=== PATIENT | female | born 1940 | race Caucasian/White ===

== ENCOUNTER → 2016-08-13 | Outpatient (CLI) | payer MEDICARE, OTHER ==
[~2016-08-13] MED LIST: ALBU1AER INH; ALDA2525 PO; ARMO60TA PO; ASPI81CH3 CHEW; ASPI81TA82 PO; ATEN1TAB73 PO; ATEN25TA PO; AZIT500T2 PO; BACTOIN EACH NARE; BENZ1CAP34 PO; GABA600T PO; GLUCTAB PO; LOVA10TA PO; MECL25CH PO; METF500T PO; NEXI40CA PO; PRED10PA PO; PRED20 PO; PRED5TAB PO; PROB500T10 PO; PROB500T8 PO; REST30CA PO; SPIR25TA3 PO; SYMB160A INH; TRAM-492 PO; TRAZ50TA4 PO; ULTR50TA PO; ZOFR4TAB3 SL
[2016-08-13 14:16] LABS: ANION GAP 9 MEQ/L (5-15); AST (GOT) 24 U/L (15-37); BLOOD UREA NITROGEN 22 MG/DL (7-18); CHLORIDE 98 MEQ/L (98-107); GLOMERULAR FILTRATION RATE 52 ML/MIN (>89); GLUCOSE,FASTING 151 MG/DL (74-99); POTASSIUM 3.5 MEQ/L (3.5-5.1); SODIUM (NA) 138 MEQ/L (136-145); URIC ACID 6.1 MG/DL (2.6-6.0)
[2016-08-13 14:44] LABS: ALKALINE PHOSPHATASE 70 U/L (45-117); ALT (GPT) 34 U/L (10-53); FREE T4 0.74 NG/DL (0.76-1.46); HDL CHOLESTEROL 64.1 MG/DL (40.0-60.0); LDL CHOLESTEROL 114 MG/DL (0-99); TOTAL BILIRUBIN ADULT 0.7 MG/DL (0.2-1.0)
== END ==
LOC: ELAB 12:17
PROVIDERS: ATTEND Family Medicine
DX: E78.2 Mixed hyperlipidemia (principal); M10.9 Gout, unspecified; E03.9 Hypothyroidism, unspecified; E53.8 Deficiency of other specified B group vitamins
CPT/HCPCS: 36415; 80053; 80061; 82607; 84439; 84443; 84550

== ENCOUNTER 2016-09-06 13:09 | Emergency (ER) | payer MEDICARE, OTHER ==
[~2016-09-06] VITALS: Ht 157.5 cm; Wt 70.0 kg
[~2016-09-06 13:09] MED LIST changes: -ASPI81CH3 CHEW; -ATEN25TA PO; -AZIT500T2 PO; -BACTOIN EACH NARE; -METF500T PO; -PRED10PA PO; -PRED5TAB PO; -PROB500T8 PO; -SPIR25TA3 PO; -TRAM-492 PO
[2016-09-06 13:12] VITALS: BP 127/66; PULSE 86; RESP 24; TEMP 97.7; O2SAT 95
[2016-09-06 13:18] VITALS: BP 133/75; PULSE 85; RESP 23; O2SAT 98
[2016-09-06 13:36] VITALS: O2SAT 99
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
[2016-09-06] MEDS ORDERED: methylPREDNISolone SOD SUCC 125 MG/2 ML VIAL IV PUSH ONE (13:45)
[2016-09-06] MEDS ORDERED: SODIUM CHLORIDE 0.9% FLUSH 5 ML FLUSH IVF PRN (13:45)
[2016-09-06 14:42] LABS: AUTOMATED NEUTROPHIL # 7.7 TH/MM3 (1.8-7.7); BASOPHIL % 0.2 % (0.0-2.0); EOSINOPHIL # 0.2 TH/MM3 (0-0.4); EOSINOPHIL % 1.9 % (0.0-4.0); HEMO FLAGS DIFF FINAL; LYMPH % 18.2 % (9.0-44.0); LYMPHOCYTE # 1.9 TH/MM3 (1.0-4.8); MEAN CELL VOLUME 88.6 FL (80.0-100.0); MEAN CORPUSCULAR HEMOGLOBIN 29.8 PG (27.0-34.0); MEAN CORPUSCULAR HGB CONC 33.6 % (32.0-36.0); MONO % 6.7 % (0.0-8.0); PLATELET COUNT 253 TH/MM3 (150-450); RED BLOOD COUNT 4.52 MIL/MM3 (4.00-5.30); RED CELL DISTRIBUTION WIDTH 14.3 % (11.6-17.2); WHITE BLOOD COUNT 10.6 TH/MM3 (4.0-11.0)
--- NOTE | 2016-09-06 14:44 | RADRPT ---
EXAM DATE/TIME: 09/06/2016 14:37 [facility] COMPARISON: CHEST SINGLE AP, March 05, 2016, 8:13. INDICATIONS : Shortness of breath. MEDICAL HISTORY : Chronic obstructive pulmonary disease. SURGICAL HISTORY : None. ENCOUNTER: Initial ACUITY: 2 weeks PAIN SCORE: 0/10 LOCATION: Bilateral chest FINDINGS: There is diffuse bilateral chronic interstitial lung disease characteristic of pulmonary fibrosis. Th e pulmonary fibrosis is at about the same or mildly increased compared to the prior study. No definit e focal acute pulmonary infiltrates are seen however this is limited due to the pulmonary fibrosis. N o evidence of pleural effusions. The heart size is stable. The bony structures are stable. CONCLUSION: Diffuse prominent bilateral pulmonary fibrosis. Anselmo Hidalgo MD on September 06, 2016 at 14:42 Board Certified Radiologist. This report was verified electronically.
--- NOTE | 2016-09-06 14:45 | RADRPT ---
EXAM DATE/TIME: 09/06/2016 14:28 [facility] COMPARISON: No previous studies available for comparison. INDICATIONS : Pain from fall onto tile floor. MEDICAL HISTORY : Prior fracture, right hip. SURGICAL HISTORY : Surgical repair, right hip. ENCOUNTER: Initial ACUITY: 1 day PAIN SCORE: 5/10 LOCATION: Left hip. FINDINGS: Examination of the left hip was performed with AP Pelvis. The primary and secondary trabecular patte rn of the femoral neck is intact. The left hip joint is of normal width without significant sclerosi s or bony hypertrophy. The acetabulum is grossly intact. There is evidence of previous internal fixa tion of the right femur. CONCLUSION: No acute fracture or joint dislocation. Anselmo Hidalgo MD on September 06, 2016 at 14:43 Board Certified Radiologist. This report was verified electronically.
[2016-09-06 14:53] LABS: APTT (PATIENT) 26.4 SEC (24.3-30.1); INTERNATIONAL NORMALIZED RATIO 1.1 RATIO; PROTHROMBIN TIME - PATIENT 11.7 SEC (9.8-11.6)
[2016-09-06] MEDS: RESP: ALBUTEROL 2.5 MG/IPRATROPIUM 0.5 MG NEB (SCH) INH (14:58)
--- NOTE | 2016-09-06 14:58 | RADRPT ---
EXAM DATE/TIME: 09/06/2016 14:37 [facility] COMPARISON: CT BRAIN W/O CONTRAST, December 21, 2015, 17:27. INDICATIONS : Fell a few days ago. RADIATION DOSE: 56.35 CTDIvol (mGy) MEDICAL HISTORY : Cerebrovascular disease. Hypertension. Diabetes. SURGICAL HISTORY : Cholecystectomy. Hysterectomy. ENCOUNTER: Initial ACUITY: 4 - 6 days PAIN SCALE: 2/10 LOCATION: cranial TECHNIQUE: Multiple contiguous axial images were obtained of the head. Using automated exposure control and adj ustment of the mA and/or kV according to patient size, radiation dose was kept as low as reasonably a chievable to obtain optimal diagnostic quality images. FINDINGS: CEREBRUM: The ventricles are normal for age. There is bilateral cortical atrophy which appears to be stable. T here is a tiny old left lacunar infarct in the basal ganglia. No evidence of midline shift, mass lesi on, hemorrhage or acute infarction. No extra-axial fluid collections are seen. POSTERIOR FOSSA: The cerebellum and brainstem are intact. The 4th ventricle is midline. The cerebellopontine angle i s unremarkable. EXTRACRANIAL: The visualized portion of the orbits is intact. SKULL: The calvaria is intact. No evidence of skull fracture. No significant change. CONCLUSION: 1. Tiny old left lacunar infarct. 2. Bilateral cortical atrophy. 3. No significant change. Anselmo Hidalgo MD on September 06, 2016 at 14:55 Board Certified Radiologist. This report was verified electronically.
[2016-09-06 15:28] LABS: ALKALINE PHOSPHATASE 56 U/L (45-117); ALT (GPT) 25 U/L (10-53); ANION GAP 8 MEQ/L (5-15); AST (GOT) 28 U/L (15-37); BICARBONATE 27.9 MEQ/L (21.0-32.0); BLOOD UREA NITROGEN 17 MG/DL (7-18); CHLORIDE 103 MEQ/L (98-107); GLOMERULAR FILTRATION RATE 45 ML/MIN (>89); POTASSIUM 4.1 MEQ/L (3.5-5.1); SODIUM (NA) 139 MEQ/L (136-145); TOTAL BILIRUBIN ADULT 0.6 MG/DL (0.2-1.0)
[2016-09-06 15:29] LABS: CREATINE KINASE 55 U/L (26-192)
[2016-09-06] MEDS ORDERED: LOVA10TA PO (15:42)
[2016-09-06] MEDS ORDERED: NEXI40CA PO (15:42)
[2016-09-06] MEDS ORDERED: PROB500T8 PO (15:42)
[2016-09-06] MEDS ORDERED: METF500T PO (15:42)
[2016-09-06] MEDS ORDERED: GABA600T PO (15:42)
[2016-09-06] MEDS ORDERED: BENZ1CAP34 PO (15:42)
[2016-09-06 16:30] VITALS: BP 105/56; PULSE 95; RESP 21; O2SAT 98
[2016-09-06 17:41] LABS: BLOOD, URINE NEG (NEG); COMMENT (UR) CULT NOT INDICATED; CULTURE IF INDICATED CULT NOT INDICATED; GLUCOSE,URINE NEG (NEG); HYALINE CAST, URINE 4 /lpf (RARE); KETONE, URINE TRACE mg/dL (NEG); MUCUS URINE FEW /lpf (OCC); NITRITE,URINE NEG (NEG); PH, URINE 5.5 (5.0-8.5); SQUAMOUS EPITHELIAL CELL URINE <1 /hpf (0-5); URINE COLOR YELLOW (YELLW/STRAW)
[2016-09-06] MEDS ORDERED: ATEN25TA PO (18:04)
[2016-09-06] MEDS ORDERED: ASPI81CH3 CHEW (18:04)
[2016-09-06] MEDS ORDERED: TRAM-492 PO (18:04)
[2016-09-06] MEDS ORDERED: ARMO60TA PO (18:04)
[2016-09-06] MEDS ORDERED: SPIR25TA3 PO (18:04)
[2016-09-06] MEDS ORDERED: PRED10PA PO (18:06)
--- NOTE | 2016-09-07 13:19 | EKG ---
Date Performed: 09/06/2016 Time Performed: 13:52:05 PTAGE: 76 years EKG: Sinus rhythm RIGHT BUNDLE BRANCH BLOCK ABNORMAL ECG Compared to prior tracing no significant change PREVIOUS TRACING : 03/05/2016 07.57 DOCTOR: Ariel Reardon Interpretating Date/Time 09/07/2016 13:14:51
== END 2016-09-06 18:55 | disposition home or self-care (01) ==
LOC: NEPA 13:09
DX: J84.10 Pulmonary fibrosis, unspecified (principal); H81.399 Other peripheral vertigo, unspecified ear; I10 Essential (primary) hypertension; E11.9 Type 2 diabetes mellitus without complications; R06.02 Shortness of breath; E03.9 Hypothyroidism, unspecified; Z79.84 Long term (current) use of oral hypoglycemic drugs; Z79.899 Other long term (current) drug therapy; Z87.891 Personal history of nicotine dependence
CPT/HCPCS: 70450; 71010; 73502; 80053; 81001; 82550; 83880; 84484; 85025; 85610; 85730; 93005; 94640; 94664; 96374; 99285; J2930; P9612

== ENCOUNTER 2016-11-03 22:43 | Inpatient (IN) | payer MEDICARE, OTHER ==
[~2016-11-03] VITALS: Ht 154.9 cm; Wt 72.8 kg
[~2016-11-03 22:43] MED LIST changes: -ALBU1AER INH; -ALDA2525 PO; +ASPI81CH3 CHEW; -ASPI81TA82 PO; -ATEN1TAB73 PO; +ATEN25TA PO; -GLUCTAB PO; -MECL25CH PO; +METF500T PO; +PRED10PA PO; -PRED20 PO; -PROB500T10 PO; +PROB500T8 PO; -REST30CA PO; +SPIR25TA3 PO; -SYMB160A INH; +TRAM-492 PO; -TRAZ50TA4 PO; -ULTR50TA PO; -ZOFR4TAB3 SL
[2016-11-03 22:51] VITALS: BP 179/90; PULSE 111; RESP 22; TEMP 98; O2SAT 96
[2016-11-03] MEDS ORDERED: SODIUM CHLORIDE 0.9% FLUSH 10 ML FLUSH IVF PRN (23:30)
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
[2016-11-04] VITALS (16 sets, daily range): BP systolic 122–235; BP diastolic 69–98; PULSE 80–107; RESP 16–26; TEMP 97.9–98; O2SAT 94–99
--- NOTE | 2016-11-04 00:05 | RADRPT ---
EXAM DATE/TIME: 11/03/2016 23:47 [place] COMPARISON: CHEST SINGLE AP, September 06, 2016, 14:37. INDICATIONS : Shortness of breath. MEDICAL HISTORY : Hypertension. SURGICAL HISTORY : None. ENCOUNTER: Initial ACUITY: 1 day PAIN SCORE: 0/10 LOCATION: Bilateral chest FINDINGS: A single view of the chest demonstrates lung fibrotic changes similar to August. There is some new c onsolidation at the left lung base since prior exam. No effusion. No pneumothorax. Heart size enlarge d. CONCLUSION: 1. New basilar airspace disease on the left since August. Differential diagnosis includes pneumonia and aspiration as well as atelectasis. Underlying lung fibrosis similar to prior study. Jordin Vaughn MD on November 04, 2016 at 0:01 Board Certified Radiologist. This report was verified electronically.
[2016-11-04 00:47] LABS: AUTOMATED NEUTROPHIL # 8.4 TH/MM3 (1.8-7.7); BASOPHIL # 0.1 TH/MM3 (0-0.2); BASOPHIL % 0.4 % (0.0-2.0); EOSINOPHIL # 0.1 TH/MM3 (0-0.4); EOSINOPHIL % 0.8 % (0.0-4.0); HEMATOCRIT 39.9 % (35.0-46.0); HEMO FLAGS DIFF FINAL; LYMPH % 26.8 % (9.0-44.0); LYMPHOCYTE # 3.4 TH/MM3 (1.0-4.8); MEAN CELL VOLUME 90.7 FL (80.0-100.0); MEAN CORPUSCULAR HEMOGLOBIN 30.4 PG (27.0-34.0); MEAN CORPUSCULAR HGB CONC 33.5 % (32.0-36.0); MONO % 6.6 % (0.0-8.0); NEUT % 65.4 % (16.0-70.0); PLATELET COUNT 270 TH/MM3 (150-450); RED CELL DISTRIBUTION WIDTH 16.2 % (11.6-17.2); WHITE BLOOD COUNT 12.8 TH/MM3 (4.0-11.0)
[2016-11-04 00:54] LABS: BLOOD, URINE NEG (NEG); GLUCOSE,URINE NEG (NEG); KETONE, URINE NEG (NEG); MUCUS URINE FEW /lpf (OCC); NITRITE,URINE NEG (NEG); PH, URINE 5.5 (5.0-8.5); URINE COLOR LIGHT-YELLOW (YELLW/STRAW)
[2016-11-04 00:55] LABS: COMMENT (UR) CULT NOT INDICATED; CULTURE IF INDICATED CULT NOT INDICATED
[2016-11-04] MEDS ORDERED: AZITHROMYCIN INJ 500 MG in SODIUM CHLOR 0.9% 250 ML INJ 250 ML IV ONE (01:00)
[2016-11-04] MEDS ORDERED: cefTRIAXone INJ 2,000 MG in SODIUM CHLORIDE 0.9% INJ 100 ML IV ONE (01:00)
[2016-11-04 01:08] LABS: ALKALINE PHOSPHATASE 60 U/L (45-117); ALT (GPT) 33 U/L (10-53); ANION GAP 7 MEQ/L (5-15); APTT (PATIENT) 23.8 SEC (24.3-30.1); AST (GOT) 59 U/L (15-37); BICARBONATE 27.9 MEQ/L (21.0-32.0); BLOOD UREA NITROGEN 24 MG/DL (7-18); CHLORIDE 104 MEQ/L (98-107); CREATINE KINASE 132 U/L (26-192); GLOMERULAR FILTRATION RATE 42 ML/MIN (>89); MAGNESIUM 1.6 MG/DL (1.5-2.5); PROTHROMBIN TIME - PATIENT 10.6 SEC (9.8-11.6); TOTAL BILIRUBIN ADULT 0.4 MG/DL (0.2-1.0)
[2016-11-04 01:11] LABS: SODIUM (NA) 139 MEQ/L (136-145)
[2016-11-04] MEDS ORDERED: SODIUM CHLOR 0.9% 1000 ML INJ 400 ML IV ONE (01:19)
[2016-11-04] MEDS ORDERED: SODIUM CHLOR 0.9% 1000 ML INJ 1,000 ML IV ONE ×2 (01:19)
[2016-11-04 01:23] LABS: CKMB 1.9 NG/ML (0.5-3.6)
[2016-11-04] MEDS ORDERED: SODIUM CHLORIDE 0.9% FLUSH 10 ML FLUSH IV FLUSH PRN (01:30)
[2016-11-04] MEDS ORDERED: MORPHINE SULFATE 4 MG/ML INJ IV PRN (01:30)
[2016-11-04] MEDS ORDERED: RESP: ALBUTEROL 2.5 MG/IPRATROPIUM 0.5 MG NEB (PRN) NEB (01:30)
[2016-11-04] MEDS ORDERED: ACETAMINOPHEN 325 MG TAB PO PRN (01:30)
[2016-11-04] MEDS ORDERED: BISACODYL 10 MG SUPP PR PRN (01:30)
[2016-11-04] MEDS ORDERED: ONDANSETRON HCL 4 MG/2 ML VIAL IVP PRN (01:30)
[2016-11-04] MEDS ORDERED: NITROGLYCERIN 2% OINT 1 GM PACKET TOPICAL ONE (01:30)
[2016-11-04] MEDS ORDERED: GLUCAGON 1 MG/ML VIAL OTHER PRN (01:45)
[2016-11-04] MEDS ORDERED: DEXTROSE 50% IN WATER 50 ML VIAL(D50) IV PUSH PRN (01:45)
[2016-11-04] MEDS ORDERED: CLOPIDOGREL 300 MG TAB PO ONE (01:45)
[2016-11-04 02:35] LABS: LACTIC ACID GHOST NOT REPORTABLE
--- NOTE | 2016-11-04 04:11 | HHI.HP ---
HPI Service [facility] Clive Johnson MD Admission Diagnosis Pneumonia, cp ro mi, intermediate trop, sepsis Diagnoses: (1) Sepsis Diagnosis: Principal (2) PNA (pneumonia) Diagnosis: Principal (3) Pulmonary fibrosis Diagnosis: Principal (4) DONATO (acute kidney injury) Diagnosis: Principal (5) Elevated troponin Diagnosis: Principal (6) DM (diabetes mellitus) Diagnosis: Principal Travel History International Travel<30 Days: No Contact w/Intl Traveler <30 Da: No Traveled to Known Affected Are: No History of Present Illness This is a 76-year-old female with a PMH of HTN, Pulmonary Fibrosis, O2 Dependent , GERD and DM who is brought to the ER by EMS secondary complaints of SOB and chest pain x3 days. Reports recent nasal congestion, productive coug w/ yellow- colored sputum and sick contacts-family member w/ URI. Denies fever or chills. On arrival, BP 179/90, HR 111, O2 sat 96% on 3L NC, Afebrile. WBC 12.8. K+ 6.0, Creatinine 1.25, previously 1.16 on 09/06/16. Lactic Acid 2.5, repeat 1.7. Troponin 0.32, no EKG changes. CXR with new basilar airspace disease and left and underlying lung fibrosis. S/p Blood Culture, Rocephin/Zithro in ER. Review of Systems Except as stated in HPI: all other systems reviewed are Neg ROS: 14 point review of systems otherwise negative. Past Family Social History Past Medical History PMH: HTN, Pulmonary Fibrosis, O2 Dependent, GERD and DM Past Surgical History PAST SURGICAL HISTORY: Hysterectomy, Right Femur ORIF, Bilateral Knee Replacement, Cholecystectomy Allergies: Coded Allergies: Celebrex (Verified Allergy, Severe, ELEVATED HEART RATE, 11/03/16) Codeine (Verified Allergy, Severe, ITCH, 11/03/16) Oxycontin (Verified Allergy, Severe, Rash, 11/03/16) Percocet (Verified Allergy, Severe, ITCHY, 11/03/16) Procaine (Verified Allergy, Severe, INCREASED HR, 11/03/16) *MDRO Multi-Drug Resistant Organism (Verified Adverse Reaction, Unknown, ) + MRSA PCR Screen 11/29/14. Family History PAST FAMILY HISTORY: Reviewed. No h/o DM or CAD Social History PAST SOCIAL HISTORY: Negative for alcohol, tobacco or drugs. Physical Exam Vital Signs Vital Signs Date Time Temp Pulse Resp B/P Pulse Ox O2 Delivery O2 Flow Rate FiO2 11/04/16 01:00 86 16 122/71 98 Nasal Cannula 3 11/03/16 22:51 98.0 111 22 179/90 96 Physical Exam PE: GENERAL: Elderly white female in no acute distress. HEENT: PERRLA, EOMI. No scleral icterus or conjunctival pallor. No lid lag or facial droop. CARDIOVASCULAR: Regular rate and rhythm. No obvious murmurs to auscultation. No chest tenderness to palpation. RESPIRATORY: No obvious rhonchi or wheezing. Clear to auscultation. Decreased breath sounds at bases bilaterally GASTROINTESTINAL: Abdomen soft, non-tender, nondistended. BS normal. MUSCULOSKELETAL: Extremities without clubbing, cyanosis, or edema. No obvious deformities. NEUROLOGICAL: Awake, alert and oriented x4. No focal neurologic deficits. Moving both upper and lower extremities spontaneously. Laboratory Laboratory Tests Test 11/04/16 11/04/16 11/04/16 00:10 00:23 02:45 White Blood Count 12.8 Red Blood Count 4.40 Hemoglobin 13.4 Hematocrit 39.9 Mean Corpuscular Volume 90.7 Mean Corpuscular Hemoglobin 30.4 Mean Corpuscular Hemoglobin 33.5 Concent Red Cell Distribution Width 16.2 Platelet Count 270 Mean Platelet Volume 8.9 Neutrophils (%) (Auto) 65.4 Lymphocytes (%) (Auto) 26.8 Monocytes (%) (Auto) 6.6 Eosinophils (%) (Auto) 0.8 Basophils (%) (Auto) 0.4 Neutrophils # (Auto) 8.4 Lymphocytes # (Auto) 3.4 Monocytes # (Auto) 0.8 Eosinophils # (Auto) 0.1 Basophils # (Auto) 0.1 CBC Comment DIFF FINAL Differential Comment Prothrombin Time 10.6 Prothromb Time International 1.0 Ratio Activated Partial 23.8 Thromboplast Time D-Dimer Quantitative (PE/DVT) 0.48 Urine Color LIGHT-YELLOW Urine Turbidity CLEAR Urine pH 5.5 Urine Specific [place] 1.012 Urine Protein NEG Urine Glucose (UA) NEG Urine Ketones NEG Urine Occult Blood NEG Urine Nitrite NEG Urine Bilirubin NEG Urine Urobilinogen LESS THAN 2.0 Urine Leukocyte Esterase NEG Urine RBC LESS THAN 1 Urine WBC LESS THAN 1 Urine Mucus FEW Microscopic Urinalysis Comment CULT NOT INDICATED Sodium Level 139 Potassium Level 6.0 Chloride Level 104 Carbon Dioxide Level 27.9 Anion Gap 7 Blood Urea Nitrogen 24 Creatinine 1.25 Estimat Glomerular Filtration 42 Rate Random Glucose 121 Calcium Level 9.2 Magnesium Level 1.6 Total Bilirubin 0.4 Aspartate Amino Transf 59 (AST/SGOT) Alanine Aminotransferase 33 (ALT/SGPT) Alkaline Phosphatase 60 Total Creatine Kinase 132 Creatine Kinase MB 1.9 Troponin I 0.32 B-Type Natriuretic Peptide 60 Total Protein 7.3 Albumin 3.3 Lactic Acid Level 2.5 1.7 Date/Time Procedure Status Source Growth 11/04/16 00:10 Aerobic Blood Culture Received Blood Peripheral Pending 11/04/16 00:10 Anaerobic Blood Culture Received Blood Peripheral Pending Result Diagram: 11/04/160 11/04/169 Assessment and Plan Problem List: (1) Sepsis ICD Code: A41.9 Status: Acute (2) PNA (pneumonia) ICD Code: J18.9 Status: Acute (3) Pulmonary fibrosis ICD Code: J84.10 Status: Chronic (4) Elevated troponin ICD Code: R74.8 Status: Acute (5) DONATO (acute kidney injury) ICD Code: N17.9 Status: Acute (6) HTN (hypertension) ICD Code: I10 Status: Acute (7) DM (diabetes mellitus) ICD Code: E11.9 Status: Chronic Assessment and Plan A/P: 1. Sepsis: HR 111, RR 22, Lactic Acid 2.5, Source-PNA, s/p Blood Cultures, Rocephin/Zithro in ER. Follow up cultures, continue IV Abx, repeat lactic normalized to 1.7. IVF for hydration. 2. PNA: CXR w/ new basilar airspace disease on left, likely pneumonia/ aspiration, underlying lung fibrosis, images reviewed by me. Continue with IV Abx as above, check Sputum Culture. 3. Pulmonary Fibrosis: Chronic. Follows w/ Dr. Franco as outpatient, Solu- Medrol, DuoNeb, Symbicort. 4. Elevated Trop: Trop 0.32, EKG w/ no acute ischemia, no h/o CAD. Check serial cardiac enzymes, ASA, Statin, B-camryn, consult Cardiology. 5. DONATO: Acute on Chronic. Creatinine 1.25, previously 1.16 on 09/06/16. UA negative. IVF for hydration, repeat labs in a.m. 6. HTN: BP on arrival 179/90, HR 111, currently BP 122/71, HR 86. Will monitor, resume home medications. 7. DM: Hold Metformin in light of renal insufficiency. Sliding scale with Accu-Cheks. 8. DVT Prophylaxis: SCD/teds. 9. Social work for DC planning as needed 10. Case discussed with ER physician at length. Physician Certification 2 Midnight Certification Type: Admission for Inpatient Services Order for Inpatient Services The services are ordered in accordance with Medicare regulations or non- Medicare payer requirements, as applicable. In the case of services not specified as inpatient-only, they are appropriately provided as inpatient services in accordance with the 2-midnight benchmark. Estimated LOS (days): 2 days is the estimated time the patient will need to remain in the hospital, assuming treatment plan goals are met and no additional complications. Post-Hospital Plan: Not yet determined Problem Qualifiers (1) Sepsis: Qualified Code: A41.9 - Sepsis, due to unspecified organism (2) PNA (pneumonia): Qualified Code: J18.9 - Pneumonia due to infectious organism, unspecified laterality, unspecified part of lung Anuja Linn MD Nov 04, 2016 04:11
[2016-11-04] MEDS: traMADol HCL 50 MG TAB PO PRN ×2 (05:04→20:38)
[2016-11-04] MEDS: SODIUM CHLOR 0.9% 1000 ML INJ 1,000 ML IV SCH ×2 (06:34→16:10)
[2016-11-04] MEDS: methylPREDNISolone SOD SUCC 40 MG/1 ML VIAL IV PUSH SCH ×2 (06:34→11:58)
[2016-11-04] MEDS: INSULIN ASPART SUPPLEMENTAL SCALE SQ SCH ×4 (06:42→21:00)
[2016-11-04] MEDS: RESP: ALBUTEROL 2.5 MG/IPRATROPIUM 0.5 MG NEB (SCH) NEB ×4 (07:53→19:37)
--- NOTE | 2016-11-04 08:30 | HHI.PR ---
Subjective Remarks This is a 76-year-old female with a PMH of HTN, Pulmonary Fibrosis, O2 Dependent , GERD and DM who is brought to the ER by EMS secondary complaints of SOB and chest pain x3 days. Reports recent nasal congestion, productive coug w/ yellow-colored sputum and sick contacts-family member w/ URI. Denies fever or chills. On arrival, BP 179/90, HR 111, O2 sat 96% on 3L NC, Afebrile. \ WBC 12.8. K+ 6.0, Creatinine 1.25, previously 1.16 on 09/06/16. Lactic Acid 2.5 , repeat 1.7. Troponin 0.32, no EKG changes. CXR with new basilar airspace disease and left and underlying lung fibrosis. S/ p Blood Culture, Rocephin/Zithro in ER. She was admitted today and was seen again by me in am, has Pneumonia with Acute kidney injury, bilateral inspiratory crackles, she follows her supplier quality specialist Doctor Justo and her excel specialist Doctor Joan as outpatient. at this time stable. No complaint no nausea, vomit or diarrhea. Objective Vital Signs Date Time Temp Pulse Resp B/P Pulse Ox O2 Delivery O2 Flow Rate FiO2 11/04/16 07:56 97 Nasal Cannula 2.00 11/04/16 07:35 97 152/77 128/69 11/04/16 07:04 96 18 235/95 99 Nasal Cannula 2 11/04/16 06:40 105 26 167/83 96 Nasal Cannula 3 11/04/16 04:53 94 24 152/76 98 Nasal Cannula 3 11/04/16 01:00 86 16 122/71 98 Nasal Cannula 3 11/03/16 22:51 98.0 111 22 179/90 96 Result Diagram: 11/04/16 0010 11/04/16 0010 Imaging Last Impressions Chest X-Ray 11/03/16 2330 Signed Impressions: Service Date/Time: Thursday, November 03, 2016 23:47 - CONCLUSION: 1. New basilar airspace disease on the left since August. Differential diagnosis includes pneumonia and aspiration as well as atelectasis. Underlying lung fibrosis similar to prior study. Jordin Vaughn MD Procedures No procedures performed Other Results Laboratory Tests Test 11/04/16 11/04/16 11/04/16 00:10 02:45 06:10 White Blood Count 12.8 TH/MM3 Red Blood Count 4.40 MIL/MM3 Hemoglobin 13.4 GM/DL Hematocrit 39.9 % Mean Corpuscular Volume 90.7 FL Mean Corpuscular Hemoglobin 30.4 PG Mean Corpuscular Hemoglobin 33.5 % Concent Red Cell Distribution Width 16.2 % Platelet Count 270 TH/MM3 Mean Platelet Volume 8.9 FL Neutrophils (%) (Auto) 65.4 % Lymphocytes (%) (Auto) 26.8 % Monocytes (%) (Auto) 6.6 % Eosinophils (%) (Auto) 0.8 % Basophils (%) (Auto) 0.4 % Neutrophils # (Auto) 8.4 TH/MM3 Lymphocytes # (Auto) 3.4 TH/MM3 Monocytes # (Auto) 0.8 TH/MM3 Eosinophils # (Auto) 0.1 TH/MM3 Basophils # (Auto) 0.1 TH/MM3 CBC Comment DIFF FINAL Differential Comment Prothrombin Time 10.6 SEC Prothromb Time International 1.0 RATIO Ratio Activated Partial 23.8 SEC Thromboplast Time D-Dimer Quantitative (PE/DVT) 0.48 MG/L FEU Urine Color LIGHT-YELLOW Urine Turbidity CLEAR Urine pH 5.5 Urine Specific [place] 1.012 Urine Protein NEG mg/dL Urine Glucose (UA) NEG mg/dL Urine Ketones NEG mg/dL Urine Occult Blood NEG Urine Nitrite NEG Urine Bilirubin NEG Urine Urobilinogen LESS THAN 2.0 MG/DL Urine Leukocyte Esterase NEG Urine RBC LESS THAN 1 /hpf Urine WBC LESS THAN 1 /hpf Urine Mucus FEW /lpf Microscopic Urinalysis Comment CULT NOT INDICATED Sodium Level 139 MEQ/L Potassium Level 6.0 MEQ/L Chloride Level 104 MEQ/L Carbon Dioxide Level 27.9 MEQ/L Anion Gap 7 MEQ/L Blood Urea Nitrogen 24 MG/DL Creatinine 1.25 MG/DL Estimat Glomerular Filtration 42 ML/MIN Rate Random Glucose 121 MG/DL Calcium Level 9.2 MG/DL Magnesium Level 1.6 MG/DL Total Bilirubin 0.4 MG/DL Aspartate Amino Transf 59 U/L (AST/SGOT) Alanine Aminotransferase 33 U/L (ALT/SGPT) Alkaline Phosphatase 60 U/L Total Creatine Kinase 132 U/L Creatine Kinase MB 1.9 NG/ML B-Type Natriuretic Peptide 60 PG/ML Total Protein 7.3 GM/DL Albumin 3.3 GM/DL Lactic Acid Level 1.7 mmol/L Troponin I 0.30 NG/ML Objective Remarks GENERAL: Elderly white female in no acute distress. HEENT: PERRLA, EOMI. No scleral icterus or conjunctival pallor. No lid lag or facial droop. CARDIOVASCULAR: Regular rate and rhythm. No obvious murmurs to auscultation. No chest tenderness to palpation. RESPIRATORY: No obvious rhonchi or wheezing. Clear to auscultation. Decreased breath sounds at bases bilaterally GASTROINTESTINAL: Abdomen soft, non-tender, nondistended. BS normal. MUSCULOSKELETAL: Extremities without clubbing, cyanosis, or edema. No obvious deformities. NEUROLOGICAL: Awake, alert and oriented x4. No focal neurologic deficits. Moving both upper and lower extremities spontaneously. Medications and IVs Current Medications Medications (Trade) Dose Ordered Sig/Han Route Start Time Stop Time Status Last Admin (NS Flush) 2 ml UNSCH PRN IVF 11/03/16 23:30 Aspirin 162 mg 162 mg DAILY CHEW 11/04/16 09:00 Ceftriaxone Sodium 1000 mg/ Sodium Chloride 100 ml @ 200 mls/hr Q24H IV 11/04/16 23:00 (Zithromax Inj/ NS 250 ml Inj) 250 ml @ 250 mls/hr Q24H IV 11/04/16 23:00 (SoluMEDROL INJ) 40 mg Q6HR IV PUSH 11/04/16 06:00 11/04/16 06:34 Budesonide/ Formoterol Fumarate 2 puff 2 puff Q12HR INH 11/04/16 09:00 (NS 1000 ml Inj) 1,000 ml @ 80 mls/hr [id number] IV 11/04/16 01:28 11/04/16 06:34 (NS Flush) 2 ml UNSCH PRN IV FLUSH 11/04/16 01:30 (NS Flush) 2 ml BID IV FLUSH 11/04/16 09:00 (Zofran Inj) 4 mg Q6H PRN IVP 11/04/16 01:30 (Dulcolax Supp) 10 mg DAILY PRN [place] 11/04/16 01:30 (Tylenol) 650 mg Q6H PRN PO 11/04/16 01:30 (Morphine Inj) 2 mg Q3H PRN IV 11/04/16 01:30 (Ultram) 50 mg Q4H PRN PO 11/04/16 01:30 11/04/16 05:04 (Aspirin Chew) 81 mg DAILY CHEW 11/04/16 09:00 (Tenormin) 25 mg DAILY PO 11/04/16 09:00 (Pravachol) 10 mg DAILY PO 11/04/16 09:00 (Protonix) 40 mg DAILY PO 11/04/16 09:00 (D50w (Vial) Inj) 25 ml UNSCH PRN IV PUSH 11/04/16 01:45 (Glucagon Inj) 1 mg UNSCH PRN OTHER 11/04/16 01:45 A/P Assessment and Plan 1. Sepsis: HR 111, RR 22, Lactic Acid 2.5, Source-PNA, s/p Blood Cultures, Rocephin Azithromycin in ER. Follow up cultures continue IV Abx, repeat lactic normalized to 1.7. IVF for hydration. 2. CAP: CXR w/ new basilar airspace disease on left, likely pneumonia/ aspiration, underlying lung fibrosis on Broad spectrum antibiotics. follow Sputum Culture. 3. Pulmonary Fibrosis: Chronic. Follows w/ Dr. Franco as outpatient, Solu- Medrol, DuoNeb, Symbicort. 4. Elevated Trop: Trop 0.32, EKG w/ no acute ischemia, no h/o CAD. Check serial cardiac enzymes, ASA, Statin, B-camryn, consult Cardiology. 5. DONATO: Acute on Chronic. Creatinine 1.25, previously 1.16 on 09/06/16. UA negative. IVF for hydration, repeat labs in a.m. 6. HTN: BP on arrival 179/90, HR 111, currently BP 122/71, HR 86. Will monitor, resume home medications. 7. DM: Hold Metformin in light of renal insufficiency. Sliding scale with Accu-Cheks. DVT Prophylaxis: SCD/teds. Social work for DC planning as needed No changes to anterior assessment following. Optimize respiratory medicines. Discharge Planning Expected in one to two days. Clarence Shetty MD Nov 04, 2016 08:29
[2016-11-04] MEDS ORDERED: ASPIRIN 81 MG CHEW TAB CHEW SCH (09:00)
[2016-11-04] MEDS: ASPIRIN 81 MG CHEW TAB CHEW SCH (09:00)
[2016-11-04] MEDS: PRAVASTATIN SOD 10 MG TAB PO SCH (09:26)
[2016-11-04] MEDS: PANTOPRAZOLE SOD 40 MG DELAYED RELEASE TAB PO SCH (09:26)
[2016-11-04] MEDS: ATENOLOL 25 MG TAB PO SCH (09:29)
[2016-11-04] MEDS: BUDESONIDE-FORMOTEROL 160/4.5 MCG INHALER INH SCH ×2 (09:32→21:51)
[2016-11-04] MEDS: SODIUM CHLORIDE 0.9% FLUSH 10 ML FLUSH IV FLUSH SCH ×2 (09:34→20:31)
--- NOTE | 2016-11-04 12:22 | PD.CONS ---
HPI Service Cardiology Consult Requested By Reason for Consult SOB/Chest pain Primary Care Physician Clive Johnson MD History of Present Illness 76-year-old female with PMH significant for Pulmonary Fibrosis O2 dependent, diabetes, ? leaky valve and GERD admitted with worsening shortness of breath on exertion, productive cough and atypical chest pain. She reports baseline SOB however during the last 3 days this has worsen. SOB is associated with nasal congestion, cough and yellow-colored sputum Denies fever or chills. In the ER she was found to have mild leukocytosis, elevated lactic acid, tachycardic, acute kidney injury and hyperkalemia. Troponin mildly elevated 0.32, EKG unchanged from previous. She has been started on broad spectrum antibiotics. Cardiology has been consulted due to chest pain. Of note patient relies she wants to be DNI. Review of Systems Consitutional: COMPLAINS OF: Fatigue, DENIES: Fever, Chills, Weight gain, Weight loss Eyes: DENIES: Amaurosis Fugax, Change in vision HEENT: DENIES: Lightheadedness, Change in hearing Respiratory: COMPLAINS OF: Cough, Sputum production, DENIES: See HPI, Snoring , Shortness of breath, Wheezing Cardiovascular: COMPLAINS OF: Chest pain, DENIES: See HPI, Palpitations, Syncope, Tachycardia Gastrointestinal: DENIES: Nausea, Vomiting, Change in bowel habits, Reflux, Bloody stools, Melena Genitourinary: DENIES: Urinary incontinence, Difficulty voiding Integumentary: DENIES: Rash Neurologic: DENIES: Tingling or numbness, Memory problems, Poor Balance, Stroke symptoms Musculoskeletal: DENIES: Joint pain, Muscle pain, Limited range of motion, Back pain Psychiatric: DENIES: Anxiety, Depression, Sleep disturbances Hematologic: DENIES: Bruising tendencies, Bleeding tendencies Endocrine: DENIES: Weight gain, Weight loss, Thyroid disease Past Family Social History Allergies: Coded Allergies: Celebrex (Verified Allergy, Severe, ELEVATED HEART RATE, 11/03/16) Codeine (Verified Allergy, Severe, ITCH, 11/03/16) Oxycontin (Verified Allergy, Severe, Rash, 11/03/16) Percocet (Verified Allergy, Severe, ITCHY, 11/03/16) Procaine (Verified Allergy, Severe, INCREASED HR, 11/03/16) *MDRO Multi-Drug Resistant Organism (Verified Adverse Reaction, Unknown, ) + MRSA PCR Screen 11/29/14. Past Medical History Pulmonary Fibrosis O2 dependent HTN HLD DM Leaky Valve Reported Medications Reported Meds & Active Scripts Active Prednisone (21) 10 mg tab Dose Pack (Prednisone) 10 Mg Pack 10 Mg PO DIRECTED Reported Aspirin 81 Low Dose (Aspirin) 81 Mg Chew 81 Mg CHEW DAILY Tramadol Hydrochloride (Tramadol HCl) 50 Mg Tab PO Q6HR Atenolol 25 Mg Tab 25 Mg PO DAILY [place] Thyroid (Thyroid) 60 Mg Tab 60 Mg PO DAILY Spironolactone-Hydrochlorothiazide 25-25 Mg Tab 1 Tab PO DAILY Lovastatin 10 Mg Tab 10 Mg PO DAILY Nexium (Esomeprazole DR) 40 Mg Capdr 40 Mg PO DAILY Benzonatate 200 Mg Cap 200 Mg PO TID PRN Probenecid 500 Mg Tab 500 Mg PO DAILY Gabapentin 600 Mg Tab 600 Mg PO TID Metformin (Metformin HCl) 500 Mg Tab 500 Mg PO BIDPC With meals Active Ordered Medications Current Medications Medications (Trade) Dose Ordered Sig/Han Route Start Time Stop Time Status Last Admin (NS Flush) 2 ml UNSCH PRN IVF 11/03/16 23:30 Aspirin 162 mg 162 mg DAILY CHEW 11/04/16 09:00 Ceftriaxone Sodium 1000 mg/ Sodium Chloride 100 ml @ 200 mls/hr Q24H IV 11/04/16 23:00 (Zithromax Inj/ NS 250 ml Inj) 250 ml @ 250 mls/hr Q24H IV 11/04/16 23:00 (SoluMEDROL INJ) 40 mg Q6HR IV PUSH 11/04/16 06:00 11/04/16 06:34 Budesonide/ Formoterol Fumarate 2 puff 2 puff Q12HR INH 11/04/16 09:00 11/04/16 09:32 (NS 1000 ml Inj) 1,000 ml @ 80 mls/hr [id number] IV 11/04/16 01:28 11/04/16 06:34 (NS Flush) 2 ml UNSCH PRN IV FLUSH 11/04/16 01:30 (NS Flush) 2 ml BID IV FLUSH 11/04/16 09:00 11/04/16 09:34 (Zofran Inj) 4 mg Q6H PRN IVP 11/04/16 01:30 (Dulcolax Supp) 10 mg DAILY PRN [place] 11/04/16 01:30 (Tylenol) 650 mg Q6H PRN PO 11/04/16 01:30 (Morphine Inj) 2 mg Q3H PRN IV 11/04/16 01:30 (Ultram) 50 mg Q4H PRN PO 11/04/16 01:30 11/04/16 05:04 (Aspirin Chew) 81 mg DAILY CHEW 11/04/16 09:00 11/04/16 09:26 (Tenormin) 25 mg DAILY PO 11/04/16 09:00 11/04/16 09:29 (Pravachol) 10 mg DAILY PO 11/04/16 09:00 11/04/16 09:26 (Protonix) 40 mg DAILY PO 11/04/16 09:00 11/04/16 09:26 (D50w (Vial) Inj) 25 ml UNSCH PRN IV PUSH 11/04/16 01:45 (Glucagon Inj) 1 mg UNSCH PRN OTHER 11/04/16 01:45 Physical Exam Vital Signs Vital Signs Date Time Temp Pulse Resp B/P Pulse Ox O2 Delivery O2 Flow Rate FiO2 11/04/16 07:56 97 Nasal Cannula 2.00 11/04/16 07:35 97 152/77 128/69 11/04/16 07:04 96 18 235/95 99 Nasal Cannula 2 11/04/16 06:40 105 26 167/83 96 Nasal Cannula 3 11/04/16 04:53 94 24 152/76 98 Nasal Cannula 3 11/04/16 01:00 86 16 122/71 98 Nasal Cannula 3 11/03/16 22:51 98.0 111 22 179/90 96 Physical Exam GENERAL: Well-nourished, well-developed patient. SKIN: Warm and dry. HEAD: Normocephalic. EYES: No scleral icterus. No injection or drainage. NECK: Supple, trachea midline. No JVD or lymphadenopathy. CARDIOVASCULAR: Regular rate and rhythm without murmurs, gallops, or rubs. RESPIRATORY: Rales bilaterally. No accessory muscle use. GASTROINTESTINAL: Abdomen soft, non-tender, nondistended. EXTREMITIES: No cyanosis, or edema. NEUROLOGICAL: Awake, alert, and oriented x 3. Non-focal. Laboratory Laboratory Tests Test 11/04/16 11/04/16 11/04/1628/17 00:10 00:23 02:45 06:10 White Blood Count 12.8 Red Blood Count 4.40 Hemoglobin 13.4 Hematocrit 39.9 Mean Corpuscular Volume 90.7 Mean Corpuscular Hemoglobin 30.4 Mean Corpuscular Hemoglobin 33.5 Concent Red Cell Distribution Width 16.2 Platelet Count 270 Mean Platelet Volume 8.9 Neutrophils (%) (Auto) 65.4 Lymphocytes (%) (Auto) 26.8 Monocytes (%) (Auto) 6.6 Eosinophils (%) (Auto) 0.8 Basophils (%) (Auto) 0.4 Neutrophils # (Auto) 8.4 Lymphocytes # (Auto) 3.4 Monocytes # (Auto) 0.8 Eosinophils # (Auto) 0.1 Basophils # (Auto) 0.1 CBC Comment DIFF FINAL Differential Comment Prothrombin Time 10.6 Prothromb Time International 1.0 Ratio Activated Partial 23.8 Thromboplast Time D-Dimer Quantitative (PE/DVT) 0.48 Urine Color LIGHT-YELLOW Urine Turbidity CLEAR Urine pH 5.5 Urine Specific [place] 1.012 Urine Protein NEG Urine Glucose (UA) NEG Urine Ketones NEG Urine Occult Blood NEG Urine Nitrite NEG Urine Bilirubin NEG Urine Urobilinogen LESS THAN 2.0 Urine Leukocyte Esterase NEG Urine RBC LESS THAN 1 Urine WBC LESS THAN 1 Urine Mucus FEW Microscopic Urinalysis Comment CULT NOT INDICATED Sodium Level 139 Potassium Level 6.0 Chloride Level 104 Carbon Dioxide Level 27.9 Anion Gap 7 Blood Urea Nitrogen 24 Creatinine 1.25 Estimat Glomerular Filtration 42 Rate Random Glucose 121 Calcium Level 9.2 Magnesium Level 1.6 Total Bilirubin 0.4 Aspartate Amino Transf 59 (AST/SGOT) Alanine Aminotransferase 33 (ALT/SGPT) Alkaline Phosphatase 60 Total Creatine Kinase 132 Creatine Kinase MB 1.9 Troponin I 0.32 0.30 B-Type Natriuretic Peptide 60 Total Protein 7.3 Albumin 3.3 Lactic Acid Level 2.5 1.7 Date/Time Procedure Status Source Growth 11/04/16 00:10 Aerobic Blood Culture Received Blood Peripheral Pending 11/04/16 00:10 Anaerobic Blood Culture Received Blood Peripheral Pending Result Diagram: 11/04/16 0010 11/04/16 0010 Imaging Last Impressions Chest X-Ray 11/03/16 2330 Signed Impressions: Service Date/Time: Dequan, November 03, 2016 23:47 - CONCLUSION: 1. New basilar airspace disease on the left since August. Differential diagnosis includes pneumonia and aspiration as well as atelectasis. Underlying lung fibrosis similar to prior study. Jordin Vaughn MD Assessment and Plan Problem List: (1) Elevated troponin Assessment and Plan: 76 y/o F admitted with early sepsis/PNA and DONATO with complaints of atypical chest pain and minimally elevated troponin. Cardiac risk factors include HTN, DM and HLD. Echo 2013 unremarkable with preserved LV systolic function. EKG unchanged from previous. Regarding minimally elevated troponin probably secondary to acute kidney injury. Continue conservative management for now. Of note patient states she would like to be DNI. Recommendations: 1. D/C Spironolactone given hyperkalemia 2. Get 2Decho 3. Continue ASA, BB and statins 4. Pulmonary to f/u 5. Avoid nephrotoxic drugs and electrolytes abnormalities. Thank you for the opportunity to take part in the care of this patient Will be available on a PRN basis for an questions or concerns (2) DM (diabetes mellitus) (3) HTN (hypertension) (4) Pulmonary fibrosis (5) DONATO (acute kidney injury) Ronal St MD Nov 04, 2016 12:22
--- NOTE | 2016-11-04 19:03 | EC ---
Study Study Date:11/04/2016 STUDY CONCLUSIONS SUMMARY - Left ventricle: The cavity size was normal. Wall thickness was normal. Systolic function was normal. The estimated ejection fraction was in the range of 60% to 65%. Wall motion was normal; there were no regional wall motion abnormalities. - Aortic valve: Mild regurgitation. - Left atrium: The atrium was mildly dilated. If LV function is below 40, please consider prescribing an ACEI or ARB or document rationale for non-use. PROCEDURE DATA STUDY STATUS: Elective. Procedure: Transthoracic echocardiography. Image quality was good. Scanning was performed from the parasternal, apical, and subcostal acoustic windows. Study completion: The patient tolerated the procedure well. Transthoracic echocardiography. M-mode, complete 2D, complete spectral Doppler, and color Doppler. Patient status: Inpatient. CARDIAC ANATOMY LEFT VENTRICLE: The cavity size was normal. Wall thickness was normal. Systolic function was normal. The estimated ejection fraction was in the range of 60% to 65%. Wall motion was normal; there were no regional wall motion abnormalities. AORTIC VALVE: Trileaflet; normal thickness leaflets. Doppler: Transvalvular velocity was within the normal range. There was no stenosis. Mild regurgitation. AORTA: Aortic root: The aortic root was normal in size. MITRAL VALVE: Structurally normal valve. Doppler: Transvalvular velocity was within the normal range. There was no evidence for stenosis. Trace to mild regurgitation. Valve area by pressure half-time: 2.89cm^2. LEFT ATRIUM: The atrium was mildly dilated. RIGHT VENTRICLE: The cavity size was normal. Wall thickness was normal. PULMONIC VALVE: Doppler: Transvalvular velocity was within the normal range. There was no evidence for stenosis. No regurgitation. TRICUSPID VALVE: Structurally normal valve. Doppler: Transvalvular velocity was within the normal range. No regurgitation. PULMONARY ARTERY: The main pulmonary artery was normal-sized. Systolic pressure was within the normal range. RIGHT ATRIUM: The atrium was normal in size. PERICARDIUM: There was no pericardial effusion. SYSTEMIC VEINS: Inferior vena cava: The vessel was normal in size. BASIC MEASUREMENTS ADULT NORMAL Left ventricle LV internal dimension, ED, chordal level, *42.4 mm 43-52 PLAX LV internal dimension, ES, chordal level, 26 mm 23-38 PLAX Fractional shortening, chordal level, PLAX 39 % >29 LV posterior wall thickness, ED 11.6 mm IVS/LVPW ratio, ED 1.14 <1.3 Ventricular septum Septal thickness, ED 13.2 mm Aortic valve Leaflet separation 15 mm 15-26 Right ventricle RV internal dimension, ED, PLAX 27.3 mm 19-38 BASIC MEASUREMENTS ADULT NORMAL Aortic valve Leaflet separation 15 mm 15-26 Aorta Root diameter, ED 31 mm 20-37 Left atrium Anterior-posterior dimension, ES *42 mm 19-40 LA/aortic root ratio 1.35 DOPPLER MEASUREMENTS ADULT NORMAL Mitral valve Pressure half-time 76 ms Valve area, pressure half-time 2.89 cm^2 LEGEND: Mean values are shown as u=mean value. Asterisk (*) quintana values outside specified normal range. Prepared and signed by Tomi Willett [id number]
[2016-11-04] MEDS: guaiFENesin E.R. 600 MG TAB PO SCH (20:38)
--- NOTE | 2016-11-04 21:48 | EKG ---
Date Performed: 11/04/2016 Time Performed: 06:17:35 PTAGE: 76 years EKG: Sinus rhythm RIGHT BUNDLE BRANCH BLOCK Since previous tracing, no significant change noted ABNORMAL ECG PREVIOUS TRACING : 09/06/2016 13.52 DOCTOR: Althea Woody Interpretating Date/Time 11/04/2016 21:47:35
--- NOTE | 2016-11-04 22:38 | EKG ---
Date Performed: 11/04/2016 Time Performed: 12:31:28 PTAGE: 76 years EKG: Sinus rhythm RIGHT BUNDLE BRANCH BLOCK ABNORMAL ECG PREVIOUS TRACING : 11/04/2016 06.17 Compared to prior tracing no significant change DOCTOR: Federico Boone Interpretating Date/Time 11/04/2016 22:37:18
--- NOTE | 2016-11-04 22:40 | EKG ---
Date Performed: 11/04/2016 Time Performed: 12:24:14 PTAGE: 76 years EKG: Sinus rhythm Reversed leads RBBB ABNORMAL ECG PREVIOUS TRACING : 11/04/2016 05.42 Compared to prior tracing no significant change DOCTOR: Federico Boone Interpretating Date/Time 11/04/2016 22:39:06
[2016-11-04] MEDS: cefTRIAXone INJ 1,000 MG in SODIUM CHLORIDE 0.9% INJ 100 ML IV SCH (23:46)
[2016-11-04] MEDS: AZITHROMYCIN INJ 500 MG in SODIUM CHLOR 0.9% 250 ML INJ 250 ML IV SCH (23:47)
[2016-11-05] VITALS (16 sets, daily range): BP systolic 151–170; BP diastolic 88–94; PULSE 80–104; RESP 16–20; TEMP 97.8–98.3; O2SAT 95–98
[2016-11-05] MEDS: INSULIN ASPART SUPPLEMENTAL SCALE SQ SCH ×4 (06:28→20:08)
[2016-11-05] MEDS: methylPREDNISolone SOD SUCC 40 MG/1 ML VIAL IV PUSH SCH ×3 (06:28→19:53)
[2016-11-05 06:46] LABS: AUTOMATED NEUTROPHIL # 8.2 TH/MM3 (1.8-7.7); EOSINOPHIL % 0.1 % (0.0-4.0); HEMATOCRIT 34.4 % (35.0-46.0); HEMO FLAGS DIFF FINAL; LYMPH % 16.4 % (9.0-44.0); LYMPHOCYTE # 1.8 TH/MM3 (1.0-4.8); MEAN CELL VOLUME 91.7 FL (80.0-100.0); MEAN CORPUSCULAR HEMOGLOBIN 30.9 PG (27.0-34.0); MEAN CORPUSCULAR HGB CONC 33.7 % (32.0-36.0); MONO % 7.8 % (0.0-8.0); NEUT % 75.7 % (16.0-70.0); PLATELET COUNT 212 TH/MM3 (150-450); RED BLOOD COUNT 3.75 MIL/MM3 (4.00-5.30); RED CELL DISTRIBUTION WIDTH 16.2 % (11.6-17.2); WHITE BLOOD COUNT 10.8 TH/MM3 (4.0-11.0)
[2016-11-05 07:00] LABS: ALKALINE PHOSPHATASE 41 U/L (45-117); ALT (GPT) 22 U/L (10-53); ANION GAP 7 MEQ/L (5-15); AST (GOT) 16 U/L (15-37); BICARBONATE 26.9 MEQ/L (21.0-32.0); BLOOD UREA NITROGEN 21 MG/DL (7-18); CHLORIDE 109 MEQ/L (98-107); GLOMERULAR FILTRATION RATE 65 ML/MIN (>89); POTASSIUM 3.8 MEQ/L (3.5-5.1); SODIUM (NA) 143 MEQ/L (136-145); TOTAL BILIRUBIN ADULT 0.4 MG/DL (0.2-1.0)
[2016-11-05] MEDS: RESP: ALBUTEROL 2.5 MG/IPRATROPIUM 0.5 MG NEB (SCH) NEB ×4 (07:40→19:47)
--- NOTE | 2016-11-05 08:10 | EKG ---
Date Performed: 11/03/2016 Time Performed: 22:52:56 PTAGE: 76 years EKG: Sinus rhythm RIGHT BUNDLE BRANCH BLOCK ABNORMAL ECG Compared to PREVIOUS TRACING , there has been no serial change. PREVIOUS TRACING 09/06/2016 13.5 2.05 DOCTOR: Althea Woody Interpretating Date/Time 11/05/2016 08:09:35
--- NOTE | 2016-11-05 08:49 | HHI.PR ---
Subjective Remarks This is a pleasant 76 y/o Female with Hypertension, Pulmonary Fibrosis, Oxygen dependent, GERD DM II, who was brought in to ER with SOB for 3 days, productive cough yellowish sputum, afebrile, initial Lactic Acid 2.5, repeat 1.7. Troponin 0.32, no EKG changes. CXR with new basilar airspace disease and left and underlying lung fibrosis. Blood culture negative, continue Rocephin and Azithromycin, was already seen by social work specialist Doctor Maciel, Echocardiogram from 2013 unremarkable, with preserved left Ventricular function, has minimal Troponin elevation, Discontinued Spironolactone given Hyperkalemia, asked for echocardiogram, continue Aspirin and BB, database marketing specialist to follow, asked for doctor Joan. 11/05 seen in the room in the presence of nurse Miss Cosmeleen she was MRSA positive in Nares started on Mupirocin no nausea, vomit or diarrhea, breathing better. Objective Vital Signs Date Time Temp Pulse Resp B/P Pulse Ox O2 Delivery O2 Flow Rate FiO2 11/05/16 08:01 97.8 86 16 151/90 96 11/05/16 04:00 98.0 85 18 158/94 98 11/05/16 04:00 98 Nasal Cannula 3.00 11/04/16 23:55 98.0 99 18 130/70 94 11/04/16 21:38 18 11/04/16 20:00 94 Nasal Cannula 2.00 11/04/16 20:00 98.0 107 20 136/73 97 11/04/16 18:00 97 11/04/16 17:00 92 11/04/16 16:00 98 11/04/16 15:39 96 Nasal Cannula 2.00 11/04/16 15:00 97.9 94 18 128/71 97 11/04/16 14:24 97.9 94 18 128/71 97 11/04/16 12:57 83 20 142/89 98 11/04/16 09:15 80 20 142/89 98 I/O 11/04/16 11/04/16 11/04/16 11/05/16 11/05/16 11/05/16 07:00 15:00 23:00 07:00 15:00 23:00 Intake Total 240 ml Output Total 400 ml 200 ml Balance -400 ml 40 ml Intake Oral 240 ml Output Urine Total 400 ml 200 ml # Voids 2 # Bowel Movements 0 Result Diagram: 11/05/1630 11/05/1630 Imaging Last Impressions Chest X-Ray 11/03/16 2330 Signed Impressions: Service Date/Time: Thursday, November 03, 2016 23:47 - CONCLUSION: 1. New basilar airspace disease on the left since August. Differential diagnosis includes pneumonia and aspiration as well as atelectasis. Underlying lung fibrosis similar to prior study. Jordin Vaughn MD Procedures No procedures performed Other Results Laboratory Tests Test 11/04/16 11/04/16 11/04/16 11/04/16 00:10 02:45 12:15 17:55 Prothrombin Time 10.6 SEC Prothromb Time International 1.0 RATIO Ratio Activated Partial 23.8 SEC Thromboplast Time D-Dimer Quantitative (PE/DVT) 0.48 MG/L FEU Urine Color LIGHT-YELLOW Urine Turbidity CLEAR Urine pH 5.5 Urine Specific [place] 1.012 Urine Protein NEG mg/dL Urine Glucose (UA) NEG mg/dL Urine Ketones NEG mg/dL Urine Occult Blood NEG Urine Nitrite NEG Urine Bilirubin NEG Urine Urobilinogen LESS THAN 2.0 MG/DL Urine Leukocyte Esterase NEG Urine RBC LESS THAN 1 /hpf Urine WBC LESS THAN 1 /hpf Urine Mucus FEW /lpf Microscopic Urinalysis Comment CULT NOT INDICATED Magnesium Level 1.6 MG/DL Total Creatine Kinase 132 U/L Creatine Kinase MB 1.9 NG/ML B-Type Natriuretic Peptide 60 PG/ML Lactic Acid Level 1.7 mmol/L Troponin I 0.17 NG/ML Nasal Screen MRSA (PCR) POSITIVE Test 11/05/16 05:30 White Blood Count 10.8 TH/MM3 Red Blood Count 3.75 MIL/MM3 Hemoglobin 11.6 GM/DL Hematocrit 34.4 % Mean Corpuscular Volume 91.7 FL Mean Corpuscular Hemoglobin 30.9 PG Mean Corpuscular Hemoglobin 33.7 % Concent Red Cell Distribution Width 16.2 % Platelet Count 212 TH/MM3 Mean Platelet Volume 8.3 FL Neutrophils (%) (Auto) 75.7 % Lymphocytes (%) (Auto) 16.4 % Monocytes (%) (Auto) 7.8 % Eosinophils (%) (Auto) 0.1 % Basophils (%) (Auto) 0.0 % Neutrophils # (Auto) 8.2 TH/MM3 Lymphocytes # (Auto) 1.8 TH/MM3 Monocytes # (Auto) 0.8 TH/MM3 Eosinophils # (Auto) 0.0 TH/MM3 Basophils # (Auto) 0.0 TH/MM3 CBC Comment DIFF FINAL Differential Comment Sodium Level 143 MEQ/L Potassium Level 3.8 MEQ/L Chloride Level 109 MEQ/L Carbon Dioxide Level 26.9 MEQ/L Anion Gap 7 MEQ/L Blood Urea Nitrogen 21 MG/DL Creatinine 0.85 MG/DL Estimat Glomerular Filtration 65 ML/MIN Rate Random Glucose 115 MG/DL Calcium Level 8.8 MG/DL Total Bilirubin 0.4 MG/DL Aspartate Amino Transf 16 U/L (AST/SGOT) Alanine Aminotransferase 22 U/L (ALT/SGPT) Alkaline Phosphatase 41 U/L Total Protein 6.4 GM/DL Albumin 3.1 GM/DL Objective Remarks GENERAL: Elderly white female in no acute distress. HEENT: PERRLA, EOMI. No scleral icterus or conjunctival pallor. No lid lag or facial droop. CARDIOVASCULAR: Regular rate and rhythm. No obvious murmurs to auscultation. No chest tenderness to palpation. RESPIRATORY: No obvious rhonchi or wheezing. Clear to auscultation. Decreased breath sounds at bases bilaterally GASTROINTESTINAL: Abdomen soft, non-tender, nondistended. BS normal. MUSCULOSKELETAL: Extremities without clubbing, cyanosis, or edema. No obvious deformities. NEUROLOGICAL: Awake, alert and oriented x4. No focal neurologic deficits. Moving both upper and lower extremities spontaneously. Medications and IVs Current Medications Medications (Trade) Dose Ordered Sig/Han Route Start Time Stop Time Status Last Admin (NS Flush) 2 ml UNSCH PRN IVF 11/03/16 23:30 Aspirin 162 mg 162 mg DAILY CHEW 11/04/16 09:00 Ceftriaxone Sodium 1000 mg/ Sodium Chloride 100 ml @ 200 mls/hr Q24H IV 11/04/16 23:00 11/04/16 23:46 (Zithromax Inj/ NS 250 ml Inj) 250 ml @ 250 mls/hr Q24H IV 11/04/16 23:00 11/04/16 23:47 Budesonide/ Formoterol Fumarate 2 puff 2 puff Q12HR INH 11/04/16 09:00 11/04/16 21:51 (NS 1000 ml Inj) 1,000 ml @ 80 mls/hr [id number] IV 11/04/16 01:28 11/04/16 16:10 (NS Flush) 2 ml UNSCH PRN IV FLUSH 11/04/16 01:30 (NS Flush) 2 ml BID IV FLUSH 11/04/16 09:00 11/04/16 09:34 (Zofran Inj) 4 mg Q6H PRN IVP 11/04/16 01:30 (Dulcolax Supp) 10 mg DAILY PRN [place] 11/04/16 01:30 (Tylenol) 650 mg Q6H PRN PO 11/04/16 01:30 (Morphine Inj) 2 mg Q3H PRN IV 11/04/16 01:30 (Ultram) 50 mg Q4H PRN PO 11/04/16 01:30 11/04/16 20:38 (Aspirin Chew) 81 mg DAILY CHEW 11/04/16 09:00 11/04/16 09:26 (Tenormin) 25 mg DAILY PO 11/04/16 09:00 11/04/16 09:29 (Pravachol) 10 mg DAILY PO 11/04/16 09:00 11/04/16 09:26 (Protonix) 40 mg DAILY PO 11/04/16 09:00 11/04/16 09:26 (D50w (Vial) Inj) 25 ml UNSCH PRN IV PUSH 11/04/16 01:45 (Glucagon Inj) 1 mg UNSCH PRN OTHER 11/04/16 01:45 (SoluMEDROL INJ) 40 mg Q8HR IV PUSH 11/05/16 06:00 11/05/16 06:28 (Mucinex Er) 600 mg BID PO 11/04/16 21:00 11/04/16 20:38 A/P Assessment and Plan 1. Sepsis: had tachycardia, tachypnea, initial Lactic acid was 2.5, known Source-PNA, Blood cultures are negative continue Ceftriaxone and Azithromycin. 2. CAP: CXR w/ new basilar airspace disease on left, likely pneumonia/ aspiration, underlying lung fibrosis on Broad spectrum antibiotics. asked for senior procurement specialist consult to Doctor Franco. 3. Pulmonary Fibrosis: Chronic. Follows w/ Dr. Franco as outpatient, Solu- Medrol, DuoNeb, Symbicort. titrate down Solu-Medrol 4. Elevated Trop: Trop 0.32, EKG w/ no acute ischemia, no h/o CAD. Check serial cardiac enzymes, ASA, Statin, B-camryn, as per Echocardiogram EF 60-65%. social work specialist following. 5. DONATO: Improved she is eating and drinking fine, will remove IV fluids. 6. HTN: better control. 7. DM II on hold Metformin, is uncontrolled, continue sliding scale, and added Levemir 10 units at bedtime, follow Hemoglobin A1C 8. Positive MRSA Screen started on Mupirocin ointment 2% on each nostril twice a day for seven days. 9. Hypothyroidism continue home medicines. DVT Prophylaxis: SCD/teds. Social work for DC planning as needed Discussed with patient and nurse Miss Willams in the room, Consult database marketing specialist. Discharge Planning Expected in one to two days. Clarence Shetty MD Nov 05, 2016 08:49
[2016-11-05] MEDS: ASPIRIN 81 MG CHEW TAB CHEW SCH (08:51)
[2016-11-05] MEDS: ATENOLOL 25 MG TAB PO SCH (08:56)
[2016-11-05] MEDS: guaiFENesin E.R. 600 MG TAB PO SCH ×2 (08:56→19:48)
[2016-11-05] MEDS: PRAVASTATIN SOD 10 MG TAB PO SCH (08:56)
[2016-11-05] MEDS: PANTOPRAZOLE SOD 40 MG DELAYED RELEASE TAB PO SCH (08:56)
[2016-11-05] MEDS: BUDESONIDE-FORMOTEROL 160/4.5 MCG INHALER INH SCH ×2 (08:57→19:55)
[2016-11-05] MEDS: SODIUM CHLORIDE 0.9% FLUSH 10 ML FLUSH IV FLUSH SCH ×2 (08:58→19:53)
[2016-11-05] MEDS: MUPIROCIN 2% OINT 1 APPLIC/GM SYR EACH NARE SCH ×2 (08:59→22:19)
[2016-11-05] MEDS: SODIUM CHLOR 0.9% 1000 ML INJ 1,000 ML IV SCH (13:53)
[2016-11-05] MEDS: traMADol HCL 50 MG TAB PO PRN (16:14)
[2016-11-05] MEDS ORDERED: BENZONATATE 100 MG CAP PO PRN (16:45)
[2016-11-05] MEDS: GABAPENTIN 300 MG CAP PO SCH (18:01)
[2016-11-05] MEDS: INSULIN DETEMIR 100 UNITS/ML VIAL SQ SCH (19:51)
[2016-11-05] MEDS: cefTRIAXone INJ 1,000 MG in SODIUM CHLORIDE 0.9% INJ 100 ML IV SCH (22:16)
[2016-11-05] MEDS: AZITHROMYCIN INJ 500 MG in SODIUM CHLOR 0.9% 250 ML INJ 250 ML IV SCH (22:19)
[2016-11-06] VITALS (21 sets, daily range): BP systolic 127–145; BP diastolic 83–98; PULSE 57–112; RESP 15–18; TEMP 97.6–98.9; O2SAT 95–99
[2016-11-06] MEDS: traMADol HCL 50 MG TAB PO PRN ×3 (00:05→21:54)
[2016-11-06] MEDS: INSULIN ASPART SUPPLEMENTAL SCALE SQ SCH ×4 (04:46→21:54)
[2016-11-06] MEDS: RESP: ALBUTEROL 2.5 MG/IPRATROPIUM 0.5 MG NEB (SCH) NEB ×4 (08:17→20:57)
[2016-11-06] MEDS: ASPIRIN 81 MG CHEW TAB CHEW SCH (09:04)
[2016-11-06] MEDS: PROBENECID 500 MG TAB PO SCH (09:05)
[2016-11-06] MEDS: THYROID 60 MG TAB PO SCH (09:05)
[2016-11-06] MEDS: guaiFENesin E.R. 600 MG TAB PO SCH ×2 (09:05→21:29)
[2016-11-06] MEDS: GABAPENTIN 300 MG CAP PO SCH ×3 (09:05→17:18)
[2016-11-06] MEDS: BUDESONIDE-FORMOTEROL 160/4.5 MCG INHALER INH SCH ×2 (09:06→21:30)
[2016-11-06] MEDS: MUPIROCIN 2% OINT 1 APPLIC/GM SYR EACH NARE SCH ×2 (09:06→21:28)
[2016-11-06] MEDS: methylPREDNISolone SOD SUCC 40 MG/1 ML VIAL IV PUSH SCH ×2 (09:06→21:29)
[2016-11-06] MEDS: SODIUM CHLORIDE 0.9% FLUSH 10 ML FLUSH IV FLUSH SCH ×2 (09:06→21:30)
[2016-11-06] MEDS: PRAVASTATIN SOD 10 MG TAB PO SCH (09:07)
[2016-11-06] MEDS: PANTOPRAZOLE SOD 40 MG DELAYED RELEASE TAB PO SCH (09:07)
[2016-11-06] MEDS: ATENOLOL 25 MG TAB PO SCH (09:07)
--- NOTE | 2016-11-06 09:30 | HHI.PR ---
Subjective Remarks This is a pleasant 76 y/o Female with Hypertension, Pulmonary Fibrosis, Oxygen dependent, GERD DM II, who was brought in to ER with SOB for 3 days, productive cough yellowish sputum, afebrile, initial Lactic Acid 2.5, repeat 1.7. Troponin 0.32, no EKG changes. CXR with new basilar airspace disease and left and underlying lung fibrosis. Blood culture negative, continue Rocephin and Azithromycin, was already seen by traffic monitor specialist Doctor Maciel, Echocardiogram from 2013 unremarkable, with preserved left Ventricular function, has minimal Troponin elevation, Discontinued Spironolactone given Hyperkalemia, asked for echocardiogram, continue Aspirin and BB, personnel specialist to follow, asked for doctor Joan. 11/05 seen in the room in the presence of nurse Miss Willams she was MRSA positive in Nares started on Mupirocin no nausea, vomit or diarrhea, breathing better. 11/06 Seen in her bedroom and discussed with nurse Miss Ziyad noonan, no new complaint, No chest pain improving respiratory status, awaiting final recommendations by personnel specialist for discharge. Objective Vital Signs Date Time Temp Pulse Resp B/P Pulse Ox O2 Delivery O2 Flow Rate FiO2 11/06/16 09:19 Nasal Cannula 3.00 11/06/16 09:12 98.2 100 16 127/83 95 11/06/16 08:19 98 Nasal Cannula 3.00 11/06/16 04:00 97.6 82 18 132/84 95 11/06/16 04:00 57 11/06/16 04:00 95 Nasal Cannula 3.00 11/06/16 00:00 112 11/06/16 00:00 97 Nasal Cannula 3.00 11/06/16 00:00 97.8 89 18 145/91 97 11/05/16 20:00 97 Nasal Cannula 3.00 11/05/16 20:00 98 11/05/16 20:00 98.1 85 20 165/94 97 11/05/16 18:00 96 11/05/16 17:00 84 11/05/16 16:00 86 11/05/16 15:38 97 Nasal Cannula 2.00 11/05/16 15:00 98 Nasal Cannula 3.00 11/05/16 15:00 83 11/05/16 15:00 98.3 80 20 170/88 95 11/05/16 13:00 88 11/05/16 12:00 82 11/05/16 11:30 98.2 92 16 151/93 96 11/05/16 11:00 88 11/05/16 11:00 98 Nasal Cannula 3.00 11/05/16 11:00 92 11/05/16 10:00 94 I/O 11/05/16 11/05/16 11/05/16 11/06/16 11/06/16 11/06/16 07:00 15:00 23:00 07:00 15:00 23:00 Intake Total 960 ml 480 ml Balance 960 ml 480 ml Intake Oral 480 ml 480 ml IV Total 480 ml # Voids 5 6 # Bowel Movements 2 0 Result Diagram: 11/05/16 0530 11/05/16 0530 Imaging Last Impressions Chest X-Ray 11/03/16 2330 Signed Impressions: Service Date/Time: Thursday, November 03, 2016 23:47 - CONCLUSION: 1. New basilar airspace disease on the left since August. Differential diagnosis includes pneumonia and aspiration as well as atelectasis. Underlying lung fibrosis similar to prior study. Jordin Vaughn MD Procedures No procedures performed Other Results Laboratory Tests Test 11/04/16 11/04/16 11/04/16 11/04/16 00:10 02:45 12:15 17:55 Prothrombin Time 10.6 SEC Prothromb Time International 1.0 RATIO Ratio Activated Partial 23.8 SEC Thromboplast Time D-Dimer Quantitative (PE/DVT) 0.48 MG/L FEU Urine Color LIGHT-YELLOW Urine Turbidity CLEAR Urine pH 5.5 Urine Specific [place] 1.012 Urine Protein NEG mg/dL Urine Glucose (UA) NEG mg/dL Urine Ketones NEG mg/dL Urine Occult Blood NEG Urine Nitrite NEG Urine Bilirubin NEG Urine Urobilinogen LESS THAN 2.0 MG/DL Urine Leukocyte Esterase NEG Urine RBC LESS THAN 1 /hpf Urine WBC LESS THAN 1 /hpf Urine Mucus FEW /lpf Microscopic Urinalysis Comment CULT NOT INDICATED Magnesium Level 1.6 MG/DL Total Creatine Kinase 132 U/L Creatine Kinase MB 1.9 NG/ML B-Type Natriuretic Peptide 60 PG/ML Lactic Acid Level 1.7 mmol/L Troponin I 0.17 NG/ML Nasal Screen MRSA (PCR) POSITIVE Test 11/05/16 05:30 White Blood Count 10.8 TH/MM3 Red Blood Count 3.75 MIL/MM3 Hemoglobin 11.6 GM/DL Hematocrit 34.4 % Mean Corpuscular Volume 91.7 FL Mean Corpuscular Hemoglobin 30.9 PG Mean Corpuscular Hemoglobin 33.7 % Concent Red Cell Distribution Width 16.2 % Platelet Count 212 TH/MM3 Mean Platelet Volume 8.3 FL Neutrophils (%) (Auto) 75.7 % Lymphocytes (%) (Auto) 16.4 % Monocytes (%) (Auto) 7.8 % Eosinophils (%) (Auto) 0.1 % Basophils (%) (Auto) 0.0 % Neutrophils # (Auto) 8.2 TH/MM3 Lymphocytes # (Auto) 1.8 TH/MM3 Monocytes # (Auto) 0.8 TH/MM3 Eosinophils # (Auto) 0.0 TH/MM3 Basophils # (Auto) 0.0 TH/MM3 CBC Comment DIFF FINAL Differential Comment Sodium Level 143 MEQ/L Potassium Level 3.8 MEQ/L Chloride Level 109 MEQ/L Carbon Dioxide Level 26.9 MEQ/L Anion Gap 7 MEQ/L Blood Urea Nitrogen 21 MG/DL Creatinine 0.85 MG/DL Estimat Glomerular Filtration 65 ML/MIN Rate Random Glucose 115 MG/DL Calcium Level 8.8 MG/DL Total Bilirubin 0.4 MG/DL Aspartate Amino Transf 16 U/L (AST/SGOT) Alanine Aminotransferase 22 U/L (ALT/SGPT) Alkaline Phosphatase 41 U/L Total Protein 6.4 GM/DL Albumin 3.1 GM/DL Objective Remarks GENERAL: Elderly white female in no acute distress. HEENT: PERRLA, EOMI. No scleral icterus or conjunctival pallor. No lid lag or facial droop. CARDIOVASCULAR: Regular rate and rhythm. No obvious murmurs to auscultation. No chest tenderness to palpation. RESPIRATORY: No obvious rhonchi or wheezing. Clear to auscultation. Decreased breath sounds at bases bilaterally GASTROINTESTINAL: Abdomen soft, non-tender, nondistended. BS normal. MUSCULOSKELETAL: Extremities without clubbing, cyanosis, or edema. No obvious deformities. NEUROLOGICAL: Awake, alert and oriented x4. No focal neurologic deficits. Moving both upper and lower extremities spontaneously. Medications and IVs Current Medications Medications (Trade) Dose Ordered Sig/Han Route Start Time Stop Time Status Last Admin (NS Flush) 2 ml UNSCH PRN IVF 11/03/16 23:30 Aspirin 162 mg 162 mg DAILY CHEW 11/04/16 09:00 11/06/16 09:04 Ceftriaxone Sodium 1000 mg/ Sodium Chloride 100 ml @ 200 mls/hr Q24H IV 11/04/16 23:00 11/05/16 22:16 (Zithromax Inj/ NS 250 ml Inj) 250 ml @ 250 mls/hr Q24H IV 11/04/16 23:00 11/05/16 22:19 (Symbicort 160-4.5 Inh) 2 puff Q12HR INH 11/04/16 09:00 11/06/16 09:06 (NS Flush) 2 ml UNSCH PRN IV FLUSH 11/04/16 01:30 (NS Flush) 2 ml BID IV FLUSH 11/04/16 09:00 11/06/16 09:06 (Zofran Inj) 4 mg Q6H PRN IVP 11/04/16 01:30 (Dulcolax Supp) 10 mg DAILY PRN [place] 11/04/16 01:30 (Tylenol) 650 mg Q6H PRN PO 11/04/16 01:30 (Morphine Inj) 2 mg Q3H PRN IV 11/04/16 01:30 (Ultram) 50 mg Q4H PRN PO 11/04/16 01:30 11/06/16 00:05 (Tenormin) 25 mg DAILY PO 11/04/16 09:00 11/06/16 09:07 (Pravachol) 10 mg DAILY PO 11/04/16 09:00 11/06/16 09:07 (Protonix) 40 mg DAILY PO 11/04/16 09:00 11/06/16 09:07 (D50w (Vial) Inj) 25 ml UNSCH PRN IV PUSH 11/04/16 01:45 (Glucagon Inj) 1 mg UNSCH PRN OTHER 11/04/16 01:45 (Mucinex Er) 600 mg BID PO 11/04/16 21:00 11/06/16 09:05 (Bactroban Nasal 2% Oint) 1 applic BID EACH NARE 11/05/16 09:00 11/06/16 09:06 (Tessalon) 200 mg TID PRN PO 11/05/16 16:45 (Neurontin) 600 mg TID PO 11/05/16 18:00 11/06/16 09:05 (Benemid) 500 mg DAILY PO 11/06/16 09:00 11/06/16 09:05 ([place] Thyroid) 60 mg DAILY PO 11/06/16 09:00 11/06/16 09:05 (SoluMEDROL INJ) 40 mg Q12HR IV PUSH 11/05/16 21:00 11/06/16 09:06 (Levemir Inj) 10 units HS SQ 11/05/16 21:00 11/05/16 19:51 A/P Assessment and Plan 1. Sepsis: had tachycardia, tachypnea, initial Lactic acid was 2.5, known Source-PNA, Blood cultures are negative continue Ceftriaxone and Azithromycin. 2. CAP: CXR w/ new basilar airspace disease on left, likely pneumonia/ aspiration, underlying lung fibrosis on Broad spectrum antibiotics. asked for note specialist consult to Doctor Franco. awaiting final recommendations for discharge. 3. Pulmonary Fibrosis: Chronic. Follows w/ Dr. Franco as outpatient, Solu- Medrol, DuoNeb, Symbicort. titrate down Solu-Medrol will continue 20 mg IV twice a day. may need to go home on Oral dosages of Prednisone if recommended so by her Primary personnel specialist. 4. Elevated Trop: Trop 0.32, EKG w/ no acute ischemia, no h/o CAD. Check serial cardiac enzymes, ASA, Statin, B-camryn, as per Echocardiogram EF 60-65%. medical management as per traffic monitor specialist. 5. DONATO: Improved 6. HTN: better control. 7. DM II on hold Metformin, is uncontrolled, continue sliding scale, and added Levemir 10 units at bedtime, follow Hemoglobin A1C 8. Positive MRSA Screen started on Mupirocin ointment 2% on each nostril twice a day for seven days. 9. Hypothyroidism continue home medicines. DVT Prophylaxis: SCD/teds. Social work for DC planning as needed Discussed with patient and nurse Miss Willams in the room, Discharge Planning Expected later today or in am tomorrow. Okay to discharge from medicine standpoint if okay with personnel specialist. Clarence Shetty MD Nov 06, 2016 09:30
[2016-11-06] MEDS ORDERED: SPIRONOLACTONE/HCTZ 25 MG/25 MG TAB PO SCH (10:30)
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
[2016-11-06 18:59] LABS: HEMOGLOBIN A1a 0.9 %; HEMOGLOBIN A1b 2.5 %; HEMOGLOBIN Ao 82.5 %; HEMOGLOBIN LA1C 1.9 %; HEMOGLOBIN P3 4.8 %
[2016-11-06] MEDS: INSULIN DETEMIR 100 UNITS/ML VIAL SQ SCH (21:29)
[2016-11-06] MEDS: AZITHROMYCIN INJ 500 MG in SODIUM CHLOR 0.9% 250 ML INJ 250 ML IV SCH (22:56)
[2016-11-06] MEDS: cefTRIAXone INJ 1,000 MG in SODIUM CHLORIDE 0.9% INJ 100 ML IV SCH (22:56)
[2016-11-07] VITALS (18 sets, daily range): BP systolic 124–130; BP diastolic 76–82; PULSE 56–94; RESP 18–20; TEMP 97.6–98; O2SAT 97–99
[2016-11-07] MEDS: INSULIN ASPART SUPPLEMENTAL SCALE SQ SCH ×3 (06:25→16:00)
--- NOTE | 2016-11-07 07:58 | HHI.PR ---
Subjective Remarks This is a pleasant 76 y/o Female with Hypertension, Pulmonary Fibrosis, Oxygen dependent, GERD DM II, who was brought in to ER with SOB for 3 days, productive cough yellowish sputum, afebrile, initial Lactic Acid 2.5, repeat 1.7. Troponin 0.32, no EKG changes. CXR with new basilar airspace disease and left and underlying lung fibrosis. Blood culture negative, continue Rocephin and Azithromycin, was already seen by grocery specialist Doctor Maciel, Echocardiogram from 2013 unremarkable, with preserved left Ventricular function, has minimal Troponin elevation, Discontinued Spironolactone given Hyperkalemia, asked for echocardiogram, continue Aspirin and BB, retail experience specialist to follow, asked for doctor Joan. 11/05 seen in the room in the presence of nurse Miss Willams she was MRSA positive in Nares started on Mupirocin no nausea, vomit or diarrhea, breathing better. 11/06 Seen in her bedroom and discussed with nurse Miss Ziyad noonan, no new complaint, No chest pain improving respiratory status, awaiting final recommendations by retail experience specialist for discharge. 11/07 Patient seen in her bedroom, even the new CXR states worsening Pulmonary infiltrates, she had better view due to that was performed a Chest X ray PA and lateral, now we can see better her pulmonary fibrosis, will optimize her respiratory medicine, discussed with retail experience specialist Doctor Emeterio he is okay for the patient to go home and follow with her Primary retail experience specialist doctor Joan.No nausea, vomit or diarrhea. Objective Vital Signs Date Time Temp Pulse Resp B/P Pulse Ox O2 Delivery O2 Flow Rate FiO2 11/07/16 06:00 62 11/07/16 05:00 56 11/07/16 04:00 58 11/07/16 03:00 56 11/07/16 03:00 Nasal Cannula 3.00 11/07/16 03:00 98.0 67 20 124/76 97 11/07/16 02:00 94 11/07/16 01:00 70 11/07/16 00:00 88 11/06/16 23:00 Nasal Cannula 3.00 11/06/16 23:00 98 11/06/16 23:00 97.7 91 16 137/95 99 11/06/16 23:00 16 11/06/16 22:00 100 11/06/16 21:00 78 11/06/16 21:00 97 Nasal Cannula 3.00 11/06/16 20:00 82 11/06/16 19:00 82 11/06/16 19:00 Nasal Cannula 3.00 11/06/16 19:00 97.9 72 16 142/89 96 11/06/16 17:09 Nasal Cannula 3.00 11/06/16 17:00 86 11/06/16 16:36 98.9 89 16 143/98 95 11/06/16 16:00 84 11/06/16 15:00 74 11/06/16 14:00 86 11/06/16 13:00 68 11/06/16 12:00 66 11/06/16 11:50 98.8 72 15 135/85 96 11/06/16 11:15 Nasal Cannula 3.00 11/06/16 11:00 74 11/06/16 09:19 Nasal Cannula 3.00 11/06/16 09:12 98.2 100 16 127/83 95 11/06/16 09:00 94 11/06/16 08:19 98 Nasal Cannula 3.00 11/06/16 08:00 58 I/O 11/06/16 11/06/16 11/06/16 11/07/16 11/07/16 11/07/16 07:00 15:00 23:00 07:00 15:00 23:00 Intake Total 480 ml 480 ml Output Total 1000 ml Balance 480 ml -520 ml Intake Oral 480 ml 480 ml Output Urine Total 1000 ml # Voids 6 # Bowel Movements 0 Result Diagram: 11/05/16 0530 11/06/16 1102 Imaging Last Impressions Chest X-Ray 11/03/16 2330 Signed Impressions: Service Date/Time: Thursday, November 03, 2016 23:47 - CONCLUSION: 1. New basilar airspace disease on the left since August. Differential diagnosis includes pneumonia and aspiration as well as atelectasis. Underlying lung fibrosis similar to prior study. Jordin Vaughn MD Procedures No procedures performed Other Results Laboratory Tests Test 11/04/16 11/04/16 11/04/16 11/04/16 00:10 02:45 12:15 17:55 Prothrombin Time 10.6 SEC Prothromb Time International 1.0 RATIO Ratio Activated Partial 23.8 SEC Thromboplast Time D-Dimer Quantitative (PE/DVT) 0.48 MG/L FEU Urine Color LIGHT-YELLOW Urine Turbidity CLEAR Urine pH 5.5 Urine Specific [place] 1.012 Urine Protein NEG mg/dL Urine Glucose (UA) NEG mg/dL Urine Ketones NEG mg/dL Urine Occult Blood NEG Urine Nitrite NEG Urine Bilirubin NEG Urine Urobilinogen LESS THAN 2.0 MG/DL Urine Leukocyte Esterase NEG Urine RBC LESS THAN 1 /hpf Urine WBC LESS THAN 1 /hpf Urine Mucus FEW /lpf Microscopic Urinalysis Comment CULT NOT INDICATED Magnesium Level 1.6 MG/DL Total Creatine Kinase 132 U/L Creatine Kinase MB 1.9 NG/ML B-Type Natriuretic Peptide 60 PG/ML Lactic Acid Level 1.7 mmol/L Troponin I 0.17 NG/ML Nasal Screen MRSA (PCR) POSITIVE Test 11/05/16 11/06/16 05:30 11:02 White Blood Count 10.8 TH/MM3 Red Blood Count 3.75 MIL/MM3 Hemoglobin 11.6 GM/DL Hematocrit 34.4 % Mean Corpuscular Volume 91.7 FL Mean Corpuscular Hemoglobin 30.9 PG Mean Corpuscular Hemoglobin 33.7 % Concent Red Cell Distribution Width 16.2 % Platelet Count 212 TH/MM3 Mean Platelet Volume 8.3 FL Neutrophils (%) (Auto) 75.7 % Lymphocytes (%) (Auto) 16.4 % Monocytes (%) (Auto) 7.8 % Eosinophils (%) (Auto) 0.1 % Basophils (%) (Auto) 0.0 % Neutrophils # (Auto) 8.2 TH/MM3 Lymphocytes # (Auto) 1.8 TH/MM3 Monocytes # (Auto) 0.8 TH/MM3 Eosinophils # (Auto) 0.0 TH/MM3 Basophils # (Auto) 0.0 TH/MM3 CBC Comment DIFF FINAL Differential Comment Sodium Level 143 MEQ/L Chloride Level 109 MEQ/L Carbon Dioxide Level 26.9 MEQ/L Anion Gap 7 MEQ/L Blood Urea Nitrogen 21 MG/DL Creatinine 0.85 MG/DL Estimat Glomerular Filtration 65 ML/MIN Rate Random Glucose 115 MG/DL Calcium Level 8.8 MG/DL Total Bilirubin 0.4 MG/DL Aspartate Amino Transf 16 U/L (AST/SGOT) Alanine Aminotransferase 22 U/L (ALT/SGPT) Alkaline Phosphatase 41 U/L Total Protein 6.4 GM/DL Albumin 3.1 GM/DL Hemoglobin A1c 7.0 % Potassium Level 4.2 MEQ/L Objective Remarks GENERAL: No acute distress. HEENT: PERRLA, EOMI. No scleral icterus or conjunctival pallor. No lid lag or facial droop. CARDIOVASCULAR: Regular rate and rhythm. No obvious murmurs to auscultation. No chest tenderness to palpation. RESPIRATORY: No obvious rhonchi or wheezing. Clear to auscultation. Decreased breath sounds at bases bilaterally GASTROINTESTINAL: Abdomen soft, non-tender, nondistended. BS normal. MUSCULOSKELETAL: Extremities without clubbing, cyanosis, or edema. No obvious deformities. NEUROLOGICAL: Awake, alert and oriented x4. No focal neurologic deficits. Moving both upper and lower extremities spontaneously. Medications and IVs Current Medications Medications (Trade) Dose Ordered Sig/Han Route Start Time Stop Time Status Last Admin Aspirin 162 mg 162 mg DAILY CHEW 11/04/16 09:00 11/06/16 09:04 Ceftriaxone Sodium 1000 mg/ Sodium Chloride 100 ml @ 200 mls/hr Q24H IV 11/04/16 23:00 11/06/16 22:56 (Zithromax Inj/ NS 250 ml Inj) 250 ml @ 250 mls/hr Q24H IV 11/04/16 23:00 11/06/16 22:56 (Symbicort 160-4.5 Inh) 2 puff Q12HR INH 11/04/16 09:00 11/06/16 21:30 (NS Flush) 2 ml UNSCH PRN IV FLUSH 11/04/16 01:30 (NS Flush) 2 ml BID IV FLUSH 11/04/16 09:00 11/06/16 21:30 (Zofran Inj) 4 mg Q6H PRN IVP 11/04/16 01:30 (Dulcolax Supp) 10 mg DAILY PRN TX 11/04/16 01:30 (Tylenol) 650 mg Q6H PRN PO 11/04/16 01:30 (Morphine Inj) 2 mg Q3H PRN IV 11/04/16 01:30 (Ultram) 50 mg Q4H PRN PO 11/04/16 01:30 11/06/16 21:54 (Tenormin) 25 mg DAILY PO 11/04/16 09:00 11/06/16 09:07 (Pravachol) 10 mg DAILY PO 11/04/16 09:00 11/06/16 09:07 (Protonix) 40 mg DAILY PO 11/04/16 09:00 11/06/16 09:07 (D50w (Vial) Inj) 25 ml UNSCH PRN IV PUSH 11/04/16 01:45 (Glucagon Inj) 1 mg UNSCH PRN OTHER 11/04/16 01:45 (Mucinex Er) 600 mg BID PO 11/04/16 21:00 11/06/16 21:29 (Bactroban Nasal 2% Oint) 1 applic BID EACH NARE 11/05/16 09:00 11/06/16 21:28 (Tessalon) 200 mg TID PRN PO 11/05/16 16:45 (Neurontin) 600 mg TID PO 11/05/16 18:00 11/06/16 17:18 (Benemid) 500 mg DAILY PO 11/06/16 09:00 11/06/16 09:05 ([place] Thyroid) 60 mg DAILY PO 11/06/16 09:00 11/06/16 09:05 (Levemir Inj) 10 units HS SQ 11/05/16 21:00 11/06/16 21:29 (SoluMEDROL INJ) 20 mg Q12HR IV PUSH 11/06/16 21:00 11/06/16 21:29 (Aldactone) 25 mg DAILY PO 11/07/16 09:00 (Hydrodiuril) 25 mg DAILY PO 11/07/16 09:00 A/P Assessment and Plan 1. Sepsis: had tachycardia, tachypnea, initial Lactic acid was 2.5, known Source-PNA, Blood cultures are negative continue Ceftriaxone and Azithromycin. will go today home on Azithromycin by mouth to complete seven days 2. CAP: CXR w/ new basilar airspace disease on left, likely pneumonia/ aspiration, underlying lung fibrosis on Broad spectrum antibiotics. retail experience specialist Doctor Emeterio saw the patient and Okay to discharge home and follow up with Doctor Franco 3. Pulmonary Fibrosis: Chronic. Follows w/ Dr. Franco as outpatient, Solu- Medrol, DuoNeb, Symbicort. titrate down Solu-Medrol will continue 20 mg IV twice a day. may need to go home on Oral dosages of Prednisone if recommended so by her Primary retail experience specialist. 4. Elevated Trop: Trop 0.32, EKG w/ no acute ischemia, no h/o CAD. Check serial cardiac enzymes, ASA, Statin, B-camryn, as per Echocardiogram EF 60-65%. medical management as per grocery specialist. 5. DONATO: Improved 6. HTN: better control. 7. DM II on hold Metformin, is uncontrolled, continue sliding scale, and added Levemir 10 units at bedtime, Hemoglobin A1C 7 8. Positive MRSA Screen started on Mupirocin ointment 2% on each nostril twice a day for seven days. 9. Hypothyroidism continue home medicines. DVT Prophylaxis: SCD/teds. Social work for DC planning as needed Discussed with patient and nurse Miss Vera also Respiratory therapy specialist in the room. Okay to discharge Home and follow with Doctor Ruben Franco in one week As Always a pleasure to talk about cases with retail experience specialist Doctor Jeronimo Storm his input and recommendations highly appreciated. Discharge Planning Discharge Home now and follow up with retail experience specialist doctor Ruben Franco in one week. Clarence Shetty MD Nov 07, 2016 07:58
[2016-11-07] MEDS: RESP: ALBUTEROL 2.5 MG/IPRATROPIUM 0.5 MG NEB (SCH) NEB ×3 (08:15→16:16)
[2016-11-07] MEDS ORDERED: HYDROCHLOROTHIAZIDE 25 MG TAB PO SCH (09:00)
[2016-11-07] MEDS ORDERED: SPIRONOLACTONE 25 MG TAB PO SCH (09:00)
[2016-11-07] MEDS: PRAVASTATIN SOD 10 MG TAB PO SCH (09:40)
[2016-11-07] MEDS: PROBENECID 500 MG TAB PO SCH (09:40)
[2016-11-07] MEDS: THYROID 60 MG TAB PO SCH (09:40)
[2016-11-07] MEDS: guaiFENesin E.R. 600 MG TAB PO SCH (09:40)
[2016-11-07] MEDS: ATENOLOL 25 MG TAB PO SCH (09:40)
[2016-11-07] MEDS: PANTOPRAZOLE SOD 40 MG DELAYED RELEASE TAB PO SCH (09:40)
[2016-11-07] MEDS: GABAPENTIN 300 MG CAP PO SCH ×2 (09:40→12:47)
[2016-11-07] MEDS: MUPIROCIN 2% OINT 1 APPLIC/GM SYR EACH NARE SCH (09:41)
[2016-11-07] MEDS: ASPIRIN 81 MG CHEW TAB CHEW SCH (09:41)
--- NOTE | 2016-11-07 09:44 | RADRPT ---
EXAM DATE/TIME: 11/07/2016 09:09 [facility] COMPARISON: CHEST SINGLE AP, November 03, 2016, 23:47. INDICATIONS : Pneumonia, short of breath. MEDICAL HISTORY : Pulmonary fibrosis, leaky valve SURGICAL HISTORY : None. ENCOUNTER: Initial ACUITY: 4 - 6 days PAIN SCORE: 0/10 LOCATION: Bilateral chest FINDINGS: Patchy air space disease is seen both lungs with background of coarse interstitial changes. Heart is normal size. There is no pneumothorax. Degenerative changes are seen about both shoulders. CONCLUSION: 1. Compared to the study of 11/03/16 there has been some progression with increasing air space diseas e in both lungs. Anirudh Solano MD FACR on November 07, 2016 at 9:28 Board Certified Radiologist. This report was verified electronically.
[2016-11-07] MEDS: BUDESONIDE-FORMOTEROL 160/4.5 MCG INHALER INH SCH (09:45)
[2016-11-07] MEDS: SODIUM CHLORIDE 0.9% FLUSH 10 ML FLUSH IV FLUSH SCH (10:04)
[2016-11-07] MEDS: methylPREDNISolone SOD SUCC 40 MG/1 ML VIAL IV PUSH SCH (10:04)
[2016-11-07] MEDS ORDERED: AZIT500T2 PO (16:31)
[2016-11-07] MEDS ORDERED: SYMB160A INH (16:31)
[2016-11-07] MEDS ORDERED: PRED5TAB PO (16:31)
--- NOTE | 2016-11-07 16:34 | HHI.DS ---
Discharge Summary Admission Date Nov 04, 2016 at 01:22 Discharge Date: Nov 07, 2016 Admitting Diagnosis Pneumonia, cp ro mi, intermediate trop, sepsis (1) Sepsis ICD Code: A41.9 Diagnosis: Principal (2) PNA (pneumonia) ICD Code: J18.9 Diagnosis: Principal (3) Pulmonary fibrosis ICD Code: J84.10 Diagnosis: Principal (4) Elevated troponin ICD Code: R74.8 Diagnosis: Principal (5) DONATO (acute kidney injury) ICD Code: N17.9 Diagnosis: Principal (6) HTN (hypertension) ICD Code: I10 Diagnosis: Secondary (7) DM (diabetes mellitus) ICD Code: E11.9 Diagnosis: Secondary Procedures No procedures performed to the patient Brief History - From Admission This is a 76-year-old female with a PMH of HTN, Pulmonary Fibrosis, O2 Dependent , GERD and DM who is brought to the ER by EMS secondary complaints of SOB and chest pain x3 days. Reports recent nasal congestion, productive coug w/ yellow- colored sputum and sick contacts-family member w/ URI. Denies fever or chills. On arrival, BP 179/90, HR 111, O2 sat 96% on 3L NC, Afebrile. WBC 12.8. K+ 6.0, Creatinine 1.25, previously 1.16 on 09/06/16. Lactic Acid 2.5, repeat 1.7. Troponin 0.32, no EKG changes. CXR with new basilar airspace disease and left and underlying lung fibrosis. S/p Blood Culture, Rocephin/Zithro in ER. CBC/BMP: 11/05/16 0530 11/06/16 1102 Significant Findings Laboratory Tests Test 11/05/16 05:30 Red Blood Count 3.75 MIL/MM3 (4.00-5.30) Hematocrit 34.4 % (35.0-46.0) Neutrophils (%) (Auto) 75.7 % (16.0-70.0) Neutrophils # (Auto) 8.2 TH/MM3 (1.8-7.7) Chloride Level 109 MEQ/L (98-107) Blood Urea Nitrogen 21 MG/DL (7-18) Estimat Glomerular Filtration 65 ML/MIN (>89) Rate Random Glucose 115 MG/DL (74-106) Alkaline Phosphatase 41 U/L (45-117) Albumin 3.1 GM/DL (3.4-5.0) Hemoglobin A1c 7.0 % (4.3-6.0) Imaging Last Impressions Chest X-Ray 11/07/16 0000 Signed Impressions: Service Date/Time: Monday, November 07, 2016 09:09 - CONCLUSION: 1. Compared to the study of 11/03/16 there has been some progression with increasing air space disease in both lungs. Anirudh Solano MD FACR PE at Discharge GENERAL: No acute distress. HEENT: PERRLA, EOMI. No scleral icterus or conjunctival pallor. No lid lag or facial droop. CARDIOVASCULAR: Regular rate and rhythm. No obvious murmurs to auscultation. No chest tenderness to palpation. RESPIRATORY: No obvious rhonchi or wheezing. Clear to auscultation. Decreased breath sounds at bases bilaterally GASTROINTESTINAL: Abdomen soft, non-tender, nondistended. BS normal. MUSCULOSKELETAL: Extremities without clubbing, cyanosis, or edema. No obvious deformities. NEUROLOGICAL: Awake, alert and oriented x4. No focal neurologic deficits. Moving both upper and lower extremities spontaneously. Hospital Course This is a pleasant 76 y/o Female with Hypertension, Pulmonary Fibrosis, Oxygen dependent, GERD DM II, who was brought in to ER with SOB for 3 days, productive cough yellowish sputum, afebrile, initial Lactic Acid 2.5, repeat 1.7. Troponin 0.32, no EKG changes. CXR with new basilar airspace disease and left and underlying lung fibrosis. Blood culture negative, continue Rocephin and Azithromycin, was already seen by employee development specialist Doctor Maciel, Echocardiogram from 2013 unremarkable, with preserved left Ventricular function, has minimal Troponin elevation, Discontinued Spironolactone given Hyperkalemia, asked for echocardiogram, continue Aspirin and BB, vaccines solutions specialist to follow, asked for doctor Joan. 11/05 seen in the room in the presence of nurse Miss Willams she was MRSA positive in Nares started on Mupirocin no nausea, vomit or diarrhea, breathing better. 11/06 Seen in her bedroom and discussed with nurse Miss Ziyad appreciated, no new complaint, No chest pain improving respiratory status, awaiting final recommendations by vaccines solutions specialist for discharge. 11/07 Patient seen in her bedroom, even the new CXR states worsening Pulmonary infiltrates, she had better view due to that was performed a Chest X ray PA and lateral, now we can see better her pulmonary fibrosis, will optimize her respiratory medicine, discussed with vaccines solutions specialist Doctor Emeterio he is okay for the patient to go home and follow with her Primary vaccines solutions specialist doctor Joan.No nausea, vomit or diarrhea. Assessment and Plan 1. Sepsis: had tachycardia, tachypnea, initial Lactic acid was 2.5, known Source-PNA, Blood cultures are negative continue Ceftriaxone and Azithromycin. will go today home on Azithromycin by mouth to complete seven days 2. CAP: CXR w/ new basilar airspace disease on left, likely pneumonia/ aspiration, underlying lung fibrosis on Broad spectrum antibiotics. vaccines solutions specialist Doctor Emeterio saw the patient and Okay to discharge home and follow up with Doctor Franco 3. Pulmonary Fibrosis: Chronic. Follows w/ Dr. Franco as outpatient, Solu- Medrol, DuoNeb, Symbicort. titrate down Solu-Medrol will continue 20 mg IV twice a day. may need to go home on Oral dosages of Prednisone if recommended so by her Primary vaccines solutions specialist. 4. Elevated Trop: Trop 0.32, EKG w/ no acute ischemia, no h/o CAD. Check serial cardiac enzymes, ASA, Statin, B-camryn, as per Echocardiogram EF 60-65%. medical management as per employee development specialist. 5. DONATO: Improved 6. HTN: better control. 7. DM II on hold Metformin, better control now, continue sliding scale, and added Levemir 10 units at bedtime, Hemoglobin A1C 7 will continue home medicines now. 8. Positive MRSA Screen started on Mupirocin ointment 2% on each nostril twice a day for seven days. 9. Hypothyroidism continue home medicines. DVT Prophylaxis: SCD/teds. Social work for DC planning as needed Discussed with patient and nurse Miss Vera also Respiratory therapy specialist in the room. Okay to discharge Home and follow with Doctor Ruben Franco in one week As Always a pleasure to talk about cases with vaccines solutions specialist Doctor Jeronimo Storm his input and recommendations highly appreciated. Discharge Planning Discharge Home now and follow up with vaccines solutions specialist doctor Ruben Franco in one week. Pt Condition on Discharge: Fair Discharge Disposition: Discharge Home Discharge Time: > 30 minutes Discharge Instructions DIET: Follow Instructions for: Heart Healthy Diet, Diabetic Diet Activities you can perform: Regular-No Restrictions Clarence Shetty MD Nov 07, 2016 16:34
[2016-11-07] MEDS ORDERED: BACTOIN EACH NARE (16:37)
--- NOTE | 2016-11-07 17:37 | HHI.PR ---
Subjective Remarks 76 YOWF with Pf, 02 dependent, Pn Feels better no Fever On 3LNC, her baseline Anxious to go home Objective Vital Signs Vital Signs Date Time Temp Pulse Resp B/P Pulse Ox O2 Delivery O2 Flow Rate FiO2 11/07/16 17:00 68 11/07/16 16:00 130/78 11/07/16 16:00 66 11/07/16 15:05 68 11/07/16 15:05 97.8 92 18 126/82 97 11/07/16 15:00 Nasal Cannula 3.00 11/07/16 14:00 66 11/07/16 13:00 88 11/07/16 12:00 90 11/07/16 11:00 Nasal Cannula 3.00 11/07/16 11:00 97.8 92 18 126/82 97 11/07/16 11:00 92 11/07/16 10:21 78 11/07/16 08:18 99 Nasal Cannula 3.00 11/07/16 08:00 82 11/07/16 07:00 85 11/07/16 07:00 97.6 85 18 126/80 97 11/07/16 07:00 Nasal Cannula 3.00 11/07/16 06:00 62 11/07/16 05:00 56 11/07/16 04:00 58 11/07/16 03:00 56 11/07/16 03:00 Nasal Cannula 3.00 11/07/16 03:00 98.0 67 20 124/76 97 11/07/16 02:00 94 11/07/16 01:00 70 11/07/16 00:00 88 11/06/16 23:00 Nasal Cannula 3.00 11/06/16 23:00 98 11/06/16 23:00 97.7 91 16 137/95 99 11/06/16 23:00 16 11/06/16 22:00 100 11/06/16 21:00 78 11/06/16 21:00 97 Nasal Cannula 3.00 11/06/16 20:00 82 11/06/16 19:00 82 11/06/16 19:00 Nasal Cannula 3.00 11/06/16 19:00 97.9 72 16 142/89 96 I/O 11/06/16 11/06/16 11/06/16 11/07/16 11/07/1617 07:00 15:00 23:00 07:00 15:00 23:00 Intake Total 480 ml 480 ml 425 ml Output Total 1000 ml 800 ml Balance 480 ml -520 ml -375 ml Intake Oral 480 ml 480 ml 425 ml Output Urine Total 1000 ml 800 ml # Voids 6 6 # Bowel Movements 0 Result Diagram: 11/05/16 0530 11/06/16 1102 Objective Remarks GENERAL: MBMN WF NAD SKIN: Warm and dry. HEAD: Normocephalic. EYES: No scleral icterus. No injection or drainage. NECK: Supple, trachea midline. No JVD or lymphadenopathy. CARDIOVASCULAR: Regular rate and rhythm without murmurs, gallops, or rubs. RESPIRATORY: Breath sounds equal bilaterally. No accessory muscle use. Insp rales GASTROINTESTINAL: Abdomen soft, non-tender, nondistended. MUSCULOSKELETAL: No cyanosis, or edema. BACK: Nontender without obvious deformity. No CVA tenderness. A/P Assessment and Plan Pulmonary Fibrosis Basilar Infilterates Bronchiectesis H/O PE PLAN: Cont Abx PO Steroids 02 3LNC DC plans for home She will FU with . Jeronimo Storm MD Nov 07, 2016 17:37
== END 2016-11-07 19:00 | disposition home or self-care (01) | DRG 871 ==
LOC: NEPC 22:43 → NEDA 11-04 01:22 → NEDH 11-04 05:22 → HCIS 11-04 14:13
PROVIDERS: ADMIT Internal Medicine; ATTEND Internal Medicine
DX: A41.9 Sepsis, unspecified organism (principal); J69.0 Pneumonitis due to inhalation of food and vomit; N17.9 Acute kidney failure, unspecified; J84.10 Pulmonary fibrosis, unspecified; Z99.81 Dependence on supplemental oxygen; E87.5 Hyperkalemia; J47.9 Bronchiectasis, uncomplicated; K21.9 Gastro-esophageal reflux disease without esophagitis; E03.9 Hypothyroidism, unspecified; E78.5 Hyperlipidemia, unspecified; I10 Essential (primary) hypertension; E11.40 Type 2 diabetes mellitus with diabetic neuropathy, unspecified; Z86.73 Personal history of transient ischemic attack (TIA), and cerebral infarction without residual deficits; Z86.711 Personal history of pulmonary embolism; Z79.84 Long term (current) use of oral hypoglycemic drugs; Z22.322 Carrier or suspected carrier of Methicillin resistant Staphylococcus aureus; Z88.4 Allergy status to anesthetic agent; Z88.5 Allergy status to narcotic agent; Z88.8 Allergy status to other drugs, medicaments and biological substances
CPT/HCPCS: 71010; 71020; 80053; 81001; 82550; 82552; 82948; 83036; 83605; 83735; 83880; 84132; 84484; 85025; 85379; 85610; 85730; 87040; 87641; 93005; 93306; 94640; 94664; J0456; J0696; J1815; J2920; J7030; J7050

== ENCOUNTER 2017-06-20 16:50 | Emergency (ER) | payer MEDICARE, OTHER ==
[~2017-06-20] VITALS: Ht 157.5 cm; Wt 75.0 kg
[~2017-06-20 16:50] MED LIST changes: +ASPI1CHW4 CHEW; -ASPI81CH3 CHEW; +AZIT500T2 PO; +BACTOIN EACH NARE; -BENZ1CAP34 PO; +BENZ1CAP51 PO; -PRED10PA PO; +PRED5TAB PO; +SYMB160A INH
[2017-06-20 16:54] VITALS: BP 105/63; PULSE 83; RESP 18; O2SAT 93
--- NOTE | 2017-06-20 17:48 | RADRPT ---
EXAM DATE/TIME: 06/20/2017 17:25 [facility] COMPARISON: CHEST PA & LAT, November 07, 2016, 9:09. CHEST SINGLE AP, November 03, 2016, 23:47. INDICATIONS : Pneumonia, Shortness of breath, cough. MEDICAL HISTORY : Pulmonary fibrosis, leaky valve SURGICAL HISTORY : None. ENCOUNTER: Initial ACUITY: >1 year PAIN SCORE: 0/10 LOCATION: Bilateral chest FINDINGS: Portable AP view of the chest demonstrates a normal-sized cardiac silhouette with calcification of th e aorta. There are chronic abnormal interstitial opacities with lower lung zone predominance. No pleu ral effusion or pneumothorax is identified. Bones and soft tissues demonstrate no acute finding. CONCLUSION: Stable chest x-ray with chronic lower lung zone predominant interstitial lung disease consistent with the history of pulmonary fibrosis. No acute finding is identified. Jone Marshall MD on June 20, 2017 at 17:46 Board Certified Radiologist. This report was verified electronically.
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
[2017-06-20 17:59] LABS: AUTOMATED NEUTROPHIL # 9.3 TH/MM3 (1.8-7.7); BASOPHIL % 0.3 % (0.0-2.0); EOSINOPHIL # 0.1 TH/MM3 (0-0.4); EOSINOPHIL % 0.6 % (0.0-4.0); HEMATOCRIT 41.6 % (35.0-46.0); HEMO FLAGS DIFF FINAL; LYMPH % 20.3 % (9.0-44.0); LYMPHOCYTE # 2.6 TH/MM3 (1.0-4.8); MEAN CELL VOLUME 91.5 FL (80.0-100.0); MEAN CORPUSCULAR HGB CONC 31.7 % (32.0-36.0); MONO % 6.4 % (0.0-8.0); NEUT % 72.4 % (16.0-70.0); PLATELET COUNT 342 TH/MM3 (150-450); RED BLOOD COUNT 4.55 MIL/MM3 (4.00-5.30); RED CELL DISTRIBUTION WIDTH 14.6 % (11.6-17.2); WHITE BLOOD COUNT 12.8 TH/MM3 (4.0-11.0)
[2017-06-20 18:22] LABS: APTT (PATIENT) 25.5 SEC (24.3-30.1); PROTHROMBIN TIME - PATIENT 10.7 SEC (9.8-11.6)
[2017-06-20 18:24] LABS: ALKALINE PHOSPHATASE 66 U/L (45-117); TOTAL BILIRUBIN ADULT 0.4 MG/DL (0.2-1.0)
[2017-06-20 18:53] LABS: ALT (GPT) 31 U/L (10-53); ANION GAP 9 MEQ/L (5-15); AST (GOT) 31 U/L (15-37); BICARBONATE 27.2 MEQ/L (21.0-32.0); BLOOD UREA NITROGEN 29 MG/DL (7-18); CHLORIDE 102 MEQ/L (98-107); GLOMERULAR FILTRATION RATE 33 ML/MIN (>89); POTASSIUM 4.3 MEQ/L (3.5-5.1); SODIUM (NA) 138 MEQ/L (136-145)
--- NOTE | 2017-06-20 19:21 | RADRPT ---
EXAM DATE/TIME: 06/20/2017 18:57 [facility] COMPARISON: No previous studies available for comparison. INDICATIONS : Trauma, fall x3 weeks ago. ORAL CONTRAST: No oral contrast ingested. RADIATION DOSE: 20.05 CTDIvol (mGy) MEDICAL HISTORY : Cardiovascular disease. Deep venous thrombosis. Hypertension.CVA. SURGICAL HISTORY : Cholecystectomy. Hysterectomy. ENCOUNTER: Initial ACUITY: 3 weeks PAIN SCALE: 3/10 LOCATION: Bilateral pelvis TECHNIQUE: Volumetric scanning of the pelvis was performed. Using automated exposure control and adjustment of the mA and/or kV according to patient size, radiation dose was kept as low as reasonably achievable t o obtain optimal diagnostic quality images. DICOM format image data is available electronically for review and comparison. FINDINGS: BOWEL/MESENTERY: The visualized small and large bowel demonstrate no acute abnormality. There is no free fluid. BLADDER: Decompressed and not well evaluated. RETROPERITONEUM: There is no aneurysm or lymphadenopathy. There is moderate to severe atherosclerotic disease. REPRODUCTIVE: Uterus is absent. INGUINAL: There is no lymphadenopathy or significant hernia. MUSCULOSKELETAL: There is partially visualized antegrade intramedullary mayco within the right proximal femur. Bone mayte t donor site is visualized at the posterior right iliac bone. There is degenerative disc disease at L 3-L4 and L4-L5 grade 1 anterolisthesis of L4 on L5. No fracture is identified. CONCLUSION: 1. No fracture or acute abnormality is identified. 2. 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 Jone Marshall MD on June 20, 2017 at 19:16 Board Certified Radiologist. This report was verified electronically.
--- NOTE | 2017-06-20 19:26 | RADRPT ---
EXAM DATE/TIME: 06/20/2017 18:57 [facility] COMPARISON: No previous studies available for comparison. INDICATIONS : Trauma, fall x3 weeks ago. RADIATION DOSE: 35.86 CTDIvol (mGy) MEDICAL HISTORY : Cardiovascular disease. Hypertension. Deep venous thrombosis.CVA. SURGICAL HISTORY : Hysterectomy. Cholecystectomy. ENCOUNTER: Initial ACUITY: 3 weeks PAIN SCALE: 3/10 LOCATION: lumbar TECHNIQUE: Volumetric scanning of the lumbar spine was performed. Multiplanar reconstructions in the sagittal, coronal and oblique axial planes were performed. Using automated exposure control and adjustment of the mA and/or kV according to patient size, radiation dose was kept as low as reasonably achievable t o obtain optimal diagnostic quality images. DICOM format image data is available electronically for review and comparison. FINDINGS: VERTEBRAE: Vertebral body height is maintained. No fracture or compression deformity is visualized. There is lev oscoliosis. ALIGNMENT: There is 3 mm of retrolisthesis of L1 on L2 and 6 mm of antral listhesis of L4 on L5. T12-L1: No disc herniation, canal stenosis, or neural foraminal stenosis. L1-L2: Decreased disc height with vacuum disc and endplate sclerosis and osteophytes. There is diffuse poste rior disc osteophyte complex and osteophytic ridging and mild facet and ligamentum flavum hypertrophy . Canal is mildly narrowed. There is mild to moderate right neural foraminal narrowing. L2-L3: Decreased disc height with vacuum disc and diffuse posterior disc osteophyte complex along with facet and ligamentum flavum hypertrophy cause at least mild spinal canal stenosis. No significant neural f oraminal narrowing. L3-L4: Decreased disc height with diffuse posterior osteophytic ridging and moderate facet and ligamentum fl avum hypertrophy. Canal is mildly narrowed and there is mild neural foraminal stenosis bilaterally. L4-L5: Decreased disc height was 6 mm of anterolisthesis. There is vacuum disc. Severe facet hypertrophy is present and there is a diffuse disc bulge. Canal is moderately narrowed. There is moderate right and severe left neural foraminal narrowing. L5-S1: There is mild facet hypertrophy. No disc herniation, canal stenosis, or neural foraminal stenosis. CONCLUSION: 1. No acute lumbar spine abnormality is identified. 2. Levoscoliosis with severe degenerative disc disease at L1-L2 through L4-L5. There is retrolisthesi s of L1 on L2 and anterolisthesis of L4 on L5. Please see above for detailed description of each leve l. Jone Marshall MD on June 20, 2017 at 19:20 Board Certified Radiologist. This report was verified electronically.
--- NOTE | 2017-06-20 19:38 | PD ---
Data Data Last Documented VS Vital Signs Date Time Temp Pulse Resp B/P (MAP) Pulse Ox O2 Delivery O2 Flow Rate FiO2 06/20/17 19:45 66 20 107/74 (85) 99 Nasal Cannula 3.50 Orders Orders Electrocardiogram (06/20/17 17:15) Complete Blood Count With Diff (06/20/17 17:15) Comprehensive Metabolic Panel (06/20/17 17:15) Prothrombin Time / Inr (Pt) (06/20/17 17:15) Act Partial Throm Time (Ptt) (06/20/17 17:15) Thyroid Stimulating Hormone (06/20/17 17:15) Chest, Single Ap (06/20/17 17:15) Iv Access Insert/Monitor (06/20/17 17:15) Ecg Monitoring (06/20/17 17:15) Oximetry (06/20/17 17:15) Blood Culture (06/20/17 17:15) Influenzae A/B Antigen (06/20/17 17:15) Lactic Acid (06/20/17 17:15) Ct Lumb Spine W/O Contrast (06/20/17 17:21) Ct Pelvis W/O Iv Contrast (06/20/17 ) Ct Thorax/ Chest Wo Iv Contras (06/20/17 19:07) Urinalysis - C+S If Indicated (06/20/17 20:06) Diet Regular Basic (06/21/17 Breakfast) Azithromycin (Zithromax) (06/20/17 21:00) Labs Laboratory Tests Test 06/20/17 17:22 06/20/17 17:32 06/20/17 20:25 Lactic Acid Level 2.8 mmol/L White Blood Count 12.8 TH/MM3 Red Blood Count 4.55 MIL/MM3 Hemoglobin 13.2 GM/DL Hematocrit 41.6 % Mean Corpuscular Volume 91.5 FL Mean Corpuscular Hemoglobin 29.0 PG Mean Corpuscular Hemoglobin Concent 31.7 % Red Cell Distribution Width 14.6 % Platelet Count 342 TH/MM3 Mean Platelet Volume 8.5 FL Neutrophils (%) (Auto) 72.4 % Lymphocytes (%) (Auto) 20.3 % Monocytes (%) (Auto) 6.4 % Eosinophils (%) (Auto) 0.6 % Basophils (%) (Auto) 0.3 % Neutrophils # (Auto) 9.3 TH/MM3 Lymphocytes # (Auto) 2.6 TH/MM3 Monocytes # (Auto) 0.8 TH/MM3 Eosinophils # (Auto) 0.1 TH/MM3 Basophils # (Auto) 0.0 TH/MM3 CBC Comment DIFF FINAL Differential Comment Prothrombin Time 10.7 SEC Prothromb Time International Ratio 1.0 RATIO Activated Partial Thromboplast Time 25.5 SEC Blood Urea Nitrogen 29 MG/DL Creatinine 1.54 MG/DL Random Glucose 139 MG/DL Total Protein 7.7 GM/DL Albumin 3.4 GM/DL Calcium Level 9.0 MG/DL Alkaline Phosphatase 66 U/L Aspartate Amino Transf (AST/SGOT) 31 U/L Alanine Aminotransferase (ALT/SGPT) 31 U/L Total Bilirubin 0.4 MG/DL Sodium Level 138 MEQ/L Potassium Level 4.3 MEQ/L Chloride Level 102 MEQ/L Carbon Dioxide Level 27.2 MEQ/L Anion Gap 9 MEQ/L Estimat Glomerular Filtration Rate 33 ML/MIN Thyroid Stimulating Hormone 3rd Gen 0.629 uIU/ML MDM Supervised Visit with PRASANTH: Yes Interpretation(s) LABS: CBC remarkable for mild leukocytosis. CMP remarkable for mildly elevated BUN and creatinine, increased from baseline Lactate 2.8 TSH normal Coags unremarkable Influenza negative. Chest x-ray: Chronic interstitial lower lung opacities, unchanged. CT chest: CT pelvis: Negative. 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 CT L-spine: No acute lumbar spine abnormality. Level scoliosis with severe degenerative disc disease L1-L2 through L4-L5, retrolisthesis of L1 on L2 and anterolisthesis of L4 on L5. Narrative Course This 76-year-old woman with shortness of breath and lower back and buttock pain. She'll history of pulmonary fibrosis with recent falls. Increasing shortness of breath. Patient was initially seen by Dr. Hughes, and signed out to to follow-up on the results of diagnostic testing. And repeat assessment patient still with increased dyspnea on exertion compared to baseline. This is likely worsening of her underlying lung disease. He does come and flares for her. She does have some infectious symptoms or could suggest an infectious bronchitis. There is no evidence of pneumonia. Discussed with family. Recommend watching her overnight to make sure she is not worsening, continue steroids, breathing treatments, and reassess. If she continues to deny it isn't worsened by morning, think she can follow up with her oncologist as an outpatient. Diagnosis Primary Impression: Bronchitis Admitting Information Admitting Physician Requests: Observation Corey Yousif MD Jun 20, 2017 19:38
--- NOTE | 2017-06-20 19:42 | RADRPT ---
EXAM DATE/TIME: 06/20/2017 19:14 [facility] COMPARISON: CHEST SINGLE AP, March 05, 2016, 8:13. CHEST SINGLE AP, November 03, 2016, 23:47. CHEST SINGLE AP, Marsha mber 2016, 17:25. INDICATIONS : Short of breath with chest pain. RADIATION DOSE: 3.34 CTDIvol (mGy) MEDICAL HISTORY : Cardiovascular disease. Hypertension. Deep venous thrombosis. CVA. SURGICAL HISTORY : Hysterectomy. Cholecystectomy. ENCOUNTER: Initial ACUITY: 1 day PAIN SCALE: 6/10 LOCATION: chest TECHNIQUE: Volumetric scanning of the chest was performed. Using automated exposure control and adjustment of t he mA and/or kV according to patient size, radiation dose was kept as low as reasonably achievable to obtain optimal diagnostic quality images. DICOM format image data is available electronically for r eview and comparison. Follow-up recommendations for detected pulmonary nodules are based at a minimum on nodule size and pa tient risk factors according to Fleischner Society Guidelines. FINDINGS: LUNGS: There are is a diffuse abnormal interstitial opacity with lower lung zone predominance. Changes consi st of a septal thickening, geographic areas of groundglass opacity, and mild bronchiolectasis. No hon eycombing is identified. No pneumothorax or airspace consolidation is seen. PLEURAE: There is no pleural thickening or pleural effusion. MEDIASTINUM: The heart and great vessels demonstrate no acute abnormality. Coronary artery calcification is prese nt. There is no mediastinal or hilar lymphadenopathy. AXILLAE: Within normal limits. No lymphadenopathy. MUSCULOSKELETAL: There are degenerative changes of the thoracic spine. No acute osseous abnormality is visualized. MISCELLANEOUS: Patient is post cholecystectomy clips in the gallbladder fossa. Central atrophy is present within the liver. There is a small hiatal hernia. CONCLUSION: 1. Chronic abnormal interstitial lung disease bilaterally, as detailed above. The findings are very s imilar to the prior chest x-rays from last year. The interstitial lung changes are not characteristic of a specific process. 2. Nonacute findings include coronary artery calcification and small hiatal hernia. Jone Marshall MD on June 20, 2017 at 19:37 Board Certified Radiologist. This report was verified electronically.
[2017-06-20 19:45] VITALS: BP 107/74; PULSE 66; RESP 20; O2SAT 99
[2017-06-20] MEDS ORDERED: AZITHROMYCIN 250 MG TAB PO ONE (21:00)
[2017-06-20 21:30] VITALS: BP 119/58; PULSE 76; RESP 20; O2SAT 98
[2017-06-20 22:15] LABS: BACTERIA, URINE RARE /hpf; BLOOD, URINE TRACE (NEG); COMMENT (UR) CULTURE INDICATED; CULTURE IF INDICATED CULTURE INDICATED; GLUCOSE,URINE NEG (NEG); KETONE, URINE NEG (NEG); NITRITE,URINE NEG (NEG); SQUAMOUS EPITHELIAL CELL URINE 2 /hpf (0-5); TRANSITIONAL EPI CELLS, URINE <1 /hpf; URINE COLOR YELLOW (YELLW/STRAW)
[2017-06-20] MEDS ORDERED: LEVOFLOXACIN 500 MG TAB PO ONE (22:30)
[2017-06-20] MEDS ORDERED: LEVO750T3 PO (22:34)
--- NOTE | 2017-06-20 22:34 | PD ---
Data Data Last Documented VS Vital Signs Date Time Temp Pulse Resp B/P (MAP) Pulse Ox O2 Delivery O2 Flow Rate FiO2 06/20/17 19:45 66 20 107/74 (85) 99 Nasal Cannula 3.50 Orders Orders Electrocardiogram (06/20/17 17:15) Complete Blood Count With Diff (06/20/17 17:15) Comprehensive Metabolic Panel (06/20/17 17:15) Prothrombin Time / Inr (Pt) (06/20/17 17:15) Act Partial Throm Time (Ptt) (06/20/17 17:15) Thyroid Stimulating Hormone (06/20/17 17:15) Chest, Single Ap (06/20/17 17:15) Iv Access Insert/Monitor (06/20/17 17:15) Ecg Monitoring (06/20/17 17:15) Oximetry (06/20/17 17:15) Blood Culture (06/20/17 17:15) Influenzae A/B Antigen (06/20/17 17:15) Lactic Acid (06/20/17 17:15) Ct Lumb Spine W/O Contrast (06/20/17 17:21) Ct Pelvis W/O Iv Contrast (06/20/17 ) Ct Thorax/ Chest Wo Iv Contras (06/20/17 19:07) Urinalysis - C+S If Indicated (06/20/17 20:06) Diet Regular Basic (06/21/17 Breakfast) Azithromycin (Zithromax) (06/20/17 21:00) Admit Order (Ed Use Only) (06/20/17 ) Labs Laboratory Tests Test 06/20/17 17:22 06/20/17 17:32 06/20/17 20:25 Lactic Acid Level 2.8 mmol/L White Blood Count 12.8 TH/MM3 Red Blood Count 4.55 MIL/MM3 Hemoglobin 13.2 GM/DL Hematocrit 41.6 % Mean Corpuscular Volume 91.5 FL Mean Corpuscular Hemoglobin 29.0 PG Mean Corpuscular Hemoglobin Concent 31.7 % Red Cell Distribution Width 14.6 % Platelet Count 342 TH/MM3 Mean Platelet Volume 8.5 FL Neutrophils (%) (Auto) 72.4 % Lymphocytes (%) (Auto) 20.3 % Monocytes (%) (Auto) 6.4 % Eosinophils (%) (Auto) 0.6 % Basophils (%) (Auto) 0.3 % Neutrophils # (Auto) 9.3 TH/MM3 Lymphocytes # (Auto) 2.6 TH/MM3 Monocytes # (Auto) 0.8 TH/MM3 Eosinophils # (Auto) 0.1 TH/MM3 Basophils # (Auto) 0.0 TH/MM3 CBC Comment DIFF FINAL Differential Comment Prothrombin Time 10.7 SEC Prothromb Time International Ratio 1.0 RATIO Activated Partial Thromboplast Time 25.5 SEC Blood Urea Nitrogen 29 MG/DL Creatinine 1.54 MG/DL Random Glucose 139 MG/DL Total Protein 7.7 GM/DL Albumin 3.4 GM/DL Calcium Level 9.0 MG/DL Alkaline Phosphatase 66 U/L Aspartate Amino Transf (AST/SGOT) 31 U/L Alanine Aminotransferase (ALT/SGPT) 31 U/L Total Bilirubin 0.4 MG/DL Sodium Level 138 MEQ/L Potassium Level 4.3 MEQ/L Chloride Level 102 MEQ/L Carbon Dioxide Level 27.2 MEQ/L Anion Gap 9 MEQ/L Estimat Glomerular Filtration Rate 33 ML/MIN Thyroid Stimulating Hormone 3rd Gen 0.629 uIU/ML Urine Color YELLOW Urine Turbidity CLEAR Urine pH 6.0 Urine Specific [place] 1.020 Urine Protein NEG mg/dL Urine Glucose (UA) NEG mg/dL Urine Ketones NEG mg/dL Urine Occult Blood TRACE Urine Nitrite NEG Urine Bilirubin NEG Urine Urobilinogen LESS THAN 2.0 MG/DL Urine Leukocyte Esterase SMALL Urine RBC 1 /hpf Urine WBC 9 /hpf Urine Squamous Epithelial Cells 2 /hpf Urine Transitional Epithelial Cells <1 /hpf Urine Bacteria RARE /hpf Microscopic Urinalysis Comment CULTURE INDICATED MDM Supervised Visit with PRASANTH: Yes Narrative Course Discussed with Dr. trujillo. She can the bedside to evaluate the patient as well. Discussed with family. Patient has some minimal pyuria, what seems to be subacute worsening in her underlying lung disease. At this point, patient and family are comfortable with discharge home. We'll treat her with Levaquin for possible probable UTI. Close outpatient follow-up with her pharmaceutical operator on Thursday. Diagnosis Primary Impression: Bronchitis Additional Impression: UTI (urinary tract infection) Additional Instruction: Take Levaquin as prescribed. Follow-up with your pharmaceutical operator on Thursday. Return to the emergency department for any new or worsening symptoms. Med/Other Pt SpecificInfo: Prescription(s) given Scripts Levofloxacin (Levofloxacin) 750 Mg Tablet 750 MG PO DAILY for Infection for 5 Days, #5 TAB 0 Refills Prov: Corey Yousif MD 06/20/17 Disposition: 01 DISCHARGE HOME Condition: Stable Corey Yousif MD Jun 20, 2017 22:34
[2017-06-20 23:35] VITALS: BP 141/83
--- NOTE | 2017-06-21 13:11 | EKG ---
Date Performed: 06/20/2017 Time Performed: 17:22:10 PTAGE: 76 years EKG: Sinus rhythm RIGHT BUNDLE BRANCH BLOCK ABNORMAL ECG Since PREVIOUS TRACING , no significant change noted PREVIOUS TRACIN11/04/2016 12.31 DOCTOR: Ranjit Michael Interpretating Date/Time 06/21/2017 13:09:59
== END 2017-06-20 23:59 | disposition home or self-care (01) ==
LOC: NEPE 16:50 → UNDOADMOB 21:18 → NEDA 21:18 → UNDODISOB 23:59 → NEPE 23:59
DX: J40 Bronchitis, not specified as acute or chronic (principal); N39.0 Urinary tract infection, site not specified; B96.89 Other specified bacterial agents as the cause of diseases classified elsewhere; R94.31 Abnormal electrocardiogram [ECG] [EKG]; J84.10 Pulmonary fibrosis, unspecified; E11.9 Type 2 diabetes mellitus without complications; Z79.84 Long term (current) use of oral hypoglycemic drugs
CPT/HCPCS: 71010; 71250; 72131; 72192; 80053; 81001; 83605; 84443; 85025; 85610; 85730; 87040; 87086; 87804; 93005; 99284

== ENCOUNTER 2017-12-19 21:12 | Emergency (ER) | payer MEDICARE, OTHER ==
[~2017-12-19 21:12] MED LIST changes: +LEVO750T3 PO
[2017-12-19 21:16] VITALS: BP 139/69; PULSE 79; RESP 20; TEMP 97.7; TEMP 99.1; O2SAT 89
[2017-12-19] MEDS ORDERED: methylPREDNISolone SOD SUCC 125 MG/2 ML VIAL IV PUSH ONE (21:30)
[2017-12-19] MEDS ORDERED: SODIUM CHLORIDE 0.9% FLUSH 10 ML FLUSH IVF PRN (21:30)
[2017-12-19 21:32] VITALS: PULSE 75; RESP 16; O2SAT 95
[2017-12-19 22:01] LABS: AUTOMATED NEUTROPHIL # 6.2 TH/MM3 (1.8-7.7); BASOPHIL % 0.2 % (0.0-2.0); EOSINOPHIL # 0.2 TH/MM3 (0-0.4); HEMATOCRIT 37.4 % (35.0-46.0); LYMPH % 36.1 % (9.0-44.0); LYMPHOCYTE # 4.2 TH/MM3 (1.0-4.8); MEAN CELL VOLUME 87.7 FL (80.0-100.0); MEAN CORPUSCULAR HEMOGLOBIN 28.1 PG (27.0-34.0); MEAN PLATELET VOLUME 8.3 FL (7.0-11.0); MONO % 8.1 % (0.0-8.0); MONOCYTE # 0.9 TH/MM3 (0-0.9); NEUT % 53.6 % (16.0-70.0); PLATELET COUNT 310 TH/MM3 (150-450); RED BLOOD COUNT 4.26 MIL/MM3 (4.00-5.30); RED CELL DISTRIBUTION WIDTH 16.1 % (11.6-17.2); WHITE BLOOD COUNT 11.6 TH/MM3 (4.0-11.0)
[2017-12-19] MEDS: RESP: ALBUTEROL 2.5 MG/IPRATROPIUM 0.5 MG NEB (SCH) INH (22:03)
--- NOTE | 2017-12-19 22:06 | RADRPT ---
EXAM DATE/TIME: 12/19/2017 21:40 [facility] COMPARISON: CHEST SINGLE AP, June 20, 2017, 17:25. INDICATIONS : Shortness of breath. MEDICAL HISTORY : Pulmonary fibrosis. SURGICAL HISTORY : None. ENCOUNTER: Initial ACUITY: 1 day PAIN SCORE: 0/10 LOCATION: chest FINDINGS: There is diffuse bilateral chronic interstitial lung disease which is stable compared to the prior ex amination. No new areas of parenchymal consolidation are demonstrated. The heart size is enlarged but stable. There no pleural effusions or pulmonary edema. There is no pneumothorax. The bony structures are stable. CONCLUSION: Stable bilateral chronic interstitial lung disease. Anselmo Hidalgo MD on December 19, 2017 at 22:03 Board Certified Radiologist. This report was verified electronically.
[2017-12-19 22:12] LABS: PROTHROMBIN TIME - PATIENT 10.6 SEC (9.8-11.6)
[2017-12-19 22:28] LABS: ALT (GPT) 20 U/L (10-53)
[2017-12-19 22:29] LABS: ALBUMIN 3.2 GM/DL (3.4-5.0); AST (GOT) 31 U/L (15-37); BICARBONATE 29.2 MEQ/L (21.0-32.0); BLOOD UREA NITROGEN 29 MG/DL (7-18); CALCIUM 9.3 MG/DL (8.5-10.1); CHLORIDE 106 MEQ/L (98-107); CREATININE 1.52 MG/DL (0.50-1.00); GLOMERULAR FILTRATION RATE 33 ML/MIN (>89); GLUCOSE,RANDOM 102 MG/DL (74-106); MAGNESIUM 1.7 MG/DL (1.5-2.5); SODIUM (NA) 143 MEQ/L (136-145)
[2017-12-19 22:30] LABS: ALKALINE PHOSPHATASE 72 U/L (45-117); TOTAL BILIRUBIN ADULT 0.4 MG/DL (0.2-1.0); TOTAL PROTEIN 7.3 GM/DL (6.4-8.2)
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
[2017-12-19] MEDS: RESP: ALBUTEROL 2.5 MG/3 ML NEB (SCH) INH (23:08)
[2017-12-19 23:51] LABS: BACTERIA, URINE FEW /hpf; BILIRUBIN, URINE NEG (NEG); BLOOD, URINE NEG (NEG); GLUCOSE,URINE NEG (NEG); KETONE, URINE NEG (NEG); NITRITE,URINE NEG (NEG); SQUAMOUS EPITHELIAL CELL URINE 1 /hpf (0-5); TRANSITIONAL EPI CELLS, URINE <1 /hpf; URINE COLOR YELLOW (YELLW/STRAW); URINE LEUKOCYTE ESTERASE MOD (NEG)
[2017-12-20] MEDS ORDERED: CEPH-459 PO (00:11)
[2017-12-20] MEDS ORDERED: CEPHALEXIN MONOHYDRATE 500 MG CAP PO ONE (00:15)
--- NOTE | 2017-12-20 17:17 | EKG ---
Date Performed: 12/19/2017 Time Performed: 21:19:58 PTAGE: 77 years EKG: Sinus rhythm RIGHT BUNDLE BRANCH BLOCK ABNORMAL ECG PREVIOUS TRACING : 06/20/2017 17.22 Since the previous tracing, no significant change noted DOCTOR: Federico Boone Interpretating Date/Time 12/20/2017 17:16:42
== END 2017-12-20 01:18 | disposition home or self-care (01) ==
LOC: NEPE 21:12
DX: N30.00 Acute cystitis without hematuria (principal); R06.00 Dyspnea, unspecified; B96.20 Unspecified Escherichia coli [E. coli] as the cause of diseases classified elsewhere; I45.10 Unspecified right bundle-branch block; I10 Essential (primary) hypertension; E78.00 Pure hypercholesterolemia, unspecified; E11.9 Type 2 diabetes mellitus without complications; E03.9 Hypothyroidism, unspecified; J84.10 Pulmonary fibrosis, unspecified; F32.9 Major depressive disorder, single episode, unspecified; Z86.711 Personal history of pulmonary embolism; Z88.5 Allergy status to narcotic agent; Z88.8 Allergy status to other drugs, medicaments and biological substances; Z79.82 Long term (current) use of aspirin; Z79.84 Long term (current) use of oral hypoglycemic drugs; Z79.899 Other long term (current) drug therapy
CPT/HCPCS: 71045; 80053; 81001; 83735; 83880; 85025; 85610; 85730; 87077; 87086; 87186; 93005; 94618; 94640; 94664; 96374; 99285; J2930; J7613

== ENCOUNTER 2017-12-31 07:05 | Inpatient (IN) | payer MEDICARE, OTHER ==
[2017-12-31] VITALS (8 sets, daily range): BP systolic 118–158; BP diastolic 62–84; PULSE 89–111; RESP 16–20; TEMP 98–99.7; O2SAT 94–98
[~2017-12-31] VITALS: Ht 160 cm; Wt 76.9 kg
[~2017-12-31 07:05] MED LIST changes: -AZIT500T2 PO; +CEPH-459 PO; -LEVO750T3 PO
[2017-12-31] MEDS ORDERED: LISI2.5T3 PO (07:19)
--- NOTE | 2017-12-31 07:21 | PD ---
HPI Chief Complaint: Fall Time Seen by Provider: 07:13 Travel History International Travel<30 days: No Contact w/Intl Traveler<30days: No Traveled to known affect area: No History of Present Illness HPI 77-year-old female patient with history of multiple medical issues, presents to the ER today because she states that she tripped and fell this morning hitting her knees, and also try to catch herself with her hands, is currently complaining mostly of left ankle pain, ankle appeared deformed, had been splinted by EMS. She denies hitting her head, denies any loss of consciousness or any other issues. She does complain of left wrist pain, bilateral knee pains. She states that she had taken a tramadol prior to EMS arrival and currently pain is controlled. Modifying Factors: None Associated Signs & Symptoms: Trip and fall, left ankle pain and deformity, knee pains, left wrist pain Risk Factors: Elderly PFSH Past Medical History Hx Anticoagulant Therapy: Yes (81 MG ASPIRIN DAILY ) Arthritis: Yes Asthma: No Autoimmune Disease: No Blood Disorders: No Anxiety: No Depression: Yes Heart Rhythm Problems: No Cancer: No Cardiovascular Problems: Yes (LEAKY VALVE) High Cholesterol: Yes Chemotherapy: No Chest Pain: No Congestive Heart Failure: No Diabetes: Yes Patient Takes Glucophage: Yes Diminished Hearing: No Deep Vein Thrombosis: Yes (PULMONARY EMBOLUS) Endocrine: No Gastrointestinal Disorders: No GERD: Yes Glaucoma: No Gout: Yes Genitourinary: Yes Headaches: Yes Hepatitis: No Hiatal Hernia: Yes Heparin Induced Thrombocytopen: No Hypertension: Yes Immune Disorder: No Implanted Vascular Access Dvce: Yes Kidney Stones: No Musculoskeletal: Yes Neurologic: Yes Psychiatric: No Reproductive: No Respiratory: Yes Immunizations Current: Yes Migraines: Yes Myocardial Infarction: No Pneumonia: Yes Radiation Therapy: No Renal Failure: No Seizures: No Shingles: Yes Sickle Cell Disease: No Sleep Apnea: No Thyroid Disease: Yes (HYPOTHYROID) Ulcer: No Menopausal: Yes Past Surgical History Abdominal Surgery: No AICD: No Body Medical Devices: BRINDA IN R FEMUR Cardiac Surgery: No Cholecystectomy: Yes Ear Surgery: No Endocrine Surgery: No Eye Surgery: No Genitourinary Surgery: No Gynecologic Surgery: Yes (COMPLETE HYSTERECTOMY) Hysterectomy: Yes (TOTAL) Insulin Pump: No Joint Replacement: Yes (BILATERAL ) Neurologic Surgery: No Oral Surgery: Yes (FOR DENTURES) Pacemaker: No Thoracic Surgery: No Other Surgery: Yes (14 DEDBRIDEMENTS) Social History Alcohol Use: No Tobacco Use: No (quit long ago) Substance Use: No Allergies-Medications (Allergen,Severity, Reaction): Coded Allergies: acetaminophen (Unverified Allergy, Severe, ITCHY, 12/31/17) celecoxib (Verified Allergy, Severe, Tachycardia; HTN "stroke like symptoms" , 12/31/17) codeine (Unverified Allergy, Severe, ITCH, 12/31/17) oxycodone (Unverified Allergy, Severe, ITCHY, 12/31/17) procaine (Unverified Allergy, Severe, INCREASED HR, 12/31/17) morphine (Verified Allergy, Intermediate, hives and itching, 12/31/17) *MDRO Multi-Drug Resistant Organism (Verified Adverse Reaction, Unknown, ) MRSA PCR Screen POSITIVE - 11/29/14, 11/04/16 Reported Meds & Prescriptions Reported Meds & Active Scripts Active Prednisone 5 Mg Tab 5 Mg PO DAILY take four tablets daily by mouth for 3 days then take three tablets daily by mouth for 3 days then take two tablets daily by mouth for 3 days then take one tablet daily by mouth for 3 days Symbicort Inh (Budesonide/Formoterol Fumarate) 160-4.5 Mcg/Act Aero 2 Puff INH Q12HR . Reported Lisinopril 2.5 Mg Tab 2.5 Mg PO DAILY Aspirin 81 Low Dose (Aspirin) 81 Mg Chew 81 Mg CHEW DAILY Tramadol Hydrochloride (Tramadol HCl) 50 Mg Tab PO Q6HR Atenolol 25 Mg Tab 25 Mg PO DAILY [place] Thyroid (Thyroid) 60 Mg Tab 60 Mg PO DAILY Spironolactone-Hydrochlorothiazide 25-25 Mg Tab 1 Tab PO DAILY Lovastatin 10 Mg Tab 10 Mg PO DAILY Nexium (Esomeprazole DR) 40 Mg Capdr 40 Mg PO DAILY Benzonatate 200 Mg Cap 200 Mg PO TID PRN Probenecid 500 Mg Tab 500 Mg PO DAILY Gabapentin 600 Mg Tab 600 Mg PO TID Metformin (Metformin HCl) 500 Mg Tab 500 Mg PO BIDPC With meals Review of Systems Except as stated in HPI: all other systems reviewed are Neg Physical Exam Narrative GENERAL: Well-developed elderly white female patient currently in mild distress. Awake and oriented 3. SKIN: Focused skin assessment warm/dry. HEAD: Atraumatic. Normocephalic. EYES: Pupils equal and round. No scleral icterus. No injection or drainage. ENT: No nasal bleeding or discharge. Mucous membranes pink and moist. NECK: Trachea midline. No JVD. Supple. CARDIOVASCULAR: Regular rate and rhythm. No murmur appreciated. RESPIRATORY: No accessory muscle use. Clear to auscultation. Breath sounds equal bilaterally. GASTROINTESTINAL: Abdomen soft, non-tender, nondistended. Hepatic and splenic margins not palpable. MUSCULOSKELETAL: No obvious deformities. No clubbing. No cyanosis. No edema. EXTREMITIES: No clubbing, cyanosis, or edema. No joint tenderness, effusion, or edema noted. There is notable pain and deformity with valgus rotation of the left ankle. Pulses palpable. Mild tenderness over the knees although there is no obvious deformities. Pelvis and hips nontender to palpation. Upper extremities nontender to palpation without deformities. NEUROLOGICAL: Awake and alert. No obvious cranial nerve deficits. Motor grossly within normal limits. Normal speech. PSYCHIATRIC: Appropriate mood and affect; insight and judgment normal. Data Data Last Documented VS Vital Signs Date Time Temp Pulse Resp B/P (MAP) Pulse Ox O2 Delivery O2 Flow Rate FiO2 12/31/17 09:05 20 96 Nasal Cannula 3.00 12/31/17 07:11 98.1 99 Orders Orders Electrocardiogram (12/31/17 07:13) Complete Blood Count With Diff (12/31/17 07:13) Basic Metabolic Panel (Bmp) (12/31/17 07:13) Prothrombin Time / Inr (Pt) (12/31/17 07:13) Act Partial Throm Time (Ptt) (12/31/17 07:13) Ankle, Complete ([id number]) (12/31/17 07:13) Femur (Ap & Lat/2vws) (12/31/17 07:13) Knee, Complete (4vws) (12/31/17 07:13) Tibia/Fibula (Ap/Lat) (12/31/17 07:13) Wrist, Complete ([id number]) (12/31/17 07:13) Ecg Monitoring (12/31/17 08:20) Oximetry (12/31/17 08:20) Lorazepam Inj (Ativan Inj) (12/31/17 08:30) Splint Or Brace Apply/Monitor (12/31/17 08:27) Ankle, Limited (Ap&Lat) (12/31/17 08:51) Splint Or Brace Apply/Monitor (12/31/17 09:38) Admit Order (Ed Use Only) (12/31/17 10:06) Aspirin Chew (Aspirin Chew) (01/01/18 09:00) Atenolol (Tenormin) (01/01/18 09:00) Benzonatate (Tessalon) (12/31/17 10:15) Budeson-Formot 160-4.5 Mcg Inh (Symbicor (12/31/17 21:00) Gabapentin (Neurontin) (12/31/17 13:00) Pravastatin (Pravachol) (01/01/18 09:00) Metformin (Glucophage) (12/31/17 18:00) Prednisone (Deltasone) (01/01/18 09:00) Probenecid (Benemid) (01/01/18 09:00) Hctz-Spironolactone 25-25 Mg (Aldactazid (01/01/18 09:00) Thyroid ([place] Thyroid) (01/01/18 09:00) (Nf) Esomeprazole Dr (Nexium) (01/01/18 09:00) (Nf) Lisinopril (01/01/18 09:00) Labs Laboratory Tests Test 12/31/17 07:20 White Blood Count 12.8 TH/MM3 Red Blood Count 4.23 MIL/MM3 Hemoglobin 11.8 GM/DL Hematocrit 37.2 % Mean Corpuscular Volume 87.9 FL Mean Corpuscular Hemoglobin 28.0 PG Mean Corpuscular Hemoglobin Concent 31.8 % Red Cell Distribution Width 16.2 % Platelet Count 285 TH/MM3 Mean Platelet Volume 8.3 FL Neutrophils (%) (Auto) 75.2 % Lymphocytes (%) (Auto) 16.5 % Monocytes (%) (Auto) 7.4 % Eosinophils (%) (Auto) 0.5 % Basophils (%) (Auto) 0.4 % Neutrophils # (Auto) 9.6 TH/MM3 Lymphocytes # (Auto) 2.1 TH/MM3 Monocytes # (Auto) 0.9 TH/MM3 Eosinophils # (Auto) 0.1 TH/MM3 Basophils # (Auto) 0.0 TH/MM3 CBC Comment DIFF FINAL Differential Comment Prothrombin Time 11.1 SEC Prothromb Time International Ratio 1.1 RATIO Activated Partial Thromboplast Time 21.9 SEC Blood Urea Nitrogen 27 MG/DL Creatinine 1.45 MG/DL Random Glucose 146 MG/DL Calcium Level 9.5 MG/DL Sodium Level 137 MEQ/L Potassium Level 4.7 MEQ/L Chloride Level 102 MEQ/L Carbon Dioxide Level 24.5 MEQ/L Anion Gap 11 MEQ/L Estimat Glomerular Filtration Rate 35 ML/MIN MDM Medical Decision Making Medical Screen Exam Complete: Yes Emergency Medical Condition: Yes Medical Record Reviewed: Yes Interpretation(s) Laboratory Tests Test 12/31/17 07:20 White Blood Count 12.8 TH/MM3 (4.0-11.0) Mean Corpuscular Hemoglobin Concent 31.8 % (32.0-36.0) Neutrophils (%) (Auto) 75.2 % (16.0-70.0) Neutrophils # (Auto) 9.6 TH/MM3 (1.8-7.7) Activated Partial Thromboplast Time 21.9 SEC (24.3-30.1) Blood Urea Nitrogen 27 MG/DL (7-18) Creatinine 1.45 MG/DL (0.50-1.00) Random Glucose 146 MG/DL (74-106) Estimat Glomerular Filtration Rate 35 ML/MIN (>89) Last 24 hours Impressions Ankle X-Ray 12/31/17 1911 Signed Impressions: CONCLUSION: 1. Post reduction of trimalleolar fracture, as above. Wrist X-Ray 12/31/17712 Signed Impressions: CONCLUSION: 1. Possible acute injury to the trapezium with a small avulsion fracture and c ortical irregularity. 2. Distal radius and carpal bones are otherwise intact. Tibia/Fibula X-Ray 12/31/17712 Signed Impressions: CONCLUSION: 1. Trimalleolar fracture with disruption of the ankle mortise. 2. Degenerative osteoarthritic changes of the knee joint. 3. Proximal tibia and fibula are otherwise intact. Knee X-Ray 12/31/17712 Signed Impressions: CONCLUSION: 1. Medial tibiofemoral hemiarthroplasty with tricompartment degenerative osteo arthritic changes of the knee. 2. Small suprapatellar effusion. No acute fracture. Femur X-Ray 12/31/17712 Signed Impressions: CONCLUSION: 1. Medullary brinda and osseous screws secure an old distal femoral diaphyseal fr acture. Solid bony fusion and brisk callus formation around the fracture fragme nt. 2. No acute fracture. Hardware remains intact Ankle X-Ray 12/31/17712 Signed Impressions: CONCLUSION: Trimalleolar fracture with disruption of the ankle mortise Differential Diagnosis Contusions versus strain versus fracture versus dislocations Narrative Course X-ray shows a displaced left ankle fracture which was placed in a Roldan splint and reduced after the patient was given Ativan 1 mg. She is allergic to morphine and we have avoided opiate pain medications. Case had been discussed with Dr. Roldan who would like to consider taking the patient to the OR tomorrow , wants the patient to be medically admitted. She also has a cortical minor fracture of the triquetrium in the left wrist and the case was discussed with Dr. Iniguez who would like her to be placed in a thumb spica splint at this point and does not require further treatment. Case is then discussed with Dr. Kaur for admission. Diagnosis Primary Impression: Trimalleolar fracture of left ankle Admitting Information Admitting Physician Requests: Admit Nicolette Melo MD December 31, 2017 07:21
[2017-12-31 07:28] LABS: AUTOMATED NEUTROPHIL # 9.6 TH/MM3 (1.8-7.7); BASOPHIL % 0.4 % (0.0-2.0); EOSINOPHIL # 0.1 TH/MM3 (0-0.4); EOSINOPHIL % 0.5 % (0.0-4.0); HEMATOCRIT 37.2 % (35.0-46.0); HEMOGLOBIN 11.8 GM/DL (11.6-15.3); LYMPH % 16.5 % (9.0-44.0); LYMPHOCYTE # 2.1 TH/MM3 (1.0-4.8); MEAN CELL VOLUME 87.9 FL (80.0-100.0); MEAN CORPUSCULAR HGB CONC 31.8 % (32.0-36.0); MEAN PLATELET VOLUME 8.3 FL (7.0-11.0); MONO % 7.4 % (0.0-8.0); MONOCYTE # 0.9 TH/MM3 (0-0.9); NEUT % 75.2 % (16.0-70.0); PLATELET COUNT 285 TH/MM3 (150-450); RED BLOOD COUNT 4.23 MIL/MM3 (4.00-5.30); RED CELL DISTRIBUTION WIDTH 16.2 % (11.6-17.2); WHITE BLOOD COUNT 12.8 TH/MM3 (4.0-11.0)
[2017-12-31 07:37] LABS: INTERNATIONAL NORMALIZED RATIO 1.1 RATIO; PROTHROMBIN TIME - PATIENT 11.1 SEC (9.8-11.6)
[2017-12-31 07:42] LABS: BICARBONATE 24.5 MEQ/L (21.0-32.0); CALCIUM 9.5 MG/DL (8.5-10.1); CREATININE 1.45 MG/DL (0.50-1.00)
--- NOTE | 2017-12-31 08:25 | RADRPT ---
EXAM DATE: 12/31/2017 8:20 AM EDT AGE/SEX: 77 years / Female INDICATIONS: Left wrist pain, fell CLINICAL DATA: This is the patient's initial encounter. Patient reports that signs and symptoms have been present for 1 day and indicates a pain score of 1/10. MEDICAL/SURGICAL HISTORY: None. None. COMPARISON: No prior [facility] exams available for comparison. FINDINGS: Possible small avulsion fracture and cortical irregularity of the trapezium. Osseous structures are o therwise intact.. Osseous density is normal. Soft tissues are unremarkable. No radiopaque foreign bodies seen. CONCLUSION: 1. Possible acute injury to the trapezium with a small avulsion fracture and cortical irregularity. 2. Distal radius and carpal bones are otherwise intact. Electronically signed by: Cortes Hui MD 12/31/2017 8:24 AM EDT
--- NOTE | 2017-12-31 08:27 | RADRPT ---
EXAM DATE: 12/31/2017 8:13 AM EDT AGE/SEX: 77 years / Female INDICATIONS: Left ankle pain, fell CLINICAL DATA: This is the patient's initial encounter. Patient reports that signs and symptoms have been present for 1 day and indicates a pain score of 10/10. MEDICAL/SURGICAL HISTORY: None. None. COMPARISON: No prior [facility] exams available for comparison. FINDINGS: Trimalleolar fracture with disruption of the ankle mortise. Osseous density is normal. Soft tissues are unremarkable. No radiopaque foreign bodies seen. CONCLUSION: Trimalleolar fracture with disruption of the ankle mortise Electronically signed by: Cortes Hui MD 12/31/2017 8:26 AM EDT
--- NOTE | 2017-12-31 08:28 | RADRPT ---
EXAM DATE: 12/31/2017 8:19 AM EDT AGE/SEX: 77 years / Female INDICATIONS: Left tibia pain, fell CLINICAL DATA: This is the patient's initial encounter. Patient reports that signs and symptoms have been present for 1 day and indicates a pain score of 10/10. MEDICAL/SURGICAL HISTORY: Arthritis. . Partial knee replacement COMPARISON: No prior [facility] exams available for comparison. FINDINGS: Trimalleolar fracture of the distal tibia/fibula with disruption of the ankle mortise. More proximal tibia and fibula are intact. Degenerative osteoarthritic changes in the knee with a medial compartmen t hemiarthroplasty. CONCLUSION: 1. Trimalleolar fracture with disruption of the ankle mortise. 2. Degenerative osteoarthritic changes of the knee joint. 3. Proximal tibia and fibula are otherwise intact. Electronically signed by: Cortes Hui MD 12/31/2017 8:27 AM EDT
[2017-12-31] MEDS ORDERED: LORazepam 2 MG/ML VIAL IV PUSH ONE (08:30)
--- NOTE | 2017-12-31 08:30 | RADRPT ---
EXAM DATE: 12/31/2017 8:10 AM EDT AGE/SEX: 77 years / Female INDICATIONS: Left knee pain, fell CLINICAL DATA: This is the patient's initial encounter. Patient reports that signs and symptoms have been present for 1 day and indicates a pain score of 2/10. MEDICAL/SURGICAL HISTORY: None. . Partial knee replacement COMPARISON: No prior [facility] exams available for comparison. FINDINGS: Tricompartment osteoarthritic changes with a medial tibiofemoral hemiarthroplasty. Chondrocalcinosis of the lateral menisci. Osseous structures are otherwise intact. Small suprapatellar effusion CONCLUSION: 1. Medial tibiofemoral hemiarthroplasty with tricompartment degenerative osteoarthritic changes of t he knee. 2. Small suprapatellar effusion. No acute fracture. Electronically signed by: Cortes Hui MD 12/31/2017 8:29 AM EDT
--- NOTE | 2017-12-31 08:32 | RADRPT ---
EXAM DATE: 12/31/2017 8:16 AM EDT AGE/SEX: 77 years / Female INDICATIONS: Right femur pain, fell CLINICAL DATA: This is the patient's initial encounter. Patient reports that signs and symptoms have been present for 1 day and indicates a pain score of 1/10. MEDICAL/SURGICAL HISTORY: None. . Partial right knee replacement COMPARISON: No prior [facility] exams available for comparison. FINDINGS: Medullary mayco and osseous screws secure an old distal femoral diaphyseal fracture. Abundant callus fo rmation around the fracture. Hardware remains intact. No acute fracture. CONCLUSION: 1. Medullary mayco and osseous screws secure an old distal femoral diaphyseal fracture. Solid bony fus ion and brisk callus formation around the fracture fragment. 2. No acute fracture. Hardware remains intact Electronically signed by: Cortes Hui MD 12/31/2017 8:31 AM EDT
--- NOTE | 2017-12-31 09:50 | RADRPT ---
EXAM DATE: 12/31/2017 9:07 AM EDT AGE/SEX: 77 years / Female INDICATIONS: Post reduction left ankle, fell CLINICAL DATA: This is the patient's subsequent encounter. Patient reports that signs and symptoms h ave been present for 1 day and indicates a pain score of Nonresponsive. MEDICAL/SURGICAL HISTORY: None. None. COMPARISON: [facility] [place]KLE LEFT COMPLETE ([id number]), 12/31/2017. . FINDINGS: Interval reduction of the right ankle trimalleolar fracture with improved angulation. There is howeve r persistent anterior and lateral dislocation of the tibiotalar joint. No additional fractures. CONCLUSION: 1. Post reduction of trimalleolar fracture, as above. Electronically signed by: Guido Iyer MD 12/31/2017 9:49 AM EDT
[2017-12-31] MEDS ORDERED: LACTULOSE SYRUP 20 GM/30 ML CUP PO PRN (10:15)
[2017-12-31] MEDS ORDERED: MAGNESIUM HYDROXIDE SUSP 30 ML CUP PO PRN (10:15)
[2017-12-31] MEDS ORDERED: BENZONATATE 100 MG CAP PO PRN (10:15)
[2017-12-31] MEDS ORDERED: METOCLOPRAMIDE HCL 10 MG/2 ML VIAL IV PUSH PRN (10:15)
[2017-12-31] MEDS ORDERED: NALOXONE HCL 0.4 MG/ML AMP IV PUSH PRN ×2 (10:15)
[2017-12-31] MEDS ORDERED: SODIUM CHLORIDE 0.9% FLUSH 10 ML FLUSH IV FLUSH PRN (10:15)
[2017-12-31] MEDS ORDERED: BISACODYL 10 MG SUPP RECTAL PRN (10:15)
[2017-12-31] MEDS ORDERED: ACETAMINOPHEN 325 MG TAB PO PRN (10:15)
[2017-12-31] MEDS ORDERED: SENNOSIDES 8.6 MG TAB PO PRN (10:15)
--- NOTE | 2017-12-31 10:35 | HHI.HP ---
[facility] Service [facility] Primary Care Physician Clive Johnson MD Admission Diagnosis Unstable left ankle fracture Diagnoses: Chief Complaint: fall Travel History International Travel<30 Days: No Contact w/Intl Traveler <30 Da: No Traveled to Known Affected Are: No History of Present Illness 77 year-old female with a PMH of HTN, Pulmonary Fibrosis, chronic respiratory failure O2 Dependent, GERD and DM who is brought to the ER after mechanical fall at home. The patient tripped over her pets and fell this morning hitting her knees, and also try to catch herself with her hands. She is complaining mostly of left ankle pain, ankle appeared deformed, had been splinted by EMS. She denies hitting her head, denies any loss of consciousness or any other issues. She does complain of left wrist pain, bilateral knee pains. She states that she had taken a tramadol prior to EMS arrival and currently pain is controlled. Has multiple allergies and says she takes tramadol for pain. No chest pain or sob. She is currently sattign well on 3L by NC No cough, fever or chills. Review of Systems ROS Limitations: Clinical Condition Except as stated in HPI: all other systems reviewed are Neg Past Family Social History Past Medical History HTN, Pulmonary Fibrosis, O2 Dependent, GERD and DM Past Surgical History Hysterectomy, Right Femur ORIF, Bilateral Knee Replacement, Cholecystectomy Reported Medications Last Impressions Ankle X-Ray 12/31/17850 Signed Impressions: CONCLUSION: 1. Post reduction of trimalleolar fracture, as above. Wrist X-Ray 12/31/17712 Signed Impressions: CONCLUSION: 1. Possible acute injury to the trapezium with a small avulsion fracture and c ortical irregularity. 2. Distal radius and carpal bones are otherwise intact. Tibia/Fibula X-Ray 12/31/17712 Signed Impressions: CONCLUSION: 1. Trimalleolar fracture with disruption of the ankle mortise. 2. Degenerative osteoarthritic changes of the knee joint. 3. Proximal tibia and fibula are otherwise intact. Knee X-Ray 12/31/17712 Signed Impressions: CONCLUSION: 1. Medial tibiofemoral hemiarthroplasty with tricompartment degenerative osteo arthritic changes of the knee. 2. Small suprapatellar effusion. No acute fracture. Femur X-Ray 12/31/17 0713 Signed Impressions: CONCLUSION: 1. Medullary mayco and osseous screws secure an old distal femoral diaphyseal fr acture. Solid bony fusion and brisk callus formation around the fracture fragme nt. 2. No acute fracture. Hardware remains intact Allergies: Coded Allergies: acetaminophen (Unverified Allergy, Severe, ITCHY, 12/31/17) celecoxib (Verified Allergy, Severe, Tachycardia; HTN "stroke like symptoms" , 12/31/17) oxycodone (Unverified Allergy, Severe, ITCHY, 12/31/17) procaine (Unverified Allergy, Severe, INCREASED HR, 12/31/17) morphine (Verified Allergy, Intermediate, hives and itching, 12/31/17) *MDRO Multi-Drug Resistant Organism (Verified Adverse Reaction, Unknown, ) MRSA PCR Screen POSITIVE - 11/29/14, 11/04/16 Family History Reviewed. No h/o DM or CAD Social History Denies alcohol, tobacco or illicit drug use . Physical Exam Vital Signs Vital Signs Date Time Temp Pulse Resp B/P (MAP) Pulse Ox O2 Delivery O2 Flow Rate FiO2 12/31/17 09:05 20 96 Nasal Cannula 3.00 12/31/17 07:31 96 Nasal Cannula 12/31/17 07:11 98.1 99 18 158/84 (108) 96 Nasal Cannula 3.00 12/31/17 07:09 98 20 95 Physical Exam GENERAL: This is a pleasant 77 yo f, well-nourished, well-developed patient, in no apparent distress. SKIN: No rashes, ecchymoses or lesions. Cool and dry. HEAD: Atraumatic. Normocephalic. No temporal or scalp tenderness. EYES: Pupils equal round and reactive. Extraocular motions intact. No scleral icterus. No injection or drainage. ENT: Nose without bleeding, purulent drainage or septal hematoma. Throat without erythema, tonsillar hypertrophy or exudate. Uvula midline. Airway patent. NECK: Trachea midline. No JVD or lymphadenopathy. Supple, nontender, no meningeal signs. CARDIOVASCULAR: Regular rate and rhythm without murmurs, gallops, or rubs. RESPIRATORY: Clear to auscultation. Breath sounds equal bilaterally. No wheezes , rales, or rhonchi. GASTROINTESTINAL: Abdomen soft, non-tender, nondistended. No hepato-splenomegaly , or palpable masses. No guarding. MUSCULOSKELETAL: Left foot in splint. Mild tenderness over the knees. Extremities without clubbing, cyanosis, or edema. No joint tenderness, effusion , or edema noted. No calf tenderness. Negative Homans sign bilaterally. NEUROLOGICAL: Awake and alert. Cranial nerves II through XII intact. Motor and sensory grossly within normal limits. Five out of 5 muscle strength in all muscle groups. Normal speech. Laboratory Laboratory Tests Test 12/31/17 07:20 White Blood Count 12.8 Red Blood Count 4.23 Hemoglobin 11.8 Hematocrit 37.2 Mean Corpuscular Volume 87.9 Mean Corpuscular Hemoglobin 28.0 Mean Corpuscular Hemoglobin Concent 31.8 Red Cell Distribution Width 16.2 Platelet Count 285 Mean Platelet Volume 8.3 Neutrophils (%) (Auto) 75.2 Lymphocytes (%) (Auto) 16.5 Monocytes (%) (Auto) 7.4 Eosinophils (%) (Auto) 0.5 Basophils (%) (Auto) 0.4 Neutrophils # (Auto) 9.6 Lymphocytes # (Auto) 2.1 Monocytes # (Auto) 0.9 Eosinophils # (Auto) 0.1 Basophils # (Auto) 0.0 CBC Comment DIFF FINAL Differential Comment Prothrombin Time 11.1 Prothromb Time International Ratio 1.1 Activated Partial Thromboplast Time 21.9 Blood Urea Nitrogen 27 Creatinine 1.45 Random Glucose 146 Calcium Level 9.5 Sodium Level 137 Potassium Level 4.7 Chloride Level 102 Carbon Dioxide Level 24.5 Anion Gap 11 Estimat Glomerular Filtration Rate 35 Result Diagram: 12/31/1771912/31/17719 Imaging Last Impressions Ankle X-Ray 12/31/17 0851 Signed Impressions: CONCLUSION: 1. Post reduction of trimalleolar fracture, as above. Wrist X-Ray 12/31/17712 Signed Impressions: CONCLUSION: 1. Possible acute injury to the trapezium with a small avulsion fracture and c ortical irregularity. 2. Distal radius and carpal bones are otherwise intact. Tibia/Fibula X-Ray 12/31/17712 Signed Impressions: CONCLUSION: 1. Trimalleolar fracture with disruption of the ankle mortise. 2. Degenerative osteoarthritic changes of the knee joint. 3. Proximal tibia and fibula are otherwise intact. Knee X-Ray 12/31/17712 Signed Impressions: CONCLUSION: 1. Medial tibiofemoral hemiarthroplasty with tricompartment degenerative osteo arthritic changes of the knee. 2. Small suprapatellar effusion. No acute fracture. Femur X-Ray 12/31/17712 Signed Impressions: CONCLUSION: 1. Medullary mayco and osseous screws secure an old distal femoral diaphyseal fr acture. Solid bony fusion and brisk callus formation around the fracture fragme nt. 2. No acute fracture. Hardware remains intact Caprini VTE Risk Assessment Caprini VTE Risk Assessment: Mod/High Risk (score >= 2) Caprini Risk Assessment Model Point Value = 1 Point Value = 2 Point Value = 3 Point Value = 5 Age 41-60 Minor surgery BMI > 25 kg/m2 Swollen legs Varicose veins or History of unexplained or recurrent spontaneous Oral contraceptives or hormone replacement Sepsis (< 1 month) Serious lung disease, including pneumonia (< 1 month) Abnormal pulmonary function Acute myocardial infarction Congestive heart failure (< 1 month) History of inflammatory bowel disease Medical patient at bed rest Age 61-74 Arthroscopic surgery Major open surgery (> 45 min) Laparoscopic surgery (> 45 min) Malignancy Confined to bed (> 72 hours) Immobilizing plaster cast Central venous access Age >= 75 History of VTE Family history of VTE Factor V Leiden Prothrombin [id number] Lupus anticoagulant Anticardiolipin antibodies Elevated serum homocysteine Heparin-induced thrombocytopenia Other congenital or acquired thrombophilia Stroke (< 1 month) Elective arthroplasty Hip, pelvis, or leg fracture Acute spinal cord injury (< 1 month) Prophylaxis Regimen Total Risk Factor Score Risk Level Prophylaxis Regimen 0-1 Low Early ambulation 2 Moderate Order ONE of the following: *Sequential Compression Device (SCD) *Heparin 5000 units SQ BID 3-4 Higher Order ONE of the following medications: *Heparin 5000 units SQ TID *Enoxaparin/Lovenox 40 mg SQ daily (WT < 150 kg, CrCl > 30 mL/min) *Enoxaparin/Lovenox 30 mg SQ daily (WT < 150 kg, CrCl > 10-29 mL/min) *Enoxaparin/Lovenox 30 mg SQ BID (WT < 150 kg, CrCl > 30 mL/min) AND/OR *Sequential Compression Device (SCD) 5 or more Highest Order ONE of the following medications: *Heparin 5000 units SQ TID (Preferred with Epidurals) *Enoxaparin/Lovenox 40 mg SQ daily (WT < 150 kg, CrCl > 30 mL/min) *Enoxaparin/Lovenox 30 mg SQ daily (WT < 150 kg, CrCl > 10-29 mL/min) *Enoxaparin/Lovenox 30 mg SQ BID (WT < 150 kg, CrCl > 30 mL/min) AND *Sequential Compression Device (SCD) Assessment and Plan Assessment and Plan S/P mechanical fall at home. Trimalleolar fracture of left ankle X-ray reviewed shows a displaced left ankle fracture Cortical minor fracture of the triquetrum in the left wrist and the case was discussed with Dr. Iniguez by ER physician who would like her to be placed in a thumb spica splint at this point and does not require further treatment. Pulmonary Fibrosis: Chronic. Chronic respiratory failure Follows w/ Dr. Franco as outpatient, continue DuoNeb, Symbicort, prednisone. HLD, HTN: Continue home meds ASA, Statin, B-camryn DM2: Hold Metformin. Sliding scale with Accu-Cheks. GERD, GI ppx continue PPIs DVT Prophylaxis: SCD/teds. Chemical ppx per surgeon CM consulted for DC planning as needed Discussed Condition With patient, family at bedside, nurse, ED physician Physician Certification 2 Midnight Certification Type: Admission for Inpatient Services Order for Inpatient Services The services are ordered in accordance with Medicare regulations or non- Medicare payer requirements, as applicable. In the case of services not specified as inpatient-only, they are appropriately provided as inpatient services in accordance with the 2-midnight benchmark. Estimated LOS (days): 3 days is the estimated time the patient will need to remain in the hospital, assuming treatment plan goals are met and no additional complications. Post-Hospital Plan: Not yet determined Marianne Kaur MD December 31, 2017 10:35
[2017-12-31] MEDS ORDERED: ACETAMINOPHEN/CODEINE ELIX 120 MG/12 MG/5 ML CUP PO PRN (11:00)
[2017-12-31] MEDS: SODIUM CHLOR 0.9% 1000 ML INJ 1,000 ML IV SCH (11:17)
--- NOTE | 2017-12-31 12:18 | PD.ORT.PN ---
Subjective Subjective Remarks Mechanical fall at home. Unstable left ankle fracture. Diagnosed trimalleolar ankle fracture and splinted. Neurovascularly intact Objective Vitals Vital Signs Date Time Temp Pulse Resp B/P (MAP) Pulse Ox O2 Delivery O2 Flow Rate FiO2 12/31/17 11:36 89 16 118/71 (87) 96 Nasal Cannula 3.00 12/31/17 09:05 20 96 Nasal Cannula 3.00 12/31/17 07:31 96 Nasal Cannula 12/31/17 07:11 98.1 99 18 158/84 (108) 96 Nasal Cannula 3.00 12/31/17 07:09 98 20 95 Result Diagram: 12/31/1771912/31/17719 Other Results Laboratory Tests Test 12/31/17 07:20 Prothromb Time International Ratio 1.1 RATIO Prothrombin Time 11.1 SEC (9.8-11.6) Imaging Last 24 hours Impressions Ankle X-Ray 12/31/17 0851 Signed Impressions: CONCLUSION: 1. Post reduction of trimalleolar fracture, as above. Wrist X-Ray 12/31/17712 Signed Impressions: CONCLUSION: 1. Possible acute injury to the trapezium with a small avulsion fracture and c ortical irregularity. 2. Distal radius and carpal bones are otherwise intact. Tibia/Fibula X-Ray 12/31/17712 Signed Impressions: CONCLUSION: 1. Trimalleolar fracture with disruption of the ankle mortise. 2. Degenerative osteoarthritic changes of the knee joint. 3. Proximal tibia and fibula are otherwise intact. Knee X-Ray 12/31/17712 Signed Impressions: CONCLUSION: 1. Medial tibiofemoral hemiarthroplasty with tricompartment degenerative osteo arthritic changes of the knee. 2. Small suprapatellar effusion. No acute fracture. Femur X-Ray 12/31/17712 Signed Impressions: CONCLUSION: 1. Medullary mayco and osseous screws secure an old distal femoral diaphyseal fr acture. Solid bony fusion and brisk callus formation around the fracture fragme nt. 2. No acute fracture. Hardware remains intact Ankle X-Ray 12/31/17712 Signed Impressions: CONCLUSION: Trimalleolar fracture with disruption of the ankle mortise Objective Remarks Bilateral upper extremities: No pain with range of motion of shoulder elbow wrist. Intact sensation with full extension flexion of all fingers Right lower extremity: Full range of motion neurovascularly intact Left lower extremity: No pain with hip or knee range of motion. Splint is intact and she has intact sensation distally with good capillary refills in all toes. She is able to actively move her toes Assessment & Plan Assessment and Plan Left trimalleolar ankle fracture Bedrest Nonweightbearing left lower extremity Surgery tomorrow a.m. with Dr. Roldan N.p.o. after midnight Consents to be signed in the morning Wei Liao Jr. December 31, 2017 12:18
[2017-12-31] MEDS ORDERED: GABAPENTIN 300 MG CAP PO SCH (13:00)
[2017-12-31] MEDS: traMADol HCL 50 MG TAB PO PRN ×2 (14:21→21:28)
[2017-12-31] MEDS ORDERED: LORazepam 0.5 MG TAB PO PRN (15:45)
[2017-12-31] MEDS ORDERED: GLUCAGON 1 MG/ML VIAL OTHER PRN (16:30)
[2017-12-31] MEDS ORDERED: DEXTROSE 50% IN WATER 50 ML VIAL(D50) IV PUSH PRN (16:30)
[2017-12-31] MEDS: INSULIN ASPART SUPPLEMENTAL SCALE SQ SCH ×2 (17:00→21:00)
[2017-12-31] MEDS ORDERED: metFORMIN HCL 500 MG TAB PO SCH (18:00)
--- NOTE | 2017-12-31 18:14 | MB ---
cc: Libby Iniguez MD, Laurence H MD DATE: 12/31/2017 DATE OF CONSULTATION: Patient is being seen at the request of Dr. Katie Melo. REASON FOR CONSULTATION: Injury to right wrist. HISTORY OF PRESENT ILLNESS: The patient is a 77-year-old female. The patient apparently fell today, injuring her ankle and her hand. The patient indicates that she tripped and that is what caused her to fall. It was noted that the patient injured her ankle for which she is being admitted for surgery. In addition, there was a question of injury to her left hand. X-ray was performed, which showed what appeared to be an avulsion fracture of the trapezium in the wrist on the left side. Consultation is requested regarding evaluation and treatment of this injury. REVIEW OF SYSTEMS: Otherwise negative, except as noted above. PAST MEDICAL HISTORY: Significant for hypertension, pulmonary fibrosis. She is oxygen dependent, has GERD and diabetes. PAST SURGICAL HISTORY: Includes hysterectomy, right femur open reduction internal fixation, bilateral knee replacements and cholecystectomy. MEDICATIONS: Listed on the chart. FAMILY HISTORY: Noncontributory. SOCIAL HISTORY: She denies alcohol and tobacco. PHYSICAL EXAMINATION: GENERAL: The patient is lying comfortably in bed. VITAL SIGNS: Her pulse is 89, respirations 16, blood pressure is 118/71. Her oxygenation is 96% on 3 liters of oxygen. HEENT: Extraocular muscles are intact. Pupils are equal, round and reactive to light. Mouth is clear. NECK: Supple without masses. LUNGS: Clear. HEART: Has a regular rate and rhythm. EXTREMITIES: Examination of upper extremities: The left hand is splinted. The splint is in place. The patient does not have any swelling or local tenderness. IMAGING STUDIES: The x-rays are reviewed and there appears to be a small bone fragment, although it may not be AN acute fracture. It could be related to an arthritic process. The carpometacarpal joint appears to be adequately aligned and there does not appear to be any significant swelling of the soft tissue in that area. IMPRESSION: The patient appears to have injured her left hand, but this does not appear to be clinically significant. PLAN: The patient will maintain the splint until after surgery, at which point it will be removed and she will be reevaluated. MD MARYLOU Santiago/ , 05:45 PM , 06:13 PM
[2017-12-31] MEDS: SODIUM CHLORIDE 0.9% FLUSH 10 ML FLUSH IV FLUSH SCH (21:00)
[2017-12-31] MEDS: DOCUSATE SODIUM 50 MG/SENNA 8.6 MG TAB PO SCH (21:27)
[2017-12-31] MEDS: BUDESONIDE-FORMOTEROL 160/4.5 MCG INHALER INH SCH (21:30)
[2017-12-31] MEDS: GABAPENTIN 300 MG CAP PO SCH (21:30)
[2018-01-01] MEDS: SODIUM CHLOR 0.9% 1000 ML INJ 1,000 ML IV SCH ×2 (00:26→14:44)
[2018-01-01] MEDS: RESP: ALBUTEROL 2.5 MG/IPRATROPIUM 0.5 MG NEB (PRN) NEB ×2 (00:58→14:59)
[2018-01-01 01:00] VITALS: O2SAT 93
[2018-01-01 03:55] VITALS: BP 123/80; PULSE 110; RESP 18; TEMP 98.1; O2SAT 94
[2018-01-01] MEDS ORDERED: POVIDONE IODINE 5% (ANTISEPSIS KIT) 4 APPLICATIONS EACH NARE PRN (04:00)
[2018-01-01] MEDS ORDERED: LACTATED RINGER'S 1000 ML IV PRN (04:00)
[2018-01-01] MEDS ORDERED: SODIUM CHLORID 0.9% 500 ML IV PRN (04:00)
[2018-01-01] MEDS ORDERED: CHLORHEXIDINE GLUCONATE 2 % 1 PACK (2 CLOTHS) TOPICAL PRN (04:00)
[2018-01-01] MEDS: THYROID 60 MG TAB PO SCH (05:36)
--- NOTE | 2018-01-01 06:48 | PD.ORT.PN ---
Subjective Subjective Remarks Patient is examined bedside with family in the room. She states that she is continuing to be comfortable after being splinted. She has been n.p.o. (Wei Liao Jr.) Objective Vitals Vital Signs Date Time Temp Pulse Resp B/P (MAP) Pulse Ox O2 Delivery O2 Flow Rate FiO2 01/01/18 03:55 98.1 110 18 123/80 (94) 94 01/01/18 01:00 93 Nasal Cannula 3.00 12/31/17 23:15 98.4 110 18 153/83 (106) 96 12/31/17 17:35 99.7 111 16 133/76 (95) 94 12/31/17 16:30 98.0 94 17 139/62 (87) 98 12/31/17 16:07 12/31/17 11:36 89 16 118/71 (87) 96 Nasal Cannula 3.00 12/31/17 11:20 98 Nasal Cannula 3.00 12/31/17 09:05 20 96 Nasal Cannula 3.00 12/31/17 07:31 96 Nasal Cannula 12/31/17 07:11 98.1 99 18 158/84 (108) 96 Nasal Cannula 3.00 12/31/17 07:09 98 20 95 I/O 12/31/17 12/31/17 12/31/17 01/01/18 01/01/18 01/01/18 07:00 15:00 23:00 07:00 15:00 23:00 Intake Total 100 ml Balance 100 ml Intake Oral 100 ml # Voids 2 # Bowel Movements 0 (Wei Liao Jr.) Result Diagram: 12/31/17 0720 12/31/17 0720 Other Results Laboratory Tests Test 12/31/17 07:20 Prothromb Time International Ratio 1.1 RATIO Prothrombin Time 11.1 SEC (9.8-11.6) Imaging Last 24 hours Impressions Ankle X-Ray 12/31/17 0851 Signed Impressions: CONCLUSION: 1. Post reduction of trimalleolar fracture, as above. Wrist X-Ray 12/31/17 0713 Signed Impressions: CONCLUSION: 1. Possible acute injury to the trapezium with a small avulsion fracture and c ortical irregularity. 2. Distal radius and carpal bones are otherwise intact. Tibia/Fibula X-Ray 12/31/17712 Signed Impressions: CONCLUSION: 1. Trimalleolar fracture with disruption of the ankle mortise. 2. Degenerative osteoarthritic changes of the knee joint. 3. Proximal tibia and fibula are otherwise intact. Knee X-Ray 12/31/17712 Signed Impressions: CONCLUSION: 1. Medial tibiofemoral hemiarthroplasty with tricompartment degenerative osteo arthritic changes of the knee. 2. Small suprapatellar effusion. No acute fracture. Femur X-Ray 12/31/17712 Signed Impressions: CONCLUSION: 1. Medullary mayco and osseous screws secure an old distal femoral diaphyseal fr acture. Solid bony fusion and brisk callus formation around the fracture fragme nt. 2. No acute fracture. Hardware remains intact Ankle X-Ray 12/31/17712 Signed Impressions: CONCLUSION: Trimalleolar fracture with disruption of the ankle mortise Objective Remarks Bilateral upper extremities: No pain with range of motion of shoulder elbow wrist. Intact sensation with full extension flexion of all fingers Right lower extremity: Full range of motion neurovascularly intact Left lower extremity: No pain with hip or knee range of motion. Splint is intact and she has intact sensation distally with good capillary refills in all toes. She is able to actively move her toes (Wei Liao Jr.) Assessment & Plan Assessment and Plan Left trimalleolar ankle fracture Bedrest Nonweightbearing left lower extremity Surgery today. with Dr. Roldan N.p.o. Sign consents Case management for rehab placement Follow-up with Dr. Roldan or PA in 2 weeks (Wei Liao Jr.) Assessment and Plan Stable post op NWB LLE maintain splint at all times elevate ortho clear for DC to SNF vs home with [facility] f/u with Inez 2 weeks (Sean aCli/[employer]) Wei Liao Jr. January 01, 2018 06:48 Sean Cali/[employer] January 01, 2018 16:10
[2018-01-01 07:12] VITALS: BP 138/76; PULSE 113; RESP 18; TEMP 99.5; O2SAT 98
[2018-01-01 07:12] LABS: AUTOMATED NEUTROPHIL # 8.7 TH/MM3 (1.8-7.7); BASOPHIL % 0.3 % (0.0-2.0); EOSINOPHIL # 0.1 TH/MM3 (0-0.4); EOSINOPHIL % 0.7 % (0.0-4.0); HEMATOCRIT 37.9 % (35.0-46.0); HEMOGLOBIN 11.9 GM/DL (11.6-15.3); LYMPH % 19.7 % (9.0-44.0); LYMPHOCYTE # 2.5 TH/MM3 (1.0-4.8); MEAN CELL VOLUME 88.4 FL (80.0-100.0); MEAN CORPUSCULAR HEMOGLOBIN 27.8 PG (27.0-34.0); MEAN CORPUSCULAR HGB CONC 31.4 % (32.0-36.0); MEAN PLATELET VOLUME 8.6 FL (7.0-11.0); MONO % 10.9 % (0.0-8.0); MONOCYTE # 1.4 TH/MM3 (0-0.9); NEUT % 68.4 % (16.0-70.0); PLATELET COUNT 248 TH/MM3 (150-450); RED BLOOD COUNT 4.29 MIL/MM3 (4.00-5.30); RED CELL DISTRIBUTION WIDTH 16.2 % (11.6-17.2); WHITE BLOOD COUNT 12.7 TH/MM3 (4.0-11.0)
--- NOTE | 2018-01-01 07:28 | EKG ---
Date Performed: 12/31/2017 Time Performed: 08:03:55 PTAGE: 77 years EKG: Sinus rhythm RIGHT BUNDLE BRANCH BLOCK MODERATE T-WAVE ABNORMALITY, CONSIDER LATERAL ISCHEMIA MODERATE T-WAVE ABN ORMALITY, CONSIDER INFERIOR ISCHEMIA ABNORMAL ECG PREVIOUS TRACING : 12/19/2017 21.19 DOCTOR: Yogesh Wagoner Interpretating Date/Time 01/01/2018 07:23:23
[2018-01-01 07:40] LABS: BICARBONATE 28.1 MEQ/L (21.0-32.0); CALCIUM 8.8 MG/DL (8.5-10.1); CREATININE 1.1 MG/DL (0.50-1.00)
[2018-01-01] MEDS ORDERED: VANCOMYCIN HCL 1000 MG VIAL ONE ×2 (07:50→08:31)
[2018-01-01] MEDS ORDERED: ceFAZolin 2 GM PREMIX 50 ML ONE (07:50)
[2018-01-01] MEDS: ATENOLOL 25 MG TAB PO SCH (07:50)
[2018-01-01] MEDS ORDERED: GENTAMICIN SULFATE 80 MG/2 ML VIAL ONE ×2 (07:50→08:31)
[2018-01-01] MEDS ORDERED: BUPIVACAINE PF 0.75% DEX-WATER INJ 2 ML AMP ONE (07:53)
[2018-01-01] MEDS ORDERED: LIDOCAINE HCL 1% PF 5 ML AMPULE ONE (07:53)
[2018-01-01] MEDS: INSULIN ASPART SUPPLEMENTAL SCALE SQ SCH ×4 (08:00→21:00)
[2018-01-01] MEDS ORDERED: ceFAZolin INJ 1,000 MG VIAL ONE (08:31)
[2018-01-01] MEDS ORDERED: SODIUM CHLOR 0.9% 250 ML INJ 0 ML ONE (08:32)
--- NOTE | 2018-01-01 08:58 | MB ---
cc: Elgin Roldan MD DATE: 01/01/2018 REASON FOR CONSULTATION: Displaced left ankle fracture. CONSULTING PHYSICIAN: Dr. Kaur. HISTORY OF PRESENT ILLNESS: Lavinia is a 77-year-old female who has a history of hypertension and pulmonary fibrosis. She had a fall at home today. She describes a mechanical fall. She denies dizziness, syncope or loss of consciousness. She had immediate left ankle pain. She was unable to stand or ambulate after her fall. She presented to the emergency room where x-rays revealed a partially displaced left ankle fracture. She has currently been admitted for treatment of this injury. Her only complaint is her left ankle. She does have chronic shortness of breath from pulmonary disease. PAST MEDICAL HISTORY: ILLNESSES: Hypertension, pulmonary fibrosis, reflux and diabetes. SURGERIES: Hysterectomy, right femur IM nail, bilateral knee replacement, cholecystectomy. ALLERGIES: OXYCODONE. PROCAINE. MORPHINE. CELEBREX. FAMILY HISTORY: Noncontributory. She denies any familial problems with anesthesia. SOCIAL HISTORY: The patient lives independently. She denies alcohol, tobacco or drug use. REVIEW OF SYSTEMS: The patient denies headache, visual changes, neck pain, chest pain, shortness of breath, abdominal pain, nausea, vomiting, recent weight loss, fevers or chills or numbness tor tingling of extremities. She complains of left ankle pain. The pain is worse with movement. LABORATORY DATA: The patient has a white blood cell count of 12.7, hematocrit of 37.9, platelet count of 248. INR is 1.1. Potassium is 3.8. X-RAYS: X-rays of the left ankle are reviewed. X-rays reveal a displaced left ankle trimalleolar fracture. PHYSICAL EXAMINATION: GENERAL: The patient is a pleasant 77-year-old female. She is awake and alert. She has family at bedside. She is in no acute distress. VITAL SIGNS: Temperature 99.5, pulse 113, respirations 18, blood pressure 138/76, O2 saturations 98% on 3 liters nasal cannula. HEAD: The patient is normocephalic. EYES: Pupils are equal. NECK: Soft, nontender. The trachea is in the midline. ABDOMEN: Soft, nontender, nondistended. EXTREMITIES: Examination of bilateral upper extremities reveals no pain with shoulder, elbow or wrist motion. She has intact sensation in all fingers. She has good capillary refill in all fingers. Skin is intact. Radial pulses are palpable. Examination of the right leg reveals no pain with hip, knee or ankle motion. Skin is intact. Dorsalis pedis pulses are palpable. Sensation is intact. Examination of left leg reveals no pain with hip or knee motion. Calf and thigh compartments are soft. Sensation is intact in the left foot. She has good capillary refill in her toes. Skin is intact. There is mild swelling present. IMPRESSION: 1. Pulmonary fibrosis. 2. Oxygen dependence. 3. Diabetes. 4. Osteoporosis. 5. Displaced left distal tibia and fibula fractures. PLAN: Treatment options were discussed with the patient. At this point, I would recommend open reduction, internal fixation of left ankle fractures. Risks of surgery include bleeding, infection, injuries to arteries, nerves or blood vessels, nonunion, malunion, painful hardware, wound complications, as well as medical complications including blood clot, stroke, heart attack and . All questions were answered. We will plan on surgery today. Postoperatively, I will place the patient on calcium and vitamin D supplementation. She will need to be strictly nonweightbearing for 8 weeks. Physical therapy will be consulted postoperatively. A mid-level provider in my office, nurse practitioner or PA, may see this patient on a follow-up basis and continue to implement the objective of this plan including: Starting or adjusting medications, injections of muscle, tendon, bursa or joints, cast application, orthotic or brace application, physical therapy, further radiographic studies including x-ray, MRI, CT, ultrasounds or bone scan, vascular studies, neurologic studies, or other specialist consultations, and proceeding with surgical management as appropriate. MD SHANNON Kaplan/WALT , 08:15 AM , 08:57 AM
[2018-01-01] MEDS: predniSONE 5 MG TAB PO SCH (09:00)
[2018-01-01] MEDS: PANTOPRAZOLE SOD 40 MG DELAYED RELEASE TAB PO SCH (09:00)
[2018-01-01] MEDS: LISINOPRIL 5 MG TAB PO SCH (09:00)
[2018-01-01] MEDS: BUDESONIDE-FORMOTEROL 160/4.5 MCG INHALER INH SCH ×2 (09:00→21:00)
[2018-01-01] MEDS: GABAPENTIN 300 MG CAP PO SCH ×2 (09:00→23:25)
[2018-01-01] MEDS: ASPIRIN 81 MG CHEW TAB CHEW SCH (09:00)
[2018-01-01] MEDS: PROBENECID 500 MG TAB PO SCH (09:00)
[2018-01-01] MEDS: DOCUSATE SODIUM 50 MG/SENNA 8.6 MG TAB PO SCH ×2 (09:00→23:25)
[2018-01-01] MEDS: SODIUM CHLORIDE 0.9% FLUSH 10 ML FLUSH IV FLUSH SCH ×2 (09:00→21:00)
[2018-01-01] MEDS: PRAVASTATIN SOD 10 MG TAB PO SCH (09:00)
[2018-01-01] MEDS: SPIRONOLACTONE/HCTZ 25 MG/25 MG TAB PO SCH (09:00)
[2018-01-01] MEDS ORDERED: Post-op Orders (for Pharmacy) XX ONE (10:30)
--- NOTE | 2018-01-01 10:31 | PD.OP ---
cc: Elgin Sal MD Operative Report Date of Surgery: January 01, 2018 Preoperative Diagnosis: Displaced left ankle trimalleolar fracture Postoperative Diagnosis: Procedure: Left ankle open reduction internal fixation trimalleolar fracture Anesthesia: Spinal Surgeon: Elgin Sal [employer] Canning Leader(s): FANI Landa PA-C The surgical procedure was assisted by my physician sales support assistant. My P.A. presence was necessary throughout this case for the manipulation and positioning of the surgical extremity. My P.A. was assisting me throughout the duration of this procedure. The skill set of a physician sales support assistant was medically necessary to complete this procedure. During the surgical case the regional vice president surgical sales was working at the back table and the physician sales support assistant was directly assisting me. Operation and Findings: Implants used: ITS Plan of activity: Nonweightbearing 8 weeks Details of operation: Patient was seen and evaluated preoperatively and found to have a displaced left trimalleolar ankle fracture. Informed consent was obtained after a detailed discussion of risk and benefits of surgery. The operative site was marked. Patient was brought to the OR, placed on the OR table, and given IV sedation and general endotracheal anesthesia. IV antibiotics were given preoperatively. A timeout procedure was performed. The left leg was prepped with alcohol followed by Hibiclens and draped in the usual sterile fashion. Attention was turned towards the distal fibula. A four-inch incision was made over the distal fibula. The subcutaneous tissue was dissected with Bovie. The fracture site was visualized. The fracture site was cleaned with curets. The fracture was now reduced. The fracture keyed into anatomic alignment. K-wires were used to hold provisional fixation. A ITS plate was selected. The plate was provisionally held to bone with K-wires. 3.5 cortical screws were used to compress the plate to bone. Multiple screws were placed above and below the fracture. All screws were premeasured and predrilled for appropriate length. Next attention was turned towards the posterior malleolus. A 3 inch incision was made along the medial malleolus. Subcutaneous tissues were dissected with Bovie. The medial malleolus and posterior malleolus fragments were now visualized and palpated. A large fracture tenaculum was placed behind the posterior malleolus fragment. The posterior malleolus fragment was carefully manipulated. Fracture keyed in anatomic alignment. The fracture tenaculum was used to hold provisional fixation. 3 percutaneous incisions were made along the anterior tibia. Guide pins for the 4.0 cannulated screws were placed from anterior to posterior. Fluoroscopy confirmed appropriate guidepin placement. Cannulated drill was placed over the guidepins. 2 appropriate length screws were now placed. Good compression was obtained. Fracture tenaculum was removed. Next attention was turned towards the medial malleolus. The medial fracture was manipulated to achieve excellent reduction. Fracture was now reduced and keyed into anatomic alignment percutaneously. K wires were used to hold provisional fixation. Because of the vertical nature of the fracture, a small ITS distal fibular plate was contoured to fit the medial malleolus. Plate was provisionally held to bone with K wires. Plate was provisionally held to bone with K wires. 2.7 cortical screws were used to compress plate to bone. Additional locking screws were placed distally. Additional cortical screws were placed into the shaft. Fluoroscopy confirmed well aligned fracture with well-placed hardware. Next, attention was turned to the syndesmosis. The syndesmosis was stressed. There was no widening of the syndesmosis with external rotation of the ankle. Incisions were thoroughly irrigated. The subcutaneous tissue was closed with 3- 0 Vicryl and the skin was closed with 3-0 nylon. Sterile dressings were applied. A well molded well-padded splint was applied. The patient was transferred to Recovery in stable condition. Needle and sponge counts were correct Elgin Sal MD January 01, 2018 10:31
[2018-01-01] MEDS ORDERED: TRAM50TA PO (10:33)
[2018-01-01] MEDS ORDERED: DO NOT ADM ANY ANTICOAGULANT DRUGS PRN (10:56)
[2018-01-01] MEDS ORDERED: ePHEDrine/NS 25 MG/5 ML SYRINGE IV ONE (11:10)
[2018-01-01] MEDS ORDERED: PHENYLEPHRINE HCL 10 MG/ML VIAL IV ONE (11:10)
[2018-01-01] MEDS ORDERED: PROPOFOL 200 MG/20 ML AMP IV ONE (11:10)
[2018-01-01] MEDS ORDERED: PHENYLEPH/NS 1000 MCG/10 ML SYR IV ONE (11:10)
[2018-01-01] MEDS ORDERED: ONDANSETRON HCL 4 MG/2 ML VIAL IV PUSH ONE (11:10)
--- NOTE | 2018-01-01 11:23 | HHI.PR ---
Subjective Remarks Patient states that she is ready for surgery. Overall pain control. Objective Vitals Vital Signs Date Time Temp Pulse Resp B/P (MAP) Pulse Ox O2 Delivery O2 Flow Rate FiO2 01/01/18 11:15 83 20 120/69 (86) 98 Nasal Cannula 3 01/01/18 11:00 98.7 82 17 114/66 (82) 99 Nasal Cannula 3 01/01/18 08:06 Nasal Cannula 3 01/01/18 07:12 99.5 113 18 138/76 (96) 98 01/01/18 03:55 98.1 110 18 123/80 (94) 94 01/01/18 01:00 93 Nasal Cannula 3.00 12/31/17 23:15 98.4 110 18 153/83 (106) 96 12/31/17 17:35 99.7 111 16 133/76 (95) 94 12/31/17 16:30 98.0 94 17 139/62 (87) 98 12/31/17 16:07 12/31/17 11:36 89 16 118/71 (87) 96 Nasal Cannula 3.00 I/O 12/31/17 12/31/17 12/31/17 01/01/18 01/01/18 01/01/18 06:59 14:59 22:59 06:59 14:59 22:59 Intake Total 100 ml 500 ml Output Total 50 ml Balance 100 ml 450 ml Intake Oral 100 ml Other 500 ml Output Estimated Blood Loss 50 ml # Voids 2 # Bowel Movements 0 Result Diagram: 01/01/18 0553 01/01/18 0553 Other Results Item Value Date Time Bedside Blood Glucose 120 mg/dl 01/01/18 0800 Objective Remarks GENERAL: This is a well-nourished, well-developed patient, in no apparent distress. CARDIOVASCULAR: Regular rate and rhythm without murmurs, gallops, or rubs. RESPIRATORY: Clear to auscultation. Breath sounds equal bilaterally. No wheezes , rales, or rhonchi. A/P Problem List: (1) Trimalleolar fracture of left ankle ICD Code: S82.852A - Displaced trimalleolar fracture of left lower leg, initial encounter for closed fracture Status: Acute Assessment and Plan S/P mechanical fall at home. Trimalleolar fracture of left ankle -status post left ORIF with Dr. Roldan today continue postoperative care, pain control, Physical therapy Cortical minor fracture of the triquetrum in the left wrist and the case was discussed with Dr. Iniguez by ER physician who would like her to be placed in a thumb spica splint at this point and does not require further treatment. Pulmonary Fibrosis: Chronic. Chronic respiratory failure Follows w/ Dr. Franco as outpatient, continue DuoNeb, Symbicort, prednisone. HLD, HTN, chronic essential: Continue home meds ASA, Statin, B-camryn DM2, chronic overall controlled: Restart metformin today. Sliding scale with Accu-Cheks. GERD, ppi DVT Prophylaxis: SCD/teds. Lovenox Discharge Planning Discharge home when cleared by orthopedic surgery Problem Qualifiers (1) Trimalleolar fracture of left ankle: Qualified Codes: S82.852A - Displaced trimalleolar fracture of left lower leg, initial encounter for closed fracture Saskia Guzmán MD January 01, 2018 11:23
[2018-01-01] MEDS ORDERED: *HYDROmorphone PF 0.5 MG/0.5 ML PERIprocedure ONLY ONE (11:24)
[2018-01-01] MEDS ORDERED: ONDANSETRON ODT 4 MG TAB PO PRN (11:30)
[2018-01-01 12:42] VITALS: BP 127/64; PULSE 89; RESP 18; TEMP 97.9; O2SAT 95
[2018-01-01 15:30] VITALS: BP 154/91; PULSE 101; RESP 21; TEMP 98.2; O2SAT 90
[2018-01-01] MEDS: ceFAZolin 2 GM PREMIX 50 ML IV SCH (17:16)
[2018-01-01] MEDS: metFORMIN HCL 500 MG TAB PO SCH (17:16)
[2018-01-01] MEDS: traMADol HCL 50 MG TAB PO PRN ×2 (17:20→23:25)
[2018-01-01 19:00] VITALS: BP 142/65; PULSE 80; RESP 18; TEMP 99.3; O2SAT 97
--- NOTE | 2018-01-01 22:42 | RADRPT ---
EXAM DATE: 01/01/2018 10:17 PM EDT AGE/SEX: 77 years / Female INDICATIONS: ORIF Left Ankle in operating room. CLINICAL DATA: This is the patient's subsequent encounter. Patient reports that signs and symptoms h ave been present for 1 day and indicates a pain score of Nonresponsive. MEDICAL/SURGICAL HISTORY: Non-responsive. Non-responsive. COMPARISON: No prior [facility] exams available for comparison. FINDINGS: 2 images were recorded digitally in the operating room using C-arm during placement of internal fixat ion hardware in the distal tibia and fibula. CONCLUSION: Intraoperative images. Electronically signed by: Napoleon Frias MD 01/01/2018 10:41 PM EDT
[2018-01-02] VITALS (7 sets, daily range): BP systolic 83–121; BP diastolic 46–76; PULSE 91–112; RESP 17–20; TEMP 96–101.5; O2SAT 92–100
[2018-01-02] MEDS: ceFAZolin 2 GM PREMIX 50 ML IV SCH ×2 (00:28→10:37)
[2018-01-02] MEDS: SODIUM CHLOR 0.9% 1000 ML INJ 1,000 ML IV SCH ×2 (04:37→19:20)
[2018-01-02] MEDS: THYROID 60 MG TAB PO SCH (05:15)
[2018-01-02] MEDS ORDERED: IBUPROFEN 400 MG TAB PO ONE (05:30)
--- NOTE | 2018-01-02 07:13 | PD.ORT.PN ---
Subjective Subjective Remarks pt doing better post op left wrist and ankle pain Objective Vitals Vital Signs Date Time Temp Pulse Resp B/P (MAP) Pulse Ox O2 Delivery O2 Flow Rate FiO2 01/02/18 06:04 17 01/02/18 04:04 101.5 112 20 101/54 (70) 92 01/02/18 00:36 Nasal Cannula 3.00 01/02/18 00:26 16 01/01/18 19:58 Nasal Cannula 3.00 01/01/18 19:00 99.3 80 18 142/65 (90) 97 01/01/18 15:30 98.2 101 21 154/91 (112) 90 01/01/18 12:42 97.9 89 18 127/64 (85) 95 01/01/18 11:45 98.7 79 18 125/70 (88) 100 Nasal Cannula 3 01/01/18 11:30 81 21 129/64 (85) 100 Nasal Cannula 3 01/01/18 11:15 83 20 120/69 (86) 98 Nasal Cannula 3 01/01/18 11:00 98.7 82 17 114/66 (82) 99 Nasal Cannula 3 01/01/18 08:06 Nasal Cannula 3 I/O 01/01/18 01/01/18 01/01/18 01/02/18 01/02/18 01/02/18 07:00 15:00 23:00 07:00 15:00 23:00 Intake Total 100 ml 500 ml 250 ml 420 ml Output Total 50 ml Balance 100 ml 450 ml 250 ml 420 ml Intake Oral 100 ml 250 ml 420 ml IV Total 0 ml Other 500 ml Output Estimated Blood Loss 50 ml # Voids 2 4 4 # Bowel Movements 0 0 0 Result Diagram: 01/01/18 0553 01/01/18 0553 Imaging Last 24 hours Impressions Ankle X-Ray 12/31/17 0866 Signed Impressions: CONCLUSION: 1. Post reduction of trimalleolar fracture, as above. Wrist X-Ray 12/31/17712 Signed Impressions: CONCLUSION: 1. Possible acute injury to the trapezium with a small avulsion fracture and c ortical irregularity. 2. Distal radius and carpal bones are otherwise intact. Tibia/Fibula X-Ray 12/31/1776 Signed Impressions: CONCLUSION: 1. Trimalleolar fracture with disruption of the ankle mortise. 2. Degenerative osteoarthritic changes of the knee joint. 3. Proximal tibia and fibula are otherwise intact. Knee X-Ray 12/31/17712 Signed Impressions: CONCLUSION: 1. Medial tibiofemoral hemiarthroplasty with tricompartment degenerative osteo arthritic changes of the knee. 2. Small suprapatellar effusion. No acute fracture. Femur X-Ray 12/31/17712 Signed Impressions: CONCLUSION: 1. Medullary mayco and osseous screws secure an old distal femoral diaphyseal fr acture. Solid bony fusion and brisk callus formation around the fracture fragme nt. 2. No acute fracture. Hardware remains intact Ankle X-Ray 12/31/17712 Signed Impressions: CONCLUSION: Trimalleolar fracture with disruption of the ankle mortise Objective Remarks left wrist in splint left lower extremity in splint +NVI Assessment & Plan Assessment and Plan Stable post op NWB LLE maintain splint at all times elevate anticipate discharge to SNF on Thursday f/u with Inez 2 weeks Jonathan Newby MD January 02, 2018 07:13
[2018-01-02] MEDS ORDERED: WALKER WHEELS/F1 MIS (07:15)
[2018-01-02] MEDS: INSULIN ASPART SUPPLEMENTAL SCALE SQ SCH ×3 (08:00→21:00)
[2018-01-02] MEDS: ATENOLOL 25 MG TAB PO SCH (09:00)
[2018-01-02] MEDS: SPIRONOLACTONE/HCTZ 25 MG/25 MG TAB PO SCH (09:00)
[2018-01-02] MEDS: LISINOPRIL 5 MG TAB PO SCH (09:00)
[2018-01-02] MEDS: GABAPENTIN 300 MG CAP PO SCH ×2 (10:35→21:42)
[2018-01-02] MEDS: predniSONE 5 MG TAB PO SCH (10:35)
[2018-01-02] MEDS: PRAVASTATIN SOD 10 MG TAB PO SCH (10:35)
[2018-01-02] MEDS: metFORMIN HCL 500 MG TAB PO SCH ×2 (10:35→18:01)
[2018-01-02] MEDS: ASPIRIN 81 MG CHEW TAB CHEW SCH (10:35)
[2018-01-02] MEDS: PANTOPRAZOLE SOD 40 MG DELAYED RELEASE TAB PO SCH (10:35)
[2018-01-02] MEDS: PROBENECID 500 MG TAB PO SCH (10:36)
[2018-01-02] MEDS: SODIUM CHLORIDE 0.9% FLUSH 10 ML FLUSH IV FLUSH SCH ×2 (10:36→21:44)
[2018-01-02] MEDS: DOCUSATE SODIUM 50 MG/SENNA 8.6 MG TAB PO SCH ×2 (10:36→21:42)
[2018-01-02] MEDS: BUDESONIDE-FORMOTEROL 160/4.5 MCG INHALER INH SCH ×2 (10:37→21:45)
[2018-01-02] MEDS: traMADol HCL 50 MG TAB PO PRN ×3 (10:52→21:43)
[2018-01-02 11:55] LABS: BACTERIA, URINE OCC /hpf; BILIRUBIN, URINE NEG (NEG); BLOOD, URINE NEG (NEG); GLUCOSE,URINE NEG (NEG); KETONE, URINE 10 mg/dL (NEG); MUCUS URINE FEW /lpf (OCC); NITRITE,URINE NEG (NEG); SQUAMOUS EPITHELIAL CELL URINE 5 /hpf (0-5); URINE COLOR YELLOW (YELLW/STRAW); URINE LEUKOCYTE ESTERASE MOD (NEG)
--- NOTE | 2018-01-02 14:18 | RADRPT ---
EXAM DATE: 01/02/2018 2:12 PM EDT AGE/SEX: 77 years / Female INDICATIONS: Fever. CLINICAL DATA: This is the patient's initial encounter. Patient reports that signs and symptoms have been present for 1 day and indicates a pain score of 0/10. MEDICAL/SURGICAL HISTORY: Hypertension. . ORIF left ankle. COMPARISON: [facility] – [place], CHEST SINGLE AP, 12/19/2017. . FINDINGS: A single AP view of the chest demonstrates no change in the chronic interstitial changes throughout b oth lungs. No intra-alveolar infiltrates or effusions. Heart is at the upper limits of normal in term s of size. No effusion.. CONCLUSION: Stable diffuse chronic interstitial change. Electronically signed by: Napoleon Oh MD 01/02/2018 2:16 PM EDT
--- NOTE | 2018-01-02 17:01 | HHI.PR ---
Subjective Remarks Patient is resting comfortably in her recliner at bedside. She denies any symptoms associated with her overnight fever. Objective Vitals Vital Signs Date Time Temp Pulse Resp B/P (MAP) Pulse Ox O2 Delivery O2 Flow Rate FiO2 01/02/18 09:52 96.0 97 19 102/59 (73) 94 01/02/18 08:24 95 Nasal Cannula 3.00 01/02/18 08:00 98.0 91 19 83/46 (58) 96 01/02/18 06:04 17 01/02/18 04:04 101.5 112 20 101/54 (70) 92 01/02/18 00:36 Nasal Cannula 3.00 01/02/18 00:26 16 01/01/18 19:58 Nasal Cannula 3.00 01/01/18 19:00 99.3 80 18 142/65 (90) 97 I/O 01/01/18 01/01/18 01/01/18 01/02/18 01/02/18 01/02/18 07:00 15:00 23:00 07:00 15:00 23:00 Intake Total 100 ml 500 ml 250 ml 420 ml Output Total 50 ml Balance 100 ml 450 ml 250 ml 420 ml Intake Oral 100 ml 250 ml 420 ml IV Total 0 ml Other 500 ml Output Estimated Blood Loss 50 ml # Voids 2 4 4 # Bowel Movements 0 0 0 Result Diagram: 01/01/18 0553 01/01/18 0553 Objective Remarks GENERAL: Well-nourished, well-developed patient. SKIN: Warm and dry. HEAD: Normocephalic. EYES: No scleral icterus. No injection or drainage. NECK: Supple, trachea midline. No JVD or lymphadenopathy. CARDIOVASCULAR: Regular rate and rhythm without murmurs, gallops, or rubs. RESPIRATORY: Breath sounds equal bilaterally. No accessory muscle use. GASTROINTESTINAL: Abdomen soft, non-tender, nondistended. EXTREMITIES: No cyanosis, or edema. Left ankle has soft cast/splint, left wrist also splinted NEUROLOGICAL: Awake, alert, and oriented x 3. Non-focal. A/P Problem List: (1) Trimalleolar fracture of left ankle ICD Code: S82.852A - Displaced trimalleolar fracture of left lower leg, initial encounter for closed fracture Status: Acute Assessment and Plan Trimalleolar fracture of left ankle today continue postoperative care, pain control, Physical therapy Caused by slip and fall at home s/p left ORIF with Dr. Roldan Appreciate orthopedic intervention Anticipate discharge to SNF tomorrow Cortical minor fracture of the triquetrum in the left wrist case was discussed with Dr. Iniguez by ER physician who recommended her to be placed in a in a thumb spica splint at this point, does not require further treatment. Pulmonary Fibrosis Chronic respiratory failure Follows w/ Dr. Franco as outpatient, continue DuoNeb , Symbicort, prednisone. Hypertension Continue home meds Type 2 diabetes Sliding scale insulin with Accu-Cheks Restarted metformin Diabetic diet DVT prophylaxis Lovenox Discharge planning Orthopedics anticipates discharge home on Thursday Problem Qualifiers (1) Trimalleolar fracture of left ankle: Qualified Codes: S82.852A - Displaced trimalleolar fracture of left lower leg, initial encounter for closed fracture Bryson Hernandez MD January 02, 2018 17:01
[2018-01-03] VITALS (10 sets, daily range): BP systolic 101–127; BP diastolic 64–74; PULSE 85–100; RESP 19–22; TEMP 97.4–99.8; O2SAT 94–98
[2018-01-03] MEDS: THYROID 60 MG TAB PO SCH (05:56)
[2018-01-03] MEDS: traMADol HCL 50 MG TAB PO PRN ×3 (06:00→17:50)
[2018-01-03] MEDS: INSULIN ASPART SUPPLEMENTAL SCALE SQ SCH ×4 (08:00→21:00)
--- NOTE | 2018-01-03 08:07 | PD.ORT.PN ---
Subjective Subjective Remarks pt has mild post op pain left ankle continued SOB, has hx of pulm. fibrosis Objective Vitals Vital Signs Date Time Temp Pulse Resp B/P (MAP) Pulse Ox O2 Delivery O2 Flow Rate FiO2 01/03/18 06:42 18 01/03/18 04:01 94 01/03/18 04:00 99.8 99 22 121/69 (86) 97 01/03/18 03:43 98 01/03/18 00:00 97.4 100 20 113/74 (87) 98 01/02/18 23:34 Nasal Cannula 3.00 01/02/18 20:11 Nasal Cannula 3.00 01/02/18 20:00 98 01/02/18 20:00 98.2 99 20 121/76 (91) 100 01/02/18 16:00 96.6 101 19 103/60 (74) 96 01/02/18 12:00 96.9 97 17 113/64 (80) 98 01/02/18 09:52 96.0 97 19 102/59 (73) 94 01/02/18 08:24 95 Nasal Cannula 3.00 I/O 01/02/18 01/02/18 01/02/18 01/03/18 01/03/18 01/03/18 07:00 15:00 23:00 07:00 15:00 23:00 Intake Total 420 ml 720 ml Balance 420 ml 720 ml Intake Oral 420 ml 720 ml # Voids 4 4 3 # Bowel Movements 0 1 Result Diagram: 01/01/18 0553 01/01/18 0553 Imaging Last 24 hours Impressions Ankle X-Ray 12/31/17 8266 Signed Impressions: CONCLUSION: 1. Post reduction of trimalleolar fracture, as above. Wrist X-Ray 12/31/17712 Signed Impressions: CONCLUSION: 1. Possible acute injury to the trapezium with a small avulsion fracture and c ortical irregularity. 2. Distal radius and carpal bones are otherwise intact. Tibia/Fibula X-Ray 12/31/17712 Signed Impressions: CONCLUSION: 1. Trimalleolar fracture with disruption of the ankle mortise. 2. Degenerative osteoarthritic changes of the knee joint. 3. Proximal tibia and fibula are otherwise intact. Knee X-Ray 12/31/17712 Signed Impressions: CONCLUSION: 1. Medial tibiofemoral hemiarthroplasty with tricompartment degenerative osteo arthritic changes of the knee. 2. Small suprapatellar effusion. No acute fracture. Femur X-Ray 12/31/17712 Signed Impressions: CONCLUSION: 1. Medullary mayco and osseous screws secure an old distal femoral diaphyseal fr acture. Solid bony fusion and brisk callus formation around the fracture fragme nt. 2. No acute fracture. Hardware remains intact Ankle X-Ray 12/31/17712 Signed Impressions: CONCLUSION: Trimalleolar fracture with disruption of the ankle mortise Objective Remarks seen and examined by Dr. Jonathan Newby left wrist in thumb spica splint left lower extremity in splint +NVI Assessment & Plan Assessment and Plan Stable post op NWB LLE maintain splint at all times elevate discharge to SNF today, orthopedically stable f/u with Jamar 2 weeks Laurie Pelayo January 03, 2018 08:07
[2018-01-03] MEDS: DOCUSATE SODIUM 50 MG/SENNA 8.6 MG TAB PO SCH ×2 (08:28→21:00)
[2018-01-03] MEDS: PROBENECID 500 MG TAB PO SCH (08:29)
[2018-01-03] MEDS: GABAPENTIN 300 MG CAP PO SCH ×2 (08:29→21:51)
[2018-01-03] MEDS: PRAVASTATIN SOD 10 MG TAB PO SCH (08:29)
[2018-01-03] MEDS: LISINOPRIL 5 MG TAB PO SCH (08:29)
[2018-01-03] MEDS: predniSONE 5 MG TAB PO SCH (08:29)
[2018-01-03] MEDS: PANTOPRAZOLE SOD 40 MG DELAYED RELEASE TAB PO SCH (08:29)
[2018-01-03] MEDS: SPIRONOLACTONE/HCTZ 25 MG/25 MG TAB PO SCH (08:30)
[2018-01-03] MEDS: ATENOLOL 25 MG TAB PO SCH (08:30)
[2018-01-03] MEDS: ASPIRIN 81 MG CHEW TAB CHEW SCH (08:30)
[2018-01-03] MEDS: metFORMIN HCL 500 MG TAB PO SCH ×2 (08:30→17:45)
[2018-01-03] MEDS: BUDESONIDE-FORMOTEROL 160/4.5 MCG INHALER INH SCH ×2 (08:35→21:53)
[2018-01-03] MEDS: SODIUM CHLORIDE 0.9% FLUSH 10 ML FLUSH IV FLUSH SCH ×2 (08:35→21:52)
[2018-01-03] MEDS: SODIUM CHLOR 0.9% 1000 ML INJ 1,000 ML IV SCH (08:36)
[2018-01-03] MEDS ORDERED: IBUPROFEN 400 MG TAB PO PRN (10:30)
[2018-01-03 11:05] LABS: AUTOMATED NEUTROPHIL # 8.8 TH/MM3 (1.8-7.7); BASOPHIL % 0.2 % (0.0-2.0); EOSINOPHIL # 0.2 TH/MM3 (0-0.4); EOSINOPHIL % 1.6 % (0.0-4.0); HEMATOCRIT 31.8 % (35.0-46.0); HEMOGLOBIN 10.2 GM/DL (11.6-15.3); LYMPH % 8.2 % (9.0-44.0); LYMPHOCYTE # 0.9 TH/MM3 (1.0-4.8); MEAN CELL VOLUME 88.2 FL (80.0-100.0); MEAN CORPUSCULAR HEMOGLOBIN 28.4 PG (27.0-34.0); MEAN CORPUSCULAR HGB CONC 32.2 % (32.0-36.0); MEAN PLATELET VOLUME 8.4 FL (7.0-11.0); MONO % 10.1 % (0.0-8.0); MONOCYTE # 1.1 TH/MM3 (0-0.9); NEUT % 79.9 % (16.0-70.0); PLATELET COUNT 191 TH/MM3 (150-450); RED BLOOD COUNT 3.61 MIL/MM3 (4.00-5.30); RED CELL DISTRIBUTION WIDTH 15.8 % (11.6-17.2)
[2018-01-03] MEDS: RESP: ALBUTEROL 2.5 MG/IPRATROPIUM 0.5 MG NEB (PRN) NEB (14:03)
--- NOTE | 2018-01-03 15:28 | HHI.PR ---
Subjective Remarks Patient complains of bilateral shoulder pain that started after she started using the trapeze apparatus to lift herself in bed. She denies any knowledge or symptoms of fevers overnight. Objective Vitals Vital Signs Date Time Temp Pulse Resp B/P (MAP) Pulse Ox O2 Delivery O2 Flow Rate FiO2 01/03/18 12:00 98.5 85 20 112/64 (80) 97 01/03/18 11:30 94 Nasal Cannula 2.50 01/03/18 08:00 98.3 95 20 111/72 (85) 95 01/03/18 08:00 95 Nasal Cannula 3.00 01/03/18 08:00 95 01/03/18 06:42 18 01/03/18 04:01 94 01/03/18 04:00 99.8 99 22 121/69 (86) 97 01/03/18 03:43 98 01/03/18 00:00 97.4 100 20 113/74 (87) 98 01/02/18 23:34 Nasal Cannula 3.00 01/02/18 20:11 Nasal Cannula 3.00 01/02/18 20:00 98 01/02/18 20:00 98.2 99 20 121/76 (91) 100 01/02/18 16:00 96.6 101 19 103/60 (74) 96 I/O 01/02/18 01/02/18 01/02/18 01/03/18 01/03/18 01/03/18 06:59 14:59 22:59 06:59 14:59 22:59 Intake Total 420 ml 50 ml 720 ml 120 ml Balance 420 ml 50 ml 720 ml 120 ml Intake Oral 420 ml 720 ml 120 ml IV Total 50 ml # Voids 4 4 3 # Bowel Movements 0 1 Result Diagram: 01/03/18 1050 01/01/18 0553 Objective Remarks GENERAL: Well-nourished, well-developed patient. SKIN: Warm and dry. HEAD: Normocephalic. EYES: No scleral icterus. No injection or drainage. NECK: Supple, trachea midline. No JVD or lymphadenopathy. CARDIOVASCULAR: Regular rate and rhythm without murmurs, gallops, or rubs. RESPIRATORY: Breath sounds equal bilaterally. No accessory muscle use. GASTROINTESTINAL: Abdomen soft, non-tender, nondistended. EXTREMITIES: No cyanosis, or edema. Left ankle has soft cast/splint, left wrist also splinted NEUROLOGICAL: Awake, alert, and oriented x 3. Non-focal. A/P Problem List: (1) Trimalleolar fracture of left ankle ICD Code: S82.852A - Displaced trimalleolar fracture of left lower leg, initial encounter for closed fracture Status: Acute Assessment and Plan Trimalleolar fracture of left ankle Caused by slip and fall at home s/p left ORIF with Dr. Roldan Appreciate orthopedic intervention Continuing PT Cortical minor fracture of the triquetrum in the left wrist Thumb spica splint recommended at this point, does not require further treatment. Unexplained fevers Urinalysis shows no evidence of infection Chest x-ray shows pulmonary fibrosis (unclear at baseline) Blood cultures drawn today are pending Pulmonary Fibrosis Chronic respiratory failure Follows w/ Dr. Franco as outpatient, continue DuoNeb , Symbicort, prednisone. She has had a number of episodes of pneumonia in the past and this is her highest risk regarding the fevers of unknown origin We will start empiric coverage with antibiotics tonight Hypertension Continuing home meds Type 2 diabetes Sliding scale insulin with Accu-Cheks Restarted metformin Diabetic diet DVT prophylaxis Lovenox Discharge planning Orthopedics has cleared her for discharge, but she has fevers and an elevated white blood cell count (antibiotics started) Problem Qualifiers (1) Trimalleolar fracture of left ankle: Qualified Codes: S82.852A - Displaced trimalleolar fracture of left lower leg, initial encounter for closed fracture Bryson Hernandez MD January 03, 2018 15:28
[2018-01-03] MEDS: AZITHROMYCIN 250 MG TAB PO SCH (17:45)
[2018-01-04] VITALS (7 sets, daily range): BP systolic 104–136; BP diastolic 61–73; PULSE 81–90; RESP 18–22; TEMP 97.2–99; O2SAT 95–99
[2018-01-04] MEDS: traMADol HCL 50 MG TAB PO PRN ×4 (00:28→21:26)
[2018-01-04 06:00] LABS: AUTOMATED NEUTROPHIL # 6.2 TH/MM3 (1.8-7.7); BASOPHIL % 0.2 % (0.0-2.0); EOSINOPHIL # 0.2 TH/MM3 (0-0.4); EOSINOPHIL % 2.2 % (0.0-4.0); HEMATOCRIT 30.2 % (35.0-46.0); HEMOGLOBIN 9.8 GM/DL (11.6-15.3); LYMPH % 21.4 % (9.0-44.0); LYMPHOCYTE # 2.1 TH/MM3 (1.0-4.8); MEAN CELL VOLUME 87.7 FL (80.0-100.0); MEAN CORPUSCULAR HEMOGLOBIN 28.4 PG (27.0-34.0); MEAN CORPUSCULAR HGB CONC 32.4 % (32.0-36.0); MEAN PLATELET VOLUME 8.6 FL (7.0-11.0); MONO % 12.1 % (0.0-8.0); MONOCYTE # 1.2 TH/MM3 (0-0.9); NEUT % 64.1 % (16.0-70.0); PLATELET COUNT 203 TH/MM3 (150-450); RED BLOOD COUNT 3.44 MIL/MM3 (4.00-5.30); RED CELL DISTRIBUTION WIDTH 15.9 % (11.6-17.2); WHITE BLOOD COUNT 9.6 TH/MM3 (4.0-11.0)
[2018-01-04 06:20] LABS: BICARBONATE 29.6 MEQ/L (21.0-32.0); CALCIUM 8.6 MG/DL (8.5-10.1); CREATININE 0.84 MG/DL (0.50-1.00)
[2018-01-04] MEDS: THYROID 60 MG TAB PO SCH (06:45)
--- NOTE | 2018-01-04 07:42 | PD.ORT.PN ---
Subjective Subjective Remarks pt has mild post op pain left ankle spiked a temperature, chest x-ray ordered which showed no acute findings continued SOB, has hx of pulm. fibrosis Objective Vitals Vital Signs Date Time Temp Pulse Resp B/P (MAP) Pulse Ox O2 Delivery O2 Flow Rate FiO2 01/04/18 04:00 99.0 82 20 109/61 (77) 95 01/04/18 00:00 99.0 90 18 104/69 (81) 96 01/03/18 20:30 99.5 91 20 101/64 (76) 95 01/03/18 20:23 Nasal Cannula 3.00 01/03/18 16:00 98.4 95 19 127/68 (87) 96 01/03/18 15:00 95 01/03/18 12:00 98.5 85 20 112/64 (80) 97 01/03/18 11:30 94 Nasal Cannula 2.50 01/03/18 08:00 98.3 95 20 111/72 (85) 95 01/03/18 08:00 95 Nasal Cannula 3.00 01/03/18 08:00 95 I/O 01/03/18 01/03/18 01/03/18 01/04/18 01/04/18 01/04/18 07:00 15:00 23:00 07:00 15:00 23:00 Intake Total 720 ml 120 ml 800 ml Output Total 701 ml Balance 720 ml 120 ml 99 ml Intake Oral 720 ml 120 ml 800 ml Output Urine Total 700 ml Stool Total 1 ml # Voids 3 5 2 Result Diagram: 01/04/18 0500 01/04/18 0500 Imaging Last 24 hours Impressions Ankle X-Ray 12/31/17 7107 Signed Impressions: CONCLUSION: 1. Post reduction of trimalleolar fracture, as above. Wrist X-Ray 12/31/17712 Signed Impressions: CONCLUSION: 1. Possible acute injury to the trapezium with a small avulsion fracture and c ortical irregularity. 2. Distal radius and carpal bones are otherwise intact. Tibia/Fibula X-Ray 12/31/17712 Signed Impressions: CONCLUSION: 1. Trimalleolar fracture with disruption of the ankle mortise. 2. Degenerative osteoarthritic changes of the knee joint. 3. Proximal tibia and fibula are otherwise intact. Knee X-Ray 12/31/17712 Signed Impressions: CONCLUSION: 1. Medial tibiofemoral hemiarthroplasty with tricompartment degenerative osteo arthritic changes of the knee. 2. Small suprapatellar effusion. No acute fracture. Femur X-Ray 12/31/17712 Signed Impressions: CONCLUSION: 1. Medullary mayco and osseous screws secure an old distal femoral diaphyseal fr acture. Solid bony fusion and brisk callus formation around the fracture fragme nt. 2. No acute fracture. Hardware remains intact Ankle X-Ray 12/31/17712 Signed Impressions: CONCLUSION: Trimalleolar fracture with disruption of the ankle mortise Objective Remarks seen and examined by Dr. Jonathan Newby left wrist in thumb spica splint left lower extremity in splint +NVI Assessment & Plan Assessment and Plan Stable post op NWB LLE maintain splint at all times elevate discharge to SNF today if medically cleared, orthopedically stable f/u with [facility] 2 weeks Laurie Pelayo January 04, 2018 07:42
[2018-01-04] MEDS: INSULIN ASPART SUPPLEMENTAL SCALE SQ SCH ×4 (08:00→21:00)
[2018-01-04] MEDS: DOCUSATE SODIUM 50 MG/SENNA 8.6 MG TAB PO SCH ×2 (09:00→21:12)
[2018-01-04] MEDS: LISINOPRIL 5 MG TAB PO SCH (09:00)
[2018-01-04] MEDS: SPIRONOLACTONE/HCTZ 25 MG/25 MG TAB PO SCH (09:00)
[2018-01-04] MEDS: PANTOPRAZOLE SOD 40 MG DELAYED RELEASE TAB PO SCH (09:30)
[2018-01-04] MEDS: ASPIRIN 81 MG CHEW TAB CHEW SCH (09:30)
[2018-01-04] MEDS: metFORMIN HCL 500 MG TAB PO SCH ×2 (09:30→16:41)
[2018-01-04] MEDS: GABAPENTIN 300 MG CAP PO SCH ×2 (09:31→21:13)
[2018-01-04] MEDS: predniSONE 5 MG TAB PO SCH (09:31)
[2018-01-04] MEDS: PROBENECID 500 MG TAB PO SCH (09:31)
[2018-01-04] MEDS: ATENOLOL 25 MG TAB PO SCH (09:31)
[2018-01-04] MEDS: AZITHROMYCIN 250 MG TAB PO SCH (09:31)
[2018-01-04] MEDS: PRAVASTATIN SOD 10 MG TAB PO SCH (09:31)
[2018-01-04] MEDS: BUDESONIDE-FORMOTEROL 160/4.5 MCG INHALER INH SCH ×2 (09:32→21:14)
[2018-01-04] MEDS: SODIUM CHLORIDE 0.9% FLUSH 10 ML FLUSH IV FLUSH SCH ×2 (09:32→21:13)
[2018-01-04] MEDS: SODIUM CHLOR 0.9% 1000 ML INJ 1,000 ML IV SCH (14:14)
--- NOTE | 2018-01-04 14:30 | HHI.PR ---
Subjective Remarks 77-year-old female who is resting comfortably up in her chair today. She states that she has been coughing and requests an antibiotic. I informed her that I started an antibiotic last night, azithromycin. Objective Vitals Vital Signs Date Time Temp Pulse Resp B/P (MAP) Pulse Ox O2 Delivery O2 Flow Rate FiO2 01/04/18 12:00 97.2 83 21 115/70 (85) 99 01/04/18 08:00 98.1 85 22 136/67 (90) 95 01/04/18 07:55 Room Air 01/04/18 04:00 99.0 82 20 109/61 (77) 95 01/04/18 00:00 99.0 90 18 104/69 (81) 96 01/03/18 20:30 99.5 91 20 101/64 (76) 95 01/03/18 20:23 Nasal Cannula 3.00 01/03/18 16:00 98.4 95 19 127/68 (87) 96 01/03/18 15:00 95 I/O 01/03/18 01/03/18 01/03/18 01/04/18 01/04/18 01/04/18 06:59 14:59 22:59 06:59 14:59 22:59 Intake Total 720 ml 120 ml 800 ml Output Total 701 ml Balance 720 ml 120 ml 99 ml Intake Oral 720 ml 120 ml 800 ml Output Urine Total 700 ml Stool Total 1 ml # Voids 3 5 2 Result Diagram: 01/04/18 0500 01/04/18 0500 Objective Remarks GENERAL: Well-nourished, well-developed patient. SKIN: Warm and dry. HEAD: Normocephalic. EYES: No scleral icterus. No injection or drainage. NECK: Supple, trachea midline. No JVD or lymphadenopathy. CARDIOVASCULAR: Regular rate and rhythm without murmurs, gallops, or rubs. RESPIRATORY: Breath sounds equal bilaterally, diffuse crackles consistent with pulmonary fibrosis. No accessory muscle use. GASTROINTESTINAL: Abdomen soft, non-tender, nondistended. EXTREMITIES: No cyanosis, or edema. Left ankle has soft cast/splint, left wrist also splinted NEUROLOGICAL: Awake, alert, and oriented x 3. Non-focal. A/P Problem List: (1) Trimalleolar fracture of left ankle ICD Code: S82.852A - Displaced trimalleolar fracture of left lower leg, initial encounter for closed fracture Status: Acute Assessment and Plan Trimalleolar fracture of left ankle Caused by slip and fall at home s/p left ORIF with Dr. Roldan Appreciate orthopedic intervention Continuing PT Cortical minor fracture of the triquetrum in the left wrist Thumb spica splint recommended at this point, does not require further treatment. Cough Best explanation for recurrent fevers She has a history of recurrent pneumonia Covered with azithromycin beginning last night, fevers seemed to have been reduced Follow fevers for 24 hours, if afebrile she can go home on azithromycin Pulmonary Fibrosis Chronic respiratory failure Follows w/ Dr. Franco as outpatient, continue DuoNeb , Symbicort, prednisone. Hypertension Continuing home meds Type 2 diabetes Sliding scale insulin with Accu-Cheks Restarted metformin Diabetic diet DVT prophylaxis Lovenox Discharge planning If patient remains afebrile 24 hours she can go to rehab tomorrow on azithromycin p.o. Problem Qualifiers (1) Trimalleolar fracture of left ankle: Qualified Codes: S82.852A - Displaced trimalleolar fracture of left lower leg, initial encounter for closed fracture Bryson Hernandez MD January 04, 2018 14:30
[2018-01-05 00:01] VITALS: BP 132/67; PULSE 87; RESP 19; TEMP 98.8; O2SAT 94
[2018-01-05 04:00] VITALS: BP 139/73; PULSE 89; RESP 19; TEMP 97.9; O2SAT 93
[2018-01-05] MEDS: SODIUM CHLOR 0.9% 1000 ML INJ 1,000 ML IV SCH (04:32)
[2018-01-05] MEDS: traMADol HCL 50 MG TAB PO PRN (06:25)
[2018-01-05] MEDS: THYROID 60 MG TAB PO SCH (06:25)
--- NOTE | 2018-01-05 07:14 | PD.ORT.PN ---
Subjective Subjective Remarks POD 4 s/p ORIF left ankle doing well. reports ankle is comfortable states that right leg where had previous surgery is painful and "feels loose" Objective Vitals Vital Signs Date Time Temp Pulse Resp B/P (MAP) Pulse Ox O2 Delivery O2 Flow Rate FiO2 01/05/18 04:00 97.9 89 19 139/73 (95) 93 01/05/18 00:01 98.8 87 19 132/67 (88) 94 01/04/18 20:00 97.8 82 19 132/73 (92) 96 01/04/18 16:00 98.1 82 20 125/64 (84) 99 01/04/18 15:11 81 01/04/18 12:00 97.2 83 21 115/70 (85) 99 01/04/18 08:00 98.1 85 22 136/67 (90) 95 01/04/18 07:55 Room Air I/O 01/04/18 01/04/18 01/04/18 01/05/18 01/05/18 01/05/18 07:00 15:00 23:00 07:00 15:00 23:00 Intake Total 680 ml 460 ml Balance 680 ml 460 ml Intake Oral 680 ml 460 ml # Voids 2 3 2 # Bowel Movements 1 Result Diagram: 01/04/18 0500 01/04/18 0500 Imaging Last 24 hours Impressions Ankle X-Ray 12/31/17 0851 Signed Impressions: CONCLUSION: 1. Post reduction of trimalleolar fracture, as above. Wrist X-Ray 12/31/17712 Signed Impressions: CONCLUSION: 1. Possible acute injury to the trapezium with a small avulsion fracture and c ortical irregularity. 2. Distal radius and carpal bones are otherwise intact. Tibia/Fibula X-Ray 12/31/17712 Signed Impressions: CONCLUSION: 1. Trimalleolar fracture with disruption of the ankle mortise. 2. Degenerative osteoarthritic changes of the knee joint. 3. Proximal tibia and fibula are otherwise intact. Knee X-Ray 12/31/17712 Signed Impressions: CONCLUSION: 1. Medial tibiofemoral hemiarthroplasty with tricompartment degenerative osteo arthritic changes of the knee. 2. Small suprapatellar effusion. No acute fracture. Femur X-Ray 12/31/17712 Signed Impressions: CONCLUSION: 1. Medullary mayco and osseous screws secure an old distal femoral diaphyseal fr acture. Solid bony fusion and brisk callus formation around the fracture fragme nt. 2. No acute fracture. Hardware remains intact Ankle X-Ray 12/31/17712 Signed Impressions: CONCLUSION: Trimalleolar fracture with disruption of the ankle mortise Objective Remarks seen and examined by Dr. Jonathan Newby left wrist in thumb spica splint left lower extremity in splint +NVI Assessment & Plan Assessment and Plan 1) Left Ankle Fx s/p ORIF - POD 4 NWB LLE maintain splint at all times elevate discharge to SNF today if medically cleared, orthopedically stable f/u with [facility] 2 weeks Sean Cali/[facility] RUIZ January 05, 2018 07:14
[2018-01-05 08:00] VITALS: BP 118/66; PULSE 84; RESP 19; TEMP 96.8; O2SAT 94
[2018-01-05] MEDS: INSULIN ASPART SUPPLEMENTAL SCALE SQ SCH ×2 (08:00→11:36)
[2018-01-05] MEDS: AZITHROMYCIN 250 MG TAB PO SCH (08:12)
[2018-01-05] MEDS: GABAPENTIN 300 MG CAP PO SCH (08:12)
[2018-01-05] MEDS: SPIRONOLACTONE/HCTZ 25 MG/25 MG TAB PO SCH (08:13)
[2018-01-05] MEDS: LISINOPRIL 5 MG TAB PO SCH (08:13)
[2018-01-05] MEDS: ATENOLOL 25 MG TAB PO SCH (08:13)
[2018-01-05] MEDS: metFORMIN HCL 500 MG TAB PO SCH (08:13)
[2018-01-05] MEDS: PRAVASTATIN SOD 10 MG TAB PO SCH (08:13)
[2018-01-05] MEDS: predniSONE 5 MG TAB PO SCH (08:13)
[2018-01-05] MEDS: PROBENECID 500 MG TAB PO SCH (08:13)
[2018-01-05] MEDS: PANTOPRAZOLE SOD 40 MG DELAYED RELEASE TAB PO SCH (08:13)
[2018-01-05] MEDS: ASPIRIN 81 MG CHEW TAB CHEW SCH (08:13)
[2018-01-05] MEDS: BUDESONIDE-FORMOTEROL 160/4.5 MCG INHALER INH SCH (08:18)
[2018-01-05] MEDS: DOCUSATE SODIUM 50 MG/SENNA 8.6 MG TAB PO SCH (08:18)
[2018-01-05] MEDS: SODIUM CHLORIDE 0.9% FLUSH 10 ML FLUSH IV FLUSH SCH (08:18)
[2018-01-05] MEDS ORDERED: TRAM-492 PO (09:13)
[2018-01-05] MEDS ORDERED: SENN187 PO (09:13)
[2018-01-05] MEDS ORDERED: AZIT250T3 PO (09:13)
--- NOTE | 2018-01-05 09:17 | HHI.DS ---
Discharge Summary Admission Date December 31, 2017 at 10:08 Discharge Date: January 05, 2018 Admitting Diagnosis Unstable left ankle fracture (1) Trimalleolar fracture of left ankle ICD Code: S82.852A - Displaced trimalleolar fracture of left lower leg, initial encounter for closed fracture Diagnosis: Principal Status: Acute (2) DM (diabetes mellitus) ICD Code: E11.9 - Diabetes mellitus Diagnosis: Secondary Status: Chronic (3) HTN (hypertension) ICD Code: I10 - Hypertension Diagnosis: Secondary Status: Chronic (4) Pulmonary fibrosis ICD Code: J84.10 - Fibrosis of lung Diagnosis: Secondary Status: Chronic Procedures 01/01 left ankle fracture status post ORIF Brief History - From Admission Obtained from admitting physician's history and physical 77 year-old female with a PMH of HTN, Pulmonary Fibrosis, chronic respiratory failure O2 Dependent, GERD and DM who is brought to the ER after mechanical fall at home. The patient tripped over her pets and fell this morning hitting her knees, and also try to catch herself with her hands. She is complaining mostly of left ankle pain, ankle appeared deformed, had been splinted by EMS. She denies hitting her head, denies any loss of consciousness or any other issues. She does complain of left wrist pain, bilateral knee pains. She states that she had taken a tramadol prior to EMS arrival and currently pain is controlled. Has multiple allergies and says she takes tramadol for pain. CBC/BMP: 01/04/18 0500 01/04/18 0500 Significant Findings Laboratory Tests Test 01/02/18 11:00 01/03/18 10:50 01/04/18 05:00 Urine Ketones 10 mg/dL (NEG) Urine Leukocyte Esterase MOD (NEG) Urine Bacteria OCC /hpf (NONE) Urine Mucus FEW /lpf (OCC) Red Blood Count 3.61 MIL/MM3 (4.00-5.30) 3.44 MIL/MM3 (4.00-5.30) Hemoglobin 10.2 GM/DL (11.6-15.3) 9.8 GM/DL (11.6-15.3) Hematocrit 31.8 % (35.0-46.0) 30.2 % (35.0-46.0) Neutrophils (%) (Auto) 79.9 % (16.0-70.0) Lymphocytes (%) (Auto) 8.2 % (9.0-44.0) Monocytes (%) (Auto) 10.1 % (0.0-8.0) 12.1 % (0.0-8.0) Neutrophils # (Auto) 8.8 TH/MM3 (1.8-7.7) Lymphocytes # (Auto) 0.9 TH/MM3 (1.0-4.8) Monocytes # (Auto) 1.1 TH/MM3 (0-0.9) 1.2 TH/MM3 (0-0.9) Blood Urea Nitrogen 20 MG/DL (7-18) Sodium Level 135 MEQ/L (136-145) Estimat Glomerular Filtration Rate 66 ML/MIN (>89) Imaging Last Impressions Chest X-Ray 01/02/18 Signed Impressions: CONCLUSION: Stable diffuse chronic interstitial change. Ankle X-Ray 01/01/18 Signed Impressions: CONCLUSION: Intraoperative images. Wrist X-Ray 12/31/17712 Signed Impressions: CONCLUSION: 1. Possible acute injury to the trapezium with a small avulsion fracture and c ortical irregularity. 2. Distal radius and carpal bones are otherwise intact. Tibia/Fibula X-Ray 12/31/17712 Signed Impressions: CONCLUSION: 1. Trimalleolar fracture with disruption of the ankle mortise. 2. Degenerative osteoarthritic changes of the knee joint. 3. Proximal tibia and fibula are otherwise intact. Knee X-Ray 12/31/17712 Signed Impressions: CONCLUSION: 1. Medial tibiofemoral hemiarthroplasty with tricompartment degenerative osteo arthritic changes of the knee. 2. Small suprapatellar effusion. No acute fracture. Femur X-Ray 12/31/17712 Signed Impressions: CONCLUSION: 1. Medullary mayco and osseous screws secure an old distal femoral diaphyseal fr acture. Solid bony fusion and brisk callus formation around the fracture fragme nt. 2. No acute fracture. Hardware remains intact PE at Discharge GENERAL: Well-nourished, well-developed patient. CARDIOVASCULAR: Regular rate and rhythm without murmurs, gallops, or rubs. RESPIRATORY: Breath sounds equal bilaterally GASTROINTESTINAL: Abdomen soft, non-tender, nondistended. EXTREMITIES: No cyanosis, or edema. Left ankle has soft cast/splint, left wrist also splinted NEUROLOGICAL: Awake, alert, and oriented x 3. Non-focal. Hospital Course These are the medical issues addressed during this hospitalization: Trimalleolar fracture of left ankle Caused by slip and fall at home s/p left ORIF on 01/[address] Roldan, continue postoperative care, bowel regimen, pain control and physical therapy Cortical minor fracture of the triquetrum in the left wrist Thumb spica splint recommended at this point, does not require further treatment. Cough, URI Best explanation for recurrent fevers She has a history of recurrent pneumonia Covered with azithromycin beginning last night, fevers seemed to have been reduced; will continue for 3 more days post discharge at the longterm facility Pulmonary Fibrosis -dependent 02 Chronic respiratory failure Follows w/ Dr. Franco as outpatient, continue DuoNeb , Symbicort, prednisone. Hypertension Continuing home meds Type 2 diabetes mellitus, type II, overall blood sugars controlled. Sliding scale insulin with Accu-Cheks Restarted metformin Diabetic diet DVT prophylaxis - aspirin upon discharge to longterm facility Pt Condition on Discharge: Good Discharge Disposition: Discharge to SNF Discharge Time: <= 30 minutes Discharge Instructions DIET: Follow Instructions for: Heart Healthy Diet, Diabetic Diet Activities you can perform: Non Weight Bearing Other Activity Instructions: NWB R ankle Follow up Referrals: Orthopedics - 2 Weeks with Elgin Roldan MD New Medications: Tramadol (Tramadol) 50 Mg Tab 50 MG PO Q4H PRN for PAIN, #50 TAB 0 Refills Walker with Front Wheels (Walker with Front Wheels) 1 Mis Mis EA .XX DIRECTED, #1 0 Refills Azithromycin (Azithromycin) 250 Mg Tab 500 MG PO DAILY for Infection, #3 TAB Sennosides (Senna-Lax) 8.6 Mg Tab 17.2 MG PO Q12H PRN for Moderate constipation, #10 TAB Changed Medications: Tramadol HCl (Tramadol Hydrochloride) 50 Mg Tab 50 TAB PO Q6HR for Pain Management, #6 TAB (Medication details modified) Continued Medications: Aspirin (Aspirin 81 Low Dose) 81 Mg Chew 81 MG CHEW DAILY, #30 TAB Atenolol (Atenolol) 25 Mg Tab 25 MG PO DAILY for Blood Pressure Management, #30 TAB Benzonatate (Benzonatate) 200 Mg Cap 200 MG PO TID PRN for COUGH, CAP 0 Refills Budesonide-Formoterol Inh (Symbicort Inh) 160-4.5 Mcg/Act Aero 2 PUFF INH Q12HR for pulmonary fibrosis, #1 INHALER [address] (Nexium) 40 Mg Capdr 40 MG PO DAILY, CAP 0 Refills Gabapentin (Gabapentin) 600 Mg Tab 600 MG PO TID, #90 TAB 0 Refills Lisinopril (Lisinopril) 2.5 Mg Tab 2.5 MG PO DAILY, #30 TAB 0 Refills Lovastatin (Lovastatin) 10 Mg Tab 10 MG PO DAILY for Cholesterol Management, #30 TAB 0 Refills Metformin (Metformin) 500 Mg Tab 500 MG PO BIDPC for Blood Sugar Management, #60 TAB 0 Refills With meals Prednisone (Prednisone) 5 Mg Tab 5 MG PO DAILY for pulmonary fibrosis, #30 TAB 0 Refills take four tablets daily by mouth for 3 days then take three tablets daily by mouth for 3 days then take two tablets daily by mouth for 3 days then take one tablet daily by mouth for 3 days Probenecid (Probenecid) 500 Mg Tab 500 MG PO DAILY for Hyperuricemia with gout, #60 TAB 0 Refills Spironolactone-Hydrochlorothiazide (Spironolactone-Hydrochlorothiazide) 25-25 Mg Tab 1 TAB PO DAILY, #30 TAB 0 Refills Thyroid ([place] Thyroid) 60 Mg Tab 60 MG PO DAILY for Thyroid Supplement, #30 TAB 0 Refills Saskia Guzmán MD January 05, 2018 09:17
[2018-01-05 10:33] VITALS: O2SAT 94
== END 2018-01-05 12:25 | DRG 493 ==
LOC: NEPE 07:05 → NEDA 10:08 → N06B 15:51 → N06A 01-01 21:59
PROVIDERS: ADMIT Family Medicine; ATTEND Family Medicine
PROC: 0QSK04Z Reposition Left Fibula with Internal Fixation Device, Open Approach (ICD-10-PCS; 2018-01-01)
PROC: 0QSH04Z Reposition Left Tibia with Internal Fixation Device, Open Approach (ICD-10-PCS; principal; 2018-01-01 09:07)
DX: S82.852A Displaced trimalleolar fracture of left lower leg, initial encounter for closed fracture (principal); J96.10 Chronic respiratory failure, unspecified whether with hypoxia or hypercapnia; J84.10 Pulmonary fibrosis, unspecified; Z99.81 Dependence on supplemental oxygen; E11.9 Type 2 diabetes mellitus without complications; I10 Essential (primary) hypertension; K21.9 Gastro-esophageal reflux disease without esophagitis; E03.9 Hypothyroidism, unspecified; M25.532 Pain in left wrist; M25.561 Pain in right knee; M25.562 Pain in left knee; S62.112A Displaced fracture of triquetrum [cuneiform] bone, left wrist, initial encounter for closed fracture; E78.5 Hyperlipidemia, unspecified; M81.0 Age-related osteoporosis without current pathological fracture; J06.9 Acute upper respiratory infection, unspecified; M19.90 Unspecified osteoarthritis, unspecified site; W01.0XXA Fall on same level from slipping, tripping and stumbling without subsequent striking against object, initial encounter; Y92.009 Unspecified place in unspecified non-institutional (private) residence as the place of occurrence of the external cause; Z79.84 Long term (current) use of oral hypoglycemic drugs; Z86.711 Personal history of pulmonary embolism; Z87.891 Personal history of nicotine dependence; Z88.5 Allergy status to narcotic agent; Z88.6 Allergy status to analgesic agent; Z96.653 Presence of artificial knee joint, bilateral
CPT/HCPCS: 29515; 71045; 73110; 73552; 73564; 73590; 73600; 73610; 76000; 76937; 80048; 81001; 82948; 85025; 85610; 85730; 87040; 93005; 94150; 94640; 94664; 96374; C1713; J0690; J1170; J1580; J1815; J2060; J2370; J2405; J3370; J7030; J7050; J7512; L3808

== ENCOUNTER 2018-05-13 05:46 | Inpatient (IN) ==
[2018-05-13] MEDS ORDERED: Sod Chloride 0.9% Inj 1,000 ML IV.CONT SCH ×2 (06:00→07:00)
--- NOTE | 2018-05-13 06:00 | ED ---
HPI General Chief Complaint: Medical Clearance Stated Complaint: Medical Time Seen by Provider: 05/13/18 05:50 Source: patient and EMS Mode of arrival: EMS Limitations: altered mental status History of Present Illness HPI narrative: 77-year-old female was brought in by EMS for altered mental status. Patient lives at home by herself. Patient's neighbor called EMS this morning after patient was found with altered mental status. Patient has history of diabetes, hypertension, pulmonary fibrosis on home O2, hypothyroidism. Patient was found this morning without oxygen at home. Patient is able to say yes and no to my questions. Patient denies any headache. Patient denies any chest pain. Patient states that she has shortness of breath. Patient denies abdominal pain. Patient denies any focal weakness or numbness of the extremity. MD complaint: Reports altered mental status Onset (ago): unknown Severity: moderate Consistency of symptoms: unknown Associated symptoms: Reports shortness of breath and weakness Treatments prior to arrival: Reports oxygen Related Data Home Medications Medication Instructions Recorded Confirmed ProAir HFA 90 mcg INHALATION Q4HR PRN 05/13/18 05/13/18 atenolol 25 mg PO DAILY 05/13/18 05/13/18 benzonatate 200 mg PO TID 05/13/18 05/13/18 clotrimazole 10 mg MUCOUS MEMBRANE TID 05/13/18 05/13/18 esomeprazole magnesium 40 mg PO DAILY 05/13/18 05/13/18 gabapentin 600 mg PO TID 05/13/18 05/13/18 lisinopril 2.5 mg PO DAILY 05/13/18 05/13/18 lovastatin 10 mg PO DAILY 05/13/18 05/13/18 meclizine 25 mg PO BID 05/13/18 05/13/18 metformin 500 mg PO BID 05/13/18 05/13/18 mupirocin 1 applic TOPICAL TID 05/13/18 05/13/18 prednisolone 5 mg PO BID 05/13/18 05/13/18 probenecid 500 mg PO DAILY 05/13/18 05/13/18 spironolacton-hydrochlorothiaz 1 tab PO DAILY 05/13/18 05/13/18 thyroid (pork) [[place] Thyroid] 90 mg PO BID 05/13/18 05/13/18 trazodone 50 mg PO HS 05/13/18 05/13/18 Allergies Allergy/AdvReac Type Severity Reaction Status Date / Time acetaminophen Allergy Severe ITCHY Unverified 12/31/17 07:33 celecoxib Allergy Severe Tachycardia; Verified 12/31/17 07:33 HTN "stroke like symptoms" oxycodone Allergy Severe ITCHY Unverified 12/31/17 07:33 procaine Allergy Severe INCREASED Unverified 12/31/17 07:33 HR morphine Allergy Intermediate hives and Verified 12/31/17 07:33 itching Review of Systems ROS: all other systems reviewed are negative PMFSH History History Provided By: Court Stenographer / EMT Medical History Medical History A-fib (Acute) Chronic pain (Acute) Diabetes (Acute) Gout (Acute) HTN (hypertension) (Acute) High cholesterol (Acute) Hypothyroid (Acute) Pulmonary fibrosis (Acute) Social History Social History Substance History: Unable to Obtain Smoking Status: Cognitive impairment How Often Do You Have a Drink Containing Alcohol: Unable to Obtain Recent Travel in [facility] within the Last 8 Weeks: No Recent Out of Country Travel within the Last 8 Weeks: No Exam Narrative Exam Narrative: GENERAL: Well-nourished, well-developed patient. SKIN: Focused skin assessment warm/dry. HEAD: Normocephalic. EYES: No scleral icterus. No injection or drainage. Pupils 1.5 mm equal reactive. NECK: Supple, trachea midline. No JVD or lymphadenopathy. CARDIOVASCULAR: Regular rate and rhythm without murmurs, gallops, or rubs. RESPIRATORY: Breath sounds equal bilaterally. No accessory muscle use. GASTROINTESTINAL: Abdomen soft, non-tender, nondistended. MUSCULOSKELETAL: No cyanosis, or edema. BACK: Nontender without obvious deformity. No CVA tenderness. Neurologic exam: Patient is lethargic, answers yes and no to questions. Patient moves extremity on command. No obvious focal neurological deficit. Course Initial Documented Vital Signs Temperature 98.3 F 05/13/18 05:49 Respiratory Rate 32 H 05/13/18 05:49 Blood Pressure 189/84 H 05/13/18 05:49 Pulse Oximetry 92 L 05/13/18 05:49 Last Documented Vital Signs Temperature 98.2 F 05/13/18 06:12 Pulse Rate 110 H 05/13/18 06:55 Respiratory Rate 28 H 05/13/18 06:55 Blood Pressure 158/75 H 05/13/18 06:55 Pulse Oximetry 94 L 05/13/18 06:55 Medical Decision Making MDM Narrative Medical decision making narrative: 77-year-old female with lethargy, altered mental status. Normal saline solution 1 L IV bolus. O2 3 L nasal cannula. Vancomycin 1 g IV given. Zosyn 3.375 g IV given. Normal saline solution 125 cc an hour. Patient has paroxysmal atrial fibrillation with RVR. Cardizem bolus and drip started. Patient has elevated troponin. I think that troponin elevated is related. Patient is more awake and alert now and denies any chest pain or shortness of breath for the past several days. Serial EKG and cardiac enzymes advised that this point. Normal saline solution 1 L IV bolus in addition to previous bolus. Heparin bolus and drip started. Medical Screen Exam Complete: Yes Emergency Medical Condition: Yes Differential Diagnosis Differential Diagnosis: Differential diagnosis including dehydration, UTI, pneumonia, electrolyte imbalance, TIA, CVA, sepsis. Lab Data Lab results reviewed: Yes I reviewed the patient's lab results. Result diagrams: 05/13/18 06:05 05/13/18 06:05 Lab Results 05/13/18 05/13/18 05/13/18 Range/Units 06:03 06:05 06:05 WBC 15.5 H (4.0-11.0) th/mm3 RBC 4.94 (4.00-5.30) mil/mm3 Hgb 13.3 (11.6-15.3) gm/dL Hct 41.7 (35.0-46.0) % MCV 84.5 (80.0-100.0) fL MCH 26.9 L (27.0-34.0) pg MCHC 31.8 L (32.0-36.0) % RDW 18.3 H (11.6-17.2) % Plt Count 298 (150-450) th/mm3 MPV 8.4 (7.0-11.0) fL Neut % (Auto) 78.3 H (16.0-70.0) % Lymph % (Auto) 13.8 (9.0-44.0) % Union % (Auto) 7.5 (0.0-8.0) % Eos % (Auto) 0.0 (0.0-4.0) % Baso % (Auto) 0.4 (0.0-2.0) % Neut # (Auto) 12.1 H (1.8-7.7) th/mm3 Lymph # (Auto) 2.1 (1.0-4.8) th/mm3 Union # (Auto) 1.2 H (0.0-0.9) th/mm3 Eos # (Auto) 0.0 (0.0-0.4) th/mm3 Baso # (Auto) 0.1 (0.0-0.2) th/mm3 WBC Differential . Differential Comment Auto diff final PT 11.9 H (9.8-11.6) sec INR 1.2 Ratio APTT 25.1 (24.3-30.1) sec Sodium (136-145) meq/L Potassium (3.5-5.1) meq/L Chloride (98-107) meq/L Carbon Dioxide (21.0-32.0) meq/L Anion Gap (5-15) meq/L BUN (7-18) mg/dL Creatinine (0.50-1.00) mg/dL Estimated GFR (>89) mL/min POC Glucose 154 H (68-110) mg/dl Random Glucose (74-106) mg/dL Lactic Acid (0.4-2.0) mmol/L Calcium (8.5-10.1) mg/dL Total Bilirubin (0.2-1.0) mg/dL AST (15-37) U/L ALT (10-53) U/L Alkaline Phosphatase (45-117) U/L Total Creatine Kinase (26-192) U/L CK-MB (CK-2) (0.5-3.6) ng/mL CK-MB (CK-2) % (0.0-4.0) % Troponin I (0.02-0.05) ng/mL Total Protein (6.4-8.2) g/dL Albumin (3.4-5.0) g/dL TSH (0.358-3.740) uIU/mL Urine Color (Yellw/Straw) Urine Clarity (Clear) Urine pH (5.0-8.5) Ur Specific [place] (1.002-1.035) Urine Protein (Neg-Trace) mg/dL Urine Glucose (UA) (Negative) mg/dL Urine Ketones (Negative) mg/dL Urine Occult Blood (Negative) Urine Nitrate (Negative) Urine Bilirubin (Negative) Urine Urobilinogen (Less than 2) mg/dL Ur Leukocyte Esterase (Negative) Urine RBC (0-3) /hpf Urine WBC (0-5) /hpf Urine Mucus (Occasional) /lpf Micro UA Comment Ur Microscopic Review Urine Culture Comments 05/13/18 05/13/18 05/13/18 Range/Units 06:05 06:05 06:20 WBC (4.0-11.0) th/mm3 RBC (4.00-5.30) mil/mm3 Hgb (11.6-15.3) gm/dL Hct (35.0-46.0) % MCV (80.0-100.0) fL MCH (27.0-34.0) pg MCHC (32.0-36.0) % RDW (11.6-17.2) % Plt Count (150-450) th/mm3 MPV (7.0-11.0) fL Neut % (Auto) (16.0-70.0) % Lymph % (Auto) (9.0-44.0) % Union % (Auto) (0.0-8.0) % Eos % (Auto) (0.0-4.0) % Baso % (Auto) (0.0-2.0) % Neut # (Auto) (1.8-7.7) th/mm3 Lymph # (Auto) (1.0-4.8) th/mm3 [place] # (Auto) (0.0-0.9) th/mm3 Eos # (Auto) (0.0-0.4) th/mm3 Baso # (Auto) (0.0-0.2) th/mm3 WBC Differential Differential Comment PT (9.8-11.6) sec INR Ratio APTT (24.3-30.1) sec Sodium 145 (136-145) meq/L Potassium 4.5 (3.5-5.1) meq/L Chloride 104 (98-107) meq/L Carbon Dioxide 27.4 (21.0-32.0) meq/L Anion Gap 14 (5-15) meq/L BUN 53 H (7-18) mg/dL Creatinine 1.35 H (0.50-1.00) mg/dL Estimated GFR 38 L (>89) mL/min POC Glucose (68-110) mg/dl Random Glucose 158 H (74-106) mg/dL Lactic Acid 2.7 H (0.4-2.0) mmol/L Calcium 9.6 (8.5-10.1) mg/dL Total Bilirubin 1.6 H (0.2-1.0) mg/dL AST 425 H (15-37) U/L ALT 344 H (10-53) U/L Alkaline Phosphatase 82 (45-117) U/L Total Creatine Kinase 198 H (26-192) U/L CK-MB (CK-2) 6.9 H (0.5-3.6) ng/mL CK-MB (CK-2) % 3.5 (0.0-4.0) % Troponin I 8.28 H* (0.02-0.05) ng/mL Total Protein 8.1 (6.4-8.2) g/dL Albumin 3.2 L (3.4-5.0) g/dL TSH 1.050 (0.358-3.740) uIU/mL Urine Color Yellow (Yellw/Straw) Urine Clarity Clear (Clear) Urine pH 5.0 (5.0-8.5) Ur Specific [place] 1.020 (1.002-1.035) Urine Protein 30 H (Neg-Trace) mg/dL Urine Glucose (UA) Negative (Negative) mg/dL Urine Ketones Trace H (Negative) mg/dL Urine Occult Blood Small H (Negative) Urine Nitrate Negative (Negative) Urine Bilirubin Negative (Negative) Urine Urobilinogen Less than 2 (Less than 2) mg/dL Ur Leukocyte Esterase Negative (Negative) Urine RBC Less than 1 (0-3) /hpf Urine WBC 3 (0-5) /hpf Urine Mucus Few H (Occasional) /lpf Micro UA Comment Cath-culture not ind Ur Microscopic Review Not Reportable Urine Culture Comments Cath-cult not ind Imaging Data Attestation: I personally reviewed and interpreted this imaging study as follows : Radiologist's impression: Chest X-Ray 05/13/18 05:50 CONCLUSION: 1. Stable pulmonary fibrosis pattern. 2. No acute abnormality or significant interval change. Head CT 05/13/18 05:50 CONCLUSION: 1. Senescent changes without acute intracranial abnormality. . Discharge Plan Discharge Disposition Patient Disposition: 30 Still Patient Discharge Details Diagnosis: Sepsis, Acute kidney injury, Elevated troponin Physicians Team ED Provider: Travis Hughes Primary Care Provider: Clive Johnson Attending Provider: Felipe To Status ED Status: Admitted Patient
[2018-05-13 06:21] LABS: Baso # (Auto) 0.1 th/mm3 (0.0-0.2); Baso % (Auto) 0.4 % (0.0-2.0); Hematocrit 41.7 % (35.0-46.0); Hemoglobin 13.3 gm/dL (11.6-15.3); Lymph # (Auto) 2.1 th/mm3 (1.0-4.8); Lymph % (Auto) 13.8 % (9.0-44.0); Mean Corpuscular HGB Conc 31.8 % (32.0-36.0); Mean Corpuscular Hemoglobin 26.9 pg (27.0-34.0); Mean Corpuscular Volume 84.5 fL (80.0-100.0); Mean Platelet Volume 8.4 fL (7.0-11.0); Mono # (Auto) 1.2 th/mm3 (0.0-0.9); Mono % (Auto) 7.5 % (0.0-8.0); Neut # (Auto) 12.1 th/mm3 (1.8-7.7); Neut % (Auto) 78.3 % (16.0-70.0); Platelet Count 298 th/mm3 (150-450); Red Blood Count 4.94 mil/mm3 (4.00-5.30); Red Cell Distribution Width 18.3 % (11.6-17.2); White Blood Count 15.5 th/mm3 (4.0-11.0)
[2018-05-13] MEDS ORDERED: Piperacil/Tazo 3.375 GM Premix 50 ML IV.SIG ONE (06:28)
[2018-05-13] MEDS ORDERED: Vancomycin Inj 1 GM/200 ML PIGGYBACK IV.SIG ONE (06:28)
[2018-05-13 06:31] LABS: Activated Partial Thrombo Time 25.1 sec (24.3-30.1); INR 1.2 Ratio; Prothrombin Time 11.9 sec (9.8-11.6)
[2018-05-13 06:42] LABS: Bilirubin,Urine Negative (Negative); Clarity,Urine Clear (Clear); Color,Urine Yellow (Yellw/Straw); Glucose,Urine (UA) Negative (Negative); Leukocyte Esterase,Urine Negative (Negative); Mucus,Urine Few /lpf (Occasional); Nitrite,Urine Negative (Negative)
[2018-05-13 06:43] LABS: Alanine Aminotransferase 344 U/L (10-53); Albumin 3.2 g/dL (3.4-5.0); Anion Gap 14 meq/L (5-15); Aspartate Aminotransferase 425 U/L (15-37); Blood Urea Nitrogen 53 mg/dL (7-18); Calcium 9.6 mg/dL (8.5-10.1); Carbon Dioxide 27.4 meq/L (21.0-32.0); Chloride 104 meq/L (98-107); Glomerular Filtration Rate 38 mL/min (>89); Glucose,Random 158 mg/dL (74-106); Potassium 4.5 meq/L (3.5-5.1); Sodium 145 meq/L (136-145)
--- NOTE | 2018-05-13 06:45 | XR ---
EXAM DATE: 05/13/2018 5:50 AM EDT AGE/SEX: 77 years / Female INDICATIONS: Shortness of breath. CLINICAL DATA: This is the patient's initial encounter. Patient reports that signs and symptoms have been present for 1 day and indicates a pain score of 0/10. MEDICAL/SURGICAL HISTORY: Hypertension. None. COMPARISON: [facility], XR CHEST PA AND LAT, 05/23/2016. . FINDINGS: Diffuse interstitial fibrosis involving all lung blanca but more prominent in the lower lung zones. C ardiomediastinal contours are stable. Remainder of exam is unchanged. CONCLUSION: 1. Stable pulmonary fibrosis pattern. 2. No acute abnormality or significant interval change. Electronically signed by: Guido Iyer MD 05/13/2018 6:43 AM EDT
--- NOTE | 2018-05-13 06:46 | CT ---
EXAM DATE: 05/13/2018 6:00 AM EDT AGE/SEX: 77 years / Female INDICATIONS: Altered mental status. CLINICAL DATA: This is the patient's initial encounter. Patient reports that signs and symptoms have been present for 1 day and indicates a pain score of 0/10. MEDICAL/SURGICAL HISTORY: Hypertension. Diabetes. Pulmonary fibrosis. None. RADIATION DOSE: 56.35 CTDI (mGy) COMPARISON: No prior exams available for comparison. TECHNIQUE: CT of the head without contrast. Using automated exposure control and adjustment of the mA and/or kV according to patient size, radiation dose was kept as low as reasonably achievable to ob tain optimal diagnostic quality images. DICOM format image data is available electronically for revi ew and comparison. FINDINGS: Cerebrum: Moderate diffuse cerebral atrophy. The ventricles are normal for degree of atrophy. No shaquille dence of midline shift, mass lesion, hemorrhage or acute infarction. No extraaxial fluid collections are seen. Posterior Fossa: The cerebellum and brainstem are intact. The 4th ventricle is midline. The cerebe llopontine angle is unremarkable. Extracranial: The visualized portion of the orbits is intact. Skull: The calvaria is intact. No evidence of skull fracture. CONCLUSION: 1. Senescent changes without acute intracranial abnormality. . Electronically signed by: Guido Iyer MD 05/13/2018 6:44 AM EDT
[2018-05-13 06:52] LABS: Alkaline Phosphatase 82 U/L (45-117); Creatine Kinase 198 U/L (26-192); Total Protein 8.1 g/dL (6.4-8.2)
[2018-05-13] MEDS ORDERED: Acetaminophen 325 MG Tablet PO PRN (06:55)
[2018-05-13] MEDS ORDERED: Bisacodyl 10 MG Supp RECTAL PRN (06:55)
[2018-05-13] MEDS ORDERED: Dextrose 50% in Water 50 ML Vial IV.PUSH PRN (06:57)
[2018-05-13] MEDS ORDERED: Vancomycin Consult Pharmacy OTHER PRN (06:58)
[2018-05-13] MEDS ORDERED: Vancomycin Inj 1,000 MG in Sodium Chlor 0.9% Inj 250 ML IV.SIG ONE (07:00)
[2018-05-13] MEDS ORDERED: Heparin - SQ 10,000 UNITS/ML Vial SQ SCH (07:00)
[2018-05-13] MEDS ORDERED: Piperacil/Tazo 4.5 GM Premix 4.5 GM/100 ML BAG IV.SIG SCH ×2 (07:00→13:00)
[2018-05-13 07:06] LABS: Troponin I 8.28 ng/mL (0.02-0.05)
[2018-05-13] MEDS ORDERED: dilTIAZem Inj 125 MG in Sodium Chlor 0.9% Inj 100 ML IV.CONT PRN (07:08)
[2018-05-13] MEDS ORDERED: Sod Chloride 0.9% Inj 1,000 ML IV.SIG SCH (07:15)
[2018-05-13] MEDS ORDERED: Heparin 10,000 UNITS/10 ML Vial (for IV use) IV.PUSH STA (07:16)
[2018-05-13 07:19] LABS: CKMB Percent 3.5 % (0.0-4.0); Creatine Kinase MB 6.9 ng/mL (0.5-3.6)
[2018-05-13] MEDS: Heparin Drip 25,000 UNIT/250 ML BAG IV.CONT PRN (07:57)
[2018-05-13] MEDS: Sod Chloride 0.9% Inj 1,000 ML IV.CONT SCH ×2 (08:13→16:30)
[2018-05-13] MEDS: Insulin NovoLOG Aspart Correctional Sugar Inj SQ SCH ×4 (08:43→22:17)
[2018-05-13] MEDS ORDERED: Atenolol 25 MG Tablet PO SCH (09:00)
[2018-05-13] MEDS ORDERED: prednisoLONE 10 MG ODT TAB PO SCH (09:00)
[2018-05-13] MEDS ORDERED: Lisinopril 5 MG Tablet PO SCH (09:00)
[2018-05-13] MEDS: Benzonatate 100 MG Capsule PO SCH ×3 (10:05→18:06)
[2018-05-13 10:19] LABS: Hematocrit 40.6 % (35.0-46.0); Hemoglobin 12.8 gm/dL (11.6-15.3); Mean Corpuscular HGB Conc 31.5 % (32.0-36.0); Mean Corpuscular Hemoglobin 27.1 pg (27.0-34.0); Mean Platelet Volume 8.6 fL (7.0-11.0); Platelet Count 238 th/mm3 (150-450); Red Blood Count 4.72 mil/mm3 (4.00-5.30); Red Cell Distribution Width 18.1 % (11.6-17.2); White Blood Count 16.4 th/mm3 (4.0-11.0)
--- NOTE | 2018-05-13 10:33 | CT ---
EXAM DATE: 05/13/2018 7:44 AM EDT AGE/SEX: 77 years / Female INDICATIONS: Shortness of breath. CLINICAL DATA: This is the patient's initial encounter. Patient reports that signs and symptoms have been present for 1 day and indicates a pain score of 2/10. MEDICAL/SURGICAL HISTORY: Hypertension. Diabetes. Pulmonary fibrosis. None. RADIATION DOSE: 10.68 CTDI (mGy) COMPARISON: [facility], CT CHEST W/O CONTRAST, 12/24/2015. . TECHNIQUE: Volumetric scanning was performed using a multi-row detector CT scanner during bolus infu damir of 50 ml Visipaque 320 (iodixanol) nonionic water-soluble contrast as a single exam dose. The d kath was post processed with a variety of visualization algorithms including full volume maximum inten sity projection and sliding thin slab reformation. Using automated exposure control and adjustment of the mA and/or kV according to patient size, radiation dose was kept as low as reasonably achievable to obtain optimal diagnostic quality images. DICOM format image data is available electronically for review and comparison. FINDINGS: Pulmonary Arteries: No filling defects are seen in the pulmonary arteries out to the subsegmental ve ssels. The left and right pulmonary arteries are normal in diameter. Lung: Chronic scarring and fibrosis is again noted with traction bronchiectasis. There are no new si [place]. Effusion: None. Mediastinum: No evidence of mediastinal or hilar adenopathy. Coronary artery calcifications are agai n noted. Other: The axilla is unremarkable. CONCLUSION: 1. No evidence of pulmonary embolism. 2. Chronic scarring and fibrosis. Electronically signed by: Wei Dyson MD 05/13/2018 10:31 AM EDT
[2018-05-13] MEDS ORDERED: Digoxin Inj 500 MCG/2 ML Ampul ONE (11:58)
[2018-05-13 12:07] LABS: ABG PCO2 29 mmHg (38-42); ABG PO2 67 mmHG (61-120)
[2018-05-13] MEDS ORDERED: Digoxin Inj 500 MCG/2 ML Ampul IV.PUSH ONE (12:30)
[2018-05-13] MEDS ORDERED: Metoprolol Inj 5 MG/5 ML Vial IV.PUSH PRN (12:32)
[2018-05-13] MEDS: Metoprolol Tartrate 50 MG Tablet PO SCH ×2 (14:12→21:11)
--- NOTE | 2018-05-13 14:22 | P.CONCA ---
History of Present Illness Service: cardiology Consult date: 05/13/18 Requesting Physician: Felipe To Reason for Consult: Atrial fibrillation Primary Care Provider: Clive Johnson MD Chief Complaint: altered mental status History of Present Illness: There is a 77-year-old lady with a history of hypertension, diabetes, pulmonary fibrosis on chronic supplemental oxygen 3 L, hypothyroidism who was brought to [facility] earlier today by EMS after being found this morning with altered mental status. Apparently on arrival she was lethargic and only able to answer yes and no to questions, however now she is most more conversant. She she is still clearly confused as she believes she was brought into the hospital yesterday. She is a poor historian at this time. She was noted to be in atrial fibrillation with rapid ventricular response HR 130s-140s and was provided a dose of digoxin 500 mcg IV x1, diltiazem 15 mg IVP x1, and started on a diltiazem drip for HR control. Approximately 1 hour ago she converted back to normal sinus rhythm. She does not carry a diagnosis of atrial fibrillation previously. She was found to have multiple laboratory abnormalities including leukocytosis with WBC 16.4 and a left shift, for which she was started on empiric antibiotics with vancomycin and Zosyn in the ER. Urinalysis was negative for UTI. C. difficile was negative. BUN elevated 53, creatinine 1.35, lactic acid 2.8, total bilirubin 1.6, AST 425, ALT 344, ammonia<10, elevated troponin of 8.28 down trended to 6.57 with elevated CK-MB 6.9. She was started on a heparin drip presumably for ACS. Patient denied having any current or recent chest pain symptoms. She does report having left shoulder pain that has been ongoing for at least the past 3 weeks. She has limited mobility of the left arm due to pain in the shoulder. She reports this is due to "my arthritis." Cardiology was consulted for atrial fibrillation however I do see she does have elevated troponin VIII 0.28 now down trended to 6.57 on current heparin drip. Review of Systems Patient is somewhat confused and unreliable for ROS however 10 point review of systems negative other than noted in PI All other systems reviewed negative except as stated in HPI PMFSH - History History Provided By: Landscape Contractor / EMT - Medical History Medical History: Medical History (Last Reviewed 05/13/18 @ 10:07 by Jose Angel Moore A-fib Chronic pain Diabetes Gout HTN (hypertension) High cholesterol Hypothyroid Pulmonary fibrosis - Tobacco History Smoking Status: Cognitive impairment - Alcohol History How Often Do You Have a Drink Containing Alcohol: Unable to Obtain - Substance Use History Substance History: Unable to Obtain - Travel History Recent Travel in the [place] Within the Last 8 Weeks: No Recent Travel Out of the Country Within the Last 8 Weeks: No - Immunization History Tetanus Immunization: Unable to Assess Hx Influenza Vaccine This Season: Unable to Assess Medications and Allergies Active Medications: Active Medications Acetaminophen (Tylenol) 650 mg PO Q4H PRN PRN Reason: Temp > 100.4 Albuterol (Duoneb Neb (Prn)) 1 ampul NEB Q2HR NEB PRN PRN Reason: SHORTNESS OF BREATH/WHEEZING Albuterol (Duoneb Neb (Han)) 1 ampul NEB Q6HR NEB HAN Last Admin: 05/13/18 09:25 Dose: 1 ampul Aspirin (Aspirin) 325 mg PO DAILY HAN Atenolol (Tenormin) 25 mg PO DAILY HAN Last Admin: 05/13/18 10:05 Dose: Not Given Benzonatate (Tessalon Perles) 200 mg PO TID COUNT INCLUDES THE [facility] Last Admin: 05/13/18 12:07 Dose: 200 mg Bisacodyl (Dulcolax Supp) 10 mg RECTAL DAILY PRN PRN Reason: SEVERE CONSITIPATION Dextrose (D50w Vial) 50 ml IV.PUSH UNSCH PRN PRN Reason: PER HYPOGLYCEMIA PROTOCOL Glucagon (Glucagon Inj) 1 mg OTHER PRN PRN PRN Reason: for Hypoglycemia Protocol Sodium Chloride (Ns Inj) 1,000 mls @ 100 mls/hr IV.CONT .Q10H HAN Last Infusion: 05/13/18 12:06 Dose: Infused Diltiazem HCl 125 mg/ Sodium (Chloride) 125 mls @ 5 mls/hr IV.CONT TITRATE PRN ; Protocol PRN Reason: Per Protocol Last Titration: 05/13/18 13:51 Dose: 10 mg/hr, 10 mls/hr Sodium Chloride (Ns Inj) 1,000 mls @ 0 mls/hr IV.SIG BOLUS HAN Last Infusion: 05/13/18 09:35 Dose: Infused Heparin Sodium/Dextrose (Heparin/D5w 25,000 U/250 Ml) 25,000 unit in 250 mls @ 0 mls/hr IV.CONT TITRATE PRN; Protocol PRN Reason: Per Protocol Last Admin: 05/13/18 07:57 Dose: 800 units/hr, 8 mls/hr Piperacillin/Tazobactam/Dextrose (Zosyn 4.5 Gm Premix) 4.5 gm in 100 mls @ 200 mls/hr IV.SIG Q6H COUNT INCLUDES THE [facility] Last Infusion: 05/13/18 13:51 Dose: Infused Insulin Aspart (Novolog Insulin Correctional Sugar Inj) 0 unit SQ ACHS AND 3AM HAN; Protocol Last Admin: 05/13/18 12:06 Dose: Not Given Lisinopril (Prinivil) 2.5 mg PO DAILY COUNT INCLUDES THE [facility] Last Admin: 05/13/18 10:05 Dose: Not Given Meclizine HCl (Antivert) 25 mg PO BID COUNT INCLUDES THE [facility] Last Admin: 05/13/18 10:05 Dose: Not Given Metoprolol Tartrate (Lopressor Inj) 5 mg IV.PUSH Q5M PRN PRN Reason: RAPID HEART RATE Metoprolol Tartrate (Lopressor) 50 mg PO BID COUNT INCLUDES THE [facility] Ondansetron HCl (Zofran Inj) 4 mg IV.PUSH Q6H PRN PRN Reason: NAUSEA OR VOMITING Pantoprazole Sodium (Protonix) 40 mg PO DAILY COUNT INCLUDES THE [facility] Last Admin: 05/13/18 10:05 Dose: Not Given Pharmacy Profile Note (Vancomycin Consult Pharmacy) 1 each OTHER UNSCH PRN PRN Reason: Pharmacy to dose Pravastatin Sodium (Pravachol) 10 mg PO DAILY COUNT INCLUDES THE [facility] Last Admin: 05/13/18 10:05 Dose: Not Given Prednisolone Sodium Phosphate (Orapred Odt) 5 mg PO BID COUNT INCLUDES THE [facility] Last Admin: 05/13/18 10:05 Dose: Not Given Probenecid (Benemid) 500 mg PO DAILY COUNT INCLUDES THE [facility] Last Admin: 05/13/18 10:05 Dose: Not Given Sennosides (Senokot) 17.2 mg PO Q12H PRN PRN Reason: Moderate Constipation Thyroid ([place] Thyroid) 90 mg PO BID COUNT INCLUDES THE [facility] Last Admin: 05/13/18 10:05 Dose: Not Given Allergies Allergy/AdvReac Type Severity Reaction Status Date / Time acetaminophen Allergy Severe ITCHY Verified 05/13/18 08:17 celecoxib Allergy Severe Tachycardia; Verified 05/13/18 08:17 HTN "stroke like symptoms" oxycodone Allergy Severe ITCHY Verified 05/13/18 08:17 procaine Allergy Severe INCREASED Verified 05/13/18 08:17 HR morphine Allergy Intermediate hives and Verified 05/13/18 08:17 itching Home Medications Medication Instructions Recorded Confirmed Type ProAir HFA 90 mcg INHALATION Q4HR PRN 05/13/18 05/13/18 History atenolol 25 mg PO DAILY 05/13/18 05/13/18 History benzonatate 200 mg PO TID 05/13/18 05/13/18 History clotrimazole 10 mg MUCOUS MEMBRANE TID 05/13/18 05/13/18 History esomeprazole magnesium 40 mg PO DAILY 05/13/18 05/13/18 History gabapentin 600 mg PO TID 05/13/18 05/13/18 History lisinopril 2.5 mg PO DAILY 05/13/18 05/13/18 History lovastatin 10 mg PO DAILY 05/13/18 05/13/18 History meclizine 25 mg PO BID 05/13/18 05/13/18 History metformin 500 mg PO BID 05/13/18 05/13/18 History mupirocin 1 applic TOPICAL TID 05/13/18 05/13/18 History prednisolone 5 mg PO BID 05/13/18 05/13/18 History probenecid 500 mg PO DAILY 05/13/18 05/13/18 History spironolacton-hydrochlorothiaz 1 tab PO DAILY 05/13/18 05/13/18 History thyroid (pork) [[place] Thyroid] 90 mg PO BID 05/13/18 05/13/18 History trazodone 50 mg PO HS 05/13/18 05/13/18 History Exam Vital signs: Vital Signs 05/13/18 05:49 05/13/18 06:12 05/13/18 06:55 Temperature 98.3 F 98.2 F Pulse Rate 117 H 110 H Respiratory Rate 32 H 32 H 28 H Blood Pressure 189/84 H 189/84 H 158/75 H Pulse Oximetry 92 L 92 L 94 L 05/13/18 07:50 05/13/18 09:26 05/13/18 09:35 Temperature Pulse Rate 156 H 128 H 118 H Respiratory Rate 28 H 16 30 H Blood Pressure 137/70 118/65 Pulse Oximetry 93 L 94 L 93 L 05/13/18 10:09 05/13/18 10:55 05/13/18 11:00 Temperature Pulse Rate 137 H 134 H 127 H Respiratory Rate 30 H 34 H 34 H Blood Pressure 127/75 Pulse Oximetry 93 L 98 98 05/13/18 11:21 05/13/18 11:25 05/13/18 11:30 Temperature Pulse Rate 121 H 132 H 132 H Respiratory Rate 54 H 48 H 41 H Blood Pressure 134/81 161/87 H 151/78 H Pulse Oximetry 70 L 94 L 88 L 05/13/18 11:45 05/13/18 12:00 05/13/18 12:15 Temperature 98.5 F Pulse Rate 125 H 116 H 117 H Respiratory Rate 36 H 37 H 44 H Blood Pressure 123/59 L 118/70 128/58 L Pulse Oximetry 100 100 100 05/13/18 12:30 05/13/18 12:45 05/13/18 13:00 Temperature Pulse Rate 100 H 107 H 85 Respiratory Rate 35 H 36 H 38 H Blood Pressure 112/61 121/70 129/75 Pulse Oximetry 99 97 100 05/13/18 13:15 05/13/18 13:30 Temperature Pulse Rate 84 90 Respiratory Rate 34 H 38 H Blood Pressure 124/69 124/67 Pulse Oximetry 100 100 Intake & Output 05/12/18 05/13/18 05/13/18 18:59 06:59 18:59 Intake Total 2400 / 2400 Output Total 600 / 600 Balance 1800 / 1800 Weight 68.946 kg Intake: IV 2400 / 2400 NS Inj 1,000 ML @ 125 mls/hr IV 1000 / 1000 .CONT .Q8H HAN Rx#:[id number] Zosyn 3.375 GM Premix 50 ML @ 50 / 50 100 mls/hr IV.SIG ONCE ONE Rx#: [id number] Zosyn 4.5 GM Premix 4.5 gm In 100 / 100 100 ml @ 200 mls/hr IV.SIG Q6H HAN Rx#:[id number] NS Inj 1,000 ML @ Wide Open IV. 1000 / 1000 SIG BOLUS HAN Rx#:[id number] Vancomycin Inj 1,000 MG In NS 250 / 250 Inj 250 ML @ 200 mls/hr IV.SIG ONCE ONE Rx#:[id number] Output: Urine Amount (Catheter) 600 / 600 Indwelling Urethral Catheter 600 / 600 Narrative: GENERAL: Conversant however appears somewhat confused. She appears to have conversational dyspnea with supplemental oxygen at 4 L nasal cannula SKIN: Warm and dry. HEAD: Atraumatic. Normocephalic. NECK: Trachea midline. No JVD. CARDIOVASCULAR: Regular rate and rhythm. 1/6 systolic ejection murmur RESPIRATORY: No accessory muscle use. Diffuse coarse breath sounds throughout both lung blanca GASTROINTESTINAL: Abdomen soft, non-tender, nondistended. MUSCULOSKELETAL: Extremities without clubbing, cyanosis, or edema. No obvious deformities. NEUROLOGICAL: Normal speech. Results 05/13/18 10:10 05/13/18 06:05 Cardiac Enzymes 05/13/18 05/13/18 Range/Units 06:05 12:12 AST 425 H (15-37) U/L CK-MB (CK-2) 6.9 H (0.5-3.6) ng/mL Troponin I 8.28 H* 6.57 H* D (0.02-0.05) ng/mL Coagulation 05/13/18 Range/Units 06:05 PT 11.9 H (9.8-11.6) sec APTT 25.1 (24.3-30.1) sec CBC 05/13/18 05/13/18 Range/Units 06:05 10:10 WBC 15.5 H 16.4 H (4.0-11.0) th/mm3 RBC 4.94 4.72 (4.00-5.30) mil/mm3 Hgb 13.3 12.8 (11.6-15.3) gm/dL Hct 41.7 40.6 (35.0-46.0) % Plt Count 298 238 (150-450) th/mm3 Neut # (Auto) 12.1 H (1.8-7.7) th/mm3 Lymph # (Auto) 2.1 (1.0-4.8) th/mm3 [place] # (Auto) 1.2 H (0.0-0.9) th/mm3 Eos # (Auto) 0.0 (0.0-0.4) th/mm3 Baso # (Auto) 0.1 (0.0-0.2) th/mm3 Comprehensive Metabolic Panel 05/13/18 Range/Units 06:05 Sodium 145 (136-145) meq/L Potassium 4.5 (3.5-5.1) meq/L Chloride 104 (98-107) meq/L Carbon Dioxide 27.4 (21.0-32.0) meq/L BUN 53 H (7-18) mg/dL Creatinine 1.35 H (0.50-1.00) mg/dL Calcium 9.6 (8.5-10.1) mg/dL AST 425 H (15-37) U/L ALT 344 H (10-53) U/L Alkaline Phosphatase 82 (45-117) U/L Total Protein 8.1 (6.4-8.2) g/dL Albumin 3.2 L (3.4-5.0) g/dL Intake and Output 05/12/18 05/13/18 05/13/18 22:59 06:59 14:59 Intake Total 2400 / 2400 Output Total 600 / 600 Balance 1800 / 1800 Intake: IV 2400 / 2400 NS Inj 1,000 ML @ 125 mls/hr IV 1000 / 1000 .CONT .Q8H HAN Rx#:[id number] Zosyn 3.375 GM Premix 50 ML @ 50 / 50 100 mls/hr IV.SIG ONCE ONE Rx#: [id number] Zosyn 4.5 GM Premix 4.5 gm In 100 / 100 100 ml @ 200 mls/hr IV.SIG Q6H HAN Rx#:[id number] NS Inj 1,000 ML @ Wide Open IV. 1000 / 1000 SIG BOLUS HAN Rx#:[id number] Vancomycin Inj 1,000 MG In NS 250 / 250 Inj 250 ML @ 200 mls/hr IV.SIG ONCE ONE Rx#:[id number] Output: Urine Amount (Catheter) 600 / 600 Indwelling Urethral Catheter 600 / 600 Other: Weight 68.946 kg - Imaging and Cardiology Imaging: Impressions Chest X-Ray 05/13/18 05:50 CONCLUSION: 1. Stable pulmonary fibrosis pattern. 2. No acute abnormality or significant interval change. Head CT 05/13/18 05:50 CONCLUSION: 1. Senescent changes without acute intracranial abnormality. . Chest CTA 05/13/18 07:31 CONCLUSION: 1. No evidence of pulmonary embolism. 2. Chronic scarring and fibrosis. Assessment and Plan - Plan Assessment: 77-year-old lady with pulmonary fibrosis on 3 L continuous supplemental home oxygen presents with altered mental status. She was found to have atrial fibrillation with rapid ventricular response of new onset, leukocytosis with a left shift, significant transaminitis, likely mild DONATO and elevated troponin consistent with NSTEMI. #1 atrial fibrillation with rapid ventricular response: New onset. Spontaneously cardioverted and currently NSR. #2 NSTEMI: Currently asymptomatic and denies any recent anginal chest pain symptoms. EKG shows sinus rhythm with APCs, RBBB with diffuse ST-T wave abnormality in the anterior lateral and inferior distribution mostly unchanged from prior. Troponin is currently downtrending. #3 altered mental status #4 leukocytosis with left shift #5 pulmonary fibrosis on chronic supplemental oxygen therapy #6 transaminitis #7 AK I with elevated BUN suggestive of prerenal azotemia Recommendations: -Continue aspirin 81 mg daily -Continue heparin drip ACS protocol for medical management of NSTEMI -N.p.o. after midnight for possible coronary angiography tomorrow versus Lexiscan stress test, to be decided by Dr. Mcneil who will further evaluate her tomorrow. -Discontinue diltiazem drip -Continue metoprolol tartrate 50 mg twice daily -Stop atenolol 25 mg daily -Hold lisinopril for now with mild DONATO -Hold on statin therapy with underlying transaminitis -Rest per primary team.
--- NOTE | 2018-05-13 15:46 | ECG ---
Date Performed: 05/13/2018 Time Performed: 06:51:20 PTAGE: 77 years EKG: SINUS TACHYCARDIA WITH SHORT MT INTERVAL WITH OCCASIONAL SUPRAVENTRICULAR PREMATURE COMPLEX ES RIGHT BUNDLE BRANCH BLOCK MARKED T-WAVE ABNORMALITY, CONSIDER ANTEROLATERAL ISCHEMIA MODERATE T-WA VE ABNORMALITY, CONSIDER INFERIOR ISCHEMIA ABNORMAL ECG PREVIOUS TRACING : 05/13/2018 05.58 Since the previous tracing, no significant change noted DOCTOR: Althea Woody Interpretating Date/Time 05/13/2018 15:45:00
[2018-05-13] MEDS: Piperacil/Tazo 3.375 GM Premix 50 ML IV.SIG SCH (18:06)
--- NOTE | 2018-05-13 18:52 | ECG ---
Date Performed: 05/13/2018 Time Performed: 05:58:58 PTAGE: 77 years EKG: SINUS TACHYCARDIA WITH PREMATURE ATRIAL CONTRACTIONS. A DIFFUSE ST SEGMENT DEPRESSION AND T -WAVE INVERSION THAT IS NONSPECIFIC BUT CONSISTENT WITH MYOCARDIAL ISCHEMIA, WHICH SHOULD BE EXCLUDED CLINICALLY. COMPARED TO PRIOR TRACING. THE SINUS TACHYCARDIA AND PREMATURE ATRIAL CONTRACTIONS ARE N EW. THERE HAS BEEN AN INCREASE IN THE NONSPECFICIC ST T-WAVE CHANGES . CLINICAL CORRELATION WILL BR I NMPORTANT. INCOMPLETE RIGHT BUNDLE BRANCH BLOCK RIGHT VENTRICULAR HYPERTROPHY AND ST-T CHANGE ABNORMA L ECG PREVIOUS TRACING : 12/31/2017 08.03 DOCTOR: Althea Woody Interpretating Date/Time 05/13/2018 18:50:58
[2018-05-13 19:02] LABS: Amphetamine Screen,Urine Neg (Neg); Barbiturate Screen,Urine Neg (Neg); Cannabinoid Screen,Urine Neg (Neg); Cocaine Screen,Urine Neg (Neg)
[2018-05-13 19:04] LABS: Opiate Screen,Urine Neg (Neg)
--- NOTE | 2018-05-13 19:45 | P.HPIM ---
History of Present Illness Primary Care Physician: Clive Johnson MD Chief Complaint: altered mental status History of Present Illness: 77-year-old female with a history of hypertension, pulmonary fibrosis, chronic respiratory failure O2 dependent, GERD, diabetes who presents with a 1 day history of degree of progressively worsening shortness of breath, cough productive of clear sputum. She denies any chest pain. She denies any fevers, chills. She denies any pain. Inpatient Certification: I certify that the inpatient services were ordered in accordance with Medicare regulations governing the order. This includes certification that hospital inpatient services are reasonable and necessary and in the case of services not specified as inpatient-only under 42 CFR 419.22(n), that they are appropriately provided as inpatient services in accordance to with the 2-midnight benchmark under 43 CFR 412.3(e) Estimated Total Length of Stay (Days): 3 Plans for Post Hospital Care: Not yet determined Review of Systems All other systems reviewed negative except as stated in HPI [facility] - History History Provided By: Roll Plugger / EMT - Medical History Medical History: Medical History (Last Updated 05/13/18 @ 19:38 by Felipe To MD) A-fib Chronic pain Diabetes GERD (gastroesophageal reflux disease) Gout H/O: hysterectomy HTN (hypertension) High cholesterol Hip fracture Hypothyroid Pulmonary fibrosis - Family History Family History: Family History (Last Updated 05/13/18 @ 19:38 by Felipe To MD) Other Family history non-contributory - Tobacco History Smoking Status: Cognitive impairment - Alcohol History How Often Do You Have a Drink Containing Alcohol: Unable to Obtain - Substance Use History Substance History: Unable to Obtain - Travel History Recent Travel in the [place] Within the Last 8 Weeks: No Recent Travel Out of the Country Within the Last 8 Weeks: No - Immunization History Tetanus Immunization: Unable to Assess Hx Influenza Vaccine This Season: Unable to Assess Medications and Allergies Active Medications: Active Medications Acetaminophen (Tylenol) 650 mg PO Q4H PRN PRN Reason: Temp > 100.4 Albuterol (Duoneb Neb (Prn)) 1 ampul NEB Q2HR NEB PRN PRN Reason: SHORTNESS OF BREATH/WHEEZING Albuterol (Duoneb Neb (Han)) 1 ampul NEB Q6HR NEB HAN Last Admin: 05/13/18 16:14 Dose: 1 ampul Aspirin (Aspirin Chew) 81 mg PO DAILY [facility] Benzonatate (Tessalon Perles) 200 mg PO TID [facility] Last Admin: 05/13/18 18:06 Dose: 200 mg Bisacodyl (Dulcolax Supp) 10 mg RECTAL DAILY PRN PRN Reason: SEVERE CONSITIPATION Dextrose (D50w Vial) 50 ml IV.PUSH UNSCH PRN PRN Reason: PER HYPOGLYCEMIA PROTOCOL Glucagon (Glucagon Inj) 1 mg OTHER PRN PRN PRN Reason: for Hypoglycemia Protocol Sodium Chloride (Ns Inj) 1,000 mls @ 100 mls/hr IV.CONT .Q10H [facility] Last Admin: 05/13/18 16:30 Dose: 100 mls/hr Sodium Chloride (Ns Inj) 1,000 mls @ 0 mls/hr IV.SIG BOLUS [facility] Last Infusion: 05/13/18 09:35 Dose: Infused Heparin Sodium/Dextrose (Heparin/D5w 25,000 U/250 Ml) 25,000 unit in 250 mls @ 0 mls/hr IV.CONT TITRATE PRN; Protocol PRN Reason: Per Protocol Last Titration: 05/13/18 18:24 Dose: 900 units/hr, 9 mls/hr Piperacillin/Tazobactam/Dextrose (Zosyn 3.375 Gm Premix) 50 mls @ 100 mls/hr IV.SIG Q6H [facility] Last Admin: 05/13/18 18:06 Dose: 100 mls/hr Insulin Aspart (Novolog Insulin Correctional Sugar Inj) 0 unit SQ ACHS AND 3AM HAN; Protocol Last Admin: 05/13/18 18:05 Dose: Not Given Meclizine HCl (Antivert) 25 mg PO BID [facility] Last Admin: 05/13/18 10:05 Dose: Not Given Metoprolol Tartrate (Lopressor Inj) 5 mg IV.PUSH Q5M PRN PRN Reason: RAPID HEART RATE Metoprolol Tartrate (Lopressor) 50 mg PO BID [facility] Last Admin: 05/13/18 14:12 Dose: 50 mg Ondansetron HCl (Zofran Inj) 4 mg IV.PUSH Q6H PRN PRN Reason: NAUSEA OR VOMITING Pantoprazole Sodium (Protonix) 40 mg PO DAILY [facility] Last Admin: 05/13/18 10:05 Dose: Not Given Pharmacy Profile Note (Vancomycin Consult Pharmacy) 1 each OTHER UNSCH PRN PRN Reason: Pharmacy to dose Pravastatin Sodium (Pravachol) 10 mg PO DAILY [facility] Last Admin: 05/13/18 10:05 Dose: Not Given Prednisolone Sodium Phosphate (Orapred Odt) 5 mg PO BID [facility] Last Admin: 05/13/18 10:05 Dose: Not Given Probenecid (Benemid) 500 mg PO DAILY [facility] Last Admin: 05/13/18 10:05 Dose: Not Given Sennosides (Senokot) 17.2 mg PO Q12H PRN PRN Reason: Moderate Constipation Thiamine HCl (Vitamin B1) 500 mg PO ONCE ONE Stop: 05/13/18 19:33 Thyroid ([place] Thyroid) 90 mg PO BID [facility] Last Admin: 05/13/18 10:05 Dose: Not Given Allergies Allergy/AdvReac Type Severity Reaction Status Date / Time acetaminophen Allergy Severe ITCHY Verified 05/13/18 08:17 celecoxib Allergy Severe Tachycardia; Verified 05/13/18 08:17 HTN "stroke like symptoms" oxycodone Allergy Severe ITCHY Verified 05/13/18 08:17 procaine Allergy Severe INCREASED Verified 05/13/18 08:17 HR morphine Allergy Intermediate hives and Verified 05/13/18 08:17 itching Home Medications Medication Instructions Recorded Confirmed Type ProAir HFA 90 mcg INHALATION Q4HR PRN 05/13/18 05/13/18 History atenolol 25 mg PO DAILY 05/13/18 05/13/18 History benzonatate 200 mg PO TID 05/13/18 05/13/18 History clotrimazole 10 mg MUCOUS MEMBRANE TID 05/13/18 05/13/18 History esomeprazole magnesium 40 mg PO DAILY 05/13/18 05/13/18 History gabapentin 600 mg PO TID 05/13/18 05/13/18 History lisinopril 2.5 mg PO DAILY 05/13/18 05/13/18 History lovastatin 10 mg PO DAILY 05/13/18 05/13/18 History meclizine 25 mg PO BID 05/13/18 05/13/18 History metformin 500 mg PO BID 05/13/18 05/13/18 History mupirocin 1 applic TOPICAL TID 05/13/18 05/13/18 History prednisolone 5 mg PO BID 05/13/18 05/13/18 History probenecid 500 mg PO DAILY 05/13/18 05/13/18 History spironolacton-hydrochlorothiaz 1 tab PO DAILY 05/13/18 05/13/18 History thyroid (pork) [[place] Thyroid] 90 mg PO BID 05/13/18 05/13/18 History trazodone 50 mg PO HS 05/13/18 05/13/18 History Exam Vital signs: Vital Signs 05/13/18 05:49 05/13/18 06:12 05/13/18 06:55 Temperature 98.3 F 98.2 F Pulse Rate 117 H 110 H Respiratory Rate 32 H 32 H 28 H Blood Pressure 189/84 H 189/84 H 158/75 H Pulse Oximetry 92 L 92 L 94 L 05/13/18 07:50 05/13/18 09:26 05/13/18 09:35 Temperature Pulse Rate 156 H 128 H 118 H Respiratory Rate 28 H 16 30 H Blood Pressure 137/70 118/65 Pulse Oximetry 93 L 94 L 93 L 05/13/18 10:09 05/13/18 10:55 05/13/18 11:00 Temperature Pulse Rate 137 H 134 H 127 H Respiratory Rate 30 H 34 H 34 H Blood Pressure 127/75 Pulse Oximetry 93 L 98 98 05/13/18 11:21 05/13/18 11:25 05/13/18 11:30 Temperature Pulse Rate 121 H 132 H 132 H Respiratory Rate 54 H 48 H 41 H Blood Pressure 134/81 161/87 H 151/78 H Pulse Oximetry 70 L 94 L 88 L 05/13/18 11:45 05/13/18 12:00 05/13/18 12:15 Temperature 98.5 F Pulse Rate 125 H 116 H 117 H Respiratory Rate 36 H 37 H 44 H Blood Pressure 123/59 L 118/70 128/58 L Pulse Oximetry 100 100 100 05/13/18 12:30 05/13/18 12:45 05/13/18 13:00 Temperature Pulse Rate 100 H 107 H 85 Respiratory Rate 35 H 36 H 38 H Blood Pressure 112/61 121/70 129/75 Pulse Oximetry 99 97 100 05/13/18 13:15 05/13/18 13:30 05/13/18 13:45 Temperature Pulse Rate 84 90 90 Respiratory Rate 34 H 38 H 39 H Blood Pressure 124/69 124/67 136/78 Pulse Oximetry 100 100 98 05/13/18 14:00 05/13/18 14:15 05/13/18 14:30 Temperature Pulse Rate 92 H 90 81 Respiratory Rate 46 H 48 H 33 H Blood Pressure 136/74 142/72 H 132/69 Pulse Oximetry 98 96 100 05/13/18 14:45 05/13/18 15:00 05/13/18 15:15 Temperature Pulse Rate 71 68 67 Respiratory Rate 40 H 33 H 24 Blood Pressure 119/65 124/67 125/66 Pulse Oximetry 99 99 99 05/13/18 15:30 05/13/18 15:45 05/13/18 16:00 Temperature 98 F Pulse Rate 67 67 68 Respiratory Rate 35 H 36 H 34 H Blood Pressure 120/60 122/63 112/56 L Pulse Oximetry 98 99 99 05/13/18 16:14 05/13/18 16:15 Temperature Pulse Rate 68 68 Respiratory Rate 22 44 H Blood Pressure 121/60 Pulse Oximetry 95 Intake & Output 05/13/18 05/13/18 05/14/18 06:59 18:59 06:59 Intake Total 2954 / 2954 Output Total 1849 / 1849 Balance 1104 / 1104 Weight 68.946 kg Intake: IV 2474 / 2474 NS Inj 1,000 ML @ 125 mls/hr IV 1000 / 1000 .CONT .Q8H [facility] Rx#:[id number] Cardizem Inj 125 MG In NS Inj 74 / 74 100 ML @ 5 MG/HR 5 mls/hr IV. CONT TITRATE PRN Rx#:[id number] Zosyn 3.375 GM Premix 50 ML @ 50 / 50 100 mls/hr IV.SIG ONCE ONE Rx#: [id number] Zosyn 4.5 GM Premix 4.5 gm In 100 / 100 100 ml @ 200 mls/hr IV.SIG Q6H [facility] Rx#:[id number] NS Inj 1,000 ML @ Wide Open IV. 1000 / 1000 SIG BOLUS HAN Rx#:[id number] Vancomycin Inj 1,000 MG In NS 250 / 250 Inj 250 ML @ 200 mls/hr IV.SIG ONCE ONE Rx#:[id number] Oral 480 / 480 Output: Urine Amount (Catheter) 1849 Indwelling Urethral Catheter 1849 Narrative: //Atrial fibrillation with RVR. //Non-ST elevation NM. = Count is up to 6.57. This could be demand related. We will control heart rate. Initially on diltiazem drip, however will switch to beta-camryn. On heparin drip. Consult cardiology. Appreciate assistance. Trend EKGs, troponins. //Possible sepsis on admission With leukocytosis, tachycardia, lactic acidosis CT pulmonary and gram-negative for pulmonary embolism. No evidence of lobar or atypical pneumonia. Chronic fibrosis. We will continue antibiotics. If cultures remain negative times 24 hours will discontinue. //Bony fibrosis. Possibly with acute exacerbation. Exacerbation possibly causing atrial fibrillation. We will treat exacerbation with IV steroids, scheduled duo nebs Consult pulmonology. //Lactic acidosis Looking back on previous admissions, it appears that patient is predisposed to lactic acidosis. We will supplement thiamine, monitor. //GERD. Chronic. Continue home medications. Results - Labs CBC & Chem 7: 05/13/18 10:10 05/13/18 06:05 Labs: Short CBC 05/13/18 05/13/18 Range/Units 06:05 10:10 WBC 15.5 H 16.4 H (4.0-11.0) th/mm3 Hgb 13.3 12.8 (11.6-15.3) gm/dL Hct 41.7 40.6 (35.0-46.0) % Plt Count 298 238 (150-450) th/mm3 BMP 05/13/18 06:05 Sodium 145 Potassium 4.5 Chloride 104 Carbon Dioxide 27.4 BUN 53 H Creatinine 1.35 H Calcium 9.6 Cardiac Enzymes 05/13/18 05/13/18 05/13/18 Range/Units 06:05 12:12 17:23 Total Creatine Kinase 198 H (26-192) U/L CK-MB (CK-2) 6.9 H (0.5-3.6) ng/mL Troponin I 8.28 H* 6.57 H* D 5.06 H* D (0.02-0.05) ng/mL Liver Function 05/13/18 Range/Units 06:05 Total Bilirubin 1.6 H (0.2-1.0) mg/dL AST 425 H (15-37) U/L ALT 344 H (10-53) U/L Alkaline Phosphatase 82 (45-117) U/L Albumin 3.2 L (3.4-5.0) g/dL Urine 05/13/18 Range/Units 06:20 Urine Color Yellow (Yellw/Straw) Urine Clarity Clear (Clear) Urine pH 5.0 (5.0-8.5) Ur Specific [place] 1.020 (1.002-1.035) Urine Protein 30 H (Neg-Trace) mg/dL Urine Glucose (UA) Negative (Negative) mg/dL - Imaging Impressions Chest X-Ray 05/13/18 05:50 CONCLUSION: 1. Stable pulmonary fibrosis pattern. 2. No acute abnormality or significant interval change. Head CT 05/13/18 05:50 CONCLUSION: 1. Senescent changes without acute intracranial abnormality. . Chest CTA 05/13/18 07:31 CONCLUSION: 1. No evidence of pulmonary embolism. 2. Chronic scarring and fibrosis. Caprini VTE Risk Assessment Caprini VTE Risk Assessment: Moderate/High Risk (score >= 2) Caprini Risk Assessment Model: Point Value = 1 Point Value = 2 Point Value = 3 Point Value = 5 Age 41-60 Minor surgery BMI > 25 kg/m2 Swollen legs Varicose veins or History of unexplained or recurrent spontaneous Oral contraceptives or hormone replacement Sepsis (< 1 month) Serious lung disease, including pneumonia (< 1 month) Abnormal pulmonary function Acute myocardial infarction Congestive heart failure (< 1 month) History of inflammatory bowel disease Medical patient at bed rest Age 61-74 Arthroscopic surgery Major open surgery (> 45 min) Laparoscopic surgery (> 45 min) Malignancy Confined to bed (> 72 hours) Immobilizing plaster cast Central venous access Age >= 75 History of VTE Family history of VTE Factor V Leiden Prothrombin [id number] Lupus anticoagulant Anticardiolipin antibodies Elevated serum homocysteine Heparin-induced thrombocytopenia Other congenital or acquired thrombophilia Stroke (< 1 month) Elective arthroplasty Hip, pelvis, or leg fracture Acute spinal cord injury (< 1 month) Prophylaxis Regimen: Total Risk Factor Score Risk Level Prophylaxis Regimen 0-1 Low Early ambulation 2 Moderate Order ONE of the following: *Sequential Compression Device (SCD) *Heparin 5000 units SQ BID 3-4 Higher Order ONE of the following medications: *Heparin 5000 units SQ TID *Enoxaparin/Lovenox 40 mg SQ daily (WT < 150 kg, CrCl > 30 mL/min) *Enoxaparin/Lovenox 30 mg SQ daily (WT < 150 kg, CrCl > 10-29 mL/min) *Enoxaparin/Lovenox 30 mg SQ BID (WT < 150 kg, CrCl > 30 mL/min) AND/OR *Sequential Compression Device (SCD) 5 or more Highest Order ONE of the following medications: *Heparin 5000 units SQ TID (Preferred with Epidurals) *Enoxaparin/Lovenox 40 mg SQ daily (WT < 150 kg, CrCl > 30 mL/min) *Enoxaparin/Lovenox 30 mg SQ daily (WT < 150 kg, CrCl > 10-29 mL/min) *Enoxaparin/Lovenox 30 mg SQ BID (WT < 150 kg, CrCl > 30 mL/min) AND *Sequential Compression Device (SCD)
[2018-05-13] MEDS: MethylPREDNISolone Sod Succinate Inj 125 MG/2 ML Vial IV.PUSH SCH (21:12)
--- NOTE | 2018-05-13 21:27 | XR ---
EXAM DATE: 05/13/2018 8:57 PM EDT AGE/SEX: 77 years / Female INDICATIONS: Short of breath and congestion. CLINICAL DATA: This is the patient's subsequent encounter. Patient reports that signs and symptoms h ave been present for 1 day and indicates a pain score of 0/10. MEDICAL/SURGICAL HISTORY: Hypertension. None. COMPARISON: [facility] – [place], CHEST 1V SINGLE AP, 05/13/2018. . FINDINGS: Diffuse parenchymal consolidation again seen of both lungs. I believe this is slightly worse at the l eft base in the interim. No pleural effusion seen. No pneumothorax. Heart size stable, within normal limits. CONCLUSION: Persistent bilateral infiltrates. Left base is slightly worse. Electronically signed by: Jone Sheehan MD 05/13/2018 9:25 PM EDT
[2018-05-14] MEDS: Sod Chloride 0.9% Inj 1,000 ML IV.CONT SCH ×4 (00:54→14:22)
[2018-05-14] MEDS: MethylPREDNISolone Sod Succinate Inj 125 MG/2 ML Vial IV.PUSH SCH ×4 (02:05→21:38)
[2018-05-14] MEDS: Insulin NovoLOG Aspart Correctional Sugar Inj SQ SCH ×5 (03:00→21:39)
[2018-05-14] MEDS ORDERED: Chlorhexidine Gluconate 2% 1 Pack (2 Cloths) TOPICAL PRN (04:00)
[2018-05-14] MEDS: Chlorhexidine Gluconate 2% 1 Pack (2 Cloths) TOPICAL SCH (04:18)
[2018-05-14] MEDS: Piperacil/Tazo 3.375 GM Premix 50 ML IV.SIG SCH ×4 (05:53→18:07)
[2018-05-14 06:07] LABS: Baso % (Auto) 0.1 % (0.0-2.0); Hematocrit 36.3 % (35.0-46.0); Hemoglobin 11.4 gm/dL (11.6-15.3); Lymph # (Auto) 0.3 th/mm3 (1.0-4.8); Lymph % (Auto) 4.6 % (9.0-44.0); Mean Corpuscular HGB Conc 31.4 % (32.0-36.0); Mean Corpuscular Hemoglobin 27.1 pg (27.0-34.0); Mean Corpuscular Volume 86.4 fL (80.0-100.0); Mean Platelet Volume 8.8 fL (7.0-11.0); Mono # (Auto) 0.1 th/mm3 (0.0-0.9); Mono % (Auto) 0.8 % (0.0-8.0); Neut # (Auto) 6.3 th/mm3 (1.8-7.7); Neut % (Auto) 94.5 % (16.0-70.0); Platelet Count 219 th/mm3 (150-450); Red Cell Distribution Width 17.9 % (11.6-17.2); White Blood Count 6.6 th/mm3 (4.0-11.0)
[2018-05-14 06:26] LABS: Alanine Aminotransferase 333 U/L (10-53); Albumin 2.6 g/dL (3.4-5.0); Anion Gap 14 meq/L (5-15); Aspartate Aminotransferase 275 U/L (15-37); Blood Urea Nitrogen 28 mg/dL (7-18); Calcium 7.6 mg/dL (8.5-10.1); Carbon Dioxide 25.4 meq/L (21.0-32.0); Chloride 106 meq/L (98-107); Glomerular Filtration Rate 42 mL/min (>89); Glucose,Random 206 mg/dL (74-106); Potassium 3.5 meq/L (3.5-5.1); Sodium 145 meq/L (136-145)
[2018-05-14 06:29] LABS: Alkaline Phosphatase 69 U/L (45-117); Total Protein 7.1 g/dL (6.4-8.2); Vancomycin,Random 6.5 Comment
[2018-05-14] MEDS ORDERED: Potassium Chloride 25 MEQ Effervescent Tablet PO ONE (08:30)
[2018-05-14] MEDS: Metoprolol Tartrate 50 MG Tablet PO SCH ×2 (08:33→21:38)
[2018-05-14] MEDS: Benzonatate 100 MG Capsule PO SCH ×3 (08:33→18:05)
--- NOTE | 2018-05-14 09:02 | P.PNIM ---
Subjective Interval history: Patient says her shortness of breath continues without improvement from yesterday. No worsening however. Denies any chest pain. Denies any nausea or vomiting. Physical Exam Vital signs: Vital Signs 05/13/18 09:26 05/13/18 09:35 05/13/18 10:09 Temperature Pulse Rate 128 H 118 H 137 H Respiratory Rate 16 30 H 30 H Blood Pressure 118/65 127/75 Pulse Oximetry 94 L 93 L 93 L 05/13/18 10:55 05/13/18 11:00 05/13/18 11:21 Temperature Pulse Rate 134 H 127 H 121 H Respiratory Rate 34 H 34 H 54 H Blood Pressure 134/81 Pulse Oximetry 98 98 70 L 05/13/18 11:25 05/13/18 11:30 05/13/18 11:45 Temperature Pulse Rate 132 H 132 H 125 H Respiratory Rate 48 H 41 H 36 H Blood Pressure 161/87 H 151/78 H 123/59 L Pulse Oximetry 94 L 88 L 100 05/13/18 12:00 05/13/18 12:15 05/13/18 12:30 Temperature 98.5 F Pulse Rate 116 H 117 H 100 H Respiratory Rate 37 H 44 H 35 H Blood Pressure 118/70 128/58 L 112/61 Pulse Oximetry 100 100 99 05/13/18 12:45 05/13/18 13:00 05/13/18 13:15 Temperature Pulse Rate 107 H 85 84 Respiratory Rate 36 H 38 H 34 H Blood Pressure 121/70 129/75 124/69 Pulse Oximetry 97 100 100 05/13/18 13:30 05/13/18 13:45 05/13/18 14:00 Temperature Pulse Rate 90 90 92 H Respiratory Rate 38 H 39 H 46 H Blood Pressure 124/67 136/78 136/74 Pulse Oximetry 100 98 98 05/13/18 14:15 05/13/18 14:30 05/13/18 14:45 Temperature Pulse Rate 90 81 71 Respiratory Rate 48 H 33 H 40 H Blood Pressure 142/72 H 132/69 119/65 Pulse Oximetry 96 100 99 05/13/18 15:00 05/13/18 15:15 05/13/18 15:30 Temperature Pulse Rate 68 67 67 Respiratory Rate 33 H 24 35 H Blood Pressure 124/67 125/66 120/60 Pulse Oximetry 99 99 98 05/13/18 15:45 05/13/18 16:00 05/13/18 16:14 Temperature 98 F Pulse Rate 67 68 68 Respiratory Rate 36 H 34 H 22 Blood Pressure 122/63 112/56 L Pulse Oximetry 99 99 05/13/18 16:15 05/13/18 16:30 05/13/18 16:45 Temperature Pulse Rate 68 70 74 Respiratory Rate 44 H 37 H 42 H Blood Pressure 121/60 115/59 L 123/65 Pulse Oximetry 95 99 95 05/13/18 17:00 05/13/18 18:00 05/13/18 19:00 Temperature Pulse Rate 74 79 80 Respiratory Rate 37 H 43 H 31 H Blood Pressure 128/67 143/73 H 141/71 H Pulse Oximetry 95 95 97 05/13/18 20:00 05/13/18 20:41 05/13/18 21:00 Temperature Pulse Rate 81 85 88 Respiratory Rate 44 H 28 H 41 H Blood Pressure 152/71 H Pulse Oximetry 98 96 97 05/13/18 21:01 05/13/18 22:00 05/13/18 23:00 Temperature 98.0 F Pulse Rate 88 90 77 Respiratory Rate 33 H 41 H 31 H Blood Pressure 138/70 Pulse Oximetry 99 94 L 96 05/14/18 00:00 05/14/18 00:26 05/14/18 01:00 Temperature Pulse Rate 79 80 81 Respiratory Rate 41 H 40 H 35 H Blood Pressure 146/73 H Pulse Oximetry 97 94 L 95 05/14/18 02:00 05/14/18 02:26 05/14/18 02:59 Temperature 97.8 F Pulse Rate 83 83 84 Respiratory Rate 34 H 62 H 38 H Blood Pressure 155/90 H 162/78 H Pulse Oximetry 95 95 98 05/14/18 03:00 05/14/18 03:01 05/14/18 03:36 Temperature Pulse Rate 84 83 85 Respiratory Rate 39 H 34 H 24 Blood Pressure 162/90 H Pulse Oximetry 96 96 05/14/18 04:00 05/14/18 05:00 05/14/18 05:01 Temperature Pulse Rate 92 H 94 H 94 H Respiratory Rate 39 H 37 H 40 H Blood Pressure 159/70 H 128/82 Pulse Oximetry 95 93 L 90 L 05/14/18 06:00 Temperature 98.2 F Pulse Rate 94 H Respiratory Rate 40 H Blood Pressure 151/83 H Pulse Oximetry 96 Intake & Output 05/13/18 05/14/18 05/14/18 18:59 06:59 18:59 Intake Total 3004 / 3004 1210 / 1210 Output Total 1850 / 1850 1800 / 1800 Balance 1154 / 1154 -590 / -590 Weight 70.4 kg Intake: IV 2524 / 2524 1100 / 1100 NS Inj 1,000 ML @ 100 mls/hr IV 1000 / 1000 1000 / 1000 .CONT .Q10H BARB Rx#:[id number] Cardizem Inj 125 MG In NS Inj 74 / 74 100 ML @ 5 MG/HR 5 mls/hr IV. CONT TITRATE PRN Rx#:[id number] Zosyn 3.375 GM Premix 50 ML @ 100 / 100 100 / 100 100 mls/hr IV.SIG Q6H BARB Rx#: [id number] Zosyn 4.5 GM Premix 4.5 gm In 100 / 100 100 ml @ 200 mls/hr IV.SIG Q6H BARB Rx#:[id number] NS Inj 1,000 ML @ Wide Open IV. 1000 / 1000 SIG BOLUS BARB Rx#:[id number] Vancomycin Inj 1,000 MG In NS 250 / 250 Inj 250 ML @ 200 mls/hr IV.SIG ONCE ONE Rx#:[id number] Oral 480 / 480 110 / 110 Output: Urine 1800 / 1800 Urine Amount (Catheter) 1849 / 1849 Indwelling Urethral Catheter 1849 Other: # Incontinent Voids 1 Date of Last Bowel Movement 05/13/18 # Bowel Movements 2 Narrative: GENERAL: Patient sitting in bed. Appears comfortable. Breathing a little more comfortably than yesterday. SKIN: Warm and dry. HEAD: Normocephalic. EYES: No scleral icterus. No injection or drainage. NECK: Supple, trachea midline. No JVD or lymphadenopathy. CARDIOVASCULAR: Regular rate and rhythm without murmurs, gallops, or rubs. RESPIRATORY: Fine crackles in the bases as before. Breath sounds equal bilaterally. No accessory muscle use. GASTROINTESTINAL: Abdomen soft, non-tender, nondistended. MUSCULOSKELETAL: No cyanosis, or edema. BACK: Nontender without obvious deformity. No CVA tenderness. - Urinary Catheter Management Indwelling Urethral Catheter Cath placed during this visit: yes Reason for continuing: Hourly intake/output Insertion date: 05/13/18 Insertion time: 06:18 Results - Labs CBC & Chem 7: 05/14/18 05:08 05/14/18 05:08 Laboratory Results - last 24 hr 05/13/18 05/13/18 05/13/18 09:50 10:10 10:10 WBC 16.4 H RBC 4.72 Hgb 12.8 Hct 40.6 MCV 86.0 MCH 27.1 MCHC 31.5 L RDW 18.1 H Plt Count 238 MPV 8.6 Neut % (Auto) Lymph % (Auto) [place] % (Auto) Eos % (Auto) Baso % (Auto) Neut # (Auto) Lymph # (Auto) [place] # (Auto) Eos # (Auto) Baso # (Auto) WBC Differential Differential Comment APTT Puncture Site Patient Temperature O2 Saturation ABG pH ABG pCO2 ABG pO2 ABG HCO3 ABG O2 Content ABG Base Excess ABG Methemoglobin Jase Test Hemoglobin Carboxyhemoglobin O2 Delivery Device Liter Flow Critical Value Sodium Potassium Chloride Carbon Dioxide Anion Gap BUN Creatinine Estimated GFR POC Glucose Random Glucose Lactic Acid 2.8 H Calcium Total Bilirubin AST ALT Alkaline Phosphatase Troponin I B-Natriuretic Peptide Total Protein Albumin Nasal Screen MRSA (PCR) Stl C.difficile DNA Amp Negative St C. diff Tox Epid 027 Negative Random Vancomycin Urine Opiates Screen Ur Barbiturates Screen Ur Amphetamines Screen U Benzodiazepines Scrn Urine Cocaine Screen U Cannabinoids Screen 05/13/18 05/13/18 05/13/18 10:50 11:17 11:37 WBC RBC Hgb Hct MCV MCH MCHC RDW Plt Count MPV Neut % (Auto) Lymph % (Auto) [place] % (Auto) Eos % (Auto) Baso % (Auto) Neut # (Auto) Lymph # (Auto) [place] # (Auto) Eos # (Auto) Baso # (Auto) WBC Differential Differential Comment APTT Puncture Site Right radial Patient Temperature 98.6 O2 Saturation 90 ABG pH 7.48 H ABG pCO2 29 L ABG pO2 67 ABG HCO3 21 L ABG O2 Content 14.6 ABG Base Excess -2.0 ABG Methemoglobin 1.4 Jase Test Present Hemoglobin 11.5 L Carboxyhemoglobin 1.7 O2 Delivery Device Nasal cannula Liter Flow 3.00 Critical Value No Sodium Potassium Chloride Carbon Dioxide Anion Gap BUN Creatinine Estimated GFR POC Glucose 137 H Random Glucose Lactic Acid Calcium Total Bilirubin AST ALT Alkaline Phosphatase Troponin I B-Natriuretic Peptide Total Protein Albumin Nasal Screen MRSA (PCR) Not detected Stl C.difficile DNA Amp St C. diff Tox Epid 027 Random Vancomycin Urine Opiates Screen Ur Barbiturates Screen Ur Amphetamines Screen U Benzodiazepines Scrn Urine Cocaine Screen U Cannabinoids Screen 05/13/18 05/13/18 05/13/18 12:12 16:22 17:00 WBC RBC Hgb Hct MCV MCH MCHC RDW Plt Count MPV Neut % (Auto) Lymph % (Auto) [place] % (Auto) Eos % (Auto) Baso % (Auto) Neut # (Auto) Lymph # (Auto) [place] # (Auto) Eos # (Auto) Baso # (Auto) WBC Differential Differential Comment APTT 32.0 H D Puncture Site Patient Temperature O2 Saturation ABG pH ABG pCO2 ABG pO2 ABG HCO3 ABG O2 Content ABG Base Excess ABG Methemoglobin Jase Test Hemoglobin Carboxyhemoglobin O2 Delivery Device Liter Flow Critical Value Sodium Potassium Chloride Carbon Dioxide Anion Gap BUN Creatinine Estimated GFR POC Glucose 146 H Random Glucose Lactic Acid Calcium Total Bilirubin AST ALT Alkaline Phosphatase Troponin I 6.57 H* D B-Natriuretic Peptide Total Protein Albumin Nasal Screen MRSA (PCR) Stl C.difficile DNA Amp St C. diff Tox Epid 027 Random Vancomycin Urine Opiates Screen Ur Barbiturates Screen Ur Amphetamines Screen U Benzodiazepines Scrn Urine Cocaine Screen U Cannabinoids Screen 05/13/18 05/13/18 05/13/18 17:20 17:23 20:40 WBC RBC Hgb Hct MCV MCH MCHC RDW Plt Count MPV Neut % (Auto) Lymph % (Auto) [place] % (Auto) Eos % (Auto) Baso % (Auto) Neut # (Auto) Lymph # (Auto) [place] # (Auto) Eos # (Auto) Baso # (Auto) WBC Differential Differential Comment APTT Puncture Site Patient Temperature O2 Saturation ABG pH ABG pCO2 ABG pO2 ABG HCO3 ABG O2 Content ABG Base Excess ABG Methemoglobin Jase Test Hemoglobin Carboxyhemoglobin O2 Delivery Device Liter Flow Critical Value Sodium Potassium Chloride Carbon Dioxide Anion Gap BUN Creatinine Estimated GFR POC Glucose Random Glucose Lactic Acid 2.5 H Calcium Total Bilirubin AST ALT Alkaline Phosphatase Troponin I 5.06 H* D B-Natriuretic Peptide Total Protein Albumin Nasal Screen MRSA (PCR) Stl C.difficile DNA Amp St C. diff Tox Epid 027 Random Vancomycin Urine Opiates Screen Neg Ur Barbiturates Screen Neg Ur Amphetamines Screen Neg U Benzodiazepines Scrn Neg Urine Cocaine Screen Neg U Cannabinoids Screen Neg 05/13/18 05/13/18 05/13/18 20:57 21:39 23:58 WBC RBC Hgb Hct MCV MCH MCHC RDW Plt Count MPV Neut % (Auto) Lymph % (Auto) [place] % (Auto) Eos % (Auto) Baso % (Auto) Neut # (Auto) Lymph # (Auto) [place] # (Auto) Eos # (Auto) Baso # (Auto) WBC Differential Differential Comment APTT Puncture Site Patient Temperature O2 Saturation ABG pH ABG pCO2 ABG pO2 ABG HCO3 ABG O2 Content ABG Base Excess ABG Methemoglobin Jase Test Hemoglobin Carboxyhemoglobin O2 Delivery Device Liter Flow Critical Value Sodium Potassium Chloride Carbon Dioxide Anion Gap BUN Creatinine Estimated GFR POC Glucose 114 H Random Glucose Lactic Acid Calcium Total Bilirubin AST ALT Alkaline Phosphatase Troponin I 4.25 H* D B-Natriuretic Peptide 1034 H Total Protein Albumin Nasal Screen MRSA (PCR) Stl C.difficile DNA Amp St C. diff Tox Epid 027 Random Vancomycin Urine Opiates Screen Ur Barbiturates Screen Ur Amphetamines Screen U Benzodiazepines Scrn Urine Cocaine Screen U Cannabinoids Screen 05/13/18 05/14/18 05/14/18 23:58 02:57 05:08 WBC 6.6 D RBC 4.20 Hgb 11.4 L Hct 36.3 MCV 86.4 MCH 27.1 MCHC 31.4 L RDW 17.9 H Plt Count 219 MPV 8.8 Neut % (Auto) 94.5 H Lymph % (Auto) 4.6 L [place] % (Auto) 0.8 Eos % (Auto) 0.0 Baso % (Auto) 0.1 Neut # (Auto) 6.3 Lymph # (Auto) 0.3 L [place] # (Auto) 0.1 Eos # (Auto) 0.0 Baso # (Auto) 0.0 WBC Differential . Differential Comment Auto diff final APTT 32.2 H Puncture Site Patient Temperature O2 Saturation ABG pH ABG pCO2 ABG pO2 ABG HCO3 ABG O2 Content ABG Base Excess ABG Methemoglobin Jase Test Hemoglobin Carboxyhemoglobin O2 Delivery Device Liter Flow Critical Value Sodium Potassium Chloride Carbon Dioxide Anion Gap BUN Creatinine Estimated GFR POC Glucose 170 H Random Glucose Lactic Acid Calcium Total Bilirubin AST ALT Alkaline Phosphatase Troponin I B-Natriuretic Peptide Total Protein Albumin Nasal Screen MRSA (PCR) Stl C.difficile DNA Amp St C. diff Tox Epid 027 Random Vancomycin Urine Opiates Screen Ur Barbiturates Screen Ur Amphetamines Screen U Benzodiazepines Scrn Urine Cocaine Screen U Cannabinoids Screen 05/14/18 05/14/18 05:08 05:08 WBC RBC Hgb Hct MCV MCH MCHC RDW Plt Count MPV Neut % (Auto) Lymph % (Auto) [place] % (Auto) Eos % (Auto) Baso % (Auto) Neut # (Auto) Lymph # (Auto) [place] # (Auto) Eos # (Auto) Baso # (Auto) WBC Differential Differential Comment APTT 36.0 H Puncture Site Patient Temperature O2 Saturation ABG pH ABG pCO2 ABG pO2 ABG HCO3 ABG O2 Content ABG Base Excess ABG Methemoglobin Jase Test Hemoglobin Carboxyhemoglobin O2 Delivery Device Liter Flow Critical Value Sodium 145 Potassium 3.5 D Chloride 106 Carbon Dioxide 25.4 Anion Gap 14 BUN 28 H Creatinine 1.23 H Estimated GFR 42 L POC Glucose Random Glucose 206 H Lactic Acid Calcium 7.6 L D Total Bilirubin 1.1 H AST 275 H ALT 333 H Alkaline Phosphatase 69 Troponin I B-Natriuretic Peptide Total Protein 7.1 D Albumin 2.6 L D Nasal Screen MRSA (PCR) Stl C.difficile DNA Amp St C. diff Tox Epid 027 Random Vancomycin 6.5 Urine Opiates Screen Ur Barbiturates Screen Ur Amphetamines Screen U Benzodiazepines Scrn Urine Cocaine Screen U Cannabinoids Screen - Imaging Impressions Chest CTA 05/13/18 07:31 CONCLUSION: 1. No evidence of pulmonary embolism. 2. Chronic scarring and fibrosis. Chest X-Ray 05/13/18 20:57 CONCLUSION: Persistent bilateral infiltrates. Left base is slightly worse. Assessment and Plan - Plan //Atrial fibrillation with RVR. //Non-ST elevation NC. //Acute CHF exacerbation. = Count is up to 6.57. This could be demand related. We will control heart rate. Initially on diltiazem drip, however will switch to beta-[place]. On heparin drip. Consult cardiology. Appreciate assistance. Trend EKGs, troponins. = 05/14. Troponins have decreased to 4.25 with controlled heart rate. Cardiology following. Have ordered echocardiogram. Diuresis again today. Fluid restrictions. Appreciate assistance. //Possible sepsis on admission With leukocytosis, tachycardia, lactic acidosis CT pulmonary and gram-negative for pulmonary embolism. No evidence of lobar or atypical pneumonia. Chronic fibrosis. We will continue antibiotics. If cultures remain negative times 24 hours will discontinue. Awaiting on cultures to be verified -24 hours. //Bony fibrosis. Possibly with acute exacerbation. Exacerbation possibly causing atrial fibrillation. We will treat exacerbation with IV steroids, scheduled duo nebs Consult pulmonology. Follow-up pulmonology recommendations. //Lactic acidosis Looking back on previous admissions, it appears that patient is predisposed to lactic acidosis. We will supplement thiamine, monitor. //GERD. Chronic. Continue home medications. Discussed Condition With: Patient, nurse Discharge Planning: Pending improvement. PT consult ordered and pending.
--- NOTE | 2018-05-14 09:13 | P.PNCA ---
Subjective Interval history: Patient is still quite short of breath today. No chest pain. She had a brief run of atrial fibrillation around 4 AM today, but has returned to [facility], episode was asymptomatic. Medications and Allergies Allergies Allergy/AdvReac Type Severity Reaction Status Date / Time acetaminophen Allergy Severe ITCHY Verified 05/13/18 08:17 celecoxib Allergy Severe Tachycardia; Verified 05/13/18 08:17 HTN "stroke like symptoms" oxycodone Allergy Severe ITCHY Verified 05/13/18 08:17 procaine Allergy Severe INCREASED Verified 05/13/18 08:17 HR morphine Allergy Intermediate hives and Verified 05/13/18 08:17 itching Home Medications Medication Instructions Recorded Confirmed Type ProAir HFA 90 mcg INHALATION Q4HR PRN 05/13/18 05/13/18 History atenolol 25 mg PO DAILY 05/13/18 05/13/18 History benzonatate 200 mg PO TID 05/13/18 05/13/18 History clotrimazole 10 mg MUCOUS MEMBRANE TID 05/13/18 05/13/18 History esomeprazole magnesium 40 mg PO DAILY 05/13/18 05/13/18 History gabapentin 600 mg PO TID 05/13/18 05/13/18 History lisinopril 2.5 mg PO DAILY 05/13/18 05/13/18 History lovastatin 10 mg PO DAILY 05/13/18 05/13/18 History meclizine 25 mg PO BID 05/13/18 05/13/18 History metformin 500 mg PO BID 05/13/18 05/13/18 History mupirocin 1 applic TOPICAL TID 05/13/18 05/13/18 History prednisolone 5 mg PO BID 05/13/18 05/13/18 History probenecid 500 mg PO DAILY 05/13/18 05/13/18 History spironolacton-hydrochlorothiaz 1 tab PO DAILY 05/13/18 05/13/18 History thyroid (pork) [[place] Thyroid] 90 mg PO BID 05/13/18 05/13/18 History trazodone 50 mg PO HS 05/13/18 05/13/18 History Active Medications: Active Medications Acetaminophen (Tylenol) 650 mg PO Q4H PRN PRN Reason: Temp > 100.4 Albuterol (Duoneb Neb (Prn)) 1 ampul NEB Q2HR NEB PRN PRN Reason: SHORTNESS OF BREATH/WHEEZING Albuterol (Duoneb Neb (Han)) 1 ampul NEB Q6HR NEB [facility] Last Admin: 05/14/18 03:36 Dose: 1 ampul Aspirin (Aspirin Chew) 81 mg PO DAILY [facility] Last Admin: 05/14/18 08:33 Dose: 81 mg Benzonatate (Tessalon Perles) 200 mg PO TID [facility] Last Admin: 05/14/18 08:33 Dose: 200 mg Bisacodyl (Dulcolax Supp) 10 mg RECTAL DAILY PRN PRN Reason: SEVERE CONSITIPATION Chlorhexidine Gluconate (Chlorhexidine 2% Cloth) 3 pack TOPICAL DAILY@0400 [facility] Stop: 05/19/18 03:59 Last Admin: 05/14/18 04:18 Dose: 3 pack Chlorhexidine Gluconate (Chlorhexidine 2% Cloth) 3 pack TOPICAL DAILY@0400 PRN PRN Reason: Extra cloth needed Stop: 05/19/18 03:59 Dextrose (D50w Vial) 50 ml IV.PUSH UNSCH PRN PRN Reason: PER HYPOGLYCEMIA PROTOCOL Glucagon (Glucagon Inj) 1 mg OTHER PRN PRN PRN Reason: for Hypoglycemia Protocol Sodium Chloride (Ns Inj) 1,000 mls @ 100 mls/hr IV.CONT .Q10H [facility] Last Admin: 05/14/18 03:02 Dose: Not Given Sodium Chloride (Ns Inj) 1,000 mls @ 0 mls/hr IV.SIG BOLUS [facility] Last Infusion: 05/13/18 09:35 Dose: Infused Heparin Sodium/Dextrose (Heparin/D5w 25,000 U/250 Ml) 25,000 unit in 250 mls @ 0 mls/hr IV.CONT TITRATE PRN; Protocol PRN Reason: Per Protocol Last Titration: 05/14/18 06:34 Dose: 1,100 units/hr, 11 mls/hr Piperacillin/Tazobactam/Dextrose (Zosyn 3.375 Gm Premix) 50 mls @ 100 mls/hr IV.SIG Q6H [facility] Last Infusion: 05/14/18 06:30 Dose: Infused Insulin Aspart (Novolog Insulin [place] Sugar Inj) 0 unit SQ ACHS AND 3AM HAN; Protocol Last Admin: 05/14/18 03:00 Dose: Not Given Meclizine HCl (Antivert) 25 mg PO BID [facility] Last Admin: 05/14/18 08:33 Dose: 25 mg Methylprednisolone Sodium Succinate (Solumedrol Inj) 60 mg IV.PUSH Q6H [facility] Last Admin: 05/14/18 08:32 Dose: 60 mg Metoprolol Tartrate (Lopressor Inj) 5 mg IV.PUSH Q5M PRN PRN Reason: RAPID HEART RATE Metoprolol Tartrate (Lopressor) 100 mg PO BID [facility] Ondansetron HCl (Zofran Inj) 4 mg IV.PUSH Q6H PRN PRN Reason: NAUSEA OR VOMITING Pantoprazole Sodium (Protonix) 40 mg PO DAILY [facility] Last Admin: 05/14/18 08:33 Dose: 40 mg Pharmacy Profile Note (Vancomycin Consult Pharmacy) 1 each OTHER UNSCH PRN PRN Reason: Pharmacy to dose Pravastatin Sodium (Pravachol) 10 mg PO DAILY [facility] Last Admin: 05/14/18 08:33 Dose: 10 mg Probenecid (Benemid) 500 mg PO DAILY [facility] Last Admin: 05/13/18 10:05 Dose: Not Given Sennosides (Senokot) 17.2 mg PO Q12H PRN PRN Reason: Moderate Constipation Sodium Chloride (Ns Flush) 2 ml IV.FLUSH BID [facility] Last Admin: 05/14/18 08:33 Dose: 2 ml Sodium Chloride (Ns Flush) 2 ml IV.FLUSH PRN PRN PRN Reason: FLUSH AFTER USING IV ACCESS Thyroid ([place] Thyroid) 90 mg PO BID [facility] Last Admin: 05/13/18 21:21 Dose: 90 mg Physical Exam Vital signs: Vital Signs 05/13/18 09:26 05/13/18 09:35 05/13/18 10:09 Temperature Pulse Rate 128 H 118 H 137 H Respiratory Rate 16 30 H 30 H Blood Pressure 118/65 127/75 Pulse Oximetry 94 L 93 L 93 L 05/13/18 10:55 05/13/18 11:00 05/13/18 11:21 Temperature Pulse Rate 134 H 127 H 121 H Respiratory Rate 34 H 34 H 54 H Blood Pressure 134/81 Pulse Oximetry 98 98 70 L 05/13/18 11:25 05/13/18 11:30 05/13/18 11:45 Temperature Pulse Rate 132 H 132 H 125 H Respiratory Rate 48 H 41 H 36 H Blood Pressure 161/87 H 151/78 H 123/59 L Pulse Oximetry 94 L 88 L 100 05/13/18 12:00 05/13/18 12:15 05/13/18 12:30 Temperature 98.5 F Pulse Rate 116 H 117 H 100 H Respiratory Rate 37 H 44 H 35 H Blood Pressure 118/70 128/58 L 112/61 Pulse Oximetry 100 100 99 05/13/18 12:45 05/13/18 13:00 05/13/18 13:15 Temperature Pulse Rate 107 H 85 84 Respiratory Rate 36 H 38 H 34 H Blood Pressure 121/70 129/75 124/69 Pulse Oximetry 97 100 100 05/13/18 13:30 05/13/18 13:45 05/13/18 14:00 Temperature Pulse Rate 90 90 92 H Respiratory Rate 38 H 39 H 46 H Blood Pressure 124/67 136/78 136/74 Pulse Oximetry 100 98 98 05/13/18 14:15 05/13/18 14:30 05/13/18 14:45 Temperature Pulse Rate 90 81 71 Respiratory Rate 48 H 33 H 40 H Blood Pressure 142/72 H 132/69 119/65 Pulse Oximetry 96 100 99 05/13/18 15:00 05/13/18 15:15 05/13/18 15:30 Temperature Pulse Rate 68 67 67 Respiratory Rate 33 H 24 35 H Blood Pressure 124/67 125/66 120/60 Pulse Oximetry 99 99 98 05/13/18 15:45 05/13/18 16:00 05/13/18 16:14 Temperature 98 F Pulse Rate 67 68 68 Respiratory Rate 36 H 34 H 22 Blood Pressure 122/63 112/56 L Pulse Oximetry 99 99 05/13/18 16:15 05/13/18 16:30 05/13/18 16:45 Temperature Pulse Rate 68 70 74 Respiratory Rate 44 H 37 H 42 H Blood Pressure 121/60 115/59 L 123/65 Pulse Oximetry 95 99 95 05/13/18 17:00 05/13/18 18:00 05/13/18 19:00 Temperature Pulse Rate 74 79 80 Respiratory Rate 37 H 43 H 31 H Blood Pressure 128/67 143/73 H 141/71 H Pulse Oximetry 95 95 97 05/13/18 20:00 05/13/18 20:41 05/13/18 21:00 Temperature Pulse Rate 81 85 88 Respiratory Rate 44 H 28 H 41 H Blood Pressure 152/71 H Pulse Oximetry 98 96 97 05/13/18 21:01 05/13/18 22:00 05/13/18 23:00 Temperature 98.0 F Pulse Rate 88 90 77 Respiratory Rate 33 H 41 H 31 H Blood Pressure 138/70 Pulse Oximetry 99 94 L 96 05/14/18 00:00 05/14/18 00:26 05/14/18 01:00 Temperature Pulse Rate 79 80 81 Respiratory Rate 41 H 40 H 35 H Blood Pressure 146/73 H Pulse Oximetry 97 94 L 95 05/14/18 02:00 05/14/18 02:26 05/14/18 02:59 Temperature 97.8 F Pulse Rate 83 83 84 Respiratory Rate 34 H 62 H 38 H Blood Pressure 155/90 H 162/78 H Pulse Oximetry 95 95 98 05/14/18 03:00 05/14/18 03:01 05/14/18 03:36 Temperature Pulse Rate 84 83 85 Respiratory Rate 39 H 34 H 24 Blood Pressure 162/90 H Pulse Oximetry 96 96 05/14/18 04:00 05/14/18 05:00 05/14/18 05:01 Temperature Pulse Rate 92 H 94 H 94 H Respiratory Rate 39 H 37 H 40 H Blood Pressure 159/70 H 128/82 Pulse Oximetry 95 93 L 90 L 05/14/18 06:00 Temperature 98.2 F Pulse Rate 94 H Respiratory Rate 40 H Blood Pressure 151/83 H Pulse Oximetry 96 Intake & Output 05/13/18 05/14/18 05/14/18 18:59 06:59 18:59 Intake Total 3004 / 3004 1210 / 1210 Output Total 1850 / 1850 1800 / 1800 Balance 1154 / 1154 -590 / -590 Weight 155 lb 3.287 oz Intake: IV 2524 / 2524 1100 / 1100 NS Inj 1,000 ML @ 100 mls/hr IV 1000 / 1000 1000 / 1000 .CONT .Q10H [facility] Rx#:[id number] Cardizem Inj 125 MG In NS Inj 74 / 74 100 ML @ 5 MG/HR 5 mls/hr IV. CONT TITRATE PRN Rx#:[id number] Zosyn 3.375 GM Premix 50 ML @ 100 / 100 100 / 100 100 mls/hr IV.SIG Q6H [facility] Rx#: [id number] Zosyn 4.5 GM Premix 4.5 gm In 100 / 100 100 ml @ 200 mls/hr IV.SIG Q6H [facility] Rx#:[id number] NS Inj 1,000 ML @ Wide Open IV. 1000 / 1000 SIG BOLUS HAN Rx#:[id number] Vancomycin Inj 1,000 MG In NS 250 / 250 Inj 250 ML @ 200 mls/hr IV.SIG ONCE ONE Rx#:[id number] Oral 480 / 480 110 / 110 Output: Urine 1800 / 1800 Urine Amount (Catheter) 1849 Indwelling Urethral Catheter 1849 Other: # Incontinent Voids 1 Date of Last Bowel Movement 05/13/18 # Bowel Movements 2 Narrative: GENERAL: Well-developed well-nourished. In no acute distress. NECK: No carotid bruits. No JVD. CARDIOVASCULAR: Regular rate and rhythm. No murmur appreciated. RESPIRATORY: Mildly labored breathing. Clear to auscultation. Breath sounds equal bilaterally. MUSCULOSKELETAL: No clubbing or cyanosis. No edema. NEUROLOGICAL: Awake and alert. Normal speech. - Urinary Catheter Management Indwelling Urethral Catheter Cath placed during this visit: yes Reason for continuing: Hourly intake/output Insertion date: 05/13/18 Insertion time: 06:18 Results 05/14/18 05:08 05/14/18 05:08 Cardiac Enzymes 05/13/18 05/13/18 05/13/18 Range/Units 06:05 12:12 17:23 AST 425 H (15-37) U/L CK-MB (CK-2) 6.9 H (0.5-3.6) ng/mL Troponin I 8.28 H* 6.57 H* D 5.06 H* D (0.02-0.05) ng/mL B-Natriuretic Peptide (0-100) pg/mL 05/13/18 05/13/18 05/14/18 Range/Units 20:57 23:58 05:08 AST 275 H (15-37) U/L CK-MB (CK-2) (0.5-3.6) ng/mL Troponin I 4.25 H* D (0.02-0.05) ng/mL B-Natriuretic Peptide 1034 H (0-100) pg/mL Coagulation 05/13/18 05/13/1805/13/18 Range/Units 06:05 16:22 20:57 PT 11.9 H (9.8-11.6) sec APTT 25.1 32.0 H D (24.3-30.1) sec B-Natriuretic Peptide 1034 H (0-100) pg/mL 05/13/18 05/14/18 Range/Units 23:58 05:08 PT (9.8-11.6) sec APTT 32.2 H 36.0 H (24.3-30.1) sec B-Natriuretic Peptide (0-100) pg/mL CBC 05/13/18 05/13/18 05/14/18 Range/Units 06:05 10:10 05:08 WBC 15.5 H 16.4 H 6.6 D (4.0-11.0) th/mm3 RBC 4.94 4.72 4.20 (4.00-5.30) mil/mm3 Hgb 13.3 12.8 11.4 L (11.6-15.3) gm/dL Hct 41.7 40.6 36.3 (35.0-46.0) % Plt Count 298 238 219 (150-450) th/mm3 Neut # (Auto) 12.1 H 6.3 (1.8-7.7) th/mm3 Lymph # (Auto) 2.1 0.3 L (1.0-4.8) th/mm3 [place] # (Auto) 1.2 H 0.1 (0.0-0.9) th/mm3 Eos # (Auto) 0.0 0.0 (0.0-0.4) th/mm3 Baso # (Auto) 0.1 0.0 (0.0-0.2) th/mm3 Comprehensive Metabolic Panel 05/13/18 05/14/18 Range/Units 06:05 05:08 Sodium 145 145 (136-145) meq/L Potassium 4.5 3.5 D (3.5-5.1) meq/L Chloride 104 106 (98-107) meq/L Carbon Dioxide 27.4 25.4 (21.0-32.0) meq/L BUN 53 H 28 H (7-18) mg/dL Creatinine 1.35 H 1.23 H (0.50-1.00) mg/dL Calcium 9.6 7.6 L D (8.5-10.1) mg/dL AST 425 H 275 H (15-37) U/L ALT 344 H 333 H (10-53) U/L Alkaline Phosphatase 82 69 (45-117) U/L Total Protein 8.1 7.1 D (6.4-8.2) g/dL Albumin 3.2 L 2.6 L D (3.4-5.0) g/dL Intake and Output 05/13/18 05/14/18 05/14/18 22:59 06:59 14:59 Intake Total 530 / 530 1210 / 1210 Output Total 1250 / 1250 1800 / 1800 Balance -720 / -720 -590 / -590 Intake: IV 50 / 50 1100 / 1100 NS Inj 1,000 ML @ 100 mls/hr IV 1000 / 1000 .CONT .Q10H [facility] Rx#:[id number] Zosyn 3.375 GM Premix 50 ML @ 50 / 50 100 / 100 100 mls/hr IV.SIG Q6H [facility] Rx#: [id number] Oral 480 / 480 110 / 110 Output: Urine 1800 / 1800 Urine Amount (Catheter) 1250 / 1250 Indwelling Urethral Catheter 1250 / 1250 Other: # Incontinent Voids 1 Date of Last Bowel Movement 05/13/18 05/13/18 # Bowel Movements 2 Weight 155 lb 3.287 oz - Imaging and Cardiology Imaging: Impressions Chest X-Ray 05/13/18 05:50 CONCLUSION: 1. Stable pulmonary fibrosis pattern. 2. No acute abnormality or significant interval change. Head CT 05/13/18 05:50 CONCLUSION: 1. Senescent changes without acute intracranial abnormality. . Chest CTA 05/13/18 07:31 CONCLUSION: 1. No evidence of pulmonary embolism. 2. Chronic scarring and fibrosis. Chest X-Ray 05/13/18 20:57 CONCLUSION: Persistent bilateral infiltrates. Left base is slightly worse. Assessment and Plan - Plan Assessment: 77-year-old lady with pulmonary fibrosis on 3 L continuous supplemental home oxygen presents with altered mental status. She was found to have atrial fibrillation with rapid ventricular response of new onset, leukocytosis with a left shift, significant transaminitis, likely mild DONATO and elevated troponin consistent with NSTEMI. #1 atrial fibrillation with rapid ventricular response: New onset. Spontaneously cardioverted and currently NSR. #2 NSTEMI: Currently asymptomatic and denies any recent anginal chest pain symptoms. EKG shows sinus rhythm with APCs, RBBB with diffuse ST-T wave abnormality in the anterior lateral and inferior distribution mostly unchanged from prior. Troponin is currently downtrending. #3 altered mental status #4 leukocytosis with left shift, SIRS #5 pulmonary fibrosis on chronic supplemental oxygen therapy #6 transaminitis #7 DONATO with elevated BUN suggestive of prerenal azotemia Recommendations: -Continue aspirin 81 mg daily -Continue heparin drip ACS protocol for medical management of NSTEMI -We will plan for LHC, but await improvement in respiratory status, possibly Thursday -Increase metoprolol tartrate to 100 mg twice daily -Hold on statin therapy with underlying transaminitis -Rest per primary team. Discussed Condition With: Patient, RN, Dr. Mcneil - Attending Attestation NPO p CHELY thursday will decide thursday if LHC candidate with improved clinical status
[2018-05-14] MEDS ORDERED: Aspirin 325 MG Tablet PO SCH (11:08)
--- NOTE | 2018-05-14 11:19 | ECHRPT ---
Indication: HEART FAILURE CONCLUSIONS Normal left ventricular size. Wall thickness is upper normal. The left ventricular systolic function is normal with an estimated ejection fraction in the range of 55-60%. Normal left ventricular wall motion. The right ventricle is moderately dilated. The right ventricular systoilc function is moderately decreased. Mild mitral annular calcification. Trace mitral regurgitation. Mild aortic valve regurgitation. Diffuse mild calcification of the aortic valve. There is trace tricuspid valve regurgitation. The estimated pulmonary arterial pressure is 45 mmHg . BP: / HR: Rhythm: MEASUREMENTS (Male / Female) Normal Values Technical Quality: 2D ECHO LV Diastolic Diameter PLAX 3.7 cm 4.2 - 5.9 / 3.9 - 5.3 cm LV Systolic Diameter PLAX 1.8 cm IVS Diastolic Thickness 1.0 cm 0.6 - 1.0 / 0.6 - 0.9 cm LVPW Diastolic Thickness 1.0 cm 0.6 - 1.0 / 0.6 - 0.9 cm LV Relative Wall Thickness 0.5 RV Internal Dim ED PLAX 4.0 cm LVOT Diameter 1.6 cm Aortic Root Diameter 3.1 cm LA Systolic Diameter LX 3.7 cm 3.0 - 4.0 / 2.7 - 3.8 cm LV Ejection Fraction MOD 4C 56.4 % LV Ejection Fraction 4C AL 56.9 % M-MODE Aortic Root Diameter MM 3.3 cm LA Systolic Diameter MM 4.5 cm LA Ao Ratio MM 1.4 AV Cusp Separation MM 1.6 cm DOPPLER AV Peak Velocity 232.2 cm/s AV Peak Gradient 21.6 mmHg AV Mean Gradient 9.7 mmHg AV Velocity Time Integral 41.5 cm AI Peak Velocity 467.0 cm/s AI Peak Gradient 87.2 mmHg AI Pressure Half Time 396.0 ms MV Peak Velocity 103.0 cm/s MV Peak Gradient 4.2 mmHg MV Mean Velocity 56.4 cm/s MV Mean Gradient 2.0 mmHg Mitral E Point Velocity 62.7 cm/s Mitral A Point Velocity 109.0 cm/s Mitral E to A Ratio 0.6 LV E' Lateral Velocity 5.7 cm/s Mitral E to LV E' Lateral Ratio 11.1 LV E' Septal Velocity 3.0 cm/s Mitral E to LV E' Septal Ratio 20.8 TR Peak Velocity 326.0 cm/s TR Peak Gradient 42.5 mmHg Right Atrial Pressure 10.0 mmHg Pulmonary Artery Systolic Pressu 52.5 mmHg Right Ventricular Systolic Press 52.5 mmHg PV Peak Velocity 129.0 cm/s PV Peak Gradient 6.7 mmHg FINDINGS LEFT VENTRICLE Normal left ventricular size. Wall thickness is upper normal. The left ventricular systolic function is normal with an estimated ejection fraction in the range of 55-60%. Normal left ventricular wall motion. RIGHT VENTRICLE The right ventricle is moderately dilated. The right ventricular systoilc function is moderately decreased. LEFT ATRIUM The left atrial size is normal. RIGHT ATRIUM The right atrial size is normal. ATRIAL SEPTUM Normal atrial septal thickness without atrial level shunting by limited color doppler interrogation. AORTA The aortic root and proximal ascending aorta are normal in size on limited imaging. MITRAL VALVE Mild mitral annular calcification. Trace mitral regurgitation. AORTIC VALVE Mild aortic valve regurgitation. Diffuse mild calcification of the aortic valve. TRICUSPID VALVE There is trace tricuspid valve regurgitation. The estimated pulmonary arterial pressure is 45 mmHg. PULMONARY VALVE No pulmonary valve regurgitation or stenosis. VESSELS The inferior vena cava is normal in size. PERICARDIUM No pericardial effusion. Luigi Purvis MD (Electronically Signed) Final Date:14 May 2018 11:18
[2018-05-14] MEDS: Heparin Drip 25,000 UNIT/250 ML BAG IV.CONT PRN (11:20)
--- NOTE | 2018-05-14 12:13 | ECG ---
Date Performed: 05/14/2018 Time Performed: 00:44:00 PTAGE: 77 years EKG: Sinus rhythm . Right bundle branch block Inferior infarct - age undetermined Lateral ST-T changes may be due to my ocardial ischemia Abnormal ECG PREVIOUS TRACING : 05/13/2018 20.11 Since the previous tracing, no significant change noted DOCTOR: Ariel Reardon Interpretating Date/Time 05/14/2018 12:12:18
[2018-05-14] MEDS: Vancomycin Inj 1,250 MG in Sodium Chlor 0.9% Inj 250 ML IV.SIG SCH (12:51)
--- NOTE | 2018-05-14 15:57 | ECG ---
Date Performed: 05/13/2018 Time Performed: 11:32:14 PTAGE: 77 years EKG: ATRIAL FIBRILLATION WITH RAPID VENTRICULAR RESPONSE INTRAVENTRICULAR CONDUCTION DELAY When compared to previous tracing, atrial fibrillation with rapid Ventricular response has replaced sinus tachycardia. ABNORMAL ECG PREVIOUS TRACING : 05/13/2018 06.51 DOCTOR: Ariel Reardon Interpretating Date/Time 05/14/2018 15:55:46
--- NOTE | 2018-05-14 15:57 | ECG ---
Date Performed: 05/13/2018 Time Performed: 20:11:37 PTAGE: 77 years EKG: Sinus rhythm RIGHT BUNDLE BRANCH BLOCK ST DEVIATION AND MODERATE T-WAVE ABNORMALITY, CONSIDER LATERAL ISCHEMIA ST DEVIATION AND MODERATE T-WAVE ABNORMALITY, CONSIDER INFERIOR ISCHEMIA When compared to previous trac ing, sinus rhythm is now present. ABNORMAL ECG PREVIOUS TRACING : 05/13/2018 11.32 DOCTOR: Ariel Reardon Interpretating Date/Time 05/14/2018 15:56:36
--- NOTE | 2018-05-14 20:04 | MB ---
cc: Willian Dorsey MD DATE: 05/14/2018 REASON FOR CONSULTATION: Pulmonary fibrosis. HISTORY OF PRESENT ILLNESS: The patient is a 77-year-old female with a history of chronic pulmonary fibrosis, on home oxygen therapy at 3 liters via nasal cannula, admitted with altered mental status. The patient was in atrial fibrillation with a rapid ventricular response between 130 and 140 beats per minute. The patient has converted to sinus rhythm spontaneously. She does have shortness of breath on a chronic basis, which she tells me is worse at present. She denies a history of fever, chills, cough, expectoration or hemoptysis. Denies a history of TB or previous industrial exposure. PAST MEDICAL HISTORY: Pulmonary fibrosis and chronic respiratory failure, on oxygen therapy, atrial fibrillation, coronary artery disease, diabetes mellitus, hypertension, hyperlipidemia, hypothyroidism. SOCIAL HISTORY: Does not smoke, does not drink. FAMILY HISTORY: Noncontributory. REVIEW OF SYSTEMS: A 12-point review of systems as per HPI and past history, otherwise negative. MEDICATIONS: 1. Nebulized DuoNeb. 2. Aspirin. 3. Tessalon. 4. Dulcolax. 5. Chlorhexidine. 6. Solu-Medrol IV. 7. Metoprolol. 8. Pantoprazole. 9. Piperacillin/tazobactam. 10. Pravastatin. 11. Thyroid replacement therapy. ALLERGIES: ACETAMINOPHEN, CELECOXIB, OXYCODONE PROCAINE AND MORPHINE. PHYSICAL EXAMINATION: GENERAL: The patient is alert. VITAL SIGNS: Temperature 98, pulse 100, respirations 18, blood pressure 160/70, oxygen saturation 94% on oxygen therapy. HEENT: Unremarkable. Eyes without icterus. NECK: Without adenopathy or thyroid enlargement. Central trachea. CHEST: No dullness to percussion. Rhonchi at bases. CARDIAC: PMI distant. S1, S2 audible. No murmur. No rub. ABDOMEN: Lax. Bowel sounds audible. EXTREMITIES: No clubbing, cyanosis. Trace edema. LABORATORY DATA: CT angiogram, chronic pulmonary fibrosis, no evidence of pulmonary embolism. Echocardiogram, evidence of pulmonary hypertension and reduced right ventricular function, left ventricular function adequate. LABORATORY DATA: White count 6.6, hemoglobin 11, hematocrit 36, platelets 219,000. INR 1.2. ABG with pH of 7.8, pCO2 of 29, pO2 of 67 on 3 liters oxygen nasal cannula. Sodium 145, potassium 3.5, BUN 28, creatinine 1.2. IMPRESSION: 1. Pulmonary fibrosis with associated pulmonary hypertension. 2. Chronic respiratory failure, on oxygen therapy. 3. Atrial fibrillation. 4. Diabetes mellitus. 5. Hypertension. 6. Hypothyroidism. 7. Hyperlipidemia. PLAN: The patient will be maintained on oxygen therapy as needed. She seems to have an exacerbation of her pulmonary fibrosis and steroid therapy on an empiric basis would be appropriate. Her pulmonary hypertension is secondary to her pulmonary fibrosis. Attempt at treatment may be helpful and we will start on sildenafil 3 times a day. Maintain her on her present nebulized DuoNeb. Post discharge, further evaluation for underlying nocturnal hypoxemia or sleep disordered breathing would be appropriate. We will follow her course along with you and depending on progress, proceed further. I do thank you for asking me to partake in Ms. Eason's care. Willian Dorsey MD WWW/ac , 07:38 PM , 07:49 PM
[2018-05-15] MEDS: Piperacil/Tazo 3.375 GM Premix 50 ML IV.SIG SCH ×5 (00:09→23:53)
[2018-05-15] MEDS: Heparin Drip 25,000 UNIT/250 ML BAG IV.CONT PRN ×2 (00:09→18:54)
[2018-05-15] MEDS: Sod Chloride 0.9% Inj 1,000 ML IV.CONT SCH ×5 (01:04→20:20)
[2018-05-15] MEDS: MethylPREDNISolone Sod Succinate Inj 125 MG/2 ML Vial IV.PUSH SCH ×4 (01:05→20:19)
[2018-05-15] MEDS ORDERED: Haloperidol Inj 5 MG/ML Ampul IM ONE (01:47)
[2018-05-15 02:01] LABS: ABG Base Excess 1.2 mmol/L (-2-2); ABG PCO2 36 mmHg (38-42); ABG PO2 85 mmHG (61-120)
[2018-05-15 04:07] LABS: Baso % (Auto) 0.1 % (0.0-2.0); Hematocrit 34.1 % (35.0-46.0); Hemoglobin 10.6 gm/dL (11.6-15.3); Lymph # (Auto) 0.4 th/mm3 (1.0-4.8); Lymph % (Auto) 6.9 % (9.0-44.0); Mean Corpuscular HGB Conc 31.2 % (32.0-36.0); Mean Corpuscular Volume 86.5 fL (80.0-100.0); Mean Platelet Volume 8.5 fL (7.0-11.0); Mono # (Auto) 0.2 th/mm3 (0.0-0.9); Mono % (Auto) 3.5 % (0.0-8.0); Neut % (Auto) 89.5 % (16.0-70.0); Platelet Count 204 th/mm3 (150-450); Red Blood Count 3.95 mil/mm3 (4.00-5.30); Red Cell Distribution Width 17.9 % (11.6-17.2); White Blood Count 5.6 th/mm3 (4.0-11.0)
[2018-05-15 04:40] LABS: Albumin 2.5 g/dL (3.4-5.0); Calcium 7.4 mg/dL (8.5-10.1); Carbon Dioxide 27.2 meq/L (21.0-32.0); Magnesium 1.2 mg/dL (1.5-2.5); Phosphorus 2.4 mg/dL (2.5-4.9)
[2018-05-15 04:41] LABS: Potassium 2.8 meq/L (3.5-5.1)
[2018-05-15] MEDS ORDERED: Potassium Chlor 20 mEq Premix 20 MEQ/100 ML PIGGYBACK IV.SIG PRN (05:01)
[2018-05-15] MEDS ORDERED: Sodium Phosphate Inj 30 MMOL in Sodium Chlor 0.9% Inj 250 ML IV.SIG PRN (05:01)
[2018-05-15] MEDS ORDERED: Magnesium Sulfate Inj 4 GM in Sodium Chlor 0.9% Inj 92 ML IV.SIG PRN (05:01)
[2018-05-15] MEDS ORDERED: Potassium Phosphate 500 MG Soluble Tablet PO PRN ×2 (05:01)
[2018-05-15] MEDS ORDERED: Potassium Chloride 25 MEQ Effervescent Tablet PO PRN (05:01)
[2018-05-15] MEDS ORDERED: Potassium Chlor 40 mEq Premix 40 MEQ/100 ML PIGGYBACK IV.SIG PRN ×2 (05:01)
[2018-05-15] MEDS ORDERED: Potassium Phosphate Inj 30 MMOL in Sodium Chlor 0.9% Inj 250 ML IV.SIG PRN (05:01)
[2018-05-15 05:41] LABS: Calcium 7.5 mg/dL (8.5-10.1); Total Protein 6.5 g/dL (6.4-8.2)
[2018-05-15] MEDS: Insulin NovoLOG Aspart Correctional Sugar Inj SQ SCH ×5 (05:55→20:21)
[2018-05-15] MEDS: Chlorhexidine Gluconate 2% 1 Pack (2 Cloths) TOPICAL SCH (05:55)
[2018-05-15] MEDS: Magnesium Sulfate Inj 2 GM in Sodium Chlor 0.9% Inj 96 ML IV.SIG PRN (05:56)
[2018-05-15] MEDS ORDERED: HYDROmorphone PF Inj 2 MG/ML Vial IV.PUSH ONE (07:00)
[2018-05-15] MEDS: Benzonatate 100 MG Capsule PO SCH ×3 (08:41→17:15)
[2018-05-15] MEDS: Metoprolol Tartrate 50 MG Tablet PO SCH ×2 (08:41→20:18)
[2018-05-15 08:54] LABS: Troponin I 1.76 ng/mL (0.02-0.05)
--- NOTE | 2018-05-15 09:27 | P.PNIM ---
Physical Exam Vital signs: Vital Signs 05/14/18 09:32 05/14/18 09:34 05/14/18 10:00 Temperature Pulse Rate 82 85 Respiratory Rate 22 33 H Blood Pressure 137/73 Pulse Oximetry 96 96 05/14/18 11:00 05/14/18 12:00 05/14/18 13:00 Temperature 98.3 F Pulse Rate 86 87 88 Respiratory Rate 31 H 32 H 36 H Blood Pressure 149/77 H 149/80 H 160/89 H Pulse Oximetry 99 96 95 05/14/18 14:00 05/14/18 14:28 05/14/18 15:00 Temperature Pulse Rate 89 86 93 H Respiratory Rate 31 H 20 31 H Blood Pressure 162/83 H 158/74 H Pulse Oximetry 94 L 93 L 05/14/18 16:00 05/14/18 17:00 05/14/18 18:00 Temperature 98 F Pulse Rate 97 H 97 H 96 H Respiratory Rate 62 H 30 H 39 H Blood Pressure 157/74 H 163/70 H 143/79 H Pulse Oximetry 94 L 96 96 05/14/18 19:00 05/14/18 19:51 05/14/18 20:00 Temperature 98.0 F Pulse Rate 100 H 100 H 100 H Respiratory Rate 38 H 22 38 H Blood Pressure 145/74 H 148/78 H Pulse Oximetry 95 98 100 05/14/18 21:00 05/14/18 22:00 05/14/18 23:00 Temperature Pulse Rate 105 H 103 H 82 Respiratory Rate 46 H 32 H 45 H Blood Pressure 154/76 H 161/74 H 132/63 Pulse Oximetry 94 L 99 100 05/15/18 00:00 05/15/18 00:01 05/15/18 01:00 Temperature 97.7 F Pulse Rate 80 79 82 Respiratory Rate 52 H 35 H 35 H Blood Pressure 140/77 Pulse Oximetry 98 96 97 05/15/18 01:01 05/15/18 01:04 05/15/18 02:00 Temperature Pulse Rate 81 81 83 Respiratory Rate 32 H 39 H 33 H Blood Pressure 146/113 H 157/73 H 167/87 H Pulse Oximetry 99 100 90 L 05/15/18 03:00 05/15/18 03:40 05/15/18 04:00 Temperature 97.1 F L Pulse Rate 81 82 87 Respiratory Rate 31 H 18 40 H Blood Pressure 155/78 H Pulse Oximetry 98 98 05/15/18 04:12 05/15/18 05:00 05/15/18 05:01 Temperature Pulse Rate 87 88 81 Respiratory Rate 40 H 37 H 33 H Blood Pressure 162/74 H 156/117 H Pulse Oximetry 95 96 95 05/15/18 06:00 05/15/18 07:00 Temperature Pulse Rate 79 90 Respiratory Rate 34 H 35 H Blood Pressure 170/71 H 171/76 H Pulse Oximetry 94 L 96 Intake & Output 05/14/18 05/15/18 05/15/18 18:59 06:59 18:59 Intake Total 2092.5 / 2092.5 1540 / 1540 Output Total 1200 / 1200 75 / 75 Balance 892.5 / 892.5 1465 / 1465 Weight 69.1 kg Intake: IV 1612.5 / 1612.5 1300 / 1300 Heparin/D5W 25,000 U/250 mL 25, 250 / 250 250 / 250 000 unit In 250 ml @ Per Protocol IV.CONT TITRATE PRN Rx #:[id number] NS Inj 1,000 ML @ 100 mls/hr IV 1000 / 1000 1000 / 1000 .CONT .Q10H BARB Rx#:[id number] Zosyn 3.375 GM Premix 50 ML @ 100 / 100 50 / 50 100 mls/hr IV.SIG Q6H BARB Rx#: [id number] Vancomycin Inj 1,250 MG In NS 262.5 / 262.5 Inj 250 ML @ 250 mls/hr IV.SIG Q24H BARB Rx#:[id number] Oral 480 / 480 240 / 240 Output: Urine 75 / 75 Urine Amount (Catheter) 1200 / 1200 0 / 0 Indwelling Urethral Catheter 1200 / 1200 0 / 0 Other: # Voids 3 # Incontinent Voids 0 Date of Last Bowel Movement 05/13/18 05/14/18 # Bowel Movements 1 2 Narrative: GENERAL: Patient sitting up in bed. Still appears short of breath, seems yesterday. Appears comfortable. SKIN: Warm and dry. HEAD: Normocephalic. EYES: No scleral icterus. No injection or drainage. NECK: Supple, trachea midline. No JVD. CARDIOVASCULAR: Regular rate and rhythm without murmurs, gallops, or rubs. RESPIRATORY: Breath sounds equal bilaterally. No accessory muscle use. GASTROINTESTINAL: Abdomen soft, non-tender, nondistended. MUSCULOSKELETAL: No cyanosis, or edema. BACK: Nontender without obvious deformity. No CVA tenderness. - Urinary Catheter Management Indwelling Urethral Catheter Cath placed during this visit: yes Reason for continuing: Hourly intake/output Insertion date: 05/13/18 Insertion time: 06:18 Results - Labs CBC & Chem 7: 05/15/18 03:15 05/15/18 03:15 Laboratory Results - last 24 hr 05/14/18 05/14/18 05/14/18 10:01 11:01 12:13 WBC RBC Hgb Hct MCV MCH MCHC RDW Plt Count MPV Neut % (Auto) Lymph % (Auto) [place] % (Auto) Eos % (Auto) Baso % (Auto) Neut # (Auto) Lymph # (Auto) [place] # (Auto) Eos # (Auto) Baso # (Auto) WBC Differential Differential Comment APTT 38.0 H Puncture Site Patient Temperature O2 Saturation ABG pH ABG pCO2 ABG pO2 ABG HCO3 ABG O2 Content ABG Base Excess ABG Methemoglobin Jase Test Hemoglobin Carboxyhemoglobin O2 Delivery Device Inspired O2 Critical Value Sodium Potassium Chloride Carbon Dioxide Anion Gap BUN Creatinine Estimated GFR POC Glucose 201 H Random Glucose Lactic Acid 2.2 H Calcium Prot Corrected Calcium Phosphorus Magnesium Total Creatine Kinase Troponin I B-Natriuretic Peptide Total Protein Albumin 05/14/18 05/14/18 05/14/18 12:56 18:04 19:32 WBC RBC Hgb Hct MCV MCH MCHC RDW Plt Count MPV Neut % (Auto) Lymph % (Auto) [place] % (Auto) Eos % (Auto) Baso % (Auto) Neut # (Auto) Lymph # (Auto) [place] # (Auto) Eos # (Auto) Baso # (Auto) WBC Differential Differential Comment APTT Puncture Site Patient Temperature O2 Saturation ABG pH ABG pCO2 ABG pO2 ABG HCO3 ABG O2 Content ABG Base Excess ABG Methemoglobin Jase Test Hemoglobin Carboxyhemoglobin O2 Delivery Device Inspired O2 Critical Value Sodium Potassium Chloride Carbon Dioxide Anion Gap BUN Creatinine Estimated GFR POC Glucose 216 H 188 H 231 H Random Glucose Lactic Acid Calcium Prot Corrected Calcium Phosphorus Magnesium Total Creatine Kinase Troponin I B-Natriuretic Peptide Total Protein Albumin 05/14/18 05/15/18 05/15/18 21:37 00:28 01:44 WBC RBC Hgb Hct MCV MCH MCHC RDW Plt Count MPV Neut % (Auto) Lymph % (Auto) [place] % (Auto) Eos % (Auto) Baso % (Auto) Neut # (Auto) Lymph # (Auto) [place] # (Auto) Eos # (Auto) Baso # (Auto) WBC Differential Differential Comment APTT 40.1 H Puncture Site Right radial Patient Temperature 98.6 O2 Saturation 94 ABG pH 7.45 H ABG pCO2 36 L ABG pO2 85 ABG HCO3 25 ABG O2 Content 13.7 ABG Base Excess 1.2 ABG Methemoglobin 1.4 Jase Test Present Hemoglobin 10.3 L Carboxyhemoglobin 1.2 O2 Delivery Device Nasal cannula Inspired O2 4 Critical Value No Sodium Potassium Chloride Carbon Dioxide Anion Gap BUN Creatinine Estimated GFR POC Glucose 126 H Random Glucose Lactic Acid Calcium Prot Corrected Calcium Phosphorus Magnesium Total Creatine Kinase Troponin I B-Natriuretic Peptide Total Protein Albumin 05/15/18 05/15/18 05/15/18 02:49 03:15 03:15 WBC 5.6 RBC 3.95 L Hgb 10.6 L Hct 34.1 L MCV 86.5 MCH 27.0 MCHC 31.2 L RDW 17.9 H Plt Count 204 MPV 8.5 Neut % (Auto) 89.5 H Lymph % (Auto) 6.9 L [place] % (Auto) 3.5 Eos % (Auto) 0.0 Baso % (Auto) 0.1 Neut # (Auto) 5.0 Lymph # (Auto) 0.4 L [place] # (Auto) 0.2 Eos # (Auto) 0.0 Baso # (Auto) 0.0 WBC Differential . Differential Comment Auto diff final APTT Puncture Site Patient Temperature O2 Saturation ABG pH ABG pCO2 ABG pO2 ABG HCO3 ABG O2 Content ABG Base Excess ABG Methemoglobin Jase Test Hemoglobin Carboxyhemoglobin O2 Delivery Device Inspired O2 Critical Value Sodium 147 H Potassium 2.8 L* Chloride 109 H Carbon Dioxide 27.2 Anion Gap 11 BUN 29 H Creatinine 1.13 H Estimated GFR 47 L POC Glucose 179 H Random Glucose 141 H Lactic Acid Calcium 7.4 L* Prot Corrected Calcium Phosphorus 2.4 L Magnesium 1.2 L Total Creatine Kinase Troponin I B-Natriuretic Peptide Total Protein Albumin 2.5 L 05/15/18 05/15/18 05/15/18 03:15 03:15 03:15 WBC RBC Hgb Hct MCV MCH MCHC RDW Plt Count MPV Neut % (Auto) Lymph % (Auto) [place] % (Auto) Eos % (Auto) Baso % (Auto) Neut # (Auto) Lymph # (Auto) [place] # (Auto) Eos # (Auto) Baso # (Auto) WBC Differential Differential Comment APTT 44.3 H Puncture Site Patient Temperature O2 Saturation ABG pH ABG pCO2 ABG pO2 ABG HCO3 ABG O2 Content ABG Base Excess ABG Methemoglobin Jase Test Hemoglobin Carboxyhemoglobin O2 Delivery Device Inspired O2 Critical Value Sodium Potassium Chloride Carbon Dioxide Anion Gap BUN Creatinine Estimated GFR POC Glucose Random Glucose Lactic Acid Calcium 7.5 L Prot Corrected Calcium 7.8 L Phosphorus Magnesium Total Creatine Kinase Troponin I B-Natriuretic Peptide 759 H Total Protein 6.5 D Albumin 05/15/18 05/15/18 07:45 08:14 WBC RBC Hgb Hct MCV MCH MCHC RDW Plt Count MPV Neut % (Auto) Lymph % (Auto) [place] % (Auto) Eos % (Auto) Baso % (Auto) Neut # (Auto) Lymph # (Auto) [place] # (Auto) Eos # (Auto) Baso # (Auto) WBC Differential Differential Comment APTT Puncture Site Patient Temperature O2 Saturation ABG pH ABG pCO2 ABG pO2 ABG HCO3 ABG O2 Content ABG Base Excess ABG Methemoglobin Jase Test Hemoglobin Carboxyhemoglobin O2 Delivery Device Inspired O2 Critical Value Sodium Potassium Chloride Carbon Dioxide Anion Gap BUN Creatinine Estimated GFR POC Glucose 163 H Random Glucose Lactic Acid Calcium Prot Corrected Calcium Phosphorus Magnesium Total Creatine Kinase 95 Troponin I 1.76 H* D B-Natriuretic Peptide Total Protein Albumin Microbiology 05/13/18 06:05 Blood - Peripheral Aerobic Blood Culture - Preliminary No growth in 1 day 05/13/18 06:05 Blood - Peripheral Anaerobic Blood Culture - Preliminary No growth in 1 day 05/13/18 06:00 Blood - Peripheral Aerobic Blood Culture - Preliminary No growth in 1 day 05/13/18 06:00 Blood - Peripheral Anaerobic Blood Culture - Preliminary No growth in 1 day Assessment and Plan - Plan //Atrial fibrillation with RVR. //Non-ST elevation TN. //Acute CHF exacerbation. //Hypertension = Count is up to 6.57. This could be demand related. We will control heart rate. Initially on diltiazem drip, however will switch to beta-camryn. On heparin drip. Consult cardiology. Appreciate assistance. Trend EKGs, troponins. = 05/14. Troponins have decreased to 4.25 with controlled heart rate. Cardiology following. Have ordered echocardiogram. Diuresis again today. Fluid restrictions. Appreciate assistance. = 05/15. Elevated blood pressures. Will start on as needed Vasotec, start amlodipine. Pulmonology is started on Revatio. Start on spironolactone due to hyperkalemia, need for diuresis. will monitor. //Possible sepsis on admission With leukocytosis, tachycardia, lactic acidosis CT pulmonary and gram-negative for pulmonary embolism. No evidence of lobar or atypical pneumonia. Chronic fibrosis. We will continue antibiotics. If cultures remain negative times 24 hours will discontinue. Awaiting on cultures to be verified -24 hours. //Pulmonary fibrosis. Possibly with acute exacerbation. Exacerbation possibly causing atrial fibrillation. We will treat exacerbation with IV steroids, scheduled [facility] Pulmonology following. Appreciate assistance. //Hypomagnesemia //hypoKalemia = 05/15. Potassium 2.8, magnesium 1.2.-Replace and monitor //Lactic acidosis Looking back on previous admissions, it appears that patient is predisposed to lactic acidosis. We will supplement thiamine, monitor. //GERD. Chronic. Continue home medications. Discharge Planning: Pending improvement. PT consult ordered and pending.
[2018-05-15] MEDS: Spironolactone 25 MG Tablet PO SCH (09:54)
[2018-05-15] MEDS: amLODIPine 5 MG Tablet PO SCH (09:54)
[2018-05-15] MEDS: Vancomycin Inj 1,250 MG in Sodium Chlor 0.9% Inj 250 ML IV.SIG SCH (10:30)
[2018-05-15 11:08] LABS: Calcium 7.2 mg/dL (8.5-10.1); Carbon Dioxide 24.3 meq/L (21.0-32.0); Potassium 3.8 meq/L (3.5-5.1)
[2018-05-15 11:32] LABS: Total Protein 6.8 g/dL (6.4-8.2)
--- NOTE | 2018-05-15 13:05 | ECG ---
Date Performed: 05/15/2018 Time Performed: 07:11:24 PTAGE: 77 years EKG: Sinus rhythm . Right bundle branch block Inferior/lateral ST-T changes may be due to myocardial ischemia Abnormal ECG PREVIOUS TRACING : 05/14/2018 00.44 DOCTOR: Yogesh Wagoner Interpretating Date/Time 05/15/2018 13:03:10
--- NOTE | 2018-05-15 14:47 | P.PNCA ---
Subjective Interval history: Mild chest pain, subsided. Medications and Allergies Active Medications: Active Medications Acetaminophen (Tylenol) 650 mg PO Q4H PRN PRN Reason: Temp > 100.4 Albuterol (Duoneb Neb (Prn)) 1 ampul NEB Q2HR NEB PRN PRN Reason: SHORTNESS OF BREATH/WHEEZING Albuterol (Duoneb Neb (Han)) 1 ampul NEB Q6HR NEB HAN Last Admin: 05/15/18 10:07 Dose: 1 ampul Amlodipine Besylate (Norvasc) 5 mg PO DAILY [facility] Last Admin: 05/15/18 09:54 Dose: 5 mg Aspirin (Aspirin Chew) 81 mg PO DAILY [facility] Last Admin: 05/15/18 08:41 Dose: 81 mg Benzonatate (Tessalon Perles) 200 mg PO TID [facility] Last Admin: 05/15/18 12:05 Dose: 200 mg Bisacodyl (Dulcolax Supp) 10 mg RECTAL DAILY PRN PRN Reason: SEVERE CONSITIPATION Chlorhexidine Gluconate (Chlorhexidine 2% Cloth) 3 pack TOPICAL DAILY@0400 [facility] Stop: 05/19/18 03:59 Last Admin: 05/15/18 05:55 Dose: Not Given Chlorhexidine Gluconate (Chlorhexidine 2% Cloth) 3 pack TOPICAL DAILY@0400 PRN PRN Reason: Extra cloth needed Stop: 05/19/18 03:59 Dextrose (D50w Vial) 50 ml IV.PUSH UNSCH PRN PRN Reason: PER HYPOGLYCEMIA PROTOCOL Enalaprilat (Vasotec Inj) 1.25 mg IV.PUSH Q6H PRN PRN Reason: SBP>160, DBP>90 Glucagon (Glucagon Inj) 1 mg OTHER PRN PRN PRN Reason: for Hypoglycemia Protocol Sodium Chloride (Ns Inj) 1,000 mls @ 100 mls/hr IV.CONT .Q10H [facility] Last Admin: 05/15/18 09:00 Dose: Not Given Heparin Sodium/Dextrose (Heparin/D5w 25,000 U/250 Ml) 25,000 unit in 250 mls @ 0 mls/hr IV.CONT TITRATE PRN; Protocol PRN Reason: Per Protocol Last Admin: 05/15/18 00:09 Dose: 1,200 units/hr, 12 mls/hr Piperacillin/Tazobactam/Dextrose (Zosyn 3.375 Gm Premix) 50 mls @ 100 mls/hr IV.SIG Q6H HAN Last Admin: 05/15/18 12:05 Dose: 100 mls/hr Vancomycin HCl 1,250 mg/ (Sodium Chloride) 262.5 mls @ 250 mls/hr IV.SIG Q24H HAN Last Admin: 05/15/18 10:30 Dose: 250 mls/hr Magnesium Sulfate 4 gm/ Sodium (Chloride) 100 mls @ 50 mls/hr IV.SIG UNSCH PRN PRN Reason: For Magnesium 0.9 - 1.1 mg/dL Magnesium Sulfate 2 gm/ Sodium (Chloride) 100 mls @ 50 mls/hr IV.SIG UNSCH PRN PRN Reason: For Magnesium 1.2 - 1.6 mg/dL Last Admin: 05/15/18 05:56 Dose: 50 mls/hr Potassium Chloride (Kcl 40 Meq Premix Inj) 40 meq in 100 mls @ 25 mls/hr IV.SIG Q2H PRN PRN Reason: For Potassium 2.8 - 3.2 mEq/L Potassium Chloride (Kcl 20 Meq Premix Inj) 20 meq in 100 mls @ 50 mls/hr IV.SIG Q2H PRN PRN Reason: For Potassium 3.3 - 3.5 mEq/L Last Admin: 05/15/18 05:56 Dose: 50 mls/hr Potassium Chloride (Kcl 40 Meq Premix Inj) 40 meq in 100 mls @ 25 mls/hr IV.SIG UNSCH PRN PRN Reason: For Potassium 3.3 - 3.5 mEq/L Potassium Chloride (Kcl 20 Meq Premix Inj) 20 meq in 100 mls @ 50 mls/hr IV.SIG Q2H PRN PRN Reason: For Potassium 2.8 - 3.2 mEq/L Potassium Phosphate 30 mmol/ (Sodium Chloride) 260 mls @ 42 mls/hr IV.SIG UNSCH PRN PRN Reason: SEE LABEL COMMENTS Last Admin: 05/15/18 05:56 Dose: 42 mls/hr Sodium Phosphate 30 mmol/ (Sodium Chloride) 260 mls @ 42 mls/hr IV.SIG UNSCH PRN PRN Reason: For Phosphorus < 2.5 mg/dL Insulin Aspart (Novolog Insulin Correctional Sugar Inj) 0 unit SQ ACHS AND 3AM HAN; Protocol Last Admin: 05/15/18 11:58 Dose: Not Given Magnesium Oxide (Mag-Ox) 800 mg PO UNSCH PRN PRN Reason: For Magnesium 1.2 - 1.6 mg/dL Meclizine HCl (Antivert) 25 mg PO BID [facility] Last Admin: 05/15/18 08:42 Dose: 25 mg Methylprednisolone Sodium Succinate (Solumedrol Inj) 60 mg IV.PUSH Q6H [facility] Last Admin: 05/15/18 13:05 Dose: 60 mg Metoprolol Tartrate (Lopressor Inj) 5 mg IV.PUSH Q5M PRN PRN Reason: RAPID HEART RATE Metoprolol Tartrate (Lopressor) 100 mg PO BID [facility] Last Admin: 05/15/18 08:41 Dose: 100 mg Miscellaneous Information ([facility] Ordered Lab Info) 0 each OTHER ONCE ONE Stop: 05/16/18 10:46 Ondansetron HCl (Zofran Inj) 4 mg IV.PUSH Q6H PRN PRN Reason: NAUSEA OR VOMITING Pantoprazole Sodium (Protonix) 40 mg PO DAILY [facility] Last Admin: 05/15/18 08:41 Dose: 40 mg Pharmacy Profile Note (Vancomycin Consult Pharmacy) 1 each OTHER UNSCH PRN PRN Reason: Pharmacy to dose Potassium Bicarb/Potassium Chloride (K-Lyte Cl Eff) 50 meq PO UNSCH PRN PRN Reason: For Potassium 3.3 - 3.5 mEq/L Potassium Phosphate (K-Phos Original) 2,000 mg PO UNSCH PRN PRN Reason: SEE LABEL COMMENTS Potassium Phosphate (K-Phos Original) 2,000 mg PO Q4H PRN PRN Reason: Phosphorus Less Than 2.5 mg/dL Pravastatin Sodium (Pravachol) 10 mg PO DAILY [facility] Last Admin: 05/15/18 08:41 Dose: 10 mg Probenecid (Benemid) 500 mg PO DAILY [facility] Last Admin: 05/15/18 09:54 Dose: 500 mg Sennosides (Senokot) 17.2 mg PO Q12H PRN PRN Reason: Moderate Constipation Sildenafil Citrate (Revatio) 20 mg PO TID [facility] Last Admin: 05/15/18 12:05 Dose: 20 mg Sodium Chloride (Ns Flush) 2 ml IV.FLUSH BID [facility] Last Admin: 05/15/18 09:54 Dose: 2 ml Sodium Chloride (Ns Flush) 2 ml IV.FLUSH PRN PRN PRN Reason: FLUSH AFTER USING IV ACCESS Spironolactone (Aldactone) 25 mg PO DAILY [facility] Last Admin: 05/15/18 09:54 Dose: 25 mg Thyroid ([place] Thyroid) 90 mg PO BID [facility] Last Admin: 05/15/18 08:41 Dose: 90 mg Allergies Allergy/AdvReac Type Severity Reaction Status Date / Time acetaminophen Allergy Severe ITCHY Verified 05/13/18 08:17 celecoxib Allergy Severe Tachycardia; Verified 05/13/18 08:17 HTN "stroke like symptoms" oxycodone Allergy Severe ITCHY Verified 05/13/18 08:17 procaine Allergy Severe INCREASED Verified 05/13/18 08:17 HR morphine Allergy Intermediate hives and Verified 05/13/18 08:17 itching Home Medications Medication Instructions Recorded Confirmed Type ProAir HFA 90 mcg INHALATION Q4HR PRN 05/13/18 05/13/18 History atenolol 25 mg PO DAILY 05/13/18 05/13/18 History benzonatate 200 mg PO TID 05/13/18 05/13/18 History clotrimazole 10 mg MUCOUS MEMBRANE TID 05/13/18 05/13/18 History esomeprazole magnesium 40 mg PO DAILY 05/13/18 05/13/18 History gabapentin 600 mg PO TID 05/13/18 05/13/18 History lisinopril 2.5 mg PO DAILY 05/13/18 05/13/18 History lovastatin 10 mg PO DAILY 05/13/18 05/13/18 History meclizine 25 mg PO BID 05/13/18 05/13/18 History metformin 500 mg PO BID 05/13/18 05/13/18 History mupirocin 1 applic TOPICAL TID 05/13/18 05/13/18 History prednisolone 5 mg PO BID 05/13/18 05/13/18 History probenecid 500 mg PO DAILY 05/13/18 05/13/18 History spironolacton-hydrochlorothiaz 1 tab PO DAILY 05/13/18 05/13/18 History thyroid (pork) [[place] Thyroid] 90 mg PO BID 05/13/18 05/13/18 History trazodone 50 mg PO HS 05/13/18 05/13/18 History Physical Exam Vital signs: Vital Signs 05/14/18 15:00 05/14/18 16:00 05/14/18 17:00 Temperature 98 F Pulse Rate 93 H 97 H 97 H Respiratory Rate 31 H 62 H 30 H Blood Pressure 158/74 H 157/74 H 163/70 H Pulse Oximetry 93 L 94 L 96 05/14/18 18:00 05/14/18 19:00 05/14/18 19:51 Temperature Pulse Rate 96 H 100 H 100 H Respiratory Rate 39 H 38 H 22 Blood Pressure 143/79 H 145/74 H Pulse Oximetry 96 95 98 05/14/18 20:00 05/14/18 21:00 05/14/18 22:00 Temperature 98.0 F Pulse Rate 100 H 105 H 103 H Respiratory Rate 38 H 46 H 32 H Blood Pressure 148/78 H 154/76 H 161/74 H Pulse Oximetry 100 94 L 99 05/14/18 23:00 05/15/18 00:00 05/15/18 00:01 Temperature 97.7 F Pulse Rate 82 80 79 Respiratory Rate 45 H 52 H 35 H Blood Pressure 132/63 140/77 Pulse Oximetry 100 98 96 05/15/18 01:00 05/15/18 01:01 05/15/18 01:04 Temperature Pulse Rate 82 81 81 Respiratory Rate 35 H 32 H 39 H Blood Pressure 146/113 H 157/73 H Pulse Oximetry 97 99 100 05/15/18 02:00 05/15/18 03:00 05/15/18 03:40 Temperature Pulse Rate 83 81 82 Respiratory Rate 33 H 31 H 18 Blood Pressure 167/87 H 155/78 H Pulse Oximetry 90 L 98 05/15/18 04:00 05/15/18 04:12 05/15/18 05:00 Temperature 97.1 F L Pulse Rate 87 87 88 Respiratory Rate 40 H 40 H 37 H Blood Pressure 162/74 H Pulse Oximetry 98 95 96 05/15/18 05:01 05/15/18 06:00 05/15/18 07:00 Temperature Pulse Rate 81 79 90 Respiratory Rate 33 H 34 H 35 H Blood Pressure 156/117 H 170/71 H 171/76 H Pulse Oximetry 95 94 L 96 05/15/18 08:00 05/15/18 09:00 05/15/18 10:00 Temperature 97.7 F Pulse Rate 86 91 H 74 Respiratory Rate 34 H 42 H 37 H Blood Pressure 163/71 H 179/81 H 148/66 H Pulse Oximetry 98 91 L 94 L 05/15/18 10:08 05/15/18 11:00 05/15/18 12:00 Temperature 97.6 F Pulse Rate 74 74 72 Respiratory Rate 24 32 H 55 H Blood Pressure 145/68 H 137/65 Pulse Oximetry 94 L 94 L 98 Intake & Output 05/14/18 05/15/18 05/15/18 18:59 06:59 18:59 Intake Total 2092.5 / 2092.5 1590 / 1590 Output Total 1200 / 1200 75 / 75 Balance 892.5 / 892.5 1515 / 1515 Weight 69.1 kg Intake: IV 1612.5 / 1612.5 1350 / 1350 Heparin/D5W 25,000 U/250 mL 25, 250 / 250 250 / 250 000 unit In 250 ml @ Per Protocol IV.CONT TITRATE PRN Rx #:[id number] NS Inj 1,000 ML @ 100 mls/hr IV 1000 / 1000 1000 / 1000 .CONT .Q10H HAN Rx#:[id number] Zosyn 3.375 GM Premix 50 ML @ 100 / 100 100 / 100 100 mls/hr IV.SIG Q6H HAN Rx#: [id number] Vancomycin Inj 1,250 MG In NS 262.5 / 262.5 Inj 250 ML @ 250 mls/hr IV.SIG Q24H HAN Rx#:[id number] Oral 480 / 480 240 / 240 Output: Urine 75 / 75 Urine Amount (Catheter) 1200 / 1200 0 / 0 Indwelling Urethral Catheter 1200 / 1200 0 / 0 Other: # Voids 3 # Incontinent Voids 0 Date of Last Bowel Movement 05/13/18 05/14/18 05/14/18 # Bowel Movements 1 2 - Constitutional no acute distress, chronically ill appearing - Routine HEENT Exam Head: Present: hematoma Eye: Present: EOMI, PERRL ENT: Present: mucous membranes moist - Routine Neck Exam Present: supple, full ROM, JVD. Absent: carotid bruit - Routine Respiratory Exam Present: rales, wheezes, distant breath sounds, diminished air movement - Routine Cardiovascular Exam Present: RRR, S1 - Routine Abdominal Exam Present: soft - Routine Skin Exam Present: intact - Routine Neurological Exam Present: alert, oriented X3, CN II-XII intact - Urinary Catheter Management Indwelling Urethral Catheter Cath placed during this visit: yes Reason for continuing: Hourly intake/output Insertion date: 05/13/18 Insertion time: 06:18 Results 05/15/18 03:15 05/15/18 10:38 Cardiac Enzymes 05/13/18 05/13/18 05/13/18 Range/Units 17:23 20:57 23:58 AST (15-37) U/L Troponin I 5.06 H* D 4.25 H* D (0.02-0.05) ng/mL B-Natriuretic Peptide 1034 H (0-100) pg/mL 05/14/18 05/15/18 05/15/18 Range/Units 05:08 03:15 07:45 AST 275 H (15-37) U/L Troponin I 1.76 H* D (0.02-0.05) ng/mL B-Natriuretic Peptide 759 H (0-100) pg/mL Coagulation 05/13/18 05/13/18 05/13/18 Range/Units 16:22 20:57 23:58 APTT 32.0 H D 32.2 H (24.3-30.1) sec B-Natriuretic Peptide 1034 H (0-100) pg/mL 05/14/18 05/14/18 05/14/18 Range/Units 05:08 12:13 21:37 APTT 36.0 H 38.0 H 40.1 H (24.3-30.1) sec B-Natriuretic Peptide (0-100) pg/mL 05/15/18 05/15/18 Range/Units 03:15 03:15 APTT 44.3 H (24.3-30.1) sec B-Natriuretic Peptide 759 H (0-100) pg/mL CBC 05/14/18 05/15/18 Range/Units 05:08 03:15 WBC 6.6 D 5.6 (4.0-11.0) th/mm3 RBC 4.20 3.95 L (4.00-5.30) mil/mm3 Hgb 11.4 L 10.6 L (11.6-15.3) gm/dL Hct 36.3 34.1 L (35.0-46.0) % Plt Count 219 204 (150-450) th/mm3 Neut # (Auto) 6.3 5.0 (1.8-7.7) th/mm3 Lymph # (Auto) 0.3 L 0.4 L (1.0-4.8) th/mm3 Ashley # (Auto) 0.1 0.2 (0.0-0.9) th/mm3 Eos # (Auto) 0.0 0.0 (0.0-0.4) th/mm3 Baso # (Auto) 0.0 0.0 (0.0-0.2) th/mm3 Comprehensive Metabolic Panel 05/14/18 05/15/18 05/15/18 Range/Units 05:08 03:15 03:15 Sodium 145 147 H (136-145) meq/L Potassium 3.5 D 2.8 L* (3.5-5.1) meq/L Chloride 106 109 H (98-107) meq/L Carbon Dioxide 25.4 27.2 (21.0-32.0) meq/L BUN 28 H 29 H (7-18) mg/dL Creatinine 1.23 H 1.13 H (0.50-1.00) mg/dL Calcium 7.6 L D 7.4 L* 7.5 L (8.5-10.1) mg/dL AST 275 H (15-37) U/L ALT 333 H (10-53) U/L Alkaline Phosphatase 69 (45-117) U/L Total Protein 7.1 D 6.5 D (6.4-8.2) g/dL Albumin 2.6 L D 2.5 L (3.4-5.0) g/dL 05/15/18 Range/Units 10:38 Sodium 144 (136-145) meq/L Potassium 3.8 D (3.5-5.1) meq/L Chloride 109 H (98-107) meq/L Carbon Dioxide 24.3 (21.0-32.0) meq/L BUN 29 H (7-18) mg/dL Creatinine 1.21 H (0.50-1.00) mg/dL Calcium 7.2 L* (8.5-10.1) mg/dL AST (15-37) U/L ALT (10-53) U/L Alkaline Phosphatase (45-117) U/L Total Protein 6.8 (6.4-8.2) g/dL Albumin (3.4-5.0) g/dL Intake and Output 05/14/18 05/15/18 05/15/18 22:59 06:59 14:59 Intake Total 1530 / 1530 590 / 590 Output Total 1200 / 1200 75 / 75 Balance 330 / 330 515 / 515 Intake: IV 1050 / 1050 350 / 350 Heparin/D5W 25,000 U/250 mL 25, 250 / 250 000 unit In 250 ml @ Per Protocol IV.CONT TITRATE PRN Rx #:[id number] NS Inj 1,000 ML @ 100 mls/hr IV 1000 / 1000 .CONT .Q10H HAN Rx#:[id number] Zosyn 3.375 GM Premix 50 ML @ 50 / 50 100 / 100 100 mls/hr IV.SIG Q6H HAN Rx#: [id number] Oral 480 / 480 240 / 240 Output: Urine 75 / 75 Urine Amount (Catheter) 1200 / 1200 0 / 0 Indwelling Urethral Catheter 1200 / 1200 0 / 0 Other: # Voids 3 # Incontinent Voids 0 Date of Last Bowel Movement 05/13/18 05/14/18 05/14/18 # Bowel Movements 1 2 Weight 69.1 kg - Imaging and Cardiology Imaging: Impressions Chest X-Ray 05/13/18 20:57 CONCLUSION: Persistent bilateral infiltrates. Left base is slightly worse. Assessment and Plan - Plan Assessment: 77-year-old lady with pulmonary fibrosis on 3 L continuous supplemental home oxygen presents with altered mental status. She was found to have atrial fibrillation with rapid ventricular response of new onset, leukocytosis with a left shift, significant transaminitis, likely mild DONATO and elevated troponin consistent with NSTEMI. #1 atrial fibrillation with rapid ventricular response: New onset. Spontaneously cardioverted and currently NSR. #2 NSTEMI: Currently asymptomatic and denies any recent anginal chest pain symptoms. EKG shows sinus rhythm with APCs, RBBB with diffuse ST-T wave abnormality in the anterior lateral and inferior distribution mostly unchanged from prior. Troponin is currently downtrending. #3 altered mental status #4 leukocytosis with left shift, SIRS #5 pulmonary fibrosis on chronic supplemental oxygen therapy #6 transaminitis #7 DONATO with elevated BUN suggestive of prerenal azotemia Recommendations: -Continue aspirin 81 mg daily -Continue heparin drip ACS protocol for medical management of NSTEMI -We will plan for LHC, but await improvement in respiratory status, possibly Thursday -Increase metoprolol tartrate to 100 mg twice daily -Hold on statin therapy with underlying transaminitis -Rest per primary team.- 05/15/18: Mild chest pain, subsided after NTG. VSS continue IV Heparin, possible LHC on Thursday per dr. Mcneil I am covering for [facility] this weekend.
[2018-05-15] MEDS ORDERED: Dexmedetomidine Inj 1,000 MCG in Sodium Chlor 0.9% Inj 240 ML IV.CONT PRN (18:23)
[2018-05-15 18:31] LABS: Phosphorus 3.9 mg/dL (2.5-4.9)
[2018-05-16] MEDS: MethylPREDNISolone Sod Succinate Inj 125 MG/2 ML Vial IV.PUSH SCH ×4 (02:20→20:10)
[2018-05-16] MEDS: Insulin NovoLOG Aspart Correctional Sugar Inj SQ SCH ×5 (02:21→20:11)
[2018-05-16 04:57] LABS: Hematocrit 30.7 % (35.0-46.0); Hemoglobin 9.8 gm/dL (11.6-15.3); Lymph # (Auto) 0.3 th/mm3 (1.0-4.8); Lymph % (Auto) 4.7 % (9.0-44.0); Mean Corpuscular HGB Conc 31.9 % (32.0-36.0); Mean Corpuscular Hemoglobin 27.4 pg (27.0-34.0); Mean Corpuscular Volume 85.7 fL (80.0-100.0); Mean Platelet Volume 8.6 fL (7.0-11.0); Mono # (Auto) 0.4 th/mm3 (0.0-0.9); Mono % (Auto) 5.3 % (0.0-8.0); Platelet Count 185 th/mm3 (150-450); Red Blood Count 3.59 mil/mm3 (4.00-5.30); White Blood Count 6.7 th/mm3 (4.0-11.0)
[2018-05-16] MEDS: Chlorhexidine Gluconate 2% 1 Pack (2 Cloths) TOPICAL SCH (05:15)
[2018-05-16] MEDS: Piperacil/Tazo 3.375 GM Premix 50 ML IV.SIG SCH ×2 (05:15→12:54)
[2018-05-16] MEDS: Sod Chloride 0.9% Inj 1,000 ML IV.CONT SCH (05:16)
[2018-05-16] MEDS: Metoprolol Tartrate 50 MG Tablet PO SCH ×2 (08:40→20:11)
[2018-05-16] MEDS: Spironolactone 25 MG Tablet PO SCH (08:40)
[2018-05-16] MEDS: amLODIPine 5 MG Tablet PO SCH (08:41)
[2018-05-16] MEDS: Benzonatate 100 MG Capsule PO SCH ×3 (08:41→18:11)
[2018-05-16] MEDS ORDERED: Pharmacy Ordered Lab Info OTHER ONE (10:45)
[2018-05-16] MEDS: Vancomycin Inj 1,250 MG in Sodium Chlor 0.9% Inj 250 ML IV.SIG SCH (11:09)
--- NOTE | 2018-05-16 12:13 | FL ---
EXAM DATE: 05/16/2018 12:00 AM EDT AGE/SEX: 77 years / Female INDICATIONS: Evaluate for stricture CLINICAL DATA: This is the patient's initial encounter. Patient reports that signs and symptoms have been present for 3 days and indicates a pain score of Nonresponsive. MEDICAL/SURGICAL HISTORY: Hypertension. None. COMPARISON: . FLUORO TIME: 1.1min IMAGE COUNT: 0 FINDINGS: A modified barium swallow was performed with speech pathology. Patient was given a variety of liquids to swallow. For a full detailed report, see report by the speech pathologist. CONCLUSION: No aspiration or penetration was seen. Electronically signed by: Jone Fletcher MD 05/16/2018 12:12 PM EDT
[2018-05-16 12:23] LABS: Albumin 2.3 g/dL (3.4-5.0); Carbon Dioxide 29.1 meq/L (21.0-32.0); Magnesium 1.4 mg/dL (1.5-2.5); Phosphorus 3.2 mg/dL (2.5-4.9); Vancomycin,Trough 13.1 mcg/mL (5.0-10.0)
[2018-05-16 12:27] LABS: Potassium 2.7 meq/L (3.5-5.1)
[2018-05-16 12:28] LABS: Calcium 7.4 mg/dL (8.5-10.1)
[2018-05-16] MEDS: Magnesium Oxide 400 MG Tablet PO PRN (12:54)
[2018-05-16] MEDS: Potassium Chlor 20 mEq Premix 20 MEQ/100 ML PIGGYBACK IV.SIG PRN ×4 (13:06→18:12)
[2018-05-16] MEDS: ALPRAZolam 0.25 MG Tablet PO SCH ×2 (13:10→22:19)
[2018-05-16] MEDS ORDERED: Dextrose 5% in Water Inj 1,000 ML IV.CONT SCH (15:30)
--- NOTE | 2018-05-16 15:56 | P.PNCA ---
Subjective Interval history: Difficulty breathing, on 100% NRB O2 Medications and Allergies Active Medications: Active Medications Acetaminophen (Tylenol) 650 mg PO Q4H PRN PRN Reason: Temp > 100.4 Albuterol (Duoneb Neb (Prn)) 1 ampul NEB Q2HR NEB PRN PRN Reason: SHORTNESS OF BREATH/WHEEZING Albuterol (Duoneb Neb (Han)) 1 ampul NEB Q6HR NEB [facility] Last Admin: 05/16/18 15:49 Dose: 1 ampul Alprazolam (Xanax) 0.25 mg PO Q8HR [facility] Last Admin: 05/16/18 13:10 Dose: 0.25 mg Amlodipine Besylate (Norvasc) 5 mg PO DAILY [facility] Last Admin: 05/16/18 08:41 Dose: 5 mg Aspirin (Aspirin Chew) 81 mg PO DAILY [facility] Last Admin: 05/16/18 08:41 Dose: 81 mg Benzonatate (Tessalon Perles) 200 mg PO TID [facility] Last Admin: 05/16/18 12:53 Dose: 200 mg Bisacodyl (Dulcolax Supp) 10 mg RECTAL DAILY PRN PRN Reason: SEVERE CONSITIPATION Chlorhexidine Gluconate (Chlorhexidine 2% Cloth) 3 pack TOPICAL DAILY@0400 [facility] Stop: 05/19/18 03:59 Last Admin: 05/16/18 05:15 Dose: 3 pack Chlorhexidine Gluconate (Chlorhexidine 2% Cloth) 3 pack TOPICAL DAILY@0400 PRN PRN Reason: Extra cloth needed Stop: 05/19/18 03:59 Dextrose (D50w Vial) 50 ml IV.PUSH UNSCH PRN PRN Reason: PER HYPOGLYCEMIA PROTOCOL Enalaprilat (Vasotec Inj) 1.25 mg IV.PUSH Q6H PRN PRN Reason: SBP>160, DBP>90 Glucagon (Glucagon Inj) 1 mg OTHER PRN PRN PRN Reason: for Hypoglycemia Protocol Heparin Sodium/Dextrose (Heparin/D5w 25,000 U/250 Ml) 25,000 unit in 250 mls @ 0 mls/hr IV.CONT TITRATE PRN; Protocol PRN Reason: Per Protocol Last Titration: 05/16/18 06:00 Dose: 1,200 units/hr, 12 mls/hr Piperacillin/Tazobactam/Dextrose (Zosyn 3.375 Gm Premix) 50 mls @ 100 mls/hr IV.SIG Q6H [facility] Last Admin: 05/16/18 12:54 Dose: 100 mls/hr Vancomycin HCl 1,250 mg/ (Sodium Chloride) 262.5 mls @ 250 mls/hr IV.SIG Q24H [facility] Last Admin: 05/16/18 11:09 Dose: 250 mls/hr Magnesium Sulfate 4 gm/ Sodium (Chloride) 100 mls @ 50 mls/hr IV.SIG UNSCH PRN PRN Reason: For Magnesium 0.9 - 1.1 mg/dL Magnesium Sulfate 2 gm/ Sodium (Chloride) 100 mls @ 50 mls/hr IV.SIG UNSCH PRN PRN Reason: For Magnesium 1.2 - 1.6 mg/dL Last Infusion: 05/15/18 08:00 Dose: Infused Potassium Chloride (Kcl 40 Meq Premix Inj) 40 meq in 100 mls @ 25 mls/hr IV.SIG Q2H PRN PRN Reason: For Potassium 2.8 - 3.2 mEq/L Potassium Chloride (Kcl 20 Meq Premix Inj) 20 meq in 100 mls @ 50 mls/hr IV.SIG Q2H PRN PRN Reason: For Potassium 3.3 - 3.5 mEq/L Last Infusion: 05/15/18 12:05 Dose: Infused Potassium Chloride (Kcl 40 Meq Premix Inj) 40 meq in 100 mls @ 25 mls/hr IV.SIG UNSCH PRN PRN Reason: For Potassium 3.3 - 3.5 mEq/L Potassium Chloride (Kcl 20 Meq Premix Inj) 20 meq in 100 mls @ 50 mls/hr IV.SIG Q2H PRN PRN Reason: For Potassium 2.8 - 3.2 mEq/L Last Admin: 05/16/18 14:57 Dose: 50 mls/hr Potassium Phosphate 30 mmol/ (Sodium Chloride) 260 mls @ 42 mls/hr IV.SIG UNSCH PRN PRN Reason: SEE LABEL COMMENTS Last Infusion: 05/15/18 12:10 Dose: Infused Sodium Phosphate 30 mmol/ (Sodium Chloride) 260 mls @ 42 mls/hr IV.SIG UNSCH PRN PRN Reason: For Phosphorus < 2.5 mg/dL Dexmedetomidine HCl 1,000 mcg/ (Sodium Chloride) 250 mls @ 3.45 mls/hr IV.CONT TITRATE PRN; Protocol PRN Reason: Per Protocol Last Titration: 05/16/18 06:00 Dose: 0.2 mcg/kg/hr, 3.45 mls/hr Dextrose (D5w Inj) 1,000 mls @ 20 mls/hr IV.CONT .Q24H [facility] Last Admin: 05/16/18 15:45 Dose: 20 mls/hr Insulin Aspart (Novolog Insulin Correctional Sugar Inj) 0 unit SQ ACHS AND 3AM [facility]AN; Protocol Last Admin: 05/16/18 12:54 Dose: 1 unit Magnesium Oxide (Mag-Ox) 800 mg PO UNSCH PRN PRN Reason: For Magnesium 1.2 - 1.6 mg/dL Last Admin: 05/16/18 12:54 Dose: 800 mg Meclizine HCl (Antivert) 25 mg PO BID [facility] Last Admin: 05/16/18 08:40 Dose: 25 mg Methylprednisolone Sodium Succinate (Solumedrol Inj) 60 mg IV.PUSH Q6H [facility] Last Admin: 05/16/18 13:04 Dose: 60 mg Metoprolol Tartrate (Lopressor Inj) 5 mg IV.PUSH Q5M PRN PRN Reason: RAPID HEART RATE Metoprolol Tartrate (Lopressor) 100 mg PO BID [facility] Last Admin: 05/16/18 08:40 Dose: 100 mg Miscellaneous Information ([facility] Ordered Lab Info) 0 each OTHER ONCE ONE Stop: 05/19/18 10:46 Ondansetron HCl (Zofran Inj) 4 mg IV.PUSH Q6H PRN PRN Reason: NAUSEA OR VOMITING Last Admin: 05/16/18 00:30 Dose: 4 mg Pantoprazole Sodium (Protonix) 40 mg PO DAILY [facility] Last Admin: 05/16/18 08:40 Dose: 40 mg Pharmacy Profile Note (Vancomycin Consult Pharmacy) 1 each OTHER UNSCH PRN PRN Reason: Pharmacy to dose Potassium Bicarb/Potassium Chloride (K-Lyte Cl Eff) 50 meq PO UNSCH PRN PRN Reason: For Potassium 3.3 - 3.5 mEq/L Potassium Phosphate (K-Phos Original) 2,000 mg PO UNSCH PRN PRN Reason: SEE LABEL COMMENTS Potassium Phosphate (K-Phos Original) 2,000 mg PO Q4H PRN PRN Reason: Phosphorus Less Than 2.5 mg/dL Pravastatin Sodium (Pravachol) 10 mg PO DAILY [facility] Last Admin: 05/16/18 08:41 Dose: 10 mg Probenecid (Benemid) 500 mg PO DAILY [facility] Last Admin: 05/16/18 08:41 Dose: 500 mg Sennosides (Senokot) 17.2 mg PO Q12H PRN PRN Reason: Moderate Constipation Sodium Chloride (Ns Flush) 2 ml IV.FLUSH BID [facility] Last Admin: 05/16/18 08:41 Dose: 2 ml Sodium Chloride (Ns Flush) 2 ml IV.FLUSH PRN PRN PRN Reason: FLUSH AFTER USING IV ACCESS Spironolactone (Aldactone) 25 mg PO DAILY [facility] Last Admin: 05/16/18 08:40 Dose: 25 mg Thyroid ([place] Thyroid) 90 mg PO BID [facility] Last Admin: 05/16/18 08:39 Dose: 90 mg Allergies Allergy/AdvReac Type Severity Reaction Status Date / Time acetaminophen Allergy Severe ITCHY Verified 05/13/18 08:17 celecoxib Allergy Severe Tachycardia; Verified 05/13/18 08:17 HTN "stroke like symptoms" oxycodone Allergy Severe ITCHY Verified 05/13/18 08:17 procaine Allergy Severe INCREASED Verified 05/13/18 08:17 HR morphine Allergy Intermediate hives and Verified 05/13/18 08:17 itching Home Medications Medication Instructions Recorded Confirmed Type ProAir HFA 90 mcg INHALATION Q4HR PRN 05/13/18 05/13/18 History atenolol 25 mg PO DAILY 05/13/18 05/13/18 History benzonatate 200 mg PO TID 05/13/18 05/13/18 History clotrimazole 10 mg MUCOUS MEMBRANE TID 05/13/18 05/13/18 History esomeprazole magnesium 40 mg PO DAILY 05/13/18 05/13/18 History gabapentin 600 mg PO TID 05/13/18 05/13/18 History lisinopril 2.5 mg PO DAILY 05/13/18 05/13/18 History lovastatin 10 mg PO DAILY 05/13/18 05/13/18 History meclizine 25 mg PO BID 05/13/18 05/13/18 History metformin 500 mg PO BID 05/13/18 05/13/18 History mupirocin 1 applic TOPICAL TID 05/13/18 05/13/18 History prednisolone 5 mg PO BID 05/13/18 05/13/18 History probenecid 500 mg PO DAILY 05/13/18 05/13/18 History spironolacton-hydrochlorothiaz 1 tab PO DAILY 05/13/18 05/13/18 History thyroid (pork) [[place] Thyroid] 90 mg PO BID 05/13/18 05/13/18 History trazodone 50 mg PO HS 05/13/18 05/13/18 History Physical Exam Vital signs: Vital Signs 05/15/18 16:00 05/15/18 17:00 05/15/18 18:00 Temperature 96.6 F L Pulse Rate 82 92 H 95 H Respiratory Rate 28 H 36 H 38 H Blood Pressure 135/64 142/76 H 133/72 Pulse Oximetry 100 93 L 88 L 05/15/18 19:00 05/15/18 20:00 05/15/18 20:19 Temperature 98 F Pulse Rate 95 H 92 H 90 Respiratory Rate 45 H 48 H 33 H Blood Pressure 144/82 H 117/62 118/62 Pulse Oximetry 95 94 L 93 L 05/15/18 20:40 05/15/18 21:00 05/15/18 21:02 Temperature Pulse Rate 96 H 97 H Respiratory Rate 40 H 44 H Blood Pressure 130/60 Pulse Oximetry 96 86 L 88 L 05/15/18 21:07 05/15/18 22:00 05/15/18 23:00 Temperature Pulse Rate 98 H 96 H Respiratory Rate 83 H 53 H Blood Pressure 130/65 132/61 Pulse Oximetry 99 91 L 96 05/16/18 00:00 05/16/18 01:00 05/16/18 02:00 Temperature 98.6 F Pulse Rate 63 80 81 Respiratory Rate 30 H 58 H 50 H Blood Pressure 126/59 L 133/73 147/77 H Pulse Oximetry 100 99 99 05/16/18 03:00 05/16/18 03:49 05/16/18 04:00 Temperature 98.1 F Pulse Rate 82 76 79 Respiratory Rate 53 H 40 H 29 H Blood Pressure 148/72 H 136/65 Pulse Oximetry 99 98 99 05/16/18 05:00 05/16/18 06:00 05/16/18 06:05 Temperature Pulse Rate 81 86 87 Respiratory Rate 27 H 53 H 32 H Blood Pressure 111/53 L 153/70 H Pulse Oximetry 98 96 96 05/16/18 07:00 05/16/18 07:05 05/16/18 08:00 Temperature 97.8 F Pulse Rate 68 90 68 Respiratory Rate 29 H 41 H 31 H Blood Pressure 155/66 H 148/67 H Pulse Oximetry 100 92 L 97 05/16/18 08:06 05/16/18 09:00 05/16/18 09:17 Temperature Pulse Rate 92 H 97 H Respiratory Rate 39 H 32 H Blood Pressure 141/81 H Pulse Oximetry 96 85 L 05/16/18 10:00 05/16/18 11:00 05/16/18 11:46 Temperature Pulse Rate 60 67 74 Respiratory Rate 30 H 36 H 40 H Blood Pressure 125/60 140/70 151/72 H Pulse Oximetry 100 99 98 05/16/18 12:00 05/16/18 12:19 05/16/18 13:00 Temperature 97.6 F Pulse Rate 77 75 78 Respiratory Rate 30 H 50 H 45 H Blood Pressure 156/72 H 145/73 H 151/75 H Pulse Oximetry 91 L 92 L 96 05/16/18 15:51 Temperature Pulse Rate 79 Respiratory Rate 32 H Blood Pressure Pulse Oximetry Intake & Output 05/15/18 05/16/18 05/16/18 18:59 06:59 18:59 Intake Total 3362.50 / 3362.50 300 / 300 400 / 400 Output Total 1000 / 1000 1350 / 1350 Balance 2362.50 / 2362.50 -1050 / -1050 400 / 400 Weight 71.8 kg Intake: IV 3122.50 / 3122.50 100 / 100 400 / 400 Heparin/D5W 25,000 U/250 mL 25, 250 / 250 000 unit In 250 ml @ Per Protocol IV.CONT TITRATE PRN Rx #:[id number] NS Inj 1,000 ML @ 100 mls/hr IV 1999 / 1999 300 / 300 .CONT .Q10H [facility] Rx#:[id number] Magnesium Sulfate Inj 2 GM In 100 / 100 NS Inj 96 ML @ 50 mls/hr IV.SIG UNSCH PRN Rx#:[id number] Zosyn 3.375 GM Premix 50 ML @ 150 / 150 100 / 100 100 mls/hr IV.SIG Q6H [facility] Rx#: [id number] KCl 20 mEq Premix Inj 20 meq In 100 / 100 100 / 100 100 ml @ 50 mls/hr IV.SIG Q2H PRN Rx#:[id number] Potassium Phosphate Inj 30 MMOL 260 / 260 In NS Inj 250 ML @ 42 mls/hr IV.SIG UNSCH PRN Rx#:[id number] Vancomycin Inj 1,250 MG In NS 262.50 / 262.50 Inj 250 ML @ 250 mls/hr IV.SIG Q24H [facility] Rx#:[id number] Oral 240 / 240 200 / 200 Output: Urine 1000 / 1000 1350 / 1350 Other: # Incontinent Voids 2 Date of Last Bowel Movement 05/15/18 05/14/18 05/14/18 # Bowel Movements 1 1 - Constitutional moderate distress, chronically ill appearing - Routine HEENT Exam Head: Present: normocephalic, atraumatic Eye: Present: EOMI, PERRL ENT: Present: mucous membranes moist - Routine Neck Exam Present: supple, full ROM, JVD. Absent: carotid bruit - Routine Respiratory Exam Present: accessory muscle use, decreased breath sounds, respiratory distress, diminished air movement - Routine Cardiovascular Exam Present: RRR, S1, S2 - Routine Abdominal Exam Present: soft, normoactive bowel sounds - Routine Extremities Exam Present: full ROM, normal capillary refill - Routine Skin Exam Present: intact, dry, warm - Routine Neurological Exam Present: alert, oriented X3 - Urinary Catheter Management Indwelling Urethral Catheter Cath placed during this visit: yes Reason for continuing: Hourly intake/output Insertion date: 05/13/18 Insertion time: 06:18 Results 05/16/18 03:48 05/16/18 10:32 Cardiac Enzymes 05/15/18 05/15/18 05/16/18 Range/Units 03:15 07:45 03:48 Troponin I 1.76 H* D (0.02-0.05) ng/mL B-Natriuretic Peptide 759 H 592 H (0-100) pg/mL Coagulation 05/14/18 05/15/18 05/15/18 Range/Units 21:37 03:15 03:15 APTT 40.1 H 44.3 H (24.3-30.1) sec B-Natriuretic Peptide 759 H (0-100) pg/mL 05/16/18 05/16/18 Range/Units 03:48 03:48 APTT 67.4 H D (24.3-30.1) sec B-Natriuretic Peptide 592 H (0-100) pg/mL CBC 05/15/18 05/16/18 Range/Units 03:15 03:48 WBC 5.6 6.7 (4.0-11.0) th/mm3 RBC 3.95 L 3.59 L (4.00-5.30) mil/mm3 Hgb 10.6 L 9.8 L (11.6-15.3) gm/dL Hct 34.1 L 30.7 L (35.0-46.0) % Plt Count 204 185 (150-450) th/mm3 Neut # (Auto) 5.0 6.0 (1.8-7.7) th/mm3 Lymph # (Auto) 0.4 L 0.3 L (1.0-4.8) th/mm3 [place] # (Auto) 0.2 0.4 (0.0-0.9) th/mm3 Eos # (Auto) 0.0 0.0 (0.0-0.4) th/mm3 Baso # (Auto) 0.0 0.0 (0.0-0.2) th/mm3 Comprehensive Metabolic Panel 05/15/18 05/15/18 05/15/18 Range/Units 03:15 03:15 10:38 Sodium 147 H 144 (136-145) meq/L Potassium 2.8 L* 3.8 D (3.5-5.1) meq/L Chloride 109 H 109 H (98-107) meq/L Carbon Dioxide 27.2 24.3 (21.0-32.0) meq/L BUN 29 H 29 H (7-18) mg/dL Creatinine 1.13 H 1.21 H (0.50-1.00) mg/dL Calcium 7.4 L* 7.5 L 7.2 L* (8.5-10.1) mg/dL Total Protein 6.5 D 6.8 (6.4-8.2) g/dL Albumin 2.5 L (3.4-5.0) g/dL 05/15/18 05/16/18 05/16/18 Range/Units 17:40 03:48 10:32 Sodium 147 H (136-145) meq/L Potassium 4.0 2.7 L* D (3.5-5.1) meq/L Chloride 110 H (98-107) meq/L Carbon Dioxide 29.1 (21.0-32.0) meq/L BUN 26 H (7-18) mg/dL Creatinine 1.01 H 0.94 (0.50-1.00) mg/dL Calcium 7.4 L* (8.5-10.1) mg/dL Total Protein (6.4-8.2) g/dL Albumin 2.3 L (3.4-5.0) g/dL Intake and Output 05/16/18 05/16/18 05/16/18 06:59 14:59 22:59 Intake Total 300 / 300 400 / 400 Output Total 1350 / 1350 Balance -1050 / -1050 400 / 400 Intake: IV 100 / 100 400 / 400 NS Inj 1,000 ML @ 100 mls/hr IV 300 / 300 .CONT .Q10H [facility] Rx#:[id number] Zosyn 3.375 GM Premix 50 ML @ 100 / 100 100 mls/hr IV.SIG Q6H [facility] Rx#: [id number] KCl 20 mEq Premix Inj 20 meq In 100 / 100 100 ml @ 50 mls/hr IV.SIG Q2H PRN Rx#:[id number] Oral 200 / 200 Output: Urine 1350 / 1350 Other: Date of Last Bowel Movement 05/14/18 05/14/18 Weight 71.8 kg - Imaging and Cardiology Imaging: Impressions Videofluoroscopic Swallow 05/16/18 00:00 CONCLUSION: No aspiration or penetration was seen. Assessment and Plan - Assessment (1) Pulmonary fibrosis Code(s): J84.10 - Pulmonary fibrosis, unspecified Status: Acute (2) Acute kidney injury Code(s): N17.9 - Acute kidney failure, unspecified Status: Acute (3) Elevated troponin Code(s): R74.8 - Abnormal levels of other serum enzymes Status: Acute - Plan Assessment: 77-year-old lady with pulmonary fibrosis on 3 L continuous supplemental home oxygen presents with altered mental status. She was found to have atrial fibrillation with rapid ventricular response of new onset, leukocytosis with a left shift, significant transaminitis, likely mild DONATO and elevated troponin consistent with NSTEMI. #1 atrial fibrillation with rapid ventricular response: New onset. Spontaneously cardioverted and currently NSR. #2 NSTEMI: Currently asymptomatic and denies any recent anginal chest pain symptoms. EKG shows sinus rhythm with APCs, RBBB with diffuse ST-T wave abnormality in the anterior lateral and inferior distribution mostly unchanged from prior. Troponin is currently downtrending. #3 altered mental status #4 leukocytosis with left shift, SIRS #5 pulmonary fibrosis on chronic supplemental oxygen therapy #6 transaminitis #7 DONATO with elevated BUN suggestive of prerenal azotemia Recommendations: -Continue aspirin 81 mg daily -Continue heparin drip ACS protocol for medical management of NSTEMI -We will plan for LHC, but await improvement in respiratory status, possibly Thursday -Increase metoprolol tartrate to 100 mg twice daily -Hold on statin therapy with underlying transaminitis -Rest per primary team.- 05/15/18: Mild chest pain, subsided after NTG. VSS continue IV Heparin, possible LHC on Thursday per dr. Mcneil 05/16/18: No chest pain, more tachypnea. per patient's son, daughter in law and brother in law, patient knowledge engineer Dr. Franco had indicated LHC will not be beneficial to her due to her endstage pulmonary fibrosis. I am covering for [facility] Cardiology this weekend.
[2018-05-16] MEDS ORDERED: Magnesium Oxide 400 MG Tablet PO ONE (17:13)
--- NOTE | 2018-05-16 17:15 | P.PNIM ---
Subjective Interval history: Patient says that she is feeling all right. Breathing appears worse than yesterday however. Family at bedside. Requesting palliative care consultation. Patient also requesting something to help with sleep. Physical Exam Vital signs: Vital Signs 05/15/18 17:00 05/15/18 18:00 05/15/18 19:00 Temperature Pulse Rate 92 H 95 H 95 H Respiratory Rate 36 H 38 H 45 H Blood Pressure 142/76 H 133/72 144/82 H Pulse Oximetry 93 L 88 L 95 05/15/18 20:00 05/15/18 20:19 05/15/18 20:40 Temperature 98 F Pulse Rate 92 H 90 96 H Respiratory Rate 48 H 33 H 40 H Blood Pressure 117/62 118/62 Pulse Oximetry 94 L 93 L 96 05/15/18 21:00 05/15/18 21:02 05/15/18 21:07 Temperature Pulse Rate 97 H Respiratory Rate 44 H Blood Pressure 130/60 Pulse Oximetry 86 L 88 L 99 05/15/18 22:00 05/15/18 23:00 05/16/18 00:00 Temperature 98.6 F Pulse Rate 98 H 96 H 63 Respiratory Rate 83 H 53 H 30 H Blood Pressure 130/65 132/61 126/59 L Pulse Oximetry 91 L 96 100 05/16/18 01:00 05/16/18 02:00 05/16/18 03:00 Temperature Pulse Rate 80 81 82 Respiratory Rate 58 H 50 H 53 H Blood Pressure 133/73 147/77 H 148/72 H Pulse Oximetry 99 99 99 05/16/18 03:49 05/16/18 04:00 05/16/18 05:00 Temperature 98.1 F Pulse Rate 76 79 81 Respiratory Rate 40 H 29 H 27 H Blood Pressure 136/65 111/53 L Pulse Oximetry 98 99 98 05/16/18 06:00 05/16/18 06:05 05/16/18 07:00 Temperature Pulse Rate 86 87 68 Respiratory Rate 53 H 32 H 29 H Blood Pressure 153/70 H Pulse Oximetry 96 96 100 05/16/18 07:05 05/16/18 08:00 05/16/18 08:06 Temperature 97.8 F Pulse Rate 90 68 Respiratory Rate 41 H 31 H Blood Pressure 155/66 H 148/67 H Pulse Oximetry 92 L 97 96 05/16/18 09:00 05/16/18 09:17 05/16/18 10:00 Temperature Pulse Rate 92 H 97 H 60 Respiratory Rate 39 H 32 H 30 H Blood Pressure 141/81 H 125/60 Pulse Oximetry 85 L 100 05/16/18 11:00 05/16/18 11:46 05/16/18 12:00 Temperature 97.6 F Pulse Rate 67 74 77 Respiratory Rate 36 H 40 H 30 H Blood Pressure 140/70 151/72 H 156/72 H Pulse Oximetry 99 98 91 L 05/16/18 12:19 05/16/18 13:00 05/16/18 14:00 Temperature Pulse Rate 75 78 79 Respiratory Rate 50 H 45 H 56 H Blood Pressure 145/73 H 151/75 H 166/74 H Pulse Oximetry 92 L 96 89 L 05/16/18 14:47 05/16/18 15:00 05/16/18 15:51 Temperature Pulse Rate 72 78 79 Respiratory Rate 44 H 48 H 32 H Blood Pressure 160/63 H 148/73 H Pulse Oximetry 90 L 90 L 05/16/18 16:00 Temperature 96.7 F L Pulse Rate 81 Respiratory Rate 40 H Blood Pressure 164/76 H Pulse Oximetry 90 L Intake & Output 05/15/18 05/16/18 05/16/18 18:59 06:59 18:59 Intake Total 3362.50 / 3362.50 300 / 300 812.50 / 812.50 Output Total 1000 / 1000 1350 / 1350 Balance 2362.50 / 2362.50 -1050 / -1050 812.50 / 812.50 Weight 71.8 kg Intake: IV 3122.50 / 3122.50 100 / 100 812.50 / 812.50 Heparin/D5W 25,000 U/250 mL 25, 250 / 250 000 unit In 250 ml @ Per Protocol IV.CONT TITRATE PRN Rx #:[id number] NS Inj 1,000 ML @ 100 mls/hr IV 1999 / 2000 300 / 300 .CONT .Q10H BARB Rx#:[id number] Magnesium Sulfate Inj 2 GM In 100 / 100 NS Inj 96 ML @ 50 mls/hr IV.SIG UNSCH PRN Rx#:[id number] Zosyn 3.375 GM Premix 50 ML @ 150 / 150 100 / 100 50 / 50 100 mls/hr IV.SIG Q6H BARB Rx#: [id number] KCl 20 mEq Premix Inj 20 meq In 100 / 100 200 / 200 100 ml @ 50 mls/hr IV.SIG Q2H PRN Rx#:[id number] Potassium Phosphate Inj 30 MMOL 260 / 260 In NS Inj 250 ML @ 42 mls/hr IV.SIG UNSCH PRN Rx#:[id number] Vancomycin Inj 1,250 MG In NS 262.50 / 262.50 262.50 / 262.50 Inj 250 ML @ 250 mls/hr IV.SIG Q24H BARB Rx#:[id number] Oral 240 / 240 200 / 200 Output: Urine 1000 / 1000 1350 / 1350 Other: # Incontinent Voids 2 Date of Last Bowel Movement 05/15/18 05/14/18 05/16/18 # Bowel Movements 1 1 Narrative: GENERAL: Patient sitting up in bed. Still appears short of breath, a little more so than yesterday. Appears comfortable. SKIN: Warm and dry. HEAD: Normocephalic. EYES: No scleral icterus. No injection or drainage. NECK: Supple, trachea midline. No JVD. CARDIOVASCULAR: Regular rate and rhythm without murmurs, gallops, or rubs. RESPIRATORY: Breath sounds equal bilaterally. No accessory muscle use. GASTROINTESTINAL: Abdomen soft, non-tender, nondistended. MUSCULOSKELETAL: No cyanosis, or edema. BACK: Nontender without obvious deformity. No CVA tenderness. - Urinary Catheter Management Indwelling Urethral Catheter Cath placed during this visit: yes Reason for continuing: Hourly intake/output Insertion date: 05/13/18 Insertion time: 06:18 Results - Labs CBC & Chem 7: 05/16/18 03:48 05/16/18 10:32 Laboratory Results - last 24 hr 05/15/18 05/15/18 05/15/18 17:15 17:40 19:55 WBC RBC Hgb Hct MCV MCH MCHC RDW Plt Count MPV Neut % (Auto) Lymph % (Auto) [place] % (Auto) Eos % (Auto) Baso % (Auto) Neut # (Auto) Lymph # (Auto) [place] # (Auto) Eos # (Auto) Baso # (Auto) WBC Differential Differential Comment APTT Sodium Potassium 4.0 Chloride Carbon Dioxide Anion Gap BUN Creatinine Estimated GFR POC Glucose 221 H 180 H Random Glucose Calcium Phosphorus 3.9 D Magnesium B-Natriuretic Peptide Albumin Vancomycin Trough 05/16/18 05/16/18 05/16/18 02:15 03:48 03:48 WBC RBC Hgb Hct MCV MCH MCHC RDW Plt Count MPV Neut % (Auto) Lymph % (Auto) [place] % (Auto) Eos % (Auto) Baso % (Auto) Neut # (Auto) Lymph # (Auto) [place] # (Auto) Eos # (Auto) Baso # (Auto) WBC Differential Differential Comment APTT 67.4 H D Sodium Potassium Chloride Carbon Dioxide Anion Gap BUN Creatinine 1.01 H Estimated GFR 53 L POC Glucose 185 H Random Glucose Calcium Phosphorus Magnesium B-Natriuretic Peptide Albumin Vancomycin Trough 05/16/18 05/16/18 05/16/18 03:48 03:48 07:53 WBC 6.7 RBC 3.59 L Hgb 9.8 L Hct 30.7 L MCV 85.7 MCH 27.4 MCHC 31.9 L RDW 18.0 H Plt Count 185 MPV 8.6 Neut % (Auto) 90.0 H Lymph % (Auto) 4.7 L [place] % (Auto) 5.3 Eos % (Auto) 0.0 Baso % (Auto) 0.0 Neut # (Auto) 6.0 Lymph # (Auto) 0.3 L [place] # (Auto) 0.4 Eos # (Auto) 0.0 Baso # (Auto) 0.0 WBC Differential . Differential Comment Auto diff final APTT Sodium Potassium Chloride Carbon Dioxide Anion Gap BUN Creatinine Estimated GFR POC Glucose 194 H Random Glucose Calcium Phosphorus Magnesium B-Natriuretic Peptide 592 H Albumin Vancomycin Trough 05/16/18 05/16/18 10:32 12:49 WBC RBC Hgb Hct MCV MCH MCHC RDW Plt Count MPV Neut % (Auto) Lymph % (Auto) [place] % (Auto) Eos % (Auto) Baso % (Auto) Neut # (Auto) Lymph # (Auto) [place] # (Auto) Eos # (Auto) Baso # (Auto) WBC Differential Differential Comment APTT Sodium 147 H Potassium 2.7 L* D Chloride 110 H Carbon Dioxide 29.1 Anion Gap 8 BUN 26 H Creatinine 0.94 Estimated GFR 58 L POC Glucose 169 H Random Glucose 182 H Calcium 7.4 L* Phosphorus 3.2 Magnesium 1.4 L B-Natriuretic Peptide Albumin 2.3 L Vancomycin Trough 13.1 H Microbiology 05/13/18 06:05 Blood - Peripheral Aerobic Blood Culture - Preliminary No growth in 3 days 05/13/18 06:05 Blood - Peripheral Anaerobic Blood Culture - Preliminary No growth in 3 days 05/13/18 06:00 Blood - Peripheral Aerobic Blood Culture - Preliminary No growth in 3 days 05/13/18 06:00 Blood - Peripheral Anaerobic Blood Culture - Preliminary No growth in 3 days - Imaging Impressions Videofluoroscopic Swallow 05/16/18 00:00 CONCLUSION: No aspiration or penetration was seen. Assessment and Plan - Plan //Atrial fibrillation with RVR. //Non-ST elevation ND. //Acute CHF exacerbation. //Hypertension = Count is up to 6.57. This could be demand related. We will control heart rate. Initially on diltiazem drip, however will switch to beta-camryn. On heparin drip. Consult cardiology. Appreciate assistance. Trend EKGs, troponins. = 05/14. Troponins have decreased to 4.25 with controlled heart rate. Cardiology following. Have ordered echocardiogram. Diuresis again today. Fluid restrictions. Appreciate assistance. = 05/15. Elevated blood pressures. Will start on as needed Vasotec, start amlodipine. Pulmonology is started on Revatio. Start on spironolactone due to hyperkalemia, need for diuresis. will monitor. = 05/16. Replace potassium. Order more Lasix. Continue fluid restrictions. //Possible sepsis on admission With leukocytosis, tachycardia, lactic acidosis CT pulmonary and gram-negative for pulmonary embolism. No evidence of lobar or atypical pneumonia. Chronic fibrosis. We will continue antibiotics. If cultures remain negative times 24 hours will discontinue. Awaiting on cultures to be verified -24 hours. = No sign of infection. Discontinue IV antibiotics. //Pulmonary fibrosis. Possibly with acute exacerbation. Exacerbation possibly causing atrial fibrillation. We will treat exacerbation with IV steroids, scheduled [facility] Pulmonology following. Appreciate assistance. = 05/16. Discussed with Dr. Franco. Will consult palliative care service as per discussion with Dr. Franco, as well as my discussion with family. //Hypomagnesemia //hypoKalemia = 05/15. Potassium 2.8, magnesium 1.2.-Replace and monitor = 05/16. Potassium 2.7. Magnesium 1.4. Replace and monitor. //Lactic acidosis Looking back on previous admissions, it appears that patient is predisposed to lactic acidosis. We will supplement thiamine, monitor. = Resolved. //GERD. Chronic. Continue home medications. Discharge Planning: Pending improvement. PT consult ordered and pending.
[2018-05-16] MEDS: Heparin Drip 25,000 UNIT/250 ML BAG IV.CONT PRN (18:12)
[2018-05-16 20:28] LABS: Calcium 7.5 mg/dL (8.5-10.1); Carbon Dioxide 28.4 meq/L (21.0-32.0); Potassium 3.6 meq/L (3.5-5.1)
[2018-05-16] MEDS ORDERED: Melatonin 5 MG Tablet PO SCH (21:00)
[2018-05-17 01:53] LABS: Magnesium 1.4 mg/dL (1.5-2.5); Phosphorus 2.3 mg/dL (2.5-4.9); Potassium 3.5 meq/L (3.5-5.1)
[2018-05-17] MEDS: MethylPREDNISolone Sod Succinate Inj 125 MG/2 ML Vial IV.PUSH SCH ×4 (02:11→21:35)
[2018-05-17] MEDS: Insulin NovoLOG Aspart Correctional Sugar Inj SQ SCH ×4 (02:12→17:28)
[2018-05-17] MEDS: Magnesium Oxide 400 MG Tablet PO PRN (02:13)
[2018-05-17] MEDS: Chlorhexidine Gluconate 2% 1 Pack (2 Cloths) TOPICAL SCH (05:02)
[2018-05-17] MEDS: ALPRAZolam 0.25 MG Tablet PO SCH ×2 (05:02→15:14)
[2018-05-17 08:21] LABS: Baso % (Auto) 0.1 % (0.0-2.0); Hematocrit 31.4 % (35.0-46.0); Hemoglobin 9.9 gm/dL (11.6-15.3); Lymph # (Auto) 0.3 th/mm3 (1.0-4.8); Lymph % (Auto) 5.8 % (9.0-44.0); Mean Corpuscular HGB Conc 31.4 % (32.0-36.0); Mean Corpuscular Hemoglobin 27.1 pg (27.0-34.0); Mean Corpuscular Volume 86.3 fL (80.0-100.0); Mean Platelet Volume 8.9 fL (7.0-11.0); Mono # (Auto) 0.3 th/mm3 (0.0-0.9); Mono % (Auto) 4.8 % (0.0-8.0); Neut # (Auto) 4.9 th/mm3 (1.8-7.7); Neut % (Auto) 89.3 % (16.0-70.0); Platelet Count 157 th/mm3 (150-450); Red Blood Count 3.64 mil/mm3 (4.00-5.30); Red Cell Distribution Width 17.8 % (11.6-17.2); White Blood Count 5.5 th/mm3 (4.0-11.0)
--- NOTE | 2018-05-17 08:24 | P.PNCA ---
Subjective Interval history: RN at bedside. Breathing is worse, on BiPAP. Patient denies any chest pain. Telemetry with no significant arrhythmia noted overnight. Patient reports she has been on blood thinners before, denies any history of bleeding issues. Medications and Allergies Allergies Allergy/AdvReac Type Severity Reaction Status Date / Time acetaminophen Allergy Severe ITCHY Verified 05/13/18 08:17 celecoxib Allergy Severe Tachycardia; Verified 05/13/18 08:17 HTN "stroke like symptoms" oxycodone Allergy Severe ITCHY Verified 05/13/18 08:17 procaine Allergy Severe INCREASED Verified 05/13/18 08:17 HR morphine Allergy Intermediate hives and Verified 05/13/18 08:17 itching Home Medications Medication Instructions Recorded Confirmed Type ProAir HFA 90 mcg INHALATION Q4HR PRN 05/13/18 05/13/18 History atenolol 25 mg PO DAILY 05/13/18 05/13/18 History benzonatate 200 mg PO TID 05/13/18 05/13/18 History clotrimazole 10 mg MUCOUS MEMBRANE TID 05/13/18 05/13/18 History esomeprazole magnesium 40 mg PO DAILY 05/13/18 05/13/18 History gabapentin 600 mg PO TID 05/13/18 05/13/18 History lisinopril 2.5 mg PO DAILY 05/13/18 05/13/18 History lovastatin 10 mg PO DAILY 05/13/18 05/13/18 History meclizine 25 mg PO BID 05/13/18 05/13/18 History metformin 500 mg PO BID 05/13/18 05/13/18 History mupirocin 1 applic TOPICAL TID 05/13/18 05/13/18 History prednisolone 5 mg PO BID 05/13/18 05/13/18 History probenecid 500 mg PO DAILY 05/13/18 05/13/18 History spironolacton-hydrochlorothiaz 1 tab PO DAILY 05/13/18 05/13/18 History thyroid (pork) [[place] Thyroid] 90 mg PO BID 05/13/18 05/13/18 History trazodone 50 mg PO HS 05/13/18 05/13/18 History Active Medications: Active Medications Acetaminophen (Tylenol) 650 mg PO Q4H PRN PRN Reason: Temp > 100.4 Albuterol (Duoneb Neb (Prn)) 1 ampul NEB Q2HR NEB PRN PRN Reason: SHORTNESS OF BREATH/WHEEZING Albuterol (Duoneb Neb (Han)) 1 ampul NEB Q6HR NEB [facility] Last Admin: 05/17/18 07:57 Dose: 1 ampul Alprazolam (Xanax) 0.25 mg PO Q8HR [facility] Last Admin: 05/17/18 05:02 Dose: 0.25 mg Amlodipine Besylate (Norvasc) 5 mg PO DAILY [facility] Last Admin: 05/16/18 08:41 Dose: 5 mg Aspirin (Aspirin Chew) 81 mg PO DAILY [facility] Last Admin: 05/16/18 08:41 Dose: 81 mg Benzonatate (Tessalon Perles) 200 mg PO TID [facility] Last Admin: 05/16/18 18:11 Dose: 200 mg Bisacodyl (Dulcolax Supp) 10 mg RECTAL DAILY PRN PRN Reason: SEVERE CONSITIPATION Chlorhexidine Gluconate (Chlorhexidine 2% Cloth) 3 pack TOPICAL DAILY@0400 [facility] Stop: 05/19/18 03:59 Last Admin: 05/17/18 05:02 Dose: 3 pack Chlorhexidine Gluconate (Chlorhexidine 2% Cloth) 3 pack TOPICAL DAILY@0400 PRN PRN Reason: Extra cloth needed Stop: 05/19/18 03:59 Dextrose (D50w Vial) 50 ml IV.PUSH UNSCH PRN PRN Reason: PER HYPOGLYCEMIA PROTOCOL Enalaprilat (Vasotec Inj) 1.25 mg IV.PUSH Q6H PRN PRN Reason: SBP>160, DBP>90 Glucagon (Glucagon Inj) 1 mg OTHER PRN PRN PRN Reason: for Hypoglycemia Protocol Heparin Sodium/Dextrose (Heparin/D5w 25,000 U/250 Ml) 25,000 unit in 250 mls @ 0 mls/hr IV.CONT TITRATE PRN; Protocol PRN Reason: Per Protocol Last Titration: 05/17/18 06:00 Dose: 1,200 units/hr, 12 mls/hr Magnesium Sulfate 4 gm/ Sodium (Chloride) 100 mls @ 50 mls/hr IV.SIG UNSCH PRN PRN Reason: For Magnesium 0.9 - 1.1 mg/dL Magnesium Sulfate 2 gm/ Sodium (Chloride) 100 mls @ 50 mls/hr IV.SIG UNSCH PRN PRN Reason: For Magnesium 1.2 - 1.6 mg/dL Last Infusion: 05/15/18 08:00 Dose: Infused Potassium Chloride (Kcl 40 Meq Premix Inj) 40 meq in 100 mls @ 25 mls/hr IV.SIG Q2H PRN PRN Reason: For Potassium 2.8 - 3.2 mEq/L Potassium Chloride (Kcl 20 Meq Premix Inj) 20 meq in 100 mls @ 50 mls/hr IV.SIG Q2H PRN PRN Reason: For Potassium 3.3 - 3.5 mEq/L Last Infusion: 05/15/18 12:05 Dose: Infused Potassium Chloride (Kcl 40 Meq Premix Inj) 40 meq in 100 mls @ 25 mls/hr IV.SIG UNSCH PRN PRN Reason: For Potassium 3.3 - 3.5 mEq/L Potassium Chloride (Kcl 20 Meq Premix Inj) 20 meq in 100 mls @ 50 mls/hr IV.SIG Q2H PRN PRN Reason: For Potassium 2.8 - 3.2 mEq/L Last Infusion: 05/16/18 20:45 Dose: Infused Potassium Phosphate 30 mmol/ (Sodium Chloride) 260 mls @ 42 mls/hr IV.SIG UNSCH PRN PRN Reason: SEE LABEL COMMENTS Last Infusion: 05/15/18 12:10 Dose: Infused Sodium Phosphate 30 mmol/ (Sodium Chloride) 260 mls @ 42 mls/hr IV.SIG UNSCH PRN PRN Reason: For Phosphorus < 2.5 mg/dL Dexmedetomidine HCl 1,000 mcg/ (Sodium Chloride) 250 mls @ 3.45 mls/hr IV.CONT TITRATE PRN; Protocol PRN Reason: Per Protocol Last Titration: 05/17/18 06:00 Dose: 0.5 mcg/kg/hr, 8.63 mls/hr Dextrose (D5w Inj) 1,000 mls @ 20 mls/hr IV.CONT .Q24H HAN Last Infusion: 05/17/18 06:00 Dose: 20 mls/hr Insulin Aspart (Novolog Insulin [place] Sugar Inj) 0 unit SQ ACHS AND 3AM HAN; Protocol Last Admin: 05/17/18 02:12 Dose: 3 unit Magnesium Oxide (Mag-Ox) 800 mg PO UNSCH PRN PRN Reason: For Magnesium 1.2 - 1.6 mg/dL Last Admin: 05/17/18 02:13 Dose: 800 mg Magnesium Oxide (Mag-Ox) 400 mg PO DAILY [facility] Meclizine HCl (Antivert) 25 mg PO BID [facility] Last Admin: 05/16/18 20:10 Dose: 25 mg Melatonin (Melatonin) 5 mg PO HS [facility] Last Admin: 05/16/18 20:10 Dose: 5 mg Methylprednisolone Sodium Succinate (Solumedrol Inj) 60 mg IV.PUSH Q6H [facility] Last Admin: 05/17/18 02:11 Dose: 60 mg Metoprolol Tartrate (Lopressor Inj) 5 mg IV.PUSH Q5M PRN PRN Reason: RAPID HEART RATE Metoprolol Tartrate (Lopressor) 100 mg PO BID [facility] Last Admin: 05/16/18 20:11 Dose: 100 mg Miscellaneous Information ([facility] Ordered Lab Info) 0 each OTHER ONCE ONE Stop: 05/19/18 10:46 Ondansetron HCl (Zofran Inj) 4 mg IV.PUSH Q6H PRN PRN Reason: NAUSEA OR VOMITING Last Admin: 05/16/18 00:30 Dose: 4 mg Pantoprazole Sodium (Protonix) 40 mg PO DAILY [facility] Last Admin: 05/16/18 08:40 Dose: 40 mg Potassium Bicarb/Potassium Chloride (K-Lyte Cl Eff) 50 meq PO UNSCH PRN PRN Reason: For Potassium 3.3 - 3.5 mEq/L Last Admin: 05/17/18 02:12 Dose: 50 meq Potassium Phosphate (K-Phos Original) 2,000 mg PO UNSCH PRN PRN Reason: SEE LABEL COMMENTS Potassium Phosphate (K-Phos Original) 2,000 mg PO Q4H PRN PRN Reason: Phosphorus Less Than 2.5 mg/dL Pravastatin Sodium (Pravachol) 10 mg PO DAILY [facility] Last Admin: 05/16/18 08:41 Dose: 10 mg Probenecid (Benemid) 500 mg PO DAILY [facility] Last Admin: 05/16/18 08:41 Dose: 500 mg Sennosides (Senokot) 17.2 mg PO Q12H PRN PRN Reason: Moderate Constipation Sodium Chloride (Ns Flush) 2 ml IV.FLUSH BID [facility] Last Admin: 05/16/18 20:11 Dose: 2 ml Sodium Chloride (Ns Flush) 2 ml IV.FLUSH PRN PRN PRN Reason: FLUSH AFTER USING IV ACCESS Spironolactone (Aldactone) 25 mg PO DAILY [facility] Last Admin: 05/16/18 08:40 Dose: 25 mg Thyroid ([place] Thyroid) 90 mg PO BID [facility] Last Admin: 05/16/18 20:10 Dose: 90 mg Physical Exam Vital signs: Vital Signs 05/16/18 09:00 05/16/18 09:17 05/16/18 10:00 Temperature Pulse Rate 92 H 97 H 60 Respiratory Rate 39 H 32 H 30 H Blood Pressure 141/81 H 125/60 Pulse Oximetry 85 L 100 05/16/18 11:00 05/16/18 11:46 05/16/18 12:00 Temperature 97.6 F Pulse Rate 67 74 77 Respiratory Rate 36 H 40 H 30 H Blood Pressure 140/70 151/72 H 156/72 H Pulse Oximetry 99 98 91 L 05/16/18 12:19 05/16/18 13:00 05/16/18 14:00 Temperature Pulse Rate 75 78 79 Respiratory Rate 50 H 45 H 56 H Blood Pressure 145/73 H 151/75 H 166/74 H Pulse Oximetry 92 L 96 89 L 05/16/18 14:47 05/16/18 15:00 05/16/18 15:51 Temperature Pulse Rate 72 78 79 Respiratory Rate 44 H 48 H 32 H Blood Pressure 160/63 H 148/73 H Pulse Oximetry 90 L 90 L 05/16/18 16:00 05/16/18 16:23 05/16/18 17:00 Temperature 96.7 F L Pulse Rate 81 85 85 Respiratory Rate 40 H 65 H 52 H Blood Pressure 164/76 H 154/79 H 151/97 H Pulse Oximetry 90 L 89 L 87 L 05/16/18 18:00 05/16/18 19:00 05/16/18 20:00 Temperature 98 F Pulse Rate 78 80 78 Respiratory Rate 40 H 55 H 46 H Blood Pressure 121/57 L 138/67 139/63 Pulse Oximetry 100 92 L 99 05/16/18 20:45 05/16/18 20:47 05/16/18 20:53 Temperature Pulse Rate 76 Respiratory Rate 40 H Blood Pressure Pulse Oximetry 97 99 05/16/18 21:00 05/16/18 22:00 05/16/18 23:00 Temperature Pulse Rate 68 64 62 Respiratory Rate 42 H 53 H 35 H Blood Pressure 94/50 L 124/59 L 117/55 L Pulse Oximetry 99 100 99 05/17/18 00:00 05/17/18 00:33 05/17/18 01:00 Temperature 97.6 F Pulse Rate 63 58 L Respiratory Rate 66 H 41 H Blood Pressure 130/61 119/55 L Pulse Oximetry 99 100 97 05/17/18 02:00 05/17/18 03:00 05/17/18 03:18 Temperature Pulse Rate 55 L 53 L Respiratory Rate 37 H 43 H Blood Pressure 129/60 136/63 Pulse Oximetry 96 96 97 05/17/18 03:19 05/17/18 04:00 05/17/18 04:13 Temperature 98 F Pulse Rate 50 L 56 L Respiratory Rate 27 H 29 H Blood Pressure 131/61 Pulse Oximetry 97 99 05/17/18 05:26 05/17/18 06:00 05/17/18 07:53 Temperature 97.5 F L Pulse Rate 48 L 47 L Respiratory Rate 29 H Blood Pressure 149/66 H Pulse Oximetry 93 L 93 L 05/17/18 08:00 Temperature Pulse Rate 50 L Respiratory Rate Blood Pressure Pulse Oximetry Intake & Output 05/16/18 05/17/18 05/17/18 18:59 06:59 18:59 Intake Total 1162.50 / 1162.50 300 / 300 Output Total 1200 / 1200 1250 / 1250 Balance -37.50 / -37.50 -950 / -950 Weight 156 lb 8.451 oz Intake: IV 1162.50 / 1162.50 100 / 100 Heparin/D5W 25,000 U/250 mL 25, 250 / 250 000 unit In 250 ml @ Per Protocol IV.CONT TITRATE PRN Rx #:[id number] NS Inj 1,000 ML @ 100 mls/hr IV 300 / 300 .CONT .Q10H HAN Rx#:[id number] Zosyn 3.375 GM Premix 50 ML @ 50 / 50 100 mls/hr IV.SIG Q6H HAN Rx#: [id number] KCl 20 mEq Premix Inj 20 meq In 300 / 300 100 / 100 100 ml @ 50 mls/hr IV.SIG Q2H PRN Rx#:[id number] Vancomycin Inj 1,250 MG In NS 262.50 / 262.50 Inj 250 ML @ 250 mls/hr IV.SIG Q24H HAN Rx#:[id number] Oral 200 / 200 Output: Urine 1200 / 1200 1250 / 1250 Other: # Incontinent Voids 2 Date of Last Bowel Movement 05/16/18 05/16/18 # Bowel Movements 1 Narrative: GENERAL: Well-developed well-nourished. NECK: No carotid bruits. No JVD. CARDIOVASCULAR: Regular rate and rhythm. No murmur appreciated. RESPIRATORY: Mildly labored breathing, currently on BiPAP. Coarse breath sounds in the bases. MUSCULOSKELETAL: No clubbing or cyanosis. No edema. NEUROLOGICAL: Awake and alert. Normal speech. - Urinary Catheter Management Indwelling Urethral Catheter Cath placed during this visit: yes Reason for continuing: Hourly intake/output Insertion date: 05/13/18 Insertion time: 06:18 Results 05/17/18 06:33 05/17/18 06:33 Cardiac Enzymes 05/15/18 05/16/18 Range/Units 07:45 03:48 Troponin I 1.76 H* D (0.02-0.05) ng/mL B-Natriuretic Peptide 592 H (0-100) pg/mL Coagulation 05/16/18 05/16/18 Range/Units 03:48 03:48 APTT 67.4 H D (24.3-30.1) sec B-Natriuretic Peptide 592 H (0-100) pg/mL CBC 05/16/18 Range/Units 03:48 WBC 6.7 (4.0-11.0) th/mm3 RBC 3.59 L (4.00-5.30) mil/mm3 Hgb 9.8 L (11.6-15.3) gm/dL Hct 30.7 L (35.0-46.0) % Plt Count 185 (150-450) th/mm3 Neut # (Auto) 6.0 (1.8-7.7) th/mm3 Lymph # (Auto) 0.3 L (1.0-4.8) th/mm3 [place] # (Auto) 0.4 (0.0-0.9) th/mm3 Eos # (Auto) 0.0 (0.0-0.4) th/mm3 Baso # (Auto) 0.0 (0.0-0.2) th/mm3 Comprehensive Metabolic Panel 05/15/18 05/15/18 05/16/18 Range/Units 10:38 17:40 03:48 Sodium 144 (136-145) meq/L Potassium 3.8 D 4.0 (3.5-5.1) meq/L Chloride 109 H (98-107) meq/L Carbon Dioxide 24.3 (21.0-32.0) meq/L BUN 29 H (7-18) mg/dL Creatinine 1.21 H 1.01 H (0.50-1.00) mg/dL Calcium 7.2 L* (8.5-10.1) mg/dL Total Protein 6.8 (6.4-8.2) g/dL Albumin (3.4-5.0) g/dL 05/16/18 05/16/18 05/17/18 Range/Units 10:32 19:07 01:18 Sodium 147 H 144 (136-145) meq/L Potassium 2.7 L* D 3.6 D 3.5 (3.5-5.1) meq/L Chloride 110 H 107 (98-107) meq/L Carbon Dioxide 29.1 28.4 (21.0-32.0) meq/L BUN 26 H 24 H (7-18) mg/dL Creatinine 0.94 0.95 (0.50-1.00) mg/dL Calcium 7.4 L* 7.5 L (8.5-10.1) mg/dL Total Protein (6.4-8.2) g/dL Albumin 2.3 L (3.4-5.0) g/dL Intake and Output 05/16/18 05/17/18 05/17/18 22:59 06:59 14:59 Intake Total 550 / 550 200 / 200 Output Total 1200 / 1200 1250 / 1250 Balance -650 / -650 -1050 / -1050 Intake: IV 550 / 550 Heparin/D5W 25,000 U/250 mL 25, 250 / 250 000 unit In 250 ml @ Per Protocol IV.CONT TITRATE PRN Rx #:[id number] KCl 20 mEq Premix Inj 20 meq In 300 / 300 100 ml @ 50 mls/hr IV.SIG Q2H PRN Rx#:[id number] Oral 200 / 200 Output: Urine 1200 / 1200 1250 / 1250 Other: # Incontinent Voids 2 Date of Last Bowel Movement 05/16/18 05/16/18 # Bowel Movements 1 Weight 156 lb 8.451 oz - Imaging and Cardiology Imaging: Impressions Videofluoroscopic Swallow 05/16/18 00:00 CONCLUSION: No aspiration or penetration was seen. Assessment and Plan - Plan Assessment: 77-year-old lady with pulmonary fibrosis on 3 L continuous supplemental home oxygen presents with altered mental status. She was found to have atrial fibrillation with rapid ventricular response of new onset, leukocytosis with a left shift, significant transaminitis, likely mild DONATO and elevated troponin consistent with NSTEMI. #1 atrial fibrillation with rapid ventricular response: New onset. Spontaneously cardioverted and currently NSR. #2 NSTEMI: Currently asymptomatic and denies any recent anginal chest pain symptoms. EKG shows sinus rhythm with APCs, RBBB with diffuse ST-T wave abnormality in the anterior lateral and inferior distribution mostly unchanged from prior. Troponin is currently downtrending. #3 altered mental status #4 leukocytosis with left shift, SIRS #5 pulmonary fibrosis on chronic supplemental oxygen therapy #6 transaminitis #7 DONATO with elevated BUN suggestive of prerenal azotemia Recommendations: -Poor candidate for LHC at this time due to respiratory status, which unfortunately may be chronic, palliative care consulted. -Elevated chadsvasc score, however likely poor anticoagulation candidate, continue further goals of care discussion -DC heparin GTT -Continue aspirin 81 mg daily -Metoprolol tartrate 100 mg twice daily for rate control -Hold on statin therapy with underlying transaminitis -Rest per primary team. Discussed Condition With: Dr. Mcneil - Attending Attestation consevative mgt from cardio standpoint med mgt will sign off call with further questions
[2018-05-17] MEDS: Spironolactone 25 MG Tablet PO SCH ×2 (08:48→09:03)
[2018-05-17] MEDS: amLODIPine 5 MG Tablet PO SCH (08:48)
[2018-05-17] MEDS ORDERED: Magnesium Oxide 400 MG Tablet PO SCH (09:00)
[2018-05-17] MEDS: Metoprolol Tartrate 50 MG Tablet PO SCH (09:04)
[2018-05-17] MEDS: Benzonatate 100 MG Capsule PO SCH ×3 (09:05→17:29)
[2018-05-17 09:06] LABS: Albumin 2.4 g/dL (3.4-5.0); Calcium 7.8 mg/dL (8.5-10.1); Carbon Dioxide 30.7 meq/L (21.0-32.0); Magnesium 1.4 mg/dL (1.5-2.5); Potassium 4.4 meq/L (3.5-5.1)
[2018-05-17] MEDS: Magnesium Sulfate Inj 2 GM in Sodium Chlor 0.9% Inj 96 ML IV.SIG PRN (11:06)
--- NOTE | 2018-05-17 11:26 | P.CONPAL ---
Consult Service: Palliative Care Requesting Physician: Felipe To Reason for Consult: a. To assist with evaluation and management of symptoms including: altered mental status, shortness of breath, weakness. b. To assist medical decision maker(s) with: better understanding of current medical conditions; weighing benefits/burdens of medical treatment options; making medical treatment decisions. Primary Care Provider: Clive Johnson MD History of Present Illness History of Present Illness: Ms. Eason is a 77 year old female with past medical history of hypertension , diabetes, atrial fibrillation, gout, high cholesterol, chronic pain, pulmonary fibrosis on home O2 and hypothyroidism. Patient presented to [facility] emergency department on 05/13/18 for evaluation of altered mental status after family found her without oxygen on. She also reported shortness of breath and weakness. Initial evaluation revealed: * WBC 15.5, hemoglobin 13.3, hematocrit 41.7, platelets 298, neutrophils 78.3% * PT 11.9, INR 1.2, PTT 25.1 * Sodium 145, potassium 4.5, chloride 104, carbon dioxide 27.4, BUN 53, creatinine 1.35, GFR 38 * Lactic acid 2.7 * t. bili 1.6, AST 425, ALT 344, alk phos 82 * total protein 8.1, albumin 3.2 * TSH 1.050 * Troponin 8.28, 6.57, 5.06 sequentially * total creatine kinase 198, CK-MB 6.9, CK-MB % 3.5 * EKG - atrial fibrillation with RVR * urinalysis negative * chest x-ray - stable pulmonary fibrosis * CT head - senescent changes without acute intracranial abnormality * CTA chest - no evidence of pulmonary emolus, chronic scarring and fibrosis. Patient was admitted with NSTEMI, atrial fibrillation with RVR, pulmonary fibrosis, lactic acidosis, acute kidney injury and elevated LFTs and possible sepsis. She was started on empiric antibiotics. Cardiology, Dr. Reyes was consulted. Echocardiogram revealed EF 55-60%, right ventricle is moderately dilated, right ventricular systolic function is moderately decreased, trace mitral and tricuspid regurgitation, mild aortic valve regurgitation, diffuse mild calcification of the aortic valve, estimated pulmonary arterial pressure 45 mmHg. Patient was deemed not to be a good candidate for heart cath due to respiratory distress. She is also a poor candidate for anticoagulation per cardiology notes. Since admission, patient has had continued shortness of breath requiring NRB/ BiPAP. Dr. Franco is the patient's seafood manager who reports she has end stage pulmonary fibrosis. Family has requested palliative care consultation and medical team agrees. Dr. To and I met with family (2 sons and DIL). Also present Sara Oh LCSW. Lengthy conversation with family. They indicate patient has been telling them she is ready to "go home" referring to [place]. She has told them she is ready to go be with her loved ones who are waiting for her. Family is appropriately tearful in verbalizing her wishes. They would like to honor her wishes, but are struggling with the thought of taking away higher levels of oxygen and also do not want to move her out of the hospital. I advised we can get hospice here in the hospital and decrease oxygen levels and provide comfort meds here. If she survives overnight we could consider moving her to a hospice care center. This seems to be more in keeping with their wishes. They asked for some time to meet as a family and requested we come back later today. Floor Coverings Installer from her [facility] will be coming this afternoon. Dr. Franco also spoke with family and agreed with plan of care. Hospice was consulted. 5pm: Went back to bedside to speak with family in follow up from our conversation earlier. They report the adjunct spanish instructor has come. Awaiting arrival of additional family members who will be arriving tomorrow (05/18/18). SonByron indicates he wants to have another conversation with his mother this evening. She has been visiting with family and saying her good-byes to family today per family report. She has been awake, getting more lethargic this evening. Drinking sips of Ensure. Family requests to meet with hospice in AM and will likely transition to comfort after the family arrives tomorrow. Questions answered. Function/Cognitive Trajectory: Patient has had recent steep trajectory of decline. Review of Systems Constitutional: Reports daytime sleepiness, Reports lack of energy, Reports weakness Respiratory: Reports shortness of breath, Reports shortness of breath with activity Gastrointestinal: Reports nausea Musculoskeletal: Reports muscle weakness Psychiatric: Reports change in appetite (decreased) Hematologic/Lymphatic: Reports easy bruising PMFSH - History History Provided By: Family Member, Dray Driver / EMT - Medical History Medical History: Medical History (Last Reviewed 05/16/18 @ 13:23 by Bernie Duran Public Affairs Officer, HEAVY EQUIPMENT SUPERVISOR) A-fib Chronic pain Diabetes GERD (gastroesophageal reflux disease) Gout H/O: hysterectomy HTN (hypertension) High cholesterol Hip fracture Hypothyroid Pulmonary fibrosis - Surgical History Surgical History: Surgical History (Last Updated 05/17/18 @ 18:15 by Viry Car) History of ankle surgery History of hip surgery History of toe surgery - Family History Family History: Family History (Last Updated 05/13/18 @ 19:38 by Felipe To MD) Other Family history non-contributory - Social History I have reviewed the patient's Social History: Yes - Tobacco History Second Hand Smoke Exposure: No Tobacco Use In Past 30 Days: No Smoking Status: Former smoker (for a brief period of time in her youth) Tobacco Type: Cigarettes - Alcohol History How Often Do You Have a Drink Containing Alcohol: Never - Substance Use History Substance History: No History of Abuse - Travel History Recent Travel in the [facility] Within the Last 8 Weeks: No Recent Travel Out of the Country Within the Last 8 Weeks: No - Immunization History Tetanus Immunization: Unable to Assess Hx Influenza Vaccine This Season: Unable to Assess Medications and Allergies Active Medications: Active Medications Acetaminophen (Tylenol) 650 mg PO Q4H PRN PRN Reason: Temp > 100.4 Albuterol (Duoneb Neb (Prn)) 1 ampul NEB Q2HR NEB PRN PRN Reason: SHORTNESS OF BREATH/WHEEZING Albuterol (Duoneb Neb (Han)) 1 ampul NEB Q6HR NEB HAN Last Admin: 05/17/18 07:57 Dose: 1 ampul Alprazolam (Xanax) 0.25 mg PO Q8HR [facility] Last Admin: 05/17/18 05:02 Dose: 0.25 mg Amlodipine Besylate (Norvasc) 5 mg PO DAILY [facility] Last Admin: 05/17/18 08:48 Dose: 5 mg Aspirin (Aspirin Chew) 81 mg PO DAILY [facility] Last Admin: 05/17/18 09:04 Dose: Not Given Benzonatate (Tessalon Perles) 200 mg PO TID [facility] Last Admin: 05/17/18 09:05 Dose: Not Given Bisacodyl (Dulcolax Supp) 10 mg RECTAL DAILY PRN PRN Reason: SEVERE CONSITIPATION Chlorhexidine Gluconate (Chlorhexidine 2% Cloth) 3 pack TOPICAL DAILY@0400 [facility] Stop: 05/19/18 03:59 Last Admin: 05/17/18 05:02 Dose: 3 pack Chlorhexidine Gluconate (Chlorhexidine 2% Cloth) 3 pack TOPICAL DAILY@0400 PRN PRN Reason: Extra cloth needed Stop: 05/19/18 03:59 Dextrose (D50w Vial) 50 ml IV.PUSH UNSCH PRN PRN Reason: PER HYPOGLYCEMIA PROTOCOL Enalaprilat (Vasotec Inj) 1.25 mg IV.PUSH Q6H PRN PRN Reason: SBP>160, DBP>90 Glucagon (Glucagon Inj) 1 mg OTHER PRN PRN PRN Reason: for Hypoglycemia Protocol Magnesium Sulfate 4 gm/ Sodium (Chloride) 100 mls @ 50 mls/hr IV.SIG UNSCH PRN PRN Reason: For Magnesium 0.9 - 1.1 mg/dL Magnesium Sulfate 2 gm/ Sodium (Chloride) 100 mls @ 50 mls/hr IV.SIG UNSCH PRN PRN Reason: For Magnesium 1.2 - 1.6 mg/dL Last Infusion: 05/15/18 08:00 Dose: Infused Potassium Chloride (Kcl 40 Meq Premix Inj) 40 meq in 100 mls @ 25 mls/hr IV.SIG Q2H PRN PRN Reason: For Potassium 2.8 - 3.2 mEq/L Potassium Chloride (Kcl 20 Meq Premix Inj) 20 meq in 100 mls @ 50 mls/hr IV.SIG Q2H PRN PRN Reason: For Potassium 3.3 - 3.5 mEq/L Last Infusion: 05/15/18 12:05 Dose: Infused Potassium Chloride (Kcl 40 Meq Premix Inj) 40 meq in 100 mls @ 25 mls/hr IV.SIG UNSCH PRN PRN Reason: For Potassium 3.3 - 3.5 mEq/L Potassium Chloride (Kcl 20 Meq Premix Inj) 20 meq in 100 mls @ 50 mls/hr IV.SIG Q2H PRN PRN Reason: For Potassium 2.8 - 3.2 mEq/L Last Infusion: 05/16/18 20:45 Dose: Infused Potassium Phosphate 30 mmol/ (Sodium Chloride) 260 mls @ 42 mls/hr IV.SIG UNSCH PRN PRN Reason: SEE LABEL COMMENTS Last Infusion: 05/15/18 12:10 Dose: Infused Sodium Phosphate 30 mmol/ (Sodium Chloride) 260 mls @ 42 mls/hr IV.SIG UNSCH PRN PRN Reason: For Phosphorus < 2.5 mg/dL Dexmedetomidine HCl 1,000 mcg/ (Sodium Chloride) 250 mls @ 3.45 mls/hr IV.CONT TITRATE PRN; Protocol PRN Reason: Per Protocol Last Titration: 05/17/18 10:29 Dose: 0.3 mcg/kg/hr, 5.18 mls/hr Dextrose (D5w Inj) 1,000 mls @ 20 mls/hr IV.CONT .Q24H [facility] Last Infusion: 05/17/18 06:00 Dose: 20 mls/hr Insulin Aspart (Novolog Insulin Correctional Sugar Inj) 0 unit SQ ACHS AND 3AM HAN; Protocol Last Admin: 05/17/18 08:50 Dose: 3 unit Magnesium Oxide (Mag-Ox) 800 mg PO UNSCH PRN PRN Reason: For Magnesium 1.2 - 1.6 mg/dL Last Admin: 05/17/18 02:13 Dose: 800 mg Magnesium Oxide (Mag-Ox) 400 mg PO DAILY [facility] Last Admin: 05/17/18 09:04 Dose: Not Given Meclizine HCl (Antivert) 25 mg PO BID [facility] Last Admin: 05/17/18 08:48 Dose: 25 mg Melatonin (Melatonin) 5 mg PO HS [facility] Last Admin: 05/16/18 20:10 Dose: 5 mg Methylprednisolone Sodium Succinate (Solumedrol Inj) 60 mg IV.PUSH Q6H [facility] Last Admin: 05/17/18 08:49 Dose: 60 mg Metoprolol Tartrate (Lopressor Inj) 5 mg IV.PUSH Q5M PRN PRN Reason: RAPID HEART RATE Metoprolol Tartrate (Lopressor) 100 mg PO BID [facility] Last Admin: 05/17/18 09:04 Dose: Not Given Miscellaneous Information ([facility] Ordered Lab Info) 0 each OTHER ONCE ONE Stop: 05/19/18 10:46 Ondansetron HCl (Zofran Inj) 4 mg IV.PUSH Q6H PRN PRN Reason: NAUSEA OR VOMITING Last Admin: 05/16/18 00:30 Dose: 4 mg Pantoprazole Sodium (Protonix) 40 mg PO DAILY [facility] Last Admin: 05/17/18 09:05 Dose: Not Given Potassium Bicarb/Potassium Chloride (K-Lyte Cl Eff) 50 meq PO UNSCH PRN PRN Reason: For Potassium 3.3 - 3.5 mEq/L Last Admin: 05/17/18 02:12 Dose: 50 meq Potassium Phosphate (K-Phos Original) 2,000 mg PO UNSCH PRN PRN Reason: SEE LABEL COMMENTS Potassium Phosphate (K-Phos Original) 2,000 mg PO Q4H PRN PRN Reason: Phosphorus Less Than 2.5 mg/dL Pravastatin Sodium (Pravachol) 10 mg PO DAILY [facility] Last Admin: 05/17/18 09:05 Dose: Not Given Probenecid (Benemid) 500 mg PO DAILY [facility] Last Admin: 05/17/18 08:48 Dose: 500 mg Sennosides (Senokot) 17.2 mg PO Q12H PRN PRN Reason: Moderate Constipation Sodium Chloride (Ns Flush) 2 ml IV.FLUSH BID [facility] Last Admin: 05/17/18 08:56 Dose: 2 ml Sodium Chloride (Ns Flush) 2 ml IV.FLUSH PRN PRN PRN Reason: FLUSH AFTER USING IV ACCESS Spironolactone (Aldactone) 25 mg PO DAILY [facility] Last Admin: 05/17/18 09:03 Dose: 25 mg Thyroid ([place] Thyroid) 90 mg PO BID [facility] Last Admin: 05/17/18 08:48 Dose: 90 mg Allergies Allergy/AdvReac Type Severity Reaction Status Date / Time acetaminophen Allergy Severe ITCHY Verified 05/13/18 08:17 celecoxib Allergy Severe Tachycardia; Verified 05/13/18 08:17 HTN "stroke like symptoms" oxycodone Allergy Severe ITCHY Verified 05/13/18 08:17 procaine Allergy Severe INCREASED Verified 05/13/18 08:17 HR morphine Allergy Intermediate hives and Verified 05/13/18 08:17 itching Home Medications Medication Instructions Recorded Confirmed Type ProAir HFA 90 mcg INHALATION Q4HR PRN 05/13/18 05/13/18 History atenolol 25 mg PO DAILY 05/13/18 05/13/18 History benzonatate 200 mg PO TID 05/13/18 05/13/18 History clotrimazole 10 mg MUCOUS MEMBRANE TID 05/13/18 05/13/18 History esomeprazole magnesium 40 mg PO DAILY 05/13/18 05/13/18 History gabapentin 600 mg PO TID 05/13/18 05/13/18 History lisinopril 2.5 mg PO DAILY 05/13/18 05/13/18 History lovastatin 10 mg PO DAILY 05/13/18 05/13/18 History meclizine 25 mg PO BID 05/13/18 05/13/18 History metformin 500 mg PO BID 05/13/18 05/13/18 History mupirocin 1 applic TOPICAL TID 05/13/18 05/13/18 History prednisolone 5 mg PO BID 05/13/18 05/13/18 History probenecid 500 mg PO DAILY 05/13/18 05/13/18 History spironolacton-hydrochlorothiaz 1 tab PO DAILY 05/13/18 05/13/18 History thyroid (pork) [[place] Thyroid] 90 mg PO BID 05/13/18 05/13/18 History trazodone 50 mg PO HS 05/13/18 05/13/18 History Advance Directives Living Will: No Healthcare Surrogate: No Power of Gas Turbine Powerplant Mechanic Helper: Unknown Today's verbally stated goals: Patient has been telling her family she is ready to "go home" referring to Rosita to be with her and other family family members. Family/friends goals: Family wants to honor patient wishes for comfort. Awaiting arrival for additional family expected 05/18/18. Ethical and Legal Issues: No written advance directives. . According to [place] statutes, health care proxy decision making falls to her son, he is supported by his step- brother and . Physical Exam Vital Signs: Vital Signs - 24 hr 05/16/18 11:00 05/16/18 11:46 05/16/18 12:00 Temperature 97.6 F Pulse Rate 67 74 77 Respiratory Rate 36 H 40 H 30 H Blood Pressure 140/70 151/72 H 156/72 H Pulse Oximetry 99 98 91 L 05/16/18 12:19 05/16/18 13:00 05/16/18 14:00 Temperature Pulse Rate 75 78 79 Respiratory Rate 50 H 45 H 56 H Blood Pressure 145/73 H 151/75 H 166/74 H Pulse Oximetry 92 L 96 89 L 05/16/18 14:47 05/16/18 15:00 05/16/18 15:51 Temperature Pulse Rate 72 78 79 Respiratory Rate 44 H 48 H 32 H Blood Pressure 160/63 H 148/73 H Pulse Oximetry 90 L 90 L 05/16/18 16:00 05/16/18 16:23 05/16/18 17:00 Temperature 96.7 F L Pulse Rate 81 85 85 Respiratory Rate 40 H 65 H 52 H Blood Pressure 164/76 H 154/79 H 151/97 H Pulse Oximetry 90 L 89 L 87 L 05/16/18 18:00 05/16/18 19:00 05/16/18 20:00 Temperature 98 F Pulse Rate 78 80 78 Respiratory Rate 40 H 55 H 46 H Blood Pressure 121/57 L 138/67 139/63 Pulse Oximetry 100 92 L 99 05/16/18 20:45 05/16/18 20:47 05/16/18 20:53 Temperature Pulse Rate 76 Respiratory Rate 40 H Blood Pressure Pulse Oximetry 97 99 05/16/18 21:00 05/16/18 22:00 05/16/18 23:00 Temperature Pulse Rate 68 64 62 Respiratory Rate 42 H 53 H 35 H Blood Pressure 94/50 L 124/59 L 117/55 L Pulse Oximetry 99 100 99 05/17/18 00:00 05/17/18 00:33 05/17/18 01:00 Temperature 97.6 F Pulse Rate 63 58 L Respiratory Rate 66 H 41 H Blood Pressure 130/61 119/55 L Pulse Oximetry 99 100 97 05/17/18 02:00 05/17/18 03:00 05/17/18 03:18 Temperature Pulse Rate 55 L 53 L Respiratory Rate 37 H 43 H Blood Pressure 129/60 136/63 Pulse Oximetry 96 96 97 05/17/18 03:19 05/17/18 04:00 05/17/18 04:13 Temperature 98 F Pulse Rate 50 L 56 L Respiratory Rate 27 H 29 H Blood Pressure 131/61 Pulse Oximetry 97 99 05/17/18 05:26 05/17/18 06:00 05/17/18 07:53 Temperature 97.5 F L Pulse Rate 48 L 47 L Respiratory Rate 29 H Blood Pressure 149/66 H Pulse Oximetry 93 L 93 L 05/17/18 08:00 05/17/18 10:00 05/17/18 10:10 Temperature Pulse Rate 50 L 50 L Respiratory Rate Blood Pressure Pulse Oximetry 93 L 95 I&O: Intake & Output 10/01/2505/16/18 05/17/18 05/18/18 06:59 06:59 06:59 06:59 Intake Total 3682.5 / 3682.5 3662.50 / 3662.50 1462.50 / 1462.50 50 / 50 Output Total 1275 / 1275 2350 / 2350 2450 / 2450 Balance 2407.5 / 2407.5 1312.50 / 1312.50 -987.50 / -987.50 50 / 50 Weight 69.1 kg 71.8 kg 71 kg Physical Exam: CONSTITUTIONAL/GENERAL: This is an elderly,frail, critically ill patient, in no apparent distress. TUBES/LINES/DRAINS: Oxygen high flow via NC, PIV left FA and right FA, Garay. SKIN: No jaundice, rashes, or lesions. Ecchymoses on upper extremities. Skin temperature appropriate. Not diaphoretic. HEAD: Atraumatic. Normocephalic. EYES: Pupils equal and round and reactive. + slight scleral icterus. No injection or drainage. Fundi not examined. ENT: Hearing grossly normal. Nose without bleeding or purulent drainage. Throat without visible erythema, exudates, masses, or lesions. NECK: Trachea midline. CARDIOVASCULAR: Regular rate, and rhythm without murmurs, gallops, or rubs. No JVD. Peripheral pulses symmetric. RESPIRATORY/CHEST: Mildly labored respirations at rest. Coarse breath sounds bases. GASTROINTESTINAL: Abdomen soft, non-tender, nondistended. No hepato-splenomegaly , or palpable masses. No guarding. Bowel sounds present. GENITOURINARY: Without palpable bladder distension. Garay catheter in place. MUSCULOSKELETAL: Extremities without clubbing, cyanosis, or edema. No mottling or clubbing. LYMPHATICS: No palpable cervical or supraclavicular adenopathy. NEUROLOGICAL: Awakens briefly during exam. Moves all extremities. PSYCHIATRIC: No obvious anxiety/depression. no apparent hallucinations or other psychotic thought process. Diagnostic Tests Laboratory: Laboratory Results - last 72 hr 05/14/18 05/14/18 05/14/18 11:01 12:13 12:56 WBC RBC Hgb Hct MCV MCH MCHC RDW Plt Count MPV Neut % (Auto) Lymph % (Auto) [place] % (Auto) Eos % (Auto) Baso % (Auto) Neut # (Auto) Lymph # (Auto) [place] # (Auto) Eos # (Auto) Baso # (Auto) WBC Differential Differential Comment APTT 38.0 H Puncture Site Patient Temperature O2 Saturation ABG pH ABG pCO2 ABG pO2 ABG HCO3 ABG O2 Content ABG Base Excess ABG Methemoglobin Jase Test Hemoglobin Carboxyhemoglobin O2 Delivery Device Inspired O2 Critical Value Sodium Potassium Chloride Carbon Dioxide Anion Gap BUN Creatinine Estimated GFR POC Glucose 216 H Random Glucose Lactic Acid 2.2 H Calcium Prot Corrected Calcium Phosphorus Magnesium Total Bilirubin Direct Bilirubin Indirect Bilirubin AST ALT Alkaline Phosphatase Total Creatine Kinase Troponin I B-Natriuretic Peptide Total Protein Albumin Vancomycin Trough 05/14/18 05/14/18 05/14/18 18:04 19:32 21:37 WBC RBC Hgb Hct MCV MCH MCHC RDW Plt Count MPV Neut % (Auto) Lymph % (Auto) [place] % (Auto) Eos % (Auto) Baso % (Auto) Neut # (Auto) Lymph # (Auto) [place] # (Auto) Eos # (Auto) Baso # (Auto) WBC Differential Differential Comment APTT 40.1 H Puncture Site Patient Temperature O2 Saturation ABG pH ABG pCO2 ABG pO2 ABG HCO3 ABG O2 Content ABG Base Excess ABG Methemoglobin Jase Test Hemoglobin Carboxyhemoglobin O2 Delivery Device Inspired O2 Critical Value Sodium Potassium Chloride Carbon Dioxide Anion Gap BUN Creatinine Estimated GFR POC Glucose 188 H 231 H Random Glucose Lactic Acid Calcium Prot Corrected Calcium Phosphorus Magnesium Total Bilirubin Direct Bilirubin Indirect Bilirubin AST ALT Alkaline Phosphatase Total Creatine Kinase Troponin I B-Natriuretic Peptide Total Protein Albumin Vancomycin Trough 05/15/18 05/15/18 05/15/18 00:28 01:44 02:49 WBC RBC Hgb Hct MCV MCH MCHC RDW Plt Count MPV Neut % (Auto) Lymph % (Auto) [place] % (Auto) Eos % (Auto) Baso % (Auto) Neut # (Auto) Lymph # (Auto) [place] # (Auto) Eos # (Auto) Baso # (Auto) WBC Differential Differential Comment APTT Puncture Site Right radial Patient Temperature 98.6 O2 Saturation 94 ABG pH 7.45 H ABG pCO2 36 L ABG pO2 85 ABG HCO3 25 ABG O2 Content 13.7 ABG Base Excess 1.2 ABG Methemoglobin 1.4 Jase Test Present Hemoglobin 10.3 L Carboxyhemoglobin 1.2 O2 Delivery Device Nasal cannula Inspired O2 4 Critical Value No Sodium Potassium Chloride Carbon Dioxide Anion Gap BUN Creatinine Estimated GFR POC Glucose 126 H 179 H Random Glucose Lactic Acid Calcium Prot Corrected Calcium Phosphorus Magnesium Total Bilirubin Direct Bilirubin Indirect Bilirubin AST ALT Alkaline Phosphatase Total Creatine Kinase Troponin I B-Natriuretic Peptide Total Protein Albumin Vancomycin Trough 05/15/18 05/15/18 05/15/18 03:15 03:15 03:15 WBC 5.6 RBC 3.95 L Hgb 10.6 L Hct 34.1 L MCV 86.5 MCH 27.0 MCHC 31.2 L RDW 17.9 H Plt Count 204 MPV 8.5 Neut % (Auto) 89.5 H Lymph % (Auto) 6.9 L [place] % (Auto) 3.5 Eos % (Auto) 0.0 Baso % (Auto) 0.1 Neut # (Auto) 5.0 Lymph # (Auto) 0.4 L [place] # (Auto) 0.2 Eos # (Auto) 0.0 Baso # (Auto) 0.0 WBC Differential . Differential Comment Auto diff final APTT Puncture Site Patient Temperature O2 Saturation ABG pH ABG pCO2 ABG pO2 ABG HCO3 ABG O2 Content ABG Base Excess ABG Methemoglobin Jase Test Hemoglobin Carboxyhemoglobin O2 Delivery Device Inspired O2 Critical Value Sodium 147 H Potassium 2.8 L* Chloride 109 H Carbon Dioxide 27.2 Anion Gap 11 BUN 29 H Creatinine 1.13 H Estimated GFR 47 L POC Glucose Random Glucose 141 H Lactic Acid Calcium 7.4 L* Prot Corrected Calcium Phosphorus 2.4 L Magnesium 1.2 L Total Bilirubin Direct Bilirubin Indirect Bilirubin AST ALT Alkaline Phosphatase Total Creatine Kinase Troponin I B-Natriuretic Peptide 759 H Total Protein Albumin 2.5 L Vancomycin Trough 05/15/18 05/15/18 05/15/18 03:15 03:15 07:45 WBC RBC Hgb Hct MCV MCH MCHC RDW Plt Count MPV Neut % (Auto) Lymph % (Auto) [place] % (Auto) Eos % (Auto) Baso % (Auto) Neut # (Auto) Lymph # (Auto) [place] # (Auto) Eos # (Auto) Baso # (Auto) WBC Differential Differential Comment APTT 44.3 H Puncture Site Patient Temperature O2 Saturation ABG pH ABG pCO2 ABG pO2 ABG HCO3 ABG O2 Content ABG Base Excess ABG Methemoglobin Jase Test Hemoglobin Carboxyhemoglobin O2 Delivery Device Inspired O2 Critical Value Sodium Potassium Chloride Carbon Dioxide Anion Gap BUN Creatinine Estimated GFR POC Glucose Random Glucose Lactic Acid Calcium 7.5 L Prot Corrected Calcium 7.8 L Phosphorus Magnesium Total Bilirubin Direct Bilirubin Indirect Bilirubin AST ALT Alkaline Phosphatase Total Creatine Kinase 95 Troponin I 1.76 H* D B-Natriuretic Peptide Total Protein 6.5 D Albumin Vancomycin Trough 05/15/18 05/15/18 05/15/18 08:14 10:38 10:38 WBC RBC Hgb Hct MCV MCH MCHC RDW Plt Count MPV Neut % (Auto) Lymph % (Auto) [place] % (Auto) Eos % (Auto) Baso % (Auto) Neut # (Auto) Lymph # (Auto) [place] # (Auto) Eos # (Auto) Baso # (Auto) WBC Differential Differential Comment APTT Puncture Site Patient Temperature O2 Saturation ABG pH ABG pCO2 ABG pO2 ABG HCO3 ABG O2 Content ABG Base Excess ABG Methemoglobin Jase Test Hemoglobin Carboxyhemoglobin O2 Delivery Device Inspired O2 Critical Value Sodium 144 Potassium 3.8 D Chloride 109 H Carbon Dioxide 24.3 Anion Gap 11 BUN 29 H Creatinine 1.21 H Estimated GFR 43 L POC Glucose 163 H Random Glucose 220 H Lactic Acid 1.9 Calcium 7.2 L* Prot Corrected Calcium 7.4 L* Phosphorus Magnesium Total Bilirubin Direct Bilirubin Indirect Bilirubin AST ALT Alkaline Phosphatase Total Creatine Kinase Troponin I B-Natriuretic Peptide Total Protein 6.8 Albumin Vancomycin Trough 05/15/18 05/15/18 05/15/18 11:51 11:53 17:15 WBC RBC Hgb Hct MCV MCH MCHC RDW Plt Count MPV Neut % (Auto) Lymph % (Auto) [place] % (Auto) Eos % (Auto) Baso % (Auto) Neut # (Auto) Lymph # (Auto) [place] # (Auto) Eos # (Auto) Baso # (Auto) WBC Differential Differential Comment APTT Puncture Site Patient Temperature O2 Saturation ABG pH ABG pCO2 ABG pO2 ABG HCO3 ABG O2 Content ABG Base Excess ABG Methemoglobin Jase Test Hemoglobin Carboxyhemoglobin O2 Delivery Device Inspired O2 Critical Value Sodium Potassium Chloride Carbon Dioxide Anion Gap BUN Creatinine Estimated GFR POC Glucose 133 H 221 H Random Glucose Lactic Acid Calcium Prot Corrected Calcium Phosphorus Magnesium 1.6 Total Bilirubin Direct Bilirubin Indirect Bilirubin AST ALT Alkaline Phosphatase Total Creatine Kinase Troponin I B-Natriuretic Peptide Total Protein Albumin Vancomycin Trough 05/15/18 05/15/18 05/16/18 17:40 19:55 02:15 WBC RBC Hgb Hct MCV MCH MCHC RDW Plt Count MPV Neut % (Auto) Lymph % (Auto) [place] % (Auto) Eos % (Auto) Baso % (Auto) Neut # (Auto) Lymph # (Auto) [place] # (Auto) Eos # (Auto) Baso # (Auto) WBC Differential Differential Comment APTT Puncture Site Patient Temperature O2 Saturation ABG pH ABG pCO2 ABG pO2 ABG HCO3 ABG O2 Content ABG Base Excess ABG Methemoglobin Jase Test Hemoglobin Carboxyhemoglobin O2 Delivery Device Inspired O2 Critical Value Sodium Potassium 4.0 Chloride Carbon Dioxide Anion Gap BUN Creatinine Estimated GFR POC Glucose 180 H 185 H Random Glucose Lactic Acid Calcium Prot Corrected Calcium Phosphorus 3.9 D Magnesium Total Bilirubin Direct Bilirubin Indirect Bilirubin AST ALT Alkaline Phosphatase Total Creatine Kinase Troponin I B-Natriuretic Peptide Total Protein Albumin Vancomycin Trough 05/16/18 05/16/18 05/16/18 03:48 03:48 03:48 WBC 6.7 RBC 3.59 L Hgb 9.8 L Hct 30.7 L MCV 85.7 MCH 27.4 MCHC 31.9 L RDW 18.0 H Plt Count 185 MPV 8.6 Neut % (Auto) 90.0 H Lymph % (Auto) 4.7 L [place] % (Auto) 5.3 Eos % (Auto) 0.0 Baso % (Auto) 0.0 Neut # (Auto) 6.0 Lymph # (Auto) 0.3 L [place] # (Auto) 0.4 Eos # (Auto) 0.0 Baso # (Auto) 0.0 WBC Differential . Differential Comment Auto diff final APTT 67.4 H D Puncture Site Patient Temperature O2 Saturation ABG pH ABG pCO2 ABG pO2 ABG HCO3 ABG O2 Content ABG Base Excess ABG Methemoglobin Jase Test Hemoglobin Carboxyhemoglobin O2 Delivery Device Inspired O2 Critical Value Sodium Potassium Chloride Carbon Dioxide Anion Gap BUN Creatinine 1.01 H Estimated GFR 53 L POC Glucose Random Glucose Lactic Acid Calcium Prot Corrected Calcium Phosphorus Magnesium Total Bilirubin Direct Bilirubin Indirect Bilirubin AST ALT Alkaline Phosphatase Total Creatine Kinase Troponin I B-Natriuretic Peptide Total Protein Albumin Vancomycin Trough 05/16/18 05/16/18 05/16/18 03:48 07:53 10:32 WBC RBC Hgb Hct MCV MCH MCHC RDW Plt Count MPV Neut % (Auto) Lymph % (Auto) [place] % (Auto) Eos % (Auto) Baso % (Auto) Neut # (Auto) Lymph # (Auto) [place] # (Auto) Eos # (Auto) Baso # (Auto) WBC Differential Differential Comment APTT Puncture Site Patient Temperature O2 Saturation ABG pH ABG pCO2 ABG pO2 ABG HCO3 ABG O2 Content ABG Base Excess ABG Methemoglobin Jase Test Hemoglobin Carboxyhemoglobin O2 Delivery Device Inspired O2 Critical Value Sodium 147 H Potassium 2.7 L* D Chloride 110 H Carbon Dioxide 29.1 Anion Gap 8 BUN 26 H Creatinine 0.94 Estimated GFR 58 L POC Glucose 194 H Random Glucose 182 H Lactic Acid Calcium 7.4 L* Prot Corrected Calcium Phosphorus 3.2 Magnesium 1.4 L Total Bilirubin Direct Bilirubin Indirect Bilirubin AST ALT Alkaline Phosphatase Total Creatine Kinase Troponin I B-Natriuretic Peptide 592 H Total Protein Albumin 2.3 L Vancomycin Trough 13.1 H 05/16/18 05/16/18 05/16/18 12:49 17:36 19:07 WBC RBC Hgb Hct MCV MCH MCHC RDW Plt Count MPV Neut % (Auto) Lymph % (Auto) [place] % (Auto) Eos % (Auto) Baso % (Auto) Neut # (Auto) Lymph # (Auto) [place] # (Auto) Eos # (Auto) Baso # (Auto) WBC Differential Differential Comment APTT Puncture Site Patient Temperature O2 Saturation ABG pH ABG pCO2 ABG pO2 ABG HCO3 ABG O2 Content ABG Base Excess ABG Methemoglobin Jase Test Hemoglobin Carboxyhemoglobin O2 Delivery Device Inspired O2 Critical Value Sodium 144 Potassium 3.6 D Chloride 107 Carbon Dioxide 28.4 Anion Gap 9 BUN 24 H Creatinine 0.95 Estimated GFR 57 L POC Glucose 169 H 186 H Random Glucose 209 H Lactic Acid Calcium 7.5 L Prot Corrected Calcium Phosphorus Magnesium Total Bilirubin Direct Bilirubin Indirect Bilirubin AST ALT Alkaline Phosphatase Total Creatine Kinase Troponin I B-Natriuretic Peptide Total Protein Albumin Vancomycin Trough 05/16/18 05/17/18 05/17/18 20:02 01:18 02:01 WBC RBC Hgb Hct MCV MCH MCHC RDW Plt Count MPV Neut % (Auto) Lymph % (Auto) [place] % (Auto) Eos % (Auto) Baso % (Auto) Neut # (Auto) Lymph # (Auto) [place] # (Auto) Eos # (Auto) Baso # (Auto) WBC Differential Differential Comment APTT Puncture Site Patient Temperature O2 Saturation ABG pH ABG pCO2 ABG pO2 ABG HCO3 ABG O2 Content ABG Base Excess ABG Methemoglobin Jase Test Hemoglobin Carboxyhemoglobin O2 Delivery Device Inspired O2 Critical Value Sodium Potassium 3.5 Chloride Carbon Dioxide Anion Gap BUN Creatinine Estimated GFR POC Glucose 208 H 202 H Random Glucose Lactic Acid Calcium Prot Corrected Calcium Phosphorus 2.3 L Magnesium 1.4 L Total Bilirubin Direct Bilirubin Indirect Bilirubin AST ALT Alkaline Phosphatase Total Creatine Kinase Troponin I B-Natriuretic Peptide Total Protein Albumin Vancomycin Trough 05/17/18 05/17/18 05/17/18 06:33 06:33 06:33 WBC 5.5 RBC 3.64 L Hgb 9.9 L Hct 31.4 L MCV 86.3 MCH 27.1 MCHC 31.4 L RDW 17.8 H Plt Count 157 MPV 8.9 Neut % (Auto) 89.3 H Lymph % (Auto) 5.8 L [place] % (Auto) 4.8 Eos % (Auto) 0.0 Baso % (Auto) 0.1 Neut # (Auto) 4.9 Lymph # (Auto) 0.3 L [place] # (Auto) 0.3 Eos # (Auto) 0.0 Baso # (Auto) 0.0 WBC Differential . Differential Comment Auto diff final APTT 78.7 H Puncture Site Patient Temperature O2 Saturation ABG pH ABG pCO2 ABG pO2 ABG HCO3 ABG O2 Content ABG Base Excess ABG Methemoglobin Jase Test Hemoglobin Carboxyhemoglobin O2 Delivery Device Inspired O2 Critical Value Sodium 147 H Potassium 4.4 D Chloride 108 H Carbon Dioxide 30.7 Anion Gap 8 BUN 28 H Creatinine 0.92 Estimated GFR 59 L POC Glucose Random Glucose 182 H Lactic Acid Calcium 7.8 L Prot Corrected Calcium Phosphorus 2.0 L Magnesium 1.4 L Total Bilirubin 0.8 Direct Bilirubin 0.2 Indirect Bilirubin 0.6 AST 28 ALT 101 H Alkaline Phosphatase 56 Total Creatine Kinase Troponin I B-Natriuretic Peptide Total Protein 6.0 L D Albumin 2.4 L Vancomycin Trough 05/17/18 07:46 WBC RBC Hgb Hct MCV MCH MCHC RDW Plt Count MPV Neut % (Auto) Lymph % (Auto) [place] % (Auto) Eos % (Auto) Baso % (Auto) Neut # (Auto) Lymph # (Auto) [place] # (Auto) Eos # (Auto) Baso # (Auto) WBC Differential Differential Comment APTT Puncture Site Patient Temperature O2 Saturation ABG pH ABG pCO2 ABG pO2 ABG HCO3 ABG O2 Content ABG Base Excess ABG Methemoglobin Jase Test Hemoglobin Carboxyhemoglobin O2 Delivery Device Inspired O2 Critical Value Sodium Potassium Chloride Carbon Dioxide Anion Gap BUN Creatinine Estimated GFR POC Glucose 202 H Random Glucose Lactic Acid Calcium Prot Corrected Calcium Phosphorus Magnesium Total Bilirubin Direct Bilirubin Indirect Bilirubin AST ALT Alkaline Phosphatase Total Creatine Kinase Troponin I B-Natriuretic Peptide Total Protein Albumin Vancomycin Trough Result Diagrams: 05/17/18 06:33 05/17/18 06:33 Microbiology: Microbiology 05/13/18 06:05 Aerobic Blood Culture - Preliminary Blood - Peripheral No growth in 3 days Anaerobic Blood Culture - Preliminary No growth in 3 days 05/13/18 06:00 Aerobic Blood Culture - Preliminary Blood - Peripheral No growth in 3 days Anaerobic Blood Culture - Preliminary No growth in 3 days Imaging: Head CT 05/13/18 05:50 CONCLUSION: 1. Senescent changes without acute intracranial abnormality. . Chest CTA 05/13/18 07:31 CONCLUSION: 1. No evidence of pulmonary embolism. 2. Chronic scarring and fibrosis. Chest X-Ray 05/13/18 20:57 CONCLUSION: Persistent bilateral infiltrates. Left base is slightly worse. Videofluoroscopic Swallow 05/16/18 00:00 CONCLUSION: No aspiration or penetration was seen. Patient/Family Conference Present at Family Conference: Son, "Byron" (Ranjit), uriah and VICKI. Also present Dr. To and Sara Oh, [facility]. Family Conference Time: 75 Family Conference Location: Bedside Issues Discussed: * Palliative care role, purpose, approach * Additional medical, psychosocial, and spiritual history * Patients general health, functional status, and cognitive changes in the months leading up to the current hospitalization * Patient/family understanding of the current medical problems * Patient/family understanding of prognosis * Patients goals of care as best understood from advance directives and/or conversations and/or values * Current medical treatment options and benefits/burdens of those options * Likely scenarios comparing ongoing aggressive care with a transition to comfort measures only * Questions answered to the best of my ability * Palliative care contact information provided Family considering transition to comfort, will meet with hospice. Timing of transition to comfort to be determined. Floor Coverings Installer to visit today. Assessment and Plan - Disease Oriented Problem List (1) NSTEMI (non-ST elevated myocardial infarction) (2) Sepsis (3) Acute kidney injury (4) Elevated troponin (5) Pulmonary fibrosis - Symptom Scale (1) Shortness of breath 0-10 Scale: Unable to quantify Pertinent Non-Medical Issues: Psychosocial:. Has 1 son, and 1 stepson. Spiritual: Legal:No written advance directives. . According to [place] statutes, health care proxy decision making falls to her son, he is supported by his step- brother and . Ethical issues impacting care: No known concerns at this time. Important Contacts: * Ranjit Eason Jr., son: [phone] * Kelsey Ureña, DIL: [phone] Prognosis: Ms. Eason is a 77 year old female with end stage pulmonary fibrosis, admitted with NSTEMI, acute renal injury and liver dysfunction. She has been unable to be weaned from high flow oxygen and is not expected to given severity of underlying fibrosis. Her life expectancy is limited to days to weeks at best , less if transitioned off high flow oxygen. Hospice appropriate. Code Status: No Code DNR Plan: * No written advance directives. . According to [place] statutes, health care proxy decision making falls to her son, he is supported by his step- brother and . * NO CODE (DNR/DNI) * Dr. To and I met with family (2 sons and DIL). Also present Sara Oh LCSW. Lengthy conversation with family. They indicate patient has been telling them she is ready to "go home" referring to [place]. She has told them she is ready to go be with her loved ones who are waiting for her. Family is appropriately tearful in verbalizing her wishes. They would like to honor her wishes, but are struggling with the thought of taking away higher levels of oxygen and also do not want to move her out of the hospital. I advised we can get hospice here in the hospital and decrease oxygen levels and provide comfort meds here. If she survives overnight we could consider moving her to a hospice care center. This seems to be more in keeping with their wishes. They asked for some time to meet as a family and requested we come back later today. Floor Coverings Installer from her [facility] will be coming this afternoon. Dr. Franco also spoke with family and agreed with plan of care. * Hospice was consulted. * 5pm: Met with family again, they are awaiting arrival of additional family expected 05/18/18, will meet with hospice and likely transition to comfort after family arrives. Anticipate inpatient at [facility] per family request. Son would also like to have another conversation with her this evening to ensure she is okay with the plan of care. * SYMPTOMS: Shortness of breath: due to end stage pulmonary fibrosis. On high flow oxygen via [place], has been unable to be weaned. Lasix given today. Weakness: due to progressive disease, hospitalization, etc. Continue bedrest. Altered mental status: likely multifactorial, disease progression, renal and liver dysfunction, possible hypercapnia, medication effect and hospitalization. * Palliative care number provided. * Palliative care will continue to follow to assist with symptom management and clarification of goals of medical treatment. Appreciation Thank you for the opportunity to participate in the care of Lavinia Eason. Attestation Attestation: To help prompt me to consider important information that might be impacting today's encounter and assessment, information from prior notes written by myself or my colleagues may have been "brought forward" into today's note. My signature on this note, however, is an attestation that I personally performed the exam, history, and/or decision-making noted today, and, unless otherwise indicated, the interactions with patient, family, and staff as well as the review of records all occurred today. I also attest that the listed assessment and stated plan reflect my best clinical judgment today based on the combination of historical information, prior notes, and today's exam/ interactions. When time spent is documented, it refers only to time spent today by the signer, or if indicated, combined time spent today by collaborating physician/nurse practitioner.
[2018-05-17] MEDS ORDERED: Magnesium Oxide 400 MG Tablet PO ONE (12:11)
[2018-05-17] MEDS ORDERED: Potassium Phos/Sodium Phos 250 MG Tablet PO ONE (12:30)
[2018-05-17 16:41] VITALS: RESP 30; TEMP 98.9
--- NOTE | 2018-05-17 17:24 | P.PNIM ---
Subjective Interval history: patient seen today around noon. Somnolent, wakes up briefly for exam. Physical Exam Vital signs: Vital Signs 05/16/18 18:00 05/16/18 19:00 05/16/18 20:00 Temperature 98 F Pulse Rate 78 80 78 Respiratory Rate 40 H 55 H 46 H Blood Pressure 121/57 L 138/67 139/63 Pulse Oximetry 100 92 L 99 05/16/18 20:45 05/16/18 20:47 05/16/18 20:53 Temperature Pulse Rate 76 Respiratory Rate 40 H Blood Pressure Pulse Oximetry 97 99 05/16/18 21:00 05/16/18 22:00 05/16/18 23:00 Temperature Pulse Rate 68 64 62 Respiratory Rate 42 H 53 H 35 H Blood Pressure 94/50 L 124/59 L 117/55 L Pulse Oximetry 99 100 99 05/17/18 00:00 05/17/18 00:33 05/17/18 01:00 Temperature 97.6 F Pulse Rate 63 58 L Respiratory Rate 66 H 41 H Blood Pressure 130/61 119/55 L Pulse Oximetry 99 100 97 05/17/18 02:00 05/17/18 03:00 05/17/18 03:18 Temperature Pulse Rate 55 L 53 L Respiratory Rate 37 H 43 H Blood Pressure 129/60 136/63 Pulse Oximetry 96 96 97 05/17/18 03:19 05/17/18 04:00 05/17/18 04:13 Temperature 98 F Pulse Rate 50 L 56 L Respiratory Rate 27 H 29 H Blood Pressure 131/61 Pulse Oximetry 97 99 05/17/18 05:26 05/17/18 06:00 05/17/18 07:53 Temperature 97.5 F L Pulse Rate 48 L 47 L Respiratory Rate 29 H Blood Pressure 149/66 H Pulse Oximetry 93 L 93 L 05/17/18 08:00 05/17/18 10:00 05/17/18 10:10 Temperature Pulse Rate 50 L 50 L Respiratory Rate Blood Pressure Pulse Oximetry 93 L 95 05/17/18 12:00 05/17/18 14:00 05/17/18 15:00 Temperature 97.6 F Pulse Rate 60 80 99 H Respiratory Rate 26 H 18 Blood Pressure 155/65 H Pulse Oximetry 05/17/18 16:00 Temperature 98.9 F Pulse Rate 98 H Respiratory Rate 30 H Blood Pressure 133/61 Pulse Oximetry 91 L Intake & Output 05/16/18 05/17/18 05/17/18 18:59 06:59 18:59 Intake Total 1162.50 / 1162.50 300 / 300 450 / 450 Output Total 1200 / 1200 1250 / 1250 Balance -37.50 / -37.50 -950 / -950 450 / 450 Weight 71 kg Intake: IV 1162.50 / 1162.50 100 / 100 450 / 450 D5W Inj 1,000 ML @ 20 mls/hr IV 300 / 300 .CONT .Q24H BARB Rx#:[id number] Heparin/D5W 25,000 U/250 mL 25, 250 / 250 50 / 50 000 unit In 250 ml @ Per Protocol IV.CONT TITRATE PRN Rx #:[id number] NS Inj 1,000 ML @ 100 mls/hr IV 300 / 300 .CONT .Q10H BARB Rx#:[id number] Magnesium Sulfate Inj 2 GM In 100 / 100 NS Inj 96 ML @ 50 mls/hr IV.SIG UNSCH PRN Rx#:[id number] Zosyn 3.375 GM Premix 50 ML @ 50 / 50 100 mls/hr IV.SIG Q6H BARB Rx#: [id number] KCl 20 mEq Premix Inj 20 meq In 300 / 300 100 / 100 100 ml @ 50 mls/hr IV.SIG Q2H PRN Rx#:[id number] Vancomycin Inj 1,250 MG In NS 262.50 / 262.50 Inj 250 ML @ 250 mls/hr IV.SIG Q24H BARB Rx#:[id number] Oral 200 / 200 Output: Urine 1200 / 1200 1250 / 1250 Other: # Incontinent Voids 2 Date of Last Bowel Movement 05/16/18 05/16/18 # Bowel Movements 1 Narrative: GENERAL: patient somnolent, wakes up for exam. Appear short of breath. On high flow O2 by nasal cannula SKIN: Warm and dry. HEAD: Normocephalic. EYES: No scleral icterus. No injection or drainage. NECK: Supple, trachea midline.positive JVD. CARDIOVASCULAR: Regular rate and rhythm without murmurs, gallops, or rubs. RESPIRATORY: Breath sounds equal bilaterally. No accessory muscle use. GASTROINTESTINAL: Abdomen soft, non-tender, nondistended. MUSCULOSKELETAL: No cyanosis, or edema. BACK: Nontender without obvious deformity. No CVA tenderness. - Urinary Catheter Management Indwelling Urethral Catheter Cath placed during this visit: yes Reason for continuing: Terminally ill/Comfort care Insertion date: 05/17/18 Insertion time: 14:05 Results - Labs CBC & Chem 7: 05/17/18 06:33 05/17/18 06:33 Laboratory Results - last 24 hr 05/16/18 05/16/18 05/16/18 17:36 19:07 20:02 WBC RBC Hgb Hct MCV MCH MCHC RDW Plt Count MPV Neut % (Auto) Lymph % (Auto) [place] % (Auto) Eos % (Auto) Baso % (Auto) Neut # (Auto) Lymph # (Auto) [place] # (Auto) Eos # (Auto) Baso # (Auto) WBC Differential Differential Comment APTT Sodium 144 Potassium 3.6 D Chloride 107 Carbon Dioxide 28.4 Anion Gap 9 BUN 24 H Creatinine 0.95 Estimated GFR 57 L POC Glucose 186 H 208 H Random Glucose 209 H Calcium 7.5 L Phosphorus Magnesium Total Bilirubin Direct Bilirubin Indirect Bilirubin AST ALT Alkaline Phosphatase Total Protein Albumin 05/17/18 05/17/18 05/17/18 01:18 02:01 06:33 WBC 5.5 RBC 3.64 L Hgb 9.9 L Hct 31.4 L MCV 86.3 MCH 27.1 MCHC 31.4 L RDW 17.8 H Plt Count 157 MPV 8.9 Neut % (Auto) 89.3 H Lymph % (Auto) 5.8 L [place] % (Auto) 4.8 Eos % (Auto) 0.0 Baso % (Auto) 0.1 Neut # (Auto) 4.9 Lymph # (Auto) 0.3 L [place] # (Auto) 0.3 Eos # (Auto) 0.0 Baso # (Auto) 0.0 WBC Differential . Differential Comment Auto diff final APTT Sodium Potassium 3.5 Chloride Carbon Dioxide Anion Gap BUN Creatinine Estimated GFR POC Glucose 202 H Random Glucose Calcium Phosphorus 2.3 L Magnesium 1.4 L Total Bilirubin Direct Bilirubin Indirect Bilirubin AST ALT Alkaline Phosphatase Total Protein Albumin 05/17/18 05/17/18 05/17/18 06:33 06:33 07:46 WBC RBC Hgb Hct MCV MCH MCHC RDW Plt Count MPV Neut % (Auto) Lymph % (Auto) [place] % (Auto) Eos % (Auto) Baso % (Auto) Neut # (Auto) Lymph # (Auto) [place] # (Auto) Eos # (Auto) Baso # (Auto) WBC Differential Differential Comment APTT 78.7 H Sodium 147 H Potassium 4.4 D Chloride 108 H Carbon Dioxide 30.7 Anion Gap 8 BUN 28 H Creatinine 0.92 Estimated GFR 59 L POC Glucose 202 H Random Glucose 182 H Calcium 7.8 L Phosphorus 2.0 L Magnesium 1.4 L Total Bilirubin 0.8 Direct Bilirubin 0.2 Indirect Bilirubin 0.6 AST 28 ALT 101 H Alkaline Phosphatase 56 Total Protein 6.0 L D Albumin 2.4 L 05/17/18 05/17/18 11:20 17:09 WBC RBC Hgb Hct MCV MCH MCHC RDW Plt Count MPV Neut % (Auto) Lymph % (Auto) [place] % (Auto) Eos % (Auto) Baso % (Auto) Neut # (Auto) Lymph # (Auto) [place] # (Auto) Eos # (Auto) Baso # (Auto) WBC Differential Differential Comment APTT Sodium Potassium Chloride Carbon Dioxide Anion Gap BUN Creatinine Estimated GFR POC Glucose 181 H 194 H Random Glucose Calcium Phosphorus Magnesium Total Bilirubin Direct Bilirubin Indirect Bilirubin AST ALT Alkaline Phosphatase Total Protein Albumin Microbiology 05/13/18 06:05 Blood - Peripheral Aerobic Blood Culture - Preliminary No growth in 4 days 05/13/18 06:05 Blood - Peripheral Anaerobic Blood Culture - Preliminary No growth in 4 days 05/13/18 06:00 Blood - Peripheral Aerobic Blood Culture - Preliminary No growth in 4 days 05/13/18 06:00 Blood - Peripheral Anaerobic Blood Culture - Preliminary No growth in 4 days Assessment and Plan - Plan //Atrial fibrillation with RVR. //Non-ST elevation DE. //Acute CHF exacerbation. //Hypertension = Count is up to 6.57. This could be demand related. We will control heart rate. Initially on diltiazem drip, however will switch to beta-camryn. On heparin drip. Consult cardiology. Appreciate assistance. Trend EKGs, troponins. = 05/14. Troponins have decreased to 4.25 with controlled heart rate. Cardiology following. Have ordered echocardiogram. Diuresis again today. Fluid restrictions. Appreciate assistance. = 05/15. Elevated blood pressures. Will start on as needed Vasotec, start amlodipine. Pulmonology is started on Revatio. Start on spironolactone due to hyperkalemia, need for diuresis. will monitor. = 05/16. Replace potassium. Order more Lasix. Continue fluid restrictions. =05/17. History assess improved today after Lasix. Palliative care discussed with family. Pulmonology following. Appreciate assistance. //Possible sepsis on admission With leukocytosis, tachycardia, lactic acidosis CT pulmonary and gram-negative for pulmonary embolism. No evidence of lobar or atypical pneumonia. Chronic fibrosis. We will continue antibiotics. If cultures remain negative times 24 hours will discontinue. Awaiting on cultures to be verified -24 hours. = No sign of infection. Discontinue IV antibiotics. //Pulmonary fibrosis. Possibly with acute exacerbation. Exacerbation possibly causing atrial fibrillation. We will treat exacerbation with IV steroids, scheduled [facility] Pulmonology following. Appreciate assistance. = 05/16. Discussed with Dr. Franco. Will consult palliative care service as per discussion with Dr. Franco, as well as my discussion with family. =05/17. Palate care, hospice consulted. Appreciate assistance. Pulmonology following. //Hypomagnesemia //hypoKalemia = 05/15. Potassium 2.8, magnesium 1.2.-Replace and monitor = 05/16. Potassium 2.7. Magnesium 1.4. Replace and monitor. =05/17. Potassium 4.4. Improved. magnesium 1.4. Replace.Continue monitor. //Lactic acidosis Looking back on previous admissions, it appears that patient is predisposed to lactic acidosis. We will supplement thiamine, monitor. = Resolved. //GERD. Chronic. Continue home medications. Discharge Planning: Pending improvement. PT consult ordered and pending.
[2018-05-17] MEDS ORDERED: hydrALAZINE 25 MG Tablet PO SCH (18:00)
[2018-05-17] MEDS ORDERED: HYDROmorphone PF Inj 2 MG/ML Vial IV.PUSH ONE ×2 (21:00)
[2018-05-17] MEDS ORDERED: HYDROmorphone PF Inj 1 MG/ML Ampul IV.PUSH PRN ×2 (21:00)
[2018-05-17] MEDS ORDERED: ALPRAZolam 0.5 MG Tablet PO PRN (21:09)
[2018-05-17] MEDS ORDERED: ALPRAZolam 0.5 MG Tablet PO STA (21:09)
[2018-05-17] MEDS ORDERED: HYDROmorphone PF Inj 2 MG/ML Vial IV.PUSH PRN ×2 (21:15)
--- NOTE | 2018-05-17 21:47 | P.PNPAL ---
Call from family to request transition to comfort tonight. They have spoken with patient and she does not want to wait any longer. She is alert and oriented , She is able to tell me her lungs are failing and that she is tired of oxygen. She is ready to go. She does not want tubes and machines and wants to be allowed to peacefully and naturally when God is ready for her. She tells me she does not want anymore oxygen. I provided anticipatory guidance regarding transition to comfort. I explained that I will premedicate her to ensure she is not painful or frightened or struggling to breathe. I reviewed her allergies and confirmed she has not had any adverse reactions to hydromorphone or alprazolam. She asks me to promise me that we will not bring her back when she dies. I explained we will keep her comfortable for whatever time she has left and that God will decide when it is time for her to go. She smiles and tells me to go put orders in the computer. Discussed with nursing staff and Mily Andrea APRN. Orders written. Family will meet with hospice in AM if patient survives.
[2018-05-17 22:22] VITALS: PULSE 112
[2018-05-17 22:42] VITALS: BP 143/74; O2SAT 97
--- NOTE | 2018-05-18 10:02 | P.DS ---
Date of admission: 05/13/18 06:55 Primary care physician: Clive Johnson MD Brief History from admission: 77-year-old female with a history of hypertension, pulmonary fibrosis, chronic respiratory failure O2 dependent, GERD, diabetes who presents with a 1 day history of degree of progressively worsening shortness of breath, cough productive of clear sputum. She denies any chest pain. She denies any fevers, chills. She denies any pain. DS: Summary Hospital Course: Patient presented with atrial fibrillation with RVR admission. This is managed with diltiazem drip. Also with troponin elevation above 1, likely demand related. Cardiology was consulted, and initially recommended possible cardiac catheterization, however due to chronic pulmonary fibrosis, very high risk. Pulmonology was consulted for pulmonary fibrosis and acute on chronic respiratory failure. Patient was diuresed without significant improvement, and oxygen requirements continued, requiring high flow oxygen. Per discussion with brand planner, Dr. Franco, patient and family opted for hospice. Oxygen was removed at night as per patient's discussion with palliative care service and patient passed peacefully. For problem-based summary from most recent progress note, please see below. //Atrial fibrillation with RVR. //Non-ST elevation GA. //Acute CHF exacerbation. //Hypertension = Count is up to 6.57. This could be demand related. We will control heart rate. Initially on diltiazem drip, however will switch to beta-camryn. On heparin drip. Consult cardiology. Appreciate assistance. Trend EKGs, troponins. = 05/14. Troponins have decreased to 4.25 with controlled heart rate. Cardiology following. Have ordered echocardiogram. Diuresis again today. Fluid restrictions. Appreciate assistance. = 05/15. Elevated blood pressures. Will start on as needed Vasotec, start amlodipine. Pulmonology is started on Revatio. Start on spironolactone due to hyperkalemia, need for diuresis. will monitor. = 05/16. Replace potassium. Order more Lasix. Continue fluid restrictions. =05/17. History assess improved today after Lasix. Palliative care discussed with family. Pulmonology following. Appreciate assistance. //Possible sepsis on admission With leukocytosis, tachycardia, lactic acidosis CT pulmonary and gram-negative for pulmonary embolism. No evidence of lobar or atypical pneumonia. Chronic fibrosis. We will continue antibiotics. If cultures remain negative times 24 hours will discontinue. Awaiting on cultures to be verified -24 hours. = No sign of infection. Discontinue IV antibiotics. //Pulmonary fibrosis. Possibly with acute exacerbation. Exacerbation possibly causing atrial fibrillation. We will treat exacerbation with IV steroids, scheduled [facility] Pulmonology following. Appreciate assistance. = 05/16. Discussed with Dr. Franco. Will consult palliative care service as per discussion with Dr. Franco, as well as my discussion with family. =05/17. Palate care, hospice consulted. Appreciate assistance. Pulmonology following. //Hypomagnesemia //hypoKalemia = 05/15. Potassium 2.8, magnesium 1.2.-Replace and monitor = 05/16. Potassium 2.7. Magnesium 1.4. Replace and monitor. =05/17. Potassium 4.4. Improved. magnesium 1.4. Replace.Continue monitor. //Lactic acidosis Looking back on previous admissions, it appears that patient is predisposed to lactic acidosis. We will supplement thiamine, monitor. = Resolved. //GERD. Chronic. Continue home medications. Discharge Planning: Pending improvement. PT consult ordered and pending. - Time Spent with Patient Total time spent providing and/or coordinating discharge services: Greater than 30 minutes Exam Vital signs: Vital Signs 05/17/18 10:10 05/17/18 12:00 05/17/18 14:00 Temperature 97.6 F Pulse Rate 60 80 Respiratory Rate 26 H Blood Pressure 155/65 H Pulse Oximetry 95 05/17/18 15:00 05/17/18 16:00 05/17/18 18:00 Temperature 98.9 F Pulse Rate 99 H 98 H 97 H Respiratory Rate 18 30 H Blood Pressure 133/61 Pulse Oximetry 91 L 05/17/18 20:00 05/17/18 22:00 Temperature 98.9 F Pulse Rate 113 H 112 H Respiratory Rate 30 H Blood Pressure 143/74 H Pulse Oximetry 97 Intake & Output 05/17/18 05/18/18 05/18/18 18:59 06:59 18:59 Intake Total 450 / 450 260 / 260 Output Total 2600 / 2600 Balance -2150 / -2150 260 / 260 Intake: IV 450 / 450 260 / 260 D5W Inj 1,000 ML @ 20 mls/hr IV 300 / 300 .CONT .Q24H BARB Rx#:[id number] Heparin/D5W 25,000 U/250 mL 25, 50 / 50 000 unit In 250 ml @ Per Protocol IV.CONT TITRATE PRN Rx #:[id number] Magnesium Sulfate Inj 2 GM In 100 / 100 NS Inj 96 ML @ 50 mls/hr IV.SIG UNSCH PRN Rx#:[id number] Sodium Phosphate Inj 30 MMOL In 260 / 260 NS Inj 250 ML @ 42 mls/hr IV. SIG UNSCH PRN Rx#:[id number] Output: Urine 2600 / 2600 Other: Date of Last Bowel Movement 05/17/18 05/17/18 # Bowel Movements 1 Results Procedures completed during hospitalization: no invasive procedures. Labs on day of discharge: Labs from last 24 hours 05/17/18 05/17/18 17:09 11:20 POC Glucose 194 H 181 H Preliminary micro results at discharge 05/13/18 06:05 Aerobic Blood Culture - Preliminary Blood - Peripheral No growth in 4 days Anaerobic Blood Culture - Preliminary No growth in 4 days 05/13/18 06:00 Aerobic Blood Culture - Preliminary Blood - Peripheral No growth in 4 days Anaerobic Blood Culture - Preliminary No growth in 4 days - Impressions ITS Impressions Head CT 05/13/18 05:50 CONCLUSION: 1. Senescent changes without acute intracranial abnormality. . Chest CTA 05/13/18 07:31 CONCLUSION: 1. No evidence of pulmonary embolism. 2. Chronic scarring and fibrosis. Chest X-Ray 05/13/18 20:57 CONCLUSION: Persistent bilateral infiltrates. Left base is slightly worse. Videofluoroscopic Swallow 05/16/18 00:00 CONCLUSION: No aspiration or penetration was seen. Discharge Plan - Discharge Disposition Patient Disposition: 20 - Discharge Details Date/Time: 05/17/18 22:56 - Physicians Team Primary Care Provider: Clive Johnson Attending Provider: Felipe To Other Providers: Corey Mcneil MD ; Willian Dorsey MD ; Tariq Gaviria MD ; Anirudh Franco MD
[2018-05-19] MEDS ORDERED: Pharmacy Ordered Lab Info OTHER ONE (10:45)
== END 2018-05-17 22:56 | disposition expired ==
LOC: NEPE 05:46 → NEDA 06:55 → HIMC 10:30
PROVIDERS: ADMIT Internal Medicine; ATTEND Internal Medicine